=== PATIENT | female | born 1960 | race Caucasian/White ===

== ENCOUNTER → 2016-10-01 | Outpatient (CLI) | payer OTHER ==
--- NOTE | 2016-10-01 11:22 | US ---
EXAMINATION TYPE: US venous doppler duplex LE LT DATE OF EXAM: 10/01/2016 11:07 AM COMPARISON: NONE CLINICAL HISTORY: lateral left leg pain, no h/o dvt. SIDE PERFORMED: Left VESSELS IMAGED: External Iliac Vein (EIV) Common Femoral Vein Deep Femoral Vein Greater Saphenous Vein * Femoral Vein Popliteal Vein Small Saphenous Vein * Proximal Calf Veins (* superficial vessels) IMPRESSION: Left Leg: Appears negative for DVT
== END | disposition home or self-care (01) ==
LOC: RADUSWWP 10:48
PROVIDERS: ATTEND Family Medicine
DX: M79.652 Pain in left thigh (principal)

== ENCOUNTER 2016-10-22 09:58 | Observation (INO) | payer OTHER ==
[2016-10-22] MEDS ORDERED: NITROGLYCERIN OINT 1 INCH/GM PACKET TOPICAL STA (10:36)
[2016-10-22] MEDS ORDERED: ASPIRIN 81 MG CHEW PO STA (10:36)
--- NOTE | 2016-10-22 10:42 | ED ---
General Adult HPI - General Chief complaint: Chest Pain Stated complaint: CHEST PAIN Time Seen by Provider: 10/22/16 10:10 Source: patient, RN notes reviewed Mode of arrival: wheelchair Limitations: no limitations - History of Present Illness Initial comments: This is a 56-year-old female with past medical history significant for thyroid cancer as well as MRI. Patient states she's never had a stent placed as her vessels were 2 small. Patient states she started having symptoms a couple days ago with some discomfort under her right armpit but got really significant this morning she broke out into a sweat and the pain radiated up her neck down her right arm. Patient states this is very similar to the heart attack that she had before. Patient states that movement seems to make his pain worse as does deep breathing or coughing. Patient states that is not similar to the pain she had before but the sweating and the pain down the arm are both familiar to her from the [place] she had in the past. Patient denies any recent fever chills or cough. Patient denies headache patient denies numbness weakness. Patient denies any lightheadedness dizziness or near syncopal episode. Patient states she went to the clinic prior to coming to the emergency department data an EKG didn't see any significant findings however because of her diaphoresis shortness of breath and the similar symptoms between his episode her previous heart attack they wanted to come the emergency department. Again the patient states the one thing that is not similar is the fact that the pain seems to worsen with deep breathing and coughing worse before it did not. - Related Data Home Medications Medication Instructions Recorded Confirmed Omeprazole [PriLOSEC] 20 mg PO DAILY 03/19/15 10/22/16 Atorvastatin [Lipitor] 40 mg PO HS 12/05/15 10/22/16 Ergocalciferol [Vitamin D2 50,000 unit PO WE 04/03/16 10/22/16 (DRISDOL)] Liothyronine Sodium [Cytomel] 25 mcg PO DAILY 04/03/16 10/22/16 Levothyroxine Sodium [Synthroid] 100 mcg PO DAILY 05/18/16 10/22/16 Previous Rx's Medication Instructions Recorded Aspirin EC [Ecotrin Low Dose] 81 mg PO DAILY #30 tablet.dr 03/15/14 Metoprolol Succinate (ER) [Toprol 12.5 mg PO BID #60 tab.er.24h 03/15/14 XL] Nitroglycerin Sl Tabs [Nitrostat] 0.4 mg SUBLINGUAL Q5M PRN #25 tab 03/15/14 Allergies Allergy/AdvReac Type Severity Reaction Status Date / Time bee pollen Allergy Anaphylaxis Verified 10/22/16 10:07 levofloxacin [From Levaquin] Allergy Anaphylaxis Verified 10/22/16 10:33 Penicillins Allergy Anaphylaxis Verified 10/22/16 10:33 venom-honey bee Allergy Anaphylaxis Verified 10/22/16 10:33 adhesive tape AdvReac Rash/Hives Verified 10/22/16 10:33 Review of Systems ROS Statement: Those systems with pertinent positive or pertinent negative responses have been documented in the HPI. ROS Other: All systems not noted in ROS Statement are negative. Past Medical History Past Medical History: Coronary Artery Disease (CAD), Cancer, GERD/Reflux, Myocardial Infarction ([place]), Thyroid Disorder Additional Past Medical History / Comment(s): HX THYROID CA, HX OF DIVERTICULITIS, numbness, pain hands, worse on right, DDD, cervical stenosis & myelopathy Last Myocardial Infarction Date:: 03/09/14 History of Any Multi-Drug Resistant Organisms: None Reported Past Surgical History: Breast Surgery, Heart Catheterization, Hysterectomy, Tubal Ligation Additional Past Surgical History / Comment(s): breast biopsy, heart cath-UNABLE TO PUT IN STENT, RT THYROIDECTOMY AND LEFT MASS REMOVED FROM NECK AT [facility], , MULT THYROID BX'S. completion of thyroidectomy, COLONOSCOPY, CERVICAL DISCECTOMY/FUSION C4-5,C5-6,C6-7 Past Anesthesia/Blood Transfusion Reactions: No Reported Reaction Additional Past Anesthesia/Blood Transfusion Reaction / Comment(s): STATES B/P WAS LOW POST OP RT THYROIDECTOMY-mostly related to narcotic pain meds. CLAUSTERPHOBIA Past Psychological History: Anxiety, Depression Additional Psychological History / Comment(s): pt states has anxiety no meds. PT DENIES ANY DEPRESSION AT TIME OF THIS ADMIT, NO THOUGHTS OF HARMING SELF, NO HOPELESSNESS Smoking Status: Former smoker Past Alcohol Use History: Occasional Additional Past Alcohol Use History / Comment(s): STARTED SMOKING AT AGE 18 STOPPED FEBRUARY 2016 Past Drug Use History: None Reported - Past Family History Father Family Medical History: Osteoarthritis (OA) Mother Family Medical History: Rheumatoid Arthritis (RA) Additional Family Medical History / Comment(s): hypothyroidism. bladder issues. heart palpatations General Exam - General Exam Comments Initial Comments: GENERAL: Patient is well-developed and well-nourished. Patient is nontoxic and well- hydrated and is in mild distress. ENT: Neck is soft and supple. No significant lymphadenopathy is noted. Oropharynx is clear. Moist mucous membranes. Neck has full range of motion without eliciting any pain. EYES: The sclera were anicteric and conjunctiva were pink and moist. Extraocular movements were intact and pupils were equal round and reactive to light. Eyelids were unremarkable. PULMONARY: Unlabored respirations. Good breath sounds bilaterally. No audible rales rhonchi or wheezing was noted. CARDIOVASCULAR: There is a regular rate and rhythm without any murmurs gallops or rubs. ABDOMEN: Soft and nontender with normal bowel sounds. No palpable organomegaly was noted. There is no palpable pulsatile mass. SKIN: Skin is clear with no lesions or rashes and otherwise unremarkable. NEUROLOGIC: Patient is alert and oriented x3. Cranial nerves II through XII are grossly intact. Motor and sensory are also intact. Normal speech, volume and content. Symmetrical smile. MUSCULOSKELETAL: Normal extremities with adequate strength and full range of motion. No lower extremity swelling or edema. No calf tenderness. LYMPHATICS: No significant lymphadenopathy is noted PSYCHIATRIC: Normal psychiatric evaluation. Limitations: no limitations Course Vital Signs 10/22/16 10/22/16 10/22/16 10:04 10:37 11:47 Temperature 98.0 F Pulse Rate 60 63 59 L Respiratory 20 18 17 Rate Blood Pressure 135/67 134/70 112/61 O2 Sat by Pulse 99 96 95 Oximetry Medical Decision Making - Medical Decision Making EKG shows sinus bradycardia 59 bpm IA interval is 162 QRS is 80 QT interval 374 QTC is 370. Patient's EKG shows no ST segment elevation or depression or T wave abnormalities are noted. Patient's chest x-ray showed no acute abnormality. I went back to reexamine the patient she still is having episodes of pain that radiated up into the back of her shoulder blade on the right. Patient also got tingling down the fingers on the right arm as well. I looked at the patient's previous admission when she had her heart attack her initial enzymes were not very elevated but shortly thereafter they were extremely high because of this and her clinical picture I felt her to be unstable angina pectoris started on heparin I called Dr. Contreras admitted the patient and wrote admitting orders and consult cardiology continued to help her nitroglycerin and aspirin on the floor. - Lab Data Result diagrams: 10/22/16 10:45 10/22/16 10:45 Lab Results 10/22/16 10/22/16 10/22/16 Range/Units 10:45 10:45 10:45 WBC 6.2 (3.8-10.6) k/uL RBC 4.96 (3.80-5.40) m/uL Hgb 14.3 (11.4-16.0) gm/dL Hct 43.3 (34.0-46.0) % MCV 87.2 (80.0-100.0) fL MCH 28.8 (25.0-35.0) pg MCHC 33.0 (31.0-37.0) g/dL RDW 12.7 (11.5-15.5) % Plt Count 232 (150-450) k/uL Neutrophils % 65 % Lymphocytes % 24 % Monocytes % 5 % Eosinophils % 4 % Basophils % 1 % Neutrophils # 4.0 (1.3-7.7) k/uL Lymphocytes # 1.5 (1.0-4.8) k/uL Monocytes # 0.3 (0-1.0) k/uL Eosinophils # 0.3 (0-0.7) k/uL Basophils # 0.0 (0-0.2) k/uL PT (9.0-12.0) sec INR (<1.1) APTT (22.0-30.0) sec D-Dimer (<0.60) mg/L FEU Sodium 143 (137-145) mmol/L Potassium 4.9 (3.5-5.1) mmol/L Chloride 105 (98-107) mmol/L Carbon Dioxide 28 (22-30) mmol/L Anion Gap 10 mmol/L BUN 15 (7-17) mg/dL Creatinine 0.78 (0.52-1.04) mg/dL Est GFR (MDRD) Af Amer >60 (>60 ml/min/1.73 sqM) Est GFR (MDRD) Non-Af >60 (>60 ml/min/1.73 sqM) Glucose 93 (74-99) mg/dL Calcium 9.5 (8.4-10.2) mg/dL Magnesium 1.9 (1.6-2.3) mg/dL Total Bilirubin 0.9 (0.2-1.3) mg/dL AST 22 (14-36) U/L ALT 48 (9-52) U/L Alkaline Phosphatase 112 (38-126) U/L Total Creatine Kinase 48 (30-135) U/L CK-MB (CK-2) 1.0 (0.0-2.4) ng/mL CK-MB (CK-2) Rel Index 2.1 Troponin I <0.012 (0.000-0.034) ng/mL NT-Pro-B Natriuret Pep pg/mL Total Protein 7.0 (6.3-8.2) g/dL Albumin 4.1 (3.5-5.0) g/dL 10/22/16 10/22/16 Range/Units 10:45 10:45 WBC (3.8-10.6) k/uL RBC (3.80-5.40) m/uL Hgb (11.4-16.0) gm/dL Hct (34.0-46.0) % MCV (80.0-100.0) fL MCH (25.0-35.0) pg MCHC (31.0-37.0) g/dL RDW (11.5-15.5) % Plt Count (150-450) k/uL Neutrophils % % Lymphocytes % % Monocytes % % Eosinophils % % Basophils % % Neutrophils # (1.3-7.7) k/uL Lymphocytes # (1.0-4.8) k/uL Monocytes # (0-1.0) k/uL Eosinophils # (0-0.7) k/uL Basophils # (0-0.2) k/uL PT 10.4 (9.0-12.0) sec INR 1.0 (<1.1) APTT 21.1 L (22.0-30.0) sec D-Dimer 0.40 (<0.60) mg/L FEU Sodium (137-145) mmol/L Potassium (3.5-5.1) mmol/L Chloride (98-107) mmol/L Carbon Dioxide (22-30) mmol/L Anion Gap mmol/L BUN (7-17) mg/dL Creatinine (0.52-1.04) mg/dL Est GFR (MDRD) Af Amer (>60 ml/min/1.73 sqM) Est GFR (MDRD) Non-Af (>60 ml/min/1.73 sqM) Glucose (74-99) mg/dL Calcium (8.4-10.2) mg/dL Magnesium (1.6-2.3) mg/dL Total Bilirubin (0.2-1.3) mg/dL AST (14-36) U/L ALT (9-52) U/L Alkaline Phosphatase (38-126) U/L Total Creatine Kinase (30-135) U/L CK-MB (CK-2) (0.0-2.4) ng/mL CK-MB (CK-2) Rel Index Troponin I (0.000-0.034) ng/mL NT-Pro-B Natriuret Pep 95 pg/mL Total Protein (6.3-8.2) g/dL Albumin (3.5-5.0) g/dL Critical Care Time Critical Care Time: Yes Total Critical Care Time: 35 Disposition Clinical Impression: Unstable angina pectoris Disposition: ADMITTED IP TO THIS [facility] Time of Disposition: 12:29
[2016-10-22 10:56] LABS: Basophils % (A) 1 %; CHCM 33.4; Eosinophils # (A) 0.3 k/uL (0-0.7); Eosinophils % (A) 4 %; HCT 43.3 % (34.0-46.0); HDW 2.41; HGB 14.3 gm/dL (11.4-16.0); Luc # (Auto) 0.06; Luc % (Auto) 1; Lymphocytes # (A) 1.5 k/uL (1.0-4.8); Lymphocytes % (A) 24 %; MCH 28.8 pg (25.0-35.0); MCV 87.2 fL (80.0-100.0); Mean Platelet Volume 7.3; Monocytes # (A) 0.3 k/uL (0-1.0); Monocytes % (A) 5 %; Neutrophils % (A) 65 %; RBC 4.96 m/uL (3.80-5.40); RDW 12.7 % (11.5-15.5); WBC 6.2 k/uL (3.8-10.6); WBC (Perox) 6.19
[2016-10-22 11:11] LABS: ALT 48 U/L (9-52); AST 22 U/L (14-36); Alkaline Phosphatase 112 U/L (38-126); Anion Gap 10 mmol/L; Blood Urea Nitrogen 15 mg/dL (7-17); Calcium 9.5 mg/dL (8.4-10.2); Carbon Dioxide 28 mmol/L (22-30); Chloride 105 mmol/L (98-107); Glucose 93 mg/dL (74-99); Magnesium 1.9 mg/dL (1.6-2.3); Non-African American GFR(MDRD) >60 (>60 ml/min/1.73 sqM); Potassium 4.9 mmol/L (3.5-5.1); Sodium 143 mmol/L (137-145); Total Bilirubin 0.9 mg/dL (0.2-1.3)
[2016-10-22 11:16] LABS: Prothrombin Time 10.4 sec (9.0-12.0)
[2016-10-22 11:20] LABS: Partial Thromboplastin Time 21.1 sec (22.0-30.0)
--- NOTE | 2016-10-22 11:25 | XR ---
EXAMINATION TYPE: XR chest 2V DATE OF EXAM: 10/22/2016 11:17 AM HISTORY: Shortness of breath. COMPARISON: 05/13/16 TECHNIQUE: two view of the chest is submitted. FINDINGS: Demonstrated are scattered senescent parenchymal change. There is no evidence for focal infiltrate. The heart is stable. Hilar and mediastinal structures are within normal limits. Degenerative changes are seen of the dorsal spine. IMPRESSION: 1. Chronic changes without evidence for acute pulmonary disease.
[2016-10-22 11:26] LABS: Creatine Kinase 48 U/L (30-135)
[2016-10-22 11:38] LABS: Troponin I <0.012 ng/mL (0.000-0.034)
[2016-10-22] MEDS ORDERED: HEPARIN SODIUM,PORCINE 5,000 UNIT/ML 1 ML VIAL IV ONE (12:27)
[2016-10-22] MEDS ORDERED: ACETAMINOPHEN TAB 500 MG TAB PO STA (12:27)
[2016-10-22] MEDS ORDERED: NITROGLYCERIN SL TABS 0.4 MG TAB SUBLINGUAL PRN (12:29)
[2016-10-22] MEDS ORDERED: HEPARIN SODIUM,PORCINE/D5W PMX 25,000 UNIT in DEXTROSE/WATER 1 500ML.BAG IV SCH (12:30)
[2016-10-22 17:47] LABS: Creatine Kinase 53 U/L (30-135)
[2016-10-22 18:01] LABS: Troponin I <0.012 ng/mL (0.000-0.034)
[2016-10-22] MEDS ORDERED: ACETAMINOPHEN TAB 325 MG TAB PO PRN (18:14)
[2016-10-22] MEDS: NITROGLYCERIN OINT 1 INCH/GM PACKET TOPICAL SCH ×2 (18:26→21:03)
[2016-10-22] MEDS ORDERED: ATORVASTATIN 40 MG TAB PO SCH (21:00)
[2016-10-22] MEDS: METOPROLOL SUCCINATE (ER) 25 MG TAB.ER.24H PO SCH (21:02)
[2016-10-22] MEDS ORDERED: NAPROXEN 250 MG TAB PO PRN (21:42)
[2016-10-22] MEDS ORDERED: HYDROcodone/APAP 5-325MG 1 EACH TAB PO STA (21:45)
[2016-10-22 22:50] LABS: Creatine Kinase 38 U/L (30-135)
[2016-10-22 23:02] LABS: Creatine Kinase MB 0.8 ng/mL (0.0-2.4); Troponin I <0.012 ng/mL (0.000-0.034)
[2016-10-23 00:42] LABS: Cholesterol 142 mg/dL (<200); HDL Cholesterol 58 mg/dL (40-60); Triglycerides 75 mg/dL (<150)
[2016-10-23] MEDS ORDERED: HYDROcodone/APAP 5-325MG 1 EACH TAB PO STA (03:47)
[2016-10-23] MEDS ORDERED: LEVOTHYROXINE 100 MCG TAB PO SCH (06:30)
[2016-10-23] MEDS ORDERED: PANTOPRAZOLE 40 MG TABLET PO SCH (07:30)
--- NOTE | 2016-10-23 08:05 | HP ---
DATE OF ADMISSION: 10/22/2016 PRESENTING COMPLAINT: Chest pain. HISTORY OF PRESENTING COMPLAINT: This is a pleasant 56-year-old patient of Dr. Perez whose chronic stable medical conditions include hyperlipidemia, GERD, patient had surgery for thyroid cancer, history of diverticulitis. 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 Patient also got known coronary artery disease. She states the vessels are too small to be stented. The patient now presents with very sharp pain around the right armpit, goes up to her shoulder. It is much better with lying still and much worse with taking a deep breath and really catches in the chest wall. There is no left-sided precordial pain. There is no shortness of breath. No dizziness. Every time she moves around, it is much worse because of which questioned for possible coronary artery disease. She was admitted. REVIEW OF SYSTEMS: CONSTITUTIONAL: None. HEENT: None. RESPIRATORY: As above. CARDIOVASCULAR: No precordial pain. GASTROINTESTINAL: Heartburn. GENITOURINARY: None. MUSCULOSKELETAL: As above. DERMATOLOGICAL: None. HEMATOLOGIC: None. LYMPHATIC: None. PSYCHIATRY: None. NEUROLOGICAL: None. PAST HISTORY: Coronary artery disease with very small vessels, GERD, thyroid cancer with surgery, diverticulitis, cervical neuropathy with numbness and pain in the hand, cervical stenosis and myelopathy, hyperlipidemia, GERD. PAST SURGICAL HISTORY: Cardiac catheterization, hysterectomy, tubal ligation, right breast biopsy benign, cardiac cath unable to put stent because the vessels are small, thyroidectomy due to cancer, left mass removed from neck benign, cervical discectomy fusion from C4 to C7. SOCIAL HISTORY: Lives with her fiance. Smokes for about 40 years; stopped in 2013. Alcohol minimal. FAMILY HISTORY: Rheumatoid arthritis, hypothyroid. HOME MEDICATIONS: 1. Prilosec 20 mg a day. 2. Nitrostat 0.4 sublingual q.5 p.r.n. 3. Toprol XL 12.5 p.o. b.i.d. 4. Cytomel 25 mcg p.o. daily. 5. Synthroid 100 mcg p.o. daily. 6. Vitamin D2, 50,000 units p.o. on Wednesday. 7. Lipitor 40 mg q.h.s. 8. Aspirin 81 mg p.o. daily. Allergies to LEVAQUIN, PENICILLIN and ADHESIVE TAPE. On examination, temperature 98, pulse 60, respirations 20, blood pressure 135/67, pulse ox 99% on room air. GENERAL APPEARANCE: Well built, BMI 36, lying in bed. She winces in pain when she moves. EYES: Pupils equal. Conjunctivae normal. HEENT: External appearance of nose and ears normal. Oral cavity normal. NECK: JVD not raised. Mass not palpable. RESPIRATORY: Effort normal. LUNGS: Fair air entry. CARDIOVASCULAR: First and second sounds normal. No edema. ABDOMEN: Soft, nontender. Liver and spleen not palpable. LYMPHATIC: No lymph nodes palpable of neck or axillae. PSYCHIATRY: Alert and oriented x3. Mood and affect normal. NEUROLOGICAL: Pupils equal. Cranial nerves grossly intact. Power and sensation grossly intact. MUSCULOSKELETAL: Patient has got tenderness in the middle axillary line at the level of the nipple and patient does wince and ( ) in pain when I press there in the costochondral area. INVESTIGATIONS: White count 6.2, hemoglobin 14.3. Potassium 4.9. Troponin x2 negative. ProBNP 95. D-dimer 0.40. EKG normal sinus rhythm. ASSESSMENT: 1. Acute severe costochondritis in the probably fifth to seventh intercostal space in the mid axillary line highly reproducible with a pleuritic component every time she takes a deep breath mainly because her ribs move get expanded during the process. 2. Hypothyroidism, chronic. 3. Gastroesophageal reflux disease. 4. Coronary artery disease, history of. 5. 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 6. Obesity, body mass index 36.0. PLAN: This current presentation is definitely not cardiac and costochondritis. Patient will be put on the Aleve, heating pad. Home medications will be resumed. I do not see any need for any further cardiac workup. The patient was reassured. She should followup with her family doctor . I told her to apply local heat or ice whatever suits her better.
[2016-10-23 08:16] VITALS: BP 112/70; PULSE 57; RESP 18; TEMP 97.9
[2016-10-23] MEDS ORDERED: NAPROXEN 250 MG TAB PO SCH (09:00)
[2016-10-23] MEDS ORDERED: ASPIRIN 81 MG CHEW PO SCH (09:00)
[2016-10-23] MEDS ORDERED: ASPIRIN 325 MG TAB PO SCH (09:00)
[2016-10-23] MEDS ORDERED: LIOTHYRONINE SODIUM 5 MCG TAB PO SCH ×2 (09:00)
[2016-10-23] MEDS ORDERED: ENOXAPARIN 40 MG/0.4 ML SYRINGE SQ SCH (09:00)
[2016-10-23] MEDS: METOPROLOL SUCCINATE (ER) 25 MG TAB.ER.24H PO SCH (09:07)
--- NOTE | 2016-10-24 17:00 | DS ---
DATE OF ADMISSION: 10/22/2016 DATE OF DISCHARGE: 10/23/2016 FINAL DIAGNOSES: 1. Acute severe right costochondritis in the fifth to seventh intercostal space in the mid axillary line. 2. Hypothyroidism, chronic. 3. Gastroesophageal reflux disease. 4. Coronary artery disease, history of. 5. 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 6. Obesity, body mass index 36.0. HOSPITAL COURSE: This patient presented with severe pain in the right chest wall, present at the ( ) level of the mid axillary line, localized and it was severe, rather reproducible. Patient was given NSAIDs with some relief. It is not felt to be cardiac. EKG was unremarkable. Troponins were negative. Care was discussed with the patient in detail. On examination, ( ). DISCHARGE MEDICATIONS: 1. Aspirin 81 mg a day. 2. Toprol XL 12.5 p.o. b.i.d. 3. Nitrostat 0.4 sublingual q.5 p.r.n. 4. Prilosec 20 mg daily. 5. Lipitor 40 mg q.h.s. 6. Vitamin D2, 50,000 units p.o. Wednesday. 7. Cytomel 25 mcg p.o. daily. 8. Synthroid 100 mcg p.o. daily. 9. Naproxen 250 mg p.o. b.i.d., 14 tablets. Local heat with K-pad to be used. Follow up with Dr. Perez in one week.
[2016-10-28] MEDS ORDERED: ERGOCALCIFEROL 50,000 UNIT CAP PO SCH (09:00)
== END 2016-10-23 14:00 | disposition home or self-care (01) ==
LOC: EC 09:58 → 3OBS 12:29
PROVIDERS: ADMIT Hospitalist; ATTEND Hospitalist
DX: M94.0 Chondrocostal junction syndrome [Tietze] (principal); E03.9 Hypothyroidism, unspecified; K21.9 Gastro-esophageal reflux disease without esophagitis; I25.10 Atherosclerotic heart disease of native coronary artery without angina pectoris; M50.00 Cervical disc disorder with myelopathy, unspecified cervical region; M48.02 Spinal stenosis, cervical region; E66.9 Obesity, unspecified; Z68.36 Body mass index [BMI] 36.0-36.9, adult; I25.2 Old myocardial infarction; K57.92 Diverticulitis of intestine, part unspecified, without perforation or abscess without bleeding; F41.9 Anxiety disorder, unspecified; E78.5 Hyperlipidemia, unspecified; Z85.850 Personal history of malignant neoplasm of thyroid; Z87.891 Personal history of nicotine dependence; Z79.899 Other long term (current) drug therapy; Z79.82 Long term (current) use of aspirin; Z88.1 Allergy status to other antibiotic agents; Z88.0 Allergy status to penicillin
CPT/HCPCS: 36415; 93005; 85379; 83880; 80061; 80053; 82550; 82553; 83735; 84484; 85025; 85610; 85730; 71020; 99291; 96365; 96376; G0378 ×2; J1644 ×2; J1650; 96366; 96372

== ENCOUNTER → 2017-12-11 | Outpatient (CLI) | payer MEDICARE, OTHER ==
--- NOTE | 2017-12-11 09:40 | MR ---
EXAMINATION TYPE: MR brain wo/w con DATE OF EXAM: 12/11/2017 9:27 AM COMPARISON: NONE HISTORY: Change in vision TECHNIQUE: Multiplanar, multiecho imaging of the brain was obtained with and without intravenous adm inistration of 10 mL intravenous Gadavist. FINDINGS: Midline structures are unremarkable. There is a normal craniocervical junction. There is restricted diffusion in both cerebellar hemispheres. There is corresponding increased signal on the T2 data set as well as the FLAIR dataset. There is no mass effect, midline shift or intracran ial blood. There are normal vascular flow voids. The orbits appear normal. There is no evidence of a CP angle mass lesion. Following intravenous administration of gadolinium, there is patchy abnormal enhancement in the right cerebellar hemisphere and to a lesser extent the left cerebellar hemisphere. The fourth ventricle is not effaced. IMPRESSION: RESTRICTED DIFFUSION IN BOTH CEREBELLAR HEMISPHERES WITH PATCHY, ABNORMAL ENHANCEMENT BILATERALLY, RI GHT GREATER THAN LEFT. THIS WOULD BE AN UNUSUAL PATTERN FOR ISCHEMIA. METABOLIC CAUSES WOULD NEED TO BE CONSIDERED.
== END | disposition home or self-care (01) ==
LOC: RADMRIMAIN 08:38
PROVIDERS: ATTEND Psychiatry & Neurology Neurology
DX: R90.89 Other abnormal findings on diagnostic imaging of central nervous system (principal); Z88.0 Allergy status to penicillin; Z88.1 Allergy status to other antibiotic agents; Z88.8 Allergy status to other drugs, medicaments and biological substances
CPT/HCPCS: 70553; A9581

== ENCOUNTER → 2018-01-24 | Outpatient (CLI) | payer MEDICARE, OTHER ==
--- NOTE | 2018-01-24 14:13 | MM ---
Reason for exam: screening (asymptomatic). Last mammogram was performed 3 years and 6 months ago. History: Patient history of other cancer. Excisional biopsy. Physical Findings: A clinical breast exam by your physician is recommended on an annual basis and results should be correlated with mammographic findings. MG 3D Screening Mammo W/Cad Bilateral CC and MLO view(s) were taken. Prior study comparison: July 30, 2014, mammogram. June 05, 2014, mammogram. There are scattered fibroglandular densities. Finding: There are typically benign round calcifications in the left breast. Previous mammotome biopsy in the right breast. There is no discrete abnormality. ASSESSMENT: Benign, BI-RAD 2 RECOMMENDATION: Routine screening mammogram of both breasts in 1 year.
== END | disposition home or self-care (01) ==
LOC: RADMAMWWP 08:18
PROVIDERS: ATTEND Family Medicine
DX: Z12.31 Encounter for screening mammogram for malignant neoplasm of breast (principal)
CPT/HCPCS: 77063; 77067

== ENCOUNTER 2018-02-15 12:05 | Day surgery (SDC) | payer MEDICARE, OTHER ==
[2018-02-14 09:36] VITALS: BMI 35.9
[~2018-02-15 12:05] MED LIST: LACTATED RINGERS 1,000 ML IV SCH
[2018-02-15 12:30] VITALS: RESP 16; TEMP 97.1
[2018-02-15] MEDS ORDERED: LIDOCAINE 1% INJ 10MG/ML (20 ML MDV) ONE (13:13)
[2018-02-15] MEDS ORDERED: PROPOFOL 10 MG/ML 20 ML VIAL IV ONE (13:13)
--- NOTE | 2018-02-15 13:38 | P.PCN ---
Date of Procedure: 02/15/18 Procedure(s) Performed: Procedure: Esophagogastroduodenoscopy and biopsy. Preoperative diagnosis: Chronic reflux and upper abdominal symptoms. Postoperative diagnosis: 1. Sliding hiatal hernia with no obvious esophagitis or complicated reflux disease. 2. Mild gastritis and duodenitis. 3. Multiple biopsies obtained from the duodenum, antrum and esophagus. Preparation and sedation: Was provided by anesthesia. Brief clinical history: The patient is a 57-year-old female who is scheduled for this evaluation for the above reasons. He purposes to assess for esophagitis or complicated reflux disease or other pathology. Procedure: With the patient on her left lateral decubitus position and after informed consent and adequate sedation, I passed the Olympus-GIF 160 video upper endoscope through the cricopharyngeus down the esophagus. The esophagus did not show any obvious erosions or ulcers, there were no strictures or Stock 's esophagus. GE junction was around 39 cm from the incisors and there was a sliding hiatal hernia then the endoscope was passed to the rest of the stomach which was insufflated with air and inspected in detail including the retroflex view in the cardia. Finally, the endoscope was passed through the pylorus into the duodenum. Both the stomach and duodenum showed mild mottling and erythema consistent with mild gastritis and duodenitis but there were no ulcers or gastric outlet obstruction or bleeding. I obtained multiple biopsies from the duodenum in addition to biopsies from the antrum and esophagus then the endoscope was withdrawn.. The patient tolerated the procedure well. Plan: The patient was reassured. Will await biopsy results and I will review her ultrasound reports and make further plans based on her course and those results. I will keep you updated on her progress.
[2018-02-15 14:17] VITALS: BP 125/76; PULSE 68
== END 2018-02-15 14:45 | disposition home or self-care (01) ==
LOC: ORWHC2ENDO 12:05
DX: K29.50 Unspecified chronic gastritis without bleeding (principal); B96.81 Helicobacter pylori [H. pylori] as the cause of diseases classified elsewhere; Z91.030 Bee allergy status; K21.9 Gastro-esophageal reflux disease without esophagitis; I25.10 Atherosclerotic heart disease of native coronary artery without angina pectoris; I10 Essential (primary) hypertension; M19.90 Unspecified osteoarthritis, unspecified site; Z85.850 Personal history of malignant neoplasm of thyroid; I25.2 Old myocardial infarction; Z87.891 Personal history of nicotine dependence; Z79.82 Long term (current) use of aspirin; Z79.890 Hormone replacement therapy; Z79.899 Other long term (current) drug therapy; Z88.0 Allergy status to penicillin; Z88.1 Allergy status to other antibiotic agents; K29.80 Duodenitis without bleeding
CPT/HCPCS: 88305; 88342; 43239; J2001; J2704

== ENCOUNTER 2018-05-02 12:49 | Observation (INO) | payer MEDICARE, OTHER ==
[2018-05-02 14:52] LABS: ALT 32 U/L (9-52); AST 24 U/L (14-36); Albumin 3.9 g/dL (3.5-5.0); Alkaline Phosphatase 76 U/L (38-126); Anion Gap 9 mmol/L; Blood Urea Nitrogen 15 mg/dL (7-17); Calcium 9.2 mg/dL (8.4-10.2); Carbon Dioxide 24 mmol/L (22-30); Chloride 108 mmol/L (98-107); Glucose 107 mg/dL (74-99); Potassium 4.2 mmol/L (3.5-5.1); Sodium 141 mmol/L (137-145); Total Bilirubin 0.4 mg/dL (0.2-1.3); Total Protein 6.4 g/dL (6.3-8.2)
[2018-05-02 15:01] LABS: Creatine Kinase 60 U/L (30-135)
[2018-05-02 15:02] LABS: INR 1.1 (<1.2); Prothrombin Time 10.4 sec (9.0-12.0)
[2018-05-02] MEDS ORDERED: MORPHINE SULFATE 4 MG/ML SYRINGE IVP STA (15:03)
[2018-05-02] MEDS ORDERED: ASPIRIN 325 MG TAB PO STA (15:03)
[2018-05-02 15:09] LABS: Partial Thromboplastin Time 22.2 sec (22.0-30.0)
[2018-05-02 15:12] LABS: Creatine Kinase MB 0.7 ng/mL (0.0-2.4); Troponin I <0.012 ng/mL (0.000-0.034)
[2018-05-02 15:22] LABS: Basophils # (A) 0.1 k/uL (0-0.2); Basophils % (A) 1 %; Eosinophils # (A) 0.2 k/uL (0-0.7); Eosinophils % (A) 4 %; HCT 42.4 % (34.0-46.0); HGB 13.9 gm/dL (11.4-16.0); Lymphocytes # (A) 1.4 k/uL (1.0-4.8); Lymphocytes % (A) 29 %; MCH 28.4 pg (25.0-35.0); MCHC 32.8 g/dL (31.0-37.0); MCV 86.5 fL (80.0-100.0); Mean Platelet Volume 6.9; Monocytes # (A) 0.2 k/uL (0-1.0); Monocytes % (A) 5 %; Neutrophils # (A) 2.8 k/uL (1.3-7.7); Neutrophils % (A) 58 %; Platelet Count 268 k/uL (150-450); RDW 12.6 % (11.5-15.5); WBC 4.7 k/uL (3.8-10.6)
--- NOTE | 2018-05-02 15:44 | XR ---
EXAMINATION TYPE: XR chest 2V DATE OF EXAM: 05/02/2018 COMPARISON: 10/22/2016 HISTORY: 58-year-old female with shortness of breath and pain TECHNIQUE: AP and lateral views FINDINGS: ACDF hardware. Heart upper limits of normal in size. Aorta and pulmonary vasculature within normal li mits. Hazy lower lung densities related to overlying soft tissue. No consolidation or pleural effusio n. IMPRESSION: Heart upper limits of normal in size. No acute cardiopulmonary process.
--- NOTE | 2018-05-02 16:05 | ED ---
General Adult HPI - General Chief complaint: Chest Pain Stated complaint: SOB/heart concerns Time Seen by Provider: 05/02/18 14:57 Source: patient, RN notes reviewed, old records reviewed Mode of arrival: wheelchair Limitations: no limitations - History of Present Illness Initial comments: 58 yo presenting for evaluation of chest pain. Patient has had chest pain throughout the day today, approximately 16 hours prior to arrival. She does have history of COPD and previous [place]. She states her symptoms are very similar to previous heart attack. She describes central chest pain which is dull in nature as well as right shoulder and scapular pain. She had several episodes of nausea and vomiting. She also reports some dyspnea. No cough, no fever. No abdominal pain. She has been intermittent - Related Data Home Medications Medication Instructions Recorded Confirmed Omeprazole [PriLOSEC] 20 mg PO DAILY 03/19/15 05/02/18 Ergocalciferol [Vitamin D2 50,000 unit PO SUWE 04/03/16 05/02/18 (DRISDOL)] Liothyronine Sodium [Cytomel] 25 mcg PO DAILY 04/03/16 05/02/18 Levothyroxine Sodium [Synthroid] 88 mcg PO DAILY 05/18/16 05/02/18 Cyclobenzaprine [Flexeril] 5 mg PO DAILY PRN 02/14/18 05/02/18 Acetaminophen Tab [Tylenol Tab] 650 mg PO ONCE PRN 05/02/18 05/02/18 Pregabalin [Lyrica] 50 mg PO BID 05/02/18 05/02/18 Previous Rx's Medication Instructions Recorded Aspirin EC [Ecotrin Low Dose] 81 mg PO DAILY #30 tablet.dr 03/15/14 Metoprolol Succinate (ER) [Toprol 12.5 mg PO BID #60 tab.er.24h 03/15/14 XL] Nitroglycerin Sl Tabs [Nitrostat] 0.4 mg SUBLINGUAL Q5M PRN #25 tab 03/15/14 Allergies Allergy/AdvReac Type Severity Reaction Status Date / Time adhesive tape Allergy Unknown Verified 05/02/18 15:17 levofloxacin [From Levaquin] Allergy BRAIN STEM Verified 05/02/18 15:17 SEIZURE Penicillins Allergy Anaphylaxis Verified 05/02/18 15:17 Quinolones Allergy Unknown Verified 05/02/18 15:17 venom-honey bee Allergy Anaphylaxis Verified 05/02/18 15:17 Review of Systems ROS Statement: Those systems with pertinent positive or pertinent negative responses have been documented in the HPI. ROS Other: All systems not noted in ROS Statement are negative. Past Medical History Past Medical History: Coronary Artery Disease (CAD), Cancer, GERD/Reflux, Hypertension, Myocardial Infarction ([place]), Osteoarthritis (OA), Thyroid Disorder Additional Past Medical History / Comment(s): Recent respiratory infection with ABX, HX THYROID CA with surgery, DIVERTICULITIS, cervical neuropathy-numbness, pain hands, DDD, cervical stenosis & myelopathy Last Myocardial Infarction Date:: 03/09/14 History of Any Multi-Drug Resistant Organisms: None Reported Past Surgical History: Breast Surgery, Heart Catheterization, Hysterectomy, Tubal Ligation Additional Past Surgical History / Comment(s): R breast biopsy-benign, heart cath-UNABLE TO PUT IN STENT, RT THYROIDECTOMY d/t cancer AND LEFT MASS REMOVED FROM NECK , MULT THYROID BX'S. completion of thyroidectomy, COLONOSCOPY, CERVICAL DISCECTOMY/FUSION C4-5,C5-6,C6-7, CARPAL TUNNEL LEFT WRIST Past Anesthesia/Blood Transfusion Reactions: Previous Problems w/ Anesthesia Additional Past Anesthesia/Blood Transfusion Reaction / Comment(s): STATES B/P WAS LOW POST OP RT THYROIDECTOMY-mostly related to narcotic pain meds. HISTORY OF CLAUSTERPHOBIA Past Psychological History: Anxiety, Depression Smoking Status: Former smoker Past Alcohol Use History: Occasional Past Drug Use History: None Reported - Past Family History Father Family Medical History: Osteoarthritis (OA) Mother Family Medical History: AFIB, Deep Vein Thrombosis (DVT) Additional Family Medical History / Comment(s): hypothyroidism. bladder issues. heart palpatations General Exam Limitations: no limitations General appearance: alert, in no apparent distress Head exam: Present: atraumatic, normocephalic Eye exam: Present: normal appearance, PERRL, EOMI ENT exam: Present: normal exam, normal oropharynx Neck exam: Present: normal inspection. Absent: tenderness, meningismus Respiratory exam: Present: normal lung sounds bilaterally. Absent: respiratory distress, wheezes Cardiovascular Exam: Present: regular rate, normal rhythm GI/Abdominal exam: Present: soft. Absent: distended, tenderness Extremities exam: Present: normal inspection, normal capillary refill. Absent: pedal edema Neurological exam: Present: alert, oriented X3 Psychiatric exam: Present: normal affect, normal mood Skin exam: Present: warm, dry, intact. Absent: cyanosis, diaphoretic Course Vital Signs 05/02/18 05/02/18 14:02 15:39 Temperature 97.4 F L Pulse Rate 65 64 Respiratory 20 16 Rate Blood Pressure 126/75 140/80 O2 Sat by Pulse 98 99 Oximetry EKG Findings - EKG Comments: EKG Findings:: EKG: Normal sinus rhythm, rate of 61, W[place] interval 148, QRS duration 84, QTC 376, no ST segment elevation, there is T-wave inversion in lead 3. Medical Decision Making - Medical Decision Making 58 yo female presenting with chest pain and right scapular pain. EKG negative for ST segment elevation, there is some nonspecific changes including T-wave inversion in lead 3. Symptoms have been present for several hours prior to arrival. Chest x-ray shows cardiomegaly, no acute process. CBC and CMP are within normal limits, initial troponin is negative. Patient is given aspirin and morphine in the emergency department, pain improves. There is some concern for gallbladder pathology in this patient, ultrasound will be obtained, this is pending. Patient will be placed in observation for serial cardiac enzymes and cardiology consultation. - Lab Data Result diagrams: 05/02/18 13:36 05/02/18 13:36 Lab Results 05/02/18 05/02/18 05/02/18 Range/Units 13:36 13:36 13:36 WBC 4.7 (3.8-10.6) k/uL RBC 4.90 (3.80-5.40) m/uL Hgb 13.9 (11.4-16.0) gm/dL Hct 42.4 (34.0-46.0) % MCV 86.5 (80.0-100.0) fL MCH 28.4 (25.0-35.0) pg MCHC 32.8 (31.0-37.0) g/dL RDW 12.6 (11.5-15.5) % Plt Count 268 (150-450) k/uL Neutrophils % 58 % Lymphocytes % 29 % Monocytes % 5 % Eosinophils % 4 % Basophils % 1 % Neutrophils # 2.8 (1.3-7.7) k/uL Lymphocytes # 1.4 (1.0-4.8) k/uL Monocytes # 0.2 (0-1.0) k/uL Eosinophils # 0.2 (0-0.7) k/uL Basophils # 0.1 (0-0.2) k/uL PT (9.0-12.0) sec INR (<1.2) APTT (22.0-30.0) sec Sodium 141 (137-145) mmol/L Potassium 4.2 (3.5-5.1) mmol/L Chloride 108 H (98-107) mmol/L Carbon Dioxide 24 (22-30) mmol/L Anion Gap 9 mmol/L BUN 15 (7-17) mg/dL Creatinine 0.60 (0.52-1.04) mg/dL Est GFR (CKD-EPI)AfAm >90 (>60 ml/min/1.73 sqM) Est GFR (CKD-EPI)NonAf >90 (>60 ml/min/1.73 sqM) Glucose 107 H (74-99) mg/dL Calcium 9.2 (8.4-10.2) mg/dL Total Bilirubin 0.4 (0.2-1.3) mg/dL AST 24 (14-36) U/L ALT 32 (9-52) U/L Alkaline Phosphatase 76 (38-126) U/L Total Creatine Kinase 60 (30-135) U/L CK-MB (CK-2) 0.7 (0.0-2.4) ng/mL CK-MB (CK-2) Rel Index 1.2 Troponin I <0.012 (0.000-0.034) ng/mL Total Protein 6.4 (6.3-8.2) g/dL Albumin 3.9 (3.5-5.0) g/dL 05/02/18 Range/Units 13:36 WBC (3.8-10.6) k/uL RBC (3.80-5.40) m/uL Hgb (11.4-16.0) gm/dL Hct (34.0-46.0) % MCV (80.0-100.0) fL MCH (25.0-35.0) pg MCHC (31.0-37.0) g/dL RDW (11.5-15.5) % Plt Count (150-450) k/uL Neutrophils % % Lymphocytes % % Monocytes % % Eosinophils % % Basophils % % Neutrophils # (1.3-7.7) k/uL Lymphocytes # (1.0-4.8) k/uL Monocytes # (0-1.0) k/uL Eosinophils # (0-0.7) k/uL Basophils # (0-0.2) k/uL PT 10.4 (9.0-12.0) sec INR 1.1 (<1.2) APTT 22.2 (22.0-30.0) sec Sodium (137-145) mmol/L Potassium (3.5-5.1) mmol/L Chloride (98-107) mmol/L Carbon Dioxide (22-30) mmol/L Anion Gap mmol/L BUN (7-17) mg/dL Creatinine (0.52-1.04) mg/dL Est GFR (CKD-EPI)AfAm (>60 ml/min/1.73 sqM) Est GFR (CKD-EPI)NonAf (>60 ml/min/1.73 sqM) Glucose (74-99) mg/dL Calcium (8.4-10.2) mg/dL Total Bilirubin (0.2-1.3) mg/dL AST (14-36) U/L ALT (9-52) U/L Alkaline Phosphatase (38-126) U/L Total Creatine Kinase (30-135) U/L CK-MB (CK-2) (0.0-2.4) ng/mL CK-MB (CK-2) Rel Index Troponin I (0.000-0.034) ng/mL Total Protein (6.3-8.2) g/dL Albumin (3.5-5.0) g/dL Disposition Clinical Impression: Chest pain Disposition: ADMITTED IP TO THIS [facility] Condition: Stable Is patient prescribed a controlled substance at d/c from ED?: No Referrals: Konrad Perez MD [Primary Care Provider] - 1-2 days Decision to Admit Reason: Admit from EC Decision Date: 05/02/18 Decision Time: 16:05
[2018-05-02] MEDS ORDERED: NALOXONE 0.4 MG/ML 1 ML VIAL IV PRN (16:06)
[2018-05-02] MEDS ORDERED: MORPHINE SULFATE 4 MG/ML SYRINGE IV PRN (16:06)
[2018-05-02] MEDS ORDERED: ONDANSETRON 4 MG/2 ML VIAL IVP PRN (16:06)
--- NOTE | 2018-05-02 16:56 | US ---
EXAMINATION TYPE: US gallbladder DATE OF EXAM: 05/02/2018 COMPARISON: CT abdomen pelvis 07/09/2016, ultrasound 12/19/2015 CLINICAL HISTORY: Pain. shoulder pain and SOB, h/o MT EXAM MEASUREMENTS: Liver Length: 15.9 cm Gallbladder Wall: 0.2 cm CBD: 0.5 cm Right Kidney: 9.6 x 4.6 x 4.4 cm overlying bowel gas and body habitus limits exam Pancreas: limited views wnl Liver: difficult to penetrate Gallbladder: wnl Evidence for sonographic Zapata's sign: no CBD: wnl Right Kidney: wnl There is no ascites. IMPRESSION: Exam is somewhat limited. Correlate for possible hepatic steatosis.
[2018-05-02 18:40] LABS: Creatine Kinase 55 U/L (30-135)
[2018-05-02 18:45] LABS: Creatine Kinase MB 0.7 ng/mL (0.0-2.4); Troponin I <0.012 ng/mL (0.000-0.034)
[2018-05-02 20:51] VITALS: BMI 35.9
[2018-05-02] MEDS ORDERED: NITROGLYCERIN SL TABS 0.4 MG TAB SUBLINGUAL PRN (21:48)
[2018-05-02] MEDS ORDERED: CYCLOBENZAPRINE 5 MG TAB PO PRN (21:48)
[2018-05-02] MEDS: METOPROLOL SUCCINATE (ER) 25 MG TAB.ER.24H PO SCH (22:32)
[2018-05-02] MEDS: PREGABALIN 50 MG CAP PO SCH (22:34)
--- NOTE | 2018-05-02 23:38 | HP ---
HISTORY AND PHYSICAL DATE OF ADMISSION: 05/02/2018 DATE OF SERVICE: 05/02/2018 PRESENTING COMPLAINT: Chest pressure. HISTORY OF PRESENTING COMPLAINT: This is a 58-year-old patient of Dr. Perez. Chronic stable medical conditions include GERD, hypertension, osteoarthritis, hypothyroid, cervical neuropathy with numbness in the hands. Patient presented with earlier episode of chest pressure after taking a shower which was rather sharp. Then the patient started having pain in the shoulder blades that remained on and off for most of the day. There was nausea, perspiration, and patient decided to come in, as it felt like a previous heart attack. Admitted for unstable angina. REVIEW OF SYSTEMS: CONSTITUTIONAL: None. HEENT: None. RESPIRATORY: None. CARDIOVASCULAR: As above. GASTROINTESTINAL: Heartburn. GENITOURINARY: None. MUSCULOSKELETAL: Aches and pains in different joints. DERMATOLOGICAL: None. HEMATOLOGICAL: None. LYMPHATICS: None. PSYCHIATRY: Anxiety, depression, controlled. NEUROLOGICAL: None. PAST MEDICAL HISTORY: 1. Coronary artery disease. 2. GERD. 3. Hypertension. 4. Osteoarthritis. 5. Hypothyroid. 6. Thyroid cancer with surgery. 7. Diverticulitis. 8. Cervical neuropathy, numbness and pain in the hands. 9. Cervical stenosis and myelopathy. PAST SURGICAL HISTORY: 1. Breast surgery. 2. Cardiac catheterization. 3. Hysterectomy. 4. Tubal ligation. 5. Right breast biopsy. 6. Cardiac catheterization; unable to get a stent. 7. Right thyroidectomy due to cancer. 8. Left mass removed from the neck. 9. Multiple thyroid biopsies. 10.Discectomy, fusion, C4 to C7. 11.Left carpal tunnel. PSYCH HISTORY: Anxiety, depression; not any more. SOCIAL HISTORY: Lives with her fiance. Patient smoked close to 36 years off and on. No alcohol. FAMILY HISTORY: Hypothyroid, bladder issues, DVT. HOME MEDICATIONS: 1. Lyrica 50 mg b.i.d. 2. Omeprazole 20 mg a day. 3. Nitrostat 0.4 sublingually q.5 p.r.n. 4. Toprol XL 12.5 p.o. b.i.d. 5. Cytomel 25 mcg p.o. daily. 6. Synthroid 88 mcg p.o. daily. 7. Vitamin D2 50,000 units on Sundays and Wednesdays. 8. Flexeril 5 mg p.o. daily p.r.n. 9. Aspirin 81 mg p.o. daily. 10.Tylenol 600 mg q.6 p.r.n. ALLERGIES: 1. ADHESIVE. 2. LEVAQUIN. 3. PENICILLIN. 4. QUINOLONE. PHYSICAL EXAMINATION: Temperature 97.6, pulse 64, respiration 18, blood pressure 143/87, pulse ox 99% on 2 L. GENERAL APPEARANCE: Well built; BMI 36. Lying in bed, awake. EYES: Pupils equal. Conjunctivae normal. HEENT: External appearance of nose and ears normal. Oral cavity normal. NECK: JVD not raised. Mass not palpable. RESPIRATORY: Effort normal. LUNGS: Fair air entry. CARDIOVASCULAR: First and second sounds normal. No edema. ABDOMEN: Soft, non-tender. Liver and spleen not palpable. LYMPHATIC: No lymph node palpable in neck or axillae. PSYCHIATRY: Alert and oriented x3. Mood and affect normal. NEUROLOGICAL: Pupils equal.. Cranial nerves grossly intact. Power and sensation grossly intact. INVESTIGATIONS: Labs and radiology were reviewed and interpreted in the context of clinical assessment and plan. White count 4.7, hemoglobin 13.9, potassium 4.2. BUN and creatinine are normal. Troponin x2 negative. EKG tracing interpreted by sd shows normal sinus rhythm. Chest x-ray film interpreted by sd shows slight cardiomegaly, prominent pulmonary artery. No infiltrates. ASSESSMENT: 1. Unstable angina in a patient with known coronary artery disease. Initial troponin is negative. EKG is unremarkable. 2. Obesity; body mass index 36. 3. Coronary artery disease. 4. Gastroesophageal reflux disease. 5. Essential hypertension. 6. Primary osteoarthritis. 7. Hypothyroidism. 8. Cervical neuropathy. PLAN: Home medications are resumed. Cardiac enzymes were ordered in sequence. Cardiology was consulted. Patient is already on aspirin and beta anne. Care was discussed with the patient. Questions were answered. MMODL / IJN: [id number] /
[2018-05-03 00:12] VITALS: RESP 16
[2018-05-03 01:45] LABS: Creatine Kinase 44 U/L (30-135)
[2018-05-03 01:58] LABS: Creatine Kinase MB 0.6 ng/mL (0.0-2.4); Troponin I <0.012 ng/mL (0.000-0.034)
[2018-05-03] MEDS: LEVOTHYROXINE 88 MCG TAB PO SCH ×2 (06:41→11:11)
[2018-05-03] MEDS ORDERED: PANTOPRAZOLE 40 MG TABLET PO SCH (07:30)
[2018-05-03] MEDS ORDERED: ACETAMINOPHEN TAB 325 MG TAB PO PRN (07:35)
[2018-05-03 07:50] VITALS: PULSE 66
[2018-05-03] MEDS ORDERED: LIOTHYRONINE SODIUM 5 MCG TAB PO SCH (09:00)
[2018-05-03] MEDS ORDERED: ASPIRIN 81 MG PO SCH (09:00)
[2018-05-03] MEDS ORDERED: ISOSORBIDE MONONITRATE ER 30 MG TAB.ER.24H PO SCH (09:15)
--- NOTE | 2018-05-03 09:54 | P.CRDCN ---
History of Present Illness History of present illness: Mrs. Cummings is a pleasant 58-year-old female past medical history significant for coronary artery disease, hypertension, gastroesophageal reflux disease, dyslipidemia and fibromyalgia. She follows with Dr. Hdez in the office. Most recent catheterization performed 2013 revealed a small sub-totally occluded diagonal branch, diffuse disease of the circumflex and filling of the distal RCA from the circumflex coronary system yet the exact occlusion of the RCA could not be seen. At that time she was recommended maximum medical therapy and not considered a candidate for intervention. Most recently she had a Lexiscan stress test in the office August 2017 which was negative for reversible cardiac ischemia. We have been asked to see her in consultation for symptoms of chest discomfort. She states yesterday after getting out of the shower she felt a sharp pain in the right upper shoulder that radiated around to the anterior right shoulder and settled in the mid-sternal region. The pain in the chest was a heavy pressure sensation that was very brief. She was short of breath, dizzy and nauseated. The symptoms went away on their own but would come back intermittently through the day. Ultimately since coming to the hospital the symptoms have subsided. She continues to complain of a dull ache in the right upper back/scapular region like she was kicked. EKG reveals sinus mechanism with no acute ST or T wave abnormalities noted. Chest x-ray is negative for an acute cardiopulmonary process. Ultrasound of the gallbladder reveals evidence of hepatic steatosis with no acute cholecystitis. Laboratory data reviewed, cardiac enzymes negative 3. Current cardiac medications include aspirin 81 mg daily and Toprol 12.5 mg twice a day. She also takes Lyrica, Prilosec, Cytomel, Synthroid and Flexeril. She has been intolerant to Lipitor and Pravachol. Most recent echocardiogram November 2015 reveals preserved left ventricular systolic function with ejection fraction 55%. No evidence of valvular heart disease or pulmonary hypertension. Review of Systems At the time of my exam: CONSTITUTIONAL: Denies fever. Denies chills. EYES: Denies blurred vision. Denies vision changes. Denies eye pain. EARS, NOSE, MOUTH & THROAT: Denies headache. Denies sore throat. Denies ear pain. CARDIOVASCULAR: Denies chest pain. Denies shortness of breath. Denies orthopnea. Denies PND. Denies palpitations. RESPIRATORY: Denies cough. GASTROINTESTINAL: Denies abdominal pain. Denies diarrhea. Denies constipation. Denies nausea. Denies vomiting. MUSCULOSKELETAL: Complains of right scapular achiness. INTEGUMENTARY: Denies pruitis. Denies rash. NEUROLOGIC: Denies numbness. Denies tingling. Denies weakness. PSYCHIATRIC: Denies anxiety. Denies depression. ENDOCRINE: Denies fatigue. Denies weight change. Denies polydipsia. Denies polyurina. GENITOURINARY: Denies burning, hematuria or urgency with micturation. HEMATOLOGIC: Denies history of anemia. Denies bleeding. Past Medical History Past Medical History: Coronary Artery Disease (CAD), Cancer, GERD/Reflux, Hypertension, Myocardial Infarction ([place]), Osteoarthritis ([place]), Thyroid Disorder Additional Past Medical History / Comment(s): Recent respiratory infection with ABX, HX THYROID CA with surgery, DIVERTICULITIS, cervical neuropathy-numbness, pain hands, DDD, cervical stenosis & myelopathy, abnormal MRI, fibro Last Myocardial Infarction Date:: 03/09/14 History of Any Multi-Drug Resistant Organisms: None Reported Past Surgical History: Breast Surgery, Heart Catheterization, Hysterectomy, Tubal Ligation Additional Past Surgical History / Comment(s): R breast biopsy-benign, heart cath-UNABLE TO PUT IN STENT, RT THYROIDECTOMY d/t cancer AND LEFT MASS REMOVED FROM NECK , MULT THYROID BX'S. completion of thyroidectomy, COLONOSCOPY, CERVICAL DISCECTOMY/FUSION C4-5,C5-6,C6-7, CARPAL TUNNEL LEFT WRIST Past Anesthesia/Blood Transfusion Reactions: Previous Problems w/ Anesthesia Additional Past Anesthesia/Blood Transfusion Reaction / Comment(s): STATES B/P WAS LOW POST OP RT THYROIDECTOMY-mostly related to narcotic pain meds. HISTORY OF CLAUSTERPHOBIA Past Psychological History: Anxiety, Depression Additional Psychological History / Comment(s): pt states has anxiety no meds. PT DENIES ANY DEPRESSION AT TIME OF THIS ADMIT, NO THOUGHTS OF HARMING SELF, NO HOPELESSNESS. Pt lives with [facility] She is independent. Smoking Status: Former smoker Past Alcohol Use History: Occasional Additional Past Alcohol Use History / Comment(s): STARTED SMOKING AT AGE 18 STOPPED FEBRUARY 2014 N ( SMOKED ON AND OFF) SMOKED 1PPD AT THE TIME SHE QUIT 2013 Past Drug Use History: None Reported - Past Family History Father Family Medical History: Osteoarthritis (OA) Mother Family Medical History: AFIB, Deep Vein Thrombosis (DVT) Additional Family Medical History / Comment(s): hypothyroidism. bladder issues. heart palpatations Medications and Allergies Home Medications Medication Instructions Recorded Confirmed Type Aspirin EC [Ecotrin Low Dose] 81 mg PO DAILY #30 tablet. 03/15/14 05/02/18 Rx Metoprolol Succinate (ER) [Toprol 12.5 mg PO BID #60 tab.er.24h 03/15/14 Rx XL] Nitroglycerin Sl Tabs [Nitrostat] 0.4 mg SUBLINGUAL Q5M PRN #25 tab 03/15/1403/14 Rx Omeprazole [PriLOSEC] 20 mg PO DAILY 03/19/15 05/02/18 History Ergocalciferol [Vitamin D2 50,000 unit PO SUWE 04/03/16 05/02/18 History (JACOBO)] Liothyronine Sodium [Cytomel] 25 mcg PO DAILY 04/03/16 05/02/18 History Levothyroxine Sodium [Synthroid] 88 mcg PO DAILY 05/18/16 05/02/18 History Cyclobenzaprine [Flexeril] 5 mg PO DAILY PRN 02/14/18 05/02/18 History Acetaminophen Tab [Tylenol Tab] 650 mg PO ONCE PRN 05/02/18 05/02/18 History Pregabalin [Lyrica] 50 mg PO BID 05/02/18 05/02/18 History Allergies Allergy/AdvReac Type Severity Reaction Status Date / Time adhesive tape Allergy Unknown Verified 05/02/18 15:17 levofloxacin [From Levaquin] Allergy BRAIN STEM Verified 05/02/18 15:17 SEIZURE Penicillins Allergy Anaphylaxis Verified 05/02/18 15:17 Quinolones Allergy Unknown Verified 05/02/18 15:17 venom-honey bee Allergy Anaphylaxis Verified 05/02/18 15:17 Physical Exam Vitals: Vital Signs Temp Pulse Pulse Resp BP BP Pulse Ox 05/03/18 04:00 98.5 F 63 16 119/71 95 05/03/18 03:25 16 05/03/18 00:00 98.4 F 68 16 115/68 97 05/02/18 20:10 97.6 F 64 18 143/87 99 05/02/18 20:00 18 05/02/18 19:07 74 17 153/79 98 05/02/18 18:20 66 16 131/74 99 05/02/18 16:58 62 16 153/95 98 05/02/18 15:39 64 16 140/80 99 05/02/18 14:02 97.4 F L 65 20 126/75 98 Intake and Output 05/02/18 05/03/18 05/03/18 22:59 06:59 14:59 Other: Voiding Method Toilet Toilet # Voids 1 2 Weight 98 kg Blood pressure 123/85 heart rate 66 afebrile maintaining oxygen saturation on room air GENERAL: This is a 58-year-old female in no apparent distress at the time of my examination. HEENT: Head is atraumatic, normocephalic. Pupils are equal, round. Sclerae anicteric. Conjunctivae are clear. Mucous membranes of the mouth are moist. Neck is supple. There is no jugular venous distention. No carotid bruit is heard. LUNGS: Clear to auscultation no wheezes, rales or rhonchi. No chest wall tenderness is noted on palpation or with deep breathing. HEART: Regular rate and rhythm without murmurs, rubs or gallops. S1 and S2 heard. ABDOMEN: Soft, nontender. Bowel sounds are heard. No organomegaly noted. EXTREMITIES: No evidence of peripheral edema and no calf tenderness noted. VASCULAR: Radial and dorsalis pedis pulses palpated, no evidence of clubbing. NEUROLOGIC: Patient is awake, alert and oriented x3. Results 05/02/18 13:36 05/02/18 13:36 Cardiac Enzymes 05/02/18 05/02/18 05/02/18 Range/Units 13:36 13:36 18:01 AST 24 (14-36) U/L CK-MB (CK-2) 0.7 0.7 (0.0-2.4) ng/mL Troponin I <0.012 <0.012 (0.000-0.034) ng/mL 05/03/18 Range/Units 01:13 AST (14-36) U/L CK-MB (CK-2) 0.6 (0.0-2.4) ng/mL Troponin I <0.012 (0.000-0.034) ng/mL Coagulation 05/02/18 Range/Units 13:36 PT 10.4 (9.0-12.0) sec APTT 22.2 (22.0-30.0) sec CBC 05/02/18 Range/Units 13:36 WBC 4.7 (3.8-10.6) k/uL RBC 4.90 (3.80-5.40) m/uL Hgb 13.9 (11.4-16.0) gm/dL Hct 42.4 (34.0-46.0) % Plt Count 268 (150-450) k/uL Comprehensive Metabolic Panel 05/02/18 Range/Units 13:36 Sodium 141 (137-145) mmol/L Potassium 4.2 (3.5-5.1) mmol/L Chloride 108 H (98-107) mmol/L Carbon Dioxide 24 (22-30) mmol/L BUN 15 (7-17) mg/dL Creatinine 0.60 (0.52-1.04) mg/dL Glucose 107 H (74-99) mg/dL Calcium 9.2 (8.4-10.2) mg/dL AST 24 (14-36) U/L ALT 32 (9-52) U/L Alkaline Phosphatase 76 (38-126) U/L Total Protein 6.4 (6.3-8.2) g/dL Albumin 3.9 (3.5-5.0) g/dL Current Medications Generic Name Dose Route Start Last Admin Trade Name Freq PRN Reason Stop Dose Admin Acetaminophen 650 mg 05/03/18 07:35 Tylenol Tab PO Q6HR PRN Fever and/ or Pain Aspirin 81 mg 05/03/18 09:00 Aspirin PO DAILY [facility] Cyclobenzaprine HCl 5 mg 05/02/18 21:48 Flexeril PO DAILY PRN MUSCLE SPASM Levothyroxine Sodium 88 mcg 05/03/18 06:30 05/03/18 06:41 Synthroid PO Not Given DAILY@0630 [facility] Liothyronine Sodium 25 mcg 05/03/18 09:00 Cytomel PO DAILY [facility] Metoprolol Succinate 12.5 mg 05/02/18 22:00 05/02/18 22:32 Toprol Xl PO 12.5 mg BID JR Administration Morphine Sulfate 4 mg 05/02/18 16:06 Morphine Sulfate (Inj) IV Q4HR PRN Severe Pain Naloxone HCl 0.2 mg 08/06/18 16:06 Narcan IV Q2M PRN Opioid Reversal Nitroglycerin 0.4 mg 05/02/18 21:48 Nitrostat SUBLINGUAL Q5M PRN Chest Pain Ondansetron HCl 4 mg 05/02/18 16:06 Zofran IVP Q8HR PRN Nausea And Vomiting Pantoprazole Sodium 40 mg 05/03/18 07:30 Protonix PO AC-BRKFST JR Pregabalin 50 mg 05/02/18 22:00 05/02/18 22:34 Lyrica PO Not Given BID JR Intake and Output 05/02/18 05/03/18 05/03/18 22:59 06:59 14:59 Other: Voiding Method Toilet Toilet # Voids 1 2 Weight 98 kg 05/02/18 13:36 05/02/18 13:36 Assessment and Plan Assessment: ASSESSMENT Chest pain, atypical. Symptoms more suggestive of gas pain or GI related. Although history of diffuse coronary artery disease. Dyslipidemia History of coronary artery disease, maximum medical therapy recommended 2013. Fibromyalgia Gastroesophageal reflux disease PLAN Obtain 2D echocardiogram and doppler study to assess cardiac structure and function. Add on long acting nitrate, imdur 30 mg daily. Continue aspirin and toprol as previously ordered. Increase activity and ambulation in the halls. Continue to assess for any further symptoms. Thank you kindly for this consultation. Nurse Practitioner note has been reviewed, I agree with a documented findings and plan of care. Patient was seen and examined.
[2018-05-03] MEDS: METOPROLOL SUCCINATE (ER) 25 MG TAB.ER.24H PO SCH (09:58)
[2018-05-03] MEDS: PREGABALIN 50 MG CAP PO SCH (09:59)
[2018-05-03] MEDS ORDERED: NAPROXEN 250 MG TAB PO STA (11:38)
[2018-05-03 12:30] VITALS: BP 125/81; TEMP 98.6
--- NOTE | 2018-05-03 13:05 | ECHOF ---
Referral Reason:cp, sob MEASUREMENTS -------- HEIGHT: 165.1 cm WEIGHT: 98.0 kg BP: 123/85 RVIDd: 2.9 cm (< 3.3) IVSd: 1.1 cm (0.6 - 1.1) LVIDd: 4.6 cm (3.9 - 5.3) LVPWd: 1.1 cm (0.6 - 1.1) IVSs: 1.5 cm LVIDs: 3.2 cm LVPWs: 1.5 cm LA Diam: 3.2 cm (2.7 - 3.8) LAESV Index (A-L): 19.26 ml/m Ao Diam: 3.1 cm (2.0 - 3.7) AV Cusp: 2.2 cm (1.5 - 2.6) MV EXCURSION: 13.059 mm (> 18.000) MV EF SLOPE: 78 mm/s (70 - 150) EPSS: 0.5 cm MV E Sulaiman: 0.97 m/s MV DecT: 226 ms MV A Sulaiman: 0.68 m/s MV E/A Ratio: 1.42 FINDINGS -------- Sinus rhythm. This was a technically good study. The left ventricular size is normal. There is borderline concentric left ventricular hypertrophy. Overall left ventricular systolic function is normal with, an EF between 60 - 65 %. The right ventricle is normal in size. Normal LA size by volume 22+/-6 ml/m2. The right atrium is normal in size. The aortic valve is trileaflet and appears structurally normal. There is trace mitral regurgitation. The tricuspid valve appears structurally normal. There is no pulmonic regurgitation present. The aortic root size is normal. Normal inferior vena cava with normal inspiratory collapse consistent with estimated right atrial pre ssure of 5 mmHg. There is no pericardial effusion. CONCLUSIONS -------- 1. Sinus rhythm. 2. This was a technically good study. 3. The left ventricular size is normal. 4. There is borderline concentric left ventricular hypertrophy. 5. Overall left ventricular systolic function is normal with, an EF between 60 - 65 %. 6. The right ventricle is normal in size. 7. Normal LA size by volume 22+/-6 ml/m2. 8. The right atrium is normal in size. 9. The aortic valve is trileaflet and appears structurally normal. 10. There is trace mitral regurgitation. 11. The tricuspid valve appears structurally normal. 12. There is no pulmonic regurgitation present. 13. The aortic root size is normal. 14. Normal inferior vena cava with normal inspiratory collapse consistent with estimated right atrial pressure of 5 mmHg. 15. There is no pericardial effusion. [employer]CTOR EXECUTIVE: Piper Antoine RDCS
--- NOTE | 2018-05-05 07:20 | DS ---
DISCHARGE SUMMARY DATE OF ADMISSION: 05/02/18 DATE OF DISCHARGE: 05/03/18 FINAL DIAGNOSES: 1. Anterior chest wall pain, possible angina. 2. Coronary artery disease. 3. Obesity; BMI 36. 4. Gastroesophageal reflux disease. 5. Essential hypertension. 6. Primary osteoarthritis. 7. Hypothyroidism. 8. Cervical neuropathy. HOSPITAL COURSE: This patient presented with chest pain with some atypical features. Seen by Cardiology who did 2D echocardiogram. Imdur was added. The patient was symptom free at the time of discharge. PHYSICAL EXAMINATION: Temperature 98.6, pulse 66, respirations 16, blood pressure 125/81, pulse ox 95% on room air. DISCHARGE MEDICATIONS: 1. Aspirin 81 mg a day. 2. Toprol-XL 12.5 p.o. b.i.d. 3. Nitrostat 0.4 sublingual q.5 p.r.n. 4. Prilosec 20 mg a day. 5. Vitamin D2 79782 units on Wednesday and Wednesday. 6. Cytomel 25 mcg a day. 7. Synthroid 88 mcg a day. 8. Flexeril 5 mg p.o. daily p.r.n. 9. Tylenol 650 mg p.o. daily once. 10.Lyrica 50 mg p.o. b.i.d. 11.Imdur, new medication, 30 mg p.o. daily. Follow with Cardiology in 1 week, follow with Dr. Perez in 3 days. MMJEANETHL / BEKAN: [id number] /
== END 2018-05-03 19:10 | disposition home or self-care (01) ==
LOC: EC 12:49 → 3OBS 16:06
PROVIDERS: ADMIT Hospitalist; ATTEND Hospitalist
DX: R07.89 Other chest pain (principal); I25.110 Atherosclerotic heart disease of native coronary artery with unstable angina pectoris; J44.9 Chronic obstructive pulmonary disease, unspecified; K21.9 Gastro-esophageal reflux disease without esophagitis; I11.9 Hypertensive heart disease without heart failure; M19.91 Primary osteoarthritis, unspecified site; G62.9 Polyneuropathy, unspecified; M25.511 Pain in right shoulder; Z68.36 Body mass index [BMI] 36.0-36.9, adult; E66.9 Obesity, unspecified; M79.7 Fibromyalgia; E89.0 Postprocedural hypothyroidism; E78.5 Hyperlipidemia, unspecified; K57.90 Diverticulosis of intestine, part unspecified, without perforation or abscess without bleeding; M48.02 Spinal stenosis, cervical region; R20.0 Anesthesia of skin; G95.9 Disease of spinal cord, unspecified; F41.9 Anxiety disorder, unspecified; F32.9 Major depressive disorder, single episode, unspecified; I25.2 Old myocardial infarction; Z85.850 Personal history of malignant neoplasm of thyroid; Z90.710 Acquired absence of both cervix and uterus; Z98.1 Arthrodesis status; Z87.891 Personal history of nicotine dependence; Z79.82 Long term (current) use of aspirin; Z79.890 Hormone replacement therapy; Z79.899 Other long term (current) drug therapy; Z88.1 Allergy status to other antibiotic agents; Z91.030 Bee allergy status; Z88.0 Allergy status to penicillin; Z91.048 Other nonmedicinal substance allergy status; Z82.49 Family history of ischemic heart disease and other diseases of the circulatory system; Z83.2 Family history of diseases of the blood and blood-forming organs and certain disorders involving the immune mechanism; Z83.49 Family history of other endocrine, nutritional and metabolic diseases; Z82.61 Family history of arthritis
CPT/HCPCS: 99285 ×2; 96374 ×2; 36415; 93005; 93306; 80053; 82550 ×2; 82553 ×2; 84484 ×2; 85025; 85610; 85730; 71046; 76705; G0378 ×2; J2270

== ENCOUNTER → 2018-10-04 | Outpatient (CLI) | payer MEDICARE, OTHER ==
--- NOTE | 2018-10-04 15:41 | US ---
EXAMINATION TYPE: US venous doppler duplex LE RT DATE OF EXAM: 10/04/2018 3:05 PM COMPARISON: None CLINICAL HISTORY: 58-year-old female M79.604 PAIN IN RT LEG. Pain in right thigh. No swelling. No r edness. No hx of blood clots. No blood thinners. SIDE PERFORMED: Right TECHNIQUE: The lower extremity deep venous system is examined utilizing real time linear array sonog nahomy with graded compression, doppler sonography and color-flow sonography. FINDINGS: VESSELS IMAGED: External Iliac Vein (EIV) Common Femoral Vein Deep Femoral Vein Greater Saphenous Vein * Femoral Vein Popliteal Vein Small Saphenous Vein * Proximal Calf Veins (* superficial vessels) Right Leg: Negative for DVT IMPRESSION: No evidence for DVT within the right lower extremity imaged from the groin to the upper calf.
== END | disposition home or self-care (01) ==
LOC: RADUSWWP 14:42
PROVIDERS: ATTEND Family Medicine
DX: M79.604 Pain in right leg (principal)

== ENCOUNTER → 2018-10-04 | Outpatient (CLI) | payer MEDICARE, OTHER ==
[2018-10-04 11:40] LABS: Blood Urea Nitrogen 19 mg/dL (7-17)
--- NOTE | 2018-10-04 16:08 | CT ---
EXAMINATION TYPE: CT angio head DATE OF EXAM: 10/04/2018 12:24 PM COMPARISON: 12/11/2017 MRI HISTORY: Headaches and blurry vision x [address] DLP: 2270 mGycm Automated exposure control for dose reduction was used. TECHNIQUE: Performed without and with IV Contrast, patient injected with 100 mL of Isovue 370. Three-D reconstructed images performed on a separate computer by the technologist are presented.. FINDINGS: [place]: Internal carotid arteries bifurcate A1 and M1 segments. The A1 segments appear slig htly diminutive. The anterior communicating artery is patent. Middle cerebral artery branches appear unremarkable. Posterior communicating arteries are not identified. Vertebral basilar system appears n ormal. Posterior cerebral vessels are normal. Posterior inferior cerebellar artery origins appear wit hin normal limits. CT brain: No suspicious enhancement is evident. Vague hypodensity is present within the cerebellum wh ich may correspond to the abnormalities identified on MRI. No mass effect is evident. No acute infarc ts are evident. IMPRESSION: 1. NORMAL [place]. 2. MILD WHITE MATTER CHANGES MAY BE PRESENT IN THE CEREBELLUM CORRESPONDING TO THE MRI.
== END ==
LOC: RADCTMAIN 11:02
PROVIDERS: ATTEND Psychiatry & Neurology Neurology
DX: R90.89 Other abnormal findings on diagnostic imaging of central nervous system (principal)
CPT/HCPCS: 82565; 84520; 70496; 36415; Q9967

== ENCOUNTER 2019-01-18 18:44 | Inpatient (IN) | payer MEDICARE, OTHER ==
[2019-01-18] MEDS ORDERED: KETOROLAC 30 MG/ML 1 ML VIAL IVP STA (19:51)
[2019-01-18 20:34] LABS: Basophils # (A) 0.1 k/uL (0-0.2); Basophils % (A) 1 %; Eosinophils # (A) 0.2 k/uL (0-0.7); Eosinophils % (A) 3 %; HCT 43.2 % (34.0-46.0); HGB 14.3 gm/dL (11.4-16.0); Lymphocytes # (A) 1.4 k/uL (1.0-4.8); Lymphocytes % (A) 17 %; MCH 29.1 pg (25.0-35.0); MCHC 33.1 g/dL (31.0-37.0); MCV 87.8 fL (80.0-100.0); Monocytes # (A) 0.4 k/uL (0-1.0); Monocytes % (A) 5 %; Neutrophils # (A) 6.1 k/uL (1.3-7.7); Neutrophils % (A) 73 %; Platelet Count 237 k/uL (150-450); RBC 4.92 m/uL (3.80-5.40); WBC 8.4 k/uL (3.8-10.6)
--- NOTE | 2019-01-18 20:34 | ED ---
Chest Pain HPI - General Chief Complaint: Chest Pain Stated Complaint: Chest pain Time Seen by Provider: 01/18/19 19:36 Source: patient, RN notes reviewed Mode of arrival: ambulatory Limitations: no limitations - History of Present Illness Initial Comments: This is a 58-year-old female with a prior history of [place] in the past who presents with complaints of right-sided chest pain going to her right shoulder over last week. She states is an nagging achy-type pain which is intermittent she also states she had some white colored stool this morning she's had some palpitations she's been anxious she denies any current fevers chills or sweats but she states she did have some fever and sweats earlier today. He also states she's been having a metallic taste in her mouth but she does have a history of reflux. She denies any cough or phlegm production she denies any other complaints or modifying factors at this time. MD Complaint: chest pain - Related Data Home Medications Medication Instructions Recorded Confirmed Omeprazole [PriLOSEC] 20 mg PO DAILY 03/19/15 01/18/19 Ergocalciferol [Vitamin D2 50,000 unit PO SUWE 04/03/16 01/18/19 (DRISDLEIF)] Liothyronine Sodium [Cytomel] 25 mcg PO DAILY 04/03/16 01/18/19 Levothyroxine Sodium [Synthroid] 88 mcg PO DAILY 05/18/16 01/18/19 Cyclobenzaprine [Flexeril] 5 mg PO DAILY PRN 02/14/18 01/18/19 Ibuprofen [Motrin Ib] 400 mg PO Q8H 01/18/19 01/18/19 Previous Rx's Medication Instructions Recorded Aspirin EC [Ecotrin Low Dose] 81 mg PO DAILY #30 tablet. 03/15/14 Metoprolol Succinate (ER) [Toprol 12.5 mg PO BID #60 tab.er.24h 03/15/14 XL] Nitroglycerin Sl Tabs [Nitrostat] 0.4 mg SUBLINGUAL Q5M PRN #25 tab 03/15/14 Allergies Allergy/AdvReac Type Severity Reaction Status Date / Time adhesive tape Allergy Unknown Verified 01/18/19 19:01 levofloxacin [From Levaquin] Allergy BRAIN STEM Verified 01/18/19 19:01 SEIZURE Penicillins Allergy Anaphylaxis Verified 01/18/19 19:01 Quinolones Allergy Unknown Verified 01/18/19 19:01 venom-honey bee Allergy Anaphylaxis Verified 01/18/19 19:01 Review of Systems ROS Statement: Those systems with pertinent positive or pertinent negative responses have been documented in the HPI. ROS Other: All systems not noted in ROS Statement are negative. EKG Findings - EKG Results: EKG: interpreted by ERMD, WNL, sinus rhythm, normal axis, normal QRS, normal ST/T, no acute changes (Normal sinus rhythm a 68. Interval 144 QRS duration 82 QT since QTC 360/32 st-t wave changes.) Past Medical History Past Medical History: Coronary Artery Disease (CAD), Cancer, GERD/Reflux, Hypertension, Myocardial Infarction ([place]), Osteoarthritis (OA), Thyroid Disorder Additional Past Medical History / Comment(s): Recent respiratory infection with ABX, HX THYROID CA with surgery, DIVERTICULITIS, cervical neuropathy-numbness, pain hands, DDD, cervical stenosis & myelopathy, abnormal MRI, fibro Last Myocardial Infarction Date:: 03/09/14 History of Any Multi-Drug Resistant Organisms: None Reported Past Surgical History: Breast Surgery, Heart Catheterization, Hysterectomy, Tubal Ligation Additional Past Surgical History / Comment(s): R breast biopsy-benign, heart cath-UNABLE TO PUT IN STENT, RT THYROIDECTOMY d/t cancer AND LEFT MASS REMOVED FROM NECK , MULT THYROID BX'S. completion of thyroidectomy, COLONOSCOPY, CERVICAL DISCECTOMY/FUSION C4-5,C5-6,C6-7, CARPAL TUNNEL LEFT WRIST Past Anesthesia/Blood Transfusion Reactions: Previous Problems w/ Anesthesia Additional Past Anesthesia/Blood Transfusion Reaction / Comment(s): STATES B/P WAS LOW POST OP RT THYROIDECTOMY-mostly related to narcotic pain meds. HISTORY OF CLAUSTERPHOBIA Past Psychological History: Anxiety, Depression Smoking Status: Former smoker Past Alcohol Use History: Occasional Past Drug Use History: None Reported - Past Family History Father Family Medical History: Osteoarthritis (OA) Mother Family Medical History: AFIB, Deep Vein Thrombosis (DVT) Additional Family Medical History / Comment(s): hypothyroidism. bladder issues. heart palpatations General Exam - General Exam Comments Initial Comments: This is a well-developed well-nourished awake alert oriented 3 female Limitations: no limitations General appearance: alert, anxious Head exam: Present: atraumatic, normocephalic, normal inspection Eye exam: Present: normal appearance, PERRL, EOMI. Absent: scleral icterus, conjunctival injection, periorbital swelling ENT exam: Present: normal exam, mucous membranes moist Neck exam: Present: normal inspection, full ROM, other (No stridor JVD or bruits). Absent: tenderness, meningismus, lymphadenopathy Respiratory exam: Present: normal lung sounds bilaterally, chest wall tenderness (Some tenderness palpation of the anterior chest wall and the posterior chest wall though it is unclear whether this reproduces the patient's pain.). Absent: respiratory distress, wheezes, rales, rhonchi, stridor Cardiovascular Exam: Present: regular rate, normal rhythm, normal heart sounds. Absent: systolic murmur, diastolic murmur, rubs, gallop, clicks GI/Abdominal exam: Present: soft, tenderness (Mild epigastric right upper quadrant tenderness palpation with no guarding rebound masses or bruits), normal bowel sounds. Absent: distended, guarding, rebound, rigid Rectal exam: Present: deferred Extremities exam: Present: normal inspection, full ROM, normal capillary refill. Absent: tenderness, pedal edema, joint swelling, calf tenderness Back exam: Present: normal inspection Neurological exam: Present: alert, oriented X3, CN II-XII intact Psychiatric exam: Present: normal affect, normal mood Skin exam: Present: warm, dry, intact, normal color. Absent: rash Course Vital Signs 01/18/19 18:57 Temperature 98.1 F Pulse Rate 75 Respiratory 20 Rate Blood Pressure 155/80 O2 Sat by Pulse 95 Oximetry - Reevaluation(s) Reevaluation #1: 01/18/19 20:59 Patient is feeling some relief after IV Toradol. Chest Pain MDM - MDM Imaging was reviewed no acute findings. Due to the patient's symptoms she will be admitted for a evaluation for chest pain as well as a evaluation for possible gallbladder issues. The case is discussed with Dr. Contreras Disposition Clinical Impression: Atypical chest pain Disposition: ADMITTED IP TO THIS [facility] Condition: Stable Referrals: Konrad Perez MD [Primary Care Provider] - 1-2 days
--- NOTE | 2019-01-18 20:40 | XR ---
EXAMINATION TYPE: XR chest 2V DATE OF EXAM: 01/18/2019 COMPARISON: 05/02/2018 HISTORY: Chest pain TECHNIQUE: Frontal and lateral views of the chest are obtained. FINDINGS: Heart and mediastinum are normal. Lungs are clear. Diaphragm is normal. Bony thorax is int act. IMPRESSION: Normal chest. No change.
[2019-01-18 20:50] LABS: ALT 26 U/L (9-52); AST 23 U/L (14-36); Albumin 4.5 g/dL (3.5-5.0); Alkaline Phosphatase 95 U/L (38-126); Amylase 54 U/L (30-110); Anion Gap 9 mmol/L; Blood Urea Nitrogen 17 mg/dL (7-17); Calcium 9.5 mg/dL (8.4-10.2); Carbon Dioxide 26 mmol/L (22-30); Chloride 105 mmol/L (98-107); Creatine Kinase 73 U/L (30-135); Glucose 84 mg/dL (74-99); Lipase 131 U/L (23-300); Magnesium 1.8 mg/dL (1.6-2.3); Potassium 4.4 mmol/L (3.5-5.1); Sodium 140 mmol/L (137-145); Total Bilirubin 0.5 mg/dL (0.2-1.3); Total Protein 7.2 g/dL (6.3-8.2)
[2019-01-18 20:56] LABS: D-Dimer 0.57 mg/L FEU (<0.60); INR 0.9 (<1.2); Prothrombin Time 9.9 sec (9.0-12.0)
[2019-01-18] MEDS ORDERED: HEPARIN SOD,PORK IN 0.45% NACL 25,000 UNIT in 0.45% NACL 1 250ML.BAG IV SCH (21:00)
[2019-01-18] MEDS ORDERED: HEPARIN SODIUM,PORCINE 5,000 UNIT/ML 1 ML VIAL IV ONE (21:00)
[2019-01-18] MEDS ORDERED: NITROGLYCERIN SL TABS 0.4 MG TAB SUBLINGUAL PRN (21:00)
[2019-01-18 21:06] LABS: Partial Thromboplastin Time 18.8 sec (22.0-30.0)
[2019-01-18] MEDS: SODIUM CHLORIDE 0.9% 1,000 ML IV SCH (22:39)
--- NOTE | 2019-01-18 23:07 | US ---
EXAM: US Abdomen Limited, Right Upper Quadrant CLINICAL HISTORY: Pain TECHNIQUE: Real-time ultrasound of the right upper quadrant with image documentation. COMPARISON: No relevant prior studies available. FINDINGS: Liver: Liver measures up to 16.6 cm. Slight increased attenuation of the liver. No intrahepatic bile duct dilation. Gallbladder: No stones, sludge, wall thickening or pericholecystic fluid. Negative sonographic Zapata's sign. Common bile duct: Common bile duct is within normal limits measuring 4 mm. No stones. No dilation. Pancreas: Pancreas is obscured by bowel gas. Right kidney: Right kidney measures up to 9.1 cm. No stones. No hydronephrosis. IMPRESSION: Slight increased attenuation liver which may represent minimal hepatic steatosis.
[2019-01-19] MEDS: NITROGLYCERIN OINT 1 INCH/GM PACKET TOPICAL SCH ×3 (00:29→15:02)
[2019-01-19 02:42] LABS: Cholesterol 177 mg/dL (<200); HDL Cholesterol 49 mg/dL (40-60); LDL Cholesterol,Calculated 119 mg/dL (0-99); Triglycerides 47 mg/dL (<150)
[2019-01-19] MEDS ORDERED: CYCLOBENZAPRINE 5 MG TAB PO PRN (09:52)
[2019-01-19] MEDS ORDERED: NITROGLYCERIN SL TABS 0.4 MG TAB SUBLINGUAL PRN (09:52)
[2019-01-19] MEDS: KETOROLAC 30 MG/ML 1 ML VIAL IVP PRN ×3 (10:20→21:55)
--- NOTE | 2019-01-19 11:43 | P.CONS ---
History of Present Illness - Reason for Consult Consult date: 01/19/19 Abdominal pain Requesting physician: Abel Contreras - Chief Complaint Abdominal pain - History of Present Illness 58-year-old female PMH [place] GERD admitted with right-sided chest pain right upper quadrant abdominal pain radiating to shoulder as well as around her upper back s kenny with palpitations with a reported home fever of 101. Afebrile since admission. Consult requested for abdominal pain. Ultrasound abdomen CBD within normal limits. No stones. No dilation. Possible hepatic steatosis. White count 8.4. Hemoglobin 14.3. Platelet 237. INR 0.9. LFTs amylase lipase within normal limits. Troponin 3 less than 0.012. IV heparin started. 1 bowel movement yesterday that appeared to be contract admin in color denies hematemesis hematochezia or melena. Took one dose of Motrin yesterday did not improve symptoms however she received Toradol this morning which helped her symptoms significantly. No history of this type of pain. No recent travels changes in medications. No changes in diet. EGD January 2018 for evaluation of GERD abdominal pain small sliding hiatal hernia no peptic ulcer disease. Colonoscopy March 2016 diverticulosis no polyps strictures or colorectal neoplasia. Home medications include but not limited to Prilosec daily and baby aspirin. Review of Systems Constitutional: Denies fever, chills, sweats, weight gain, or loss. HEENT: Negative for migraines, blurred vision or loss, earaches, drainage, tinnitus, oral mucosal lesions, dysphagia, or odynophagia. CARDIAC: Negative for chest pain, arrhythmias, or palpitation. RESPIRATORY: Negative for shortness of breath, hemoptysis, cough, or sputum production. GI: See HPI for pertinent findings. : Negative for hematuria, urgency, frequency, polyuria, or dysuria. GYNc: Negative vaginal discharge. MUSCULOSKELETAL: Negative for muscle aches, swelling, arthritis, and arthralgias. NEUROLOGIC: Negative for stroke or TIA. ENDOCRINE: Negative for thyroid problems. SKIN: Negative for rash or itching. PSYCHIATRIC: Negative history for depression and anxiety Past Medical History Past Medical History: Coronary Artery Disease (CAD), Cancer, GERD/Reflux, Hypertension, Myocardial Infarction ([place]), Osteoarthritis (OA), Thyroid Disorder Additional Past Medical History / Comment(s): Recent respiratory infection with ABX, HX THYROID CA with surgery, DIVERTICULITIS, cervical neuropathy-numbness, pain hands, DDD, cervical stenosis & myelopathy, abnormal MRI, fibro Last Myocardial Infarction Date:: 03/09/14 History of Any Multi-Drug Resistant Organisms: None Reported Past Surgical History: Breast Surgery, Heart Catheterization, Hysterectomy, Tubal Ligation Additional Past Surgical History / Comment(s): R breast biopsy-benign, heart cath-UNABLE TO PUT IN STENT, RT THYROIDECTOMY d/t cancer AND LEFT MASS REMOVED FROM NECK , MULT THYROID BX'S. completion of thyroidectomy, COLONOSCOPY, CERVICAL DISCECTOMY/FUSION C4-5,C5-6,C6-7, CARPAL TUNNEL LEFT WRIST Past Anesthesia/Blood Transfusion Reactions: Previous Problems w/ Anesthesia Additional Past Anesthesia/Blood Transfusion Reaction / Comm: STATES B/P WAS LOW POST OP RT THYROIDECTOMY-mostly related to narcotic pain meds. HISTORY OF CLAUSTERPHOBIA Past Psychological History: Anxiety, Depression Additional Psychological History / Comment(s): pt states has anxiety no meds. PT DENIES ANY DEPRESSION AT TIME OF THIS ADMIT, NO THOUGHTS OF HARMING SELF, NO HOPELESSNESS. Pt lives with yvan. She is independent. Smoking Status: Former smoker Past Alcohol Use History: Occasional Additional Past Alcohol Use History / Comment(s): STARTED SMOKING AT AGE 18 STOPPED FEBRUARY 2014 N ( SMOKED ON AND OFF) SMOKED 1PPD AT THE TIME SHE QUIT 2013 Past Drug Use History: None Reported - Past Family History Father Family Medical History: Osteoarthritis (OA) Mother Family Medical History: AFIB, Deep Vein Thrombosis (DVT) Additional Family Medical History / Comment(s): hypothyroidism. bladder issues. heart palpatations Medications and Allergies Home Medications Medication Instructions Recorded Confirmed Type Aspirin EC [Ecotrin Low Dose] 81 mg PO DAILY #30 tablet.dr 03/15/14 01/18/19 Rx Metoprolol Succinate (ER) [Toprol 12.5 mg PO BID #60 tab.er.24h 03/15/14 01/18/19 Rx XL] Nitroglycerin Sl Tabs [Nitrostat] 0.4 mg SUBLINGUAL Q5M PRN #25 tab 03/15/14 01/18/19 Rx Omeprazole [PriLOSEC] 20 mg PO DAILY 03/19/15 01/18/19 History Ergocalciferol [Vitamin D2 50,000 unit PO SUWE 04/03/16 01/18/19 History (DRISDOL)] Liothyronine Sodium [Cytomel] 25 mcg PO DAILY 04/03/16 01/18/19 History Levothyroxine Sodium [Synthroid] 88 mcg PO DAILY 05/18/16 01/18/19 History Cyclobenzaprine [Flexeril] 5 mg PO DAILY PRN 02/14/18 01/18/19 History Ibuprofen [Motrin Ib] 400 mg PO Q8H 01/18/19 01/18/19 History Allergies Allergy/AdvReac Type Severity Reaction Status Date / Time adhesive tape Allergy Unknown Verified 01/18/19 19:01 levofloxacin [From Levaquin] Allergy BRAIN STEM Verified 01/18/19 19:01 SEIZURE Penicillins Allergy Anaphylaxis Verified 01/18/19 19:01 Quinolones Allergy Unknown Verified 01/18/19 19:01 venom-honey bee Allergy Anaphylaxis Verified 01/18/19 19:01 Physical Exam Vitals: Vital Signs Temp Pulse Pulse Resp BP BP Pulse Ox 01/19/19 07:30 98.4 F 73 18 126/82 95 01/19/19 04:06 97.6 F 78 18 142/82 95 01/19/19 03:39 71 17 01/19/19 00:00 98 F 67 17 123/79 97 01/18/19 23:15 97.9 F 71 20 123/79 99 01/18/19 22:02 17 01/18/19 22:00 88 20 122/72 96 01/18/19 21:00 75 20 133/77 96 01/18/19 20:00 80 20 140/74 99 01/18/19 18:57 98.1 F 75 20 155/80 95 Intake and Output 01/18/19 01/19/19 01/19/19 22:59 06:59 14:59 Other: Voiding Method Toilet Toilet # Voids 1 1 Weight 97.522 kg General appearance: The patient is alert, oriented, in no acute distress. HET: Head is normocephalic and atraumatic. Pupils are equal and reactive. Oropharynx is clear without lesions. Neck: Supple without lymphadenopathy. Trachea midline. Heart: S1 S2. Regular rate and rhythm. Lungs: No crackles or wheezes are heard. Abdomen: Soft, mild tenderness to the right upper quadrant, nondistended with bowel sounds. No peritoneal signs. No palpable organomegaly or masses. Extremities: Normal skin color and turgor. No cyanosis, rash, ulceration, clubbing, or edema. Radial and pedal pulses are 2/4 bilaterally. Neurological: No focal deficits. Strength and sensation are grossly intact. Results CBC & Chem 7: 01/18/19 20:01 01/18/19 20:01 Labs: Abnormal Lab Results - Last 24 Hours (Table) 01/18/19 01/19/19 01/19/19 Range/Units 20:01 02:10 03:39 APTT 18.8 L 66.7 H (22.0-30.0) sec LDL Cholesterol, Calc 119 H (0-99) mg/dL US - abdomen: report reviewed (Dr. Palacios) Assessment and Plan (1) Abdominal pain Narrative/Plan: 58 show female with a history of [place] presents with acute right-sided chest right upper quadrant abdominal pain radiating to the shoulder wrapping around to the right upper backside with normal LFTs. Ultrasound right upper quadrant reported no evidence of biliary tree dilation or gallstones possible hepatic steatosis. Current Visit: No Status: Acute Code(s): R10.9 - UNSPECIFIED ABDOMINAL PAIN SNOMED Code(s): 02093732 (2) Chest pain Current Visit: No Status: Acute Code(s): R07.9 - CHEST PAIN, UNSPECIFIED SNOMED Code(s): 55823832 (3) GERD (gastroesophageal reflux disease) Current Visit: Yes Status: Acute Code(s): K21.9 - GASTRO-ESOPHAGEAL REFLUX DISEASE WITHOUT ESOPHAGITIS SNOMED Code(s): 004062700 Plan: 1. Nothing by mouth except medications until medicine can evaluate patient. If there is suspicion for gallbladder pathology recommend consult to general surgery/ HIDA scan evaluation. 2. Inpatient endoscopic exam not planned at this time contingent on clinical course presently patient is receiving IV heparin. Thank you for this kind referral and the opportunity to participate in the care of your patient. This consultation was discussed with Dr. Palacios. The impression and plan of care have been directed as dictated.
[2019-01-19] MEDS ORDERED: KETOROLAC 30 MG/ML 1 ML VIAL IVP SCH (12:00)
[2019-01-19] MEDS: METOPROLOL SUCCINATE (ER) 25 MG TAB.ER.24H PO SCH ×2 (15:00→23:57)
[2019-01-19] MEDS: LIOTHYRONINE SODIUM 5 MCG TAB PO SCH (15:01)
[2019-01-19] MEDS: IBUPROFEN 200 MG TAB PO SCH ×2 (15:03→16:30)
[2019-01-19] MEDS: LEVOTHYROXINE 88 MCG TAB PO SCH (15:07)
[2019-01-19] MEDS: ASPIRIN 325 MG TAB PO SCH (15:07)
[2019-01-19] MEDS: PANTOPRAZOLE 40 MG TABLET PO SCH (15:07)
[2019-01-19] MEDS ORDERED: RX INFO: IV CONTRAST WAS GIVEN 1 EACH MISC MISCELLANE PRN (20:05)
[2019-01-19] MEDS ORDERED: IOPAMIDOL-300 CONTRAST 30 ML VIAL (ORAL USE) PO PRN (20:05)
[2019-01-19] MEDS: SODIUM CHLORIDE 0.9% 1,000 ML IV SCH (21:31)
--- NOTE | 2019-01-19 22:40 | HP ---
HISTORY AND PHYSICAL DATE OF ADMISSION: January 18, 2019 DATE OF SERVICE: January 19, 2019 PRESENTING COMPLAINT: Chest pain. Abdominal pain. HISTORY OF PRESENTING COMPLAINT: This is a 58-year-old patient whose chronic stable medical conditions include coronary artery disease, GERD, hypertension, primary osteoarthritis, hypothyroid, cervical neuropathy. The patient does follow up with Dr. Perez. The patient presents for 1 week of the tenderness, started behind the right breast has been present on and off for a week and became more constant the last 2 days. The patient may have had a low-grade fever she thinks and possible chills. No cough. No sputum. Also, she noticed the last 2 days lower abdominal pain and for she describes white stool x1. Otherwise, she has been having normal regular stool. These are symptoms she presents with. The patient had lower abdominal tenderness, rather superficial even touching the skin. REVIEW OF SYSTEMS: CONSTITUTIONAL: None. HEENT: None. RESPIRATORY none. CARDIOVASCULAR: No precordial pain. GASTROINTESTINAL: As above. GENITOURINARY: None. MUSCULOSKELETAL: Arthritic pain in joints. DERMATOLOGICAL, HEMATOLOGIC, LYMPHATICS: none. PSYCHIATRY none. NEUROLOGICAL: None. PAST HISTORY: Of coronary artery disease, GERD, hypertension, osteoarthritis, thyroid cancer with surgery, diverticulitis, cervical neuropathy, cervical stenosis, myelopathy. PAST SURGICAL HISTORY: Breast surgery, cardiac catheterization, right breast biopsy, benign; heart catheterization, reported unable to put in stent, right thyroidectomy due to cancer, left mass removed from the neck, multiple thyroid biopsies, completion of thyroidectomy, colonoscopy, cervical diskectomy, fusion, C4-3, C7, carpal tunnel left wrist. PSYCH HISTORY: History of anxiety and depression. SOCIAL HISTORY: The patient lives with her fiance. The patient started smoking at the age of 18, stopped in February of 2014. Smoked a pack at that time, that is about 35 years. Alcohol occasionally. FAMILY HISTORY: DVT, hypothyroid, bladder issues. A. fib. HOME MEDICATIONS: 1. Omeprazole 20 mg a day. 2. Nitrostat 0.4 sublingual q.5 p.r.n. 3. Toprol-XL 12.5 p.o. b.i.d. 4. Cytomel 25 mcg p.o. daily. 5. Synthroid 18 mcg a day. 6. Motrin 400 mg q.8. 7. Vitamin D2 28745 units Wednesday, and Wednesday. 8. Flexeril 5 mg p.o. daily p.r.n. 9. Aspirin 81 mg p.o. daily. ALLERGY: TO ADHESIVE, LEVAQUIN, PENICILLIN, QUINOLONE, VENOM, BEE. PHYSICAL EXAMINATION: VITAL SIGNS: Vital signs on presentation: Temperature 98, pulse 70, respiratory 18, blood pressure 123/79, pulse ox 97% on room air. GENERAL APPEARANCE: Well built, BMI 35.8. Sitting up not in distress. EYES: Pupils are equal. Conjunctivae normal. HEENT: External appearance of nose and ears normal. Oral cavity normal. NECK: JVD not raised. Mass not palpable. RESPIRATORY: Effort normal. LUNGS: Fair air entry. CARDIOVASCULAR: First and second sounds normal. No edema. ABDOMEN: Lower abdominal tenderness even distended to superficially touching the abdomen. Liver and spleen not palpable. LYMPHATICS: No lymph nodes palpable in the neck and axilla. PSYCHIATRY: Alert and oriented times three. Mood and affect normal. Neurological: Pupils equal, cranial nerves grossly intact. Power and sensation grossly intact. MUSCULOSKELETAL: Tenderness over the right chest wall. INVESTIGATIONS: White count 8.4, hemoglobin 14.3, potassium 4.4, BUN and creatinine is normal. Troponin times three is negative. LDL is 119. EKG tracing personally reviewed by me shows normal sinus rhythm. Ultrasound of the gallbladder, questionable hepatic steatosis. Gallbladder otherwise normal. Chest x-ray film personally reviewed by me shows no obvious infiltrates in the lung. ASSESSMENT: 1. Right-sided chest wall pain has been coming on and off for about a week now, more constant. There is tenderness on the rib wall as well could be musculoskeletal. There is no fever, no cough, no respiratory symptoms and no white count. 2. Lower abdominal pain again with no fever, no white count. Rather tender even to superficial touch. Wondering if this could list of severe paresthesia. Otherwise abdominal exam is rather benign appearing. 3. Obesity; BMI 35.4. 4. Coronary artery disease. 5. Gastroesophageal reflux disease. 6. Essential hypertension. 7. Primary osteoarthritis. 8. Hypothyroid. 9. Cervical neuropathy. PLAN: GI was consulted. We will also get a surgical opinion. We will get a CT scan of the chest, abdomen and pelvis with contrast. In the meantime, home medications are resumed. The patient was seen by the Gastroenterology team and will follow with them too. Care was discussed with the patient and her significant other. NATHANIEL / DARREL: [id number] /
--- NOTE | 2019-01-19 23:02 | CT ---
EXAM: CT Chest With Intravenous Contrast CLINICAL HISTORY: ITS.REASON CT Reason: lower abdominal pain TECHNIQUE: Axial computed tomography images of the chest with intravenous contrast. This CT exam was performed using one or more of the following dose reduction techniques: automated exposure control, adjustment of the mA and/or kV according to patient size, and/or use of iterative reconstruction technique. COMPARISON: No relevant prior studies available. FINDINGS: Lungs: Unremarkable. No mass. No consolidation. Pleural space: Unremarkable. No pneumothorax. No significant effusion. Heart: Unremarkable. No cardiomegaly. No significant pericardial effusion. Bones/joints: No acute fracture. No dislocation. Soft tissues: Unremarkable. Vasculature: Unremarkable. No thoracic aortic aneurysm. Lymph nodes: Unremarkable. No enlarged lymph nodes. IMPRESSION: Normal chest CT. EXAM: CT Abdomen and Pelvis With Intravenous Contrast CLINICAL HISTORY: ITS.REASON CT Reason: lower abdominal pain TECHNIQUE: Axial computed tomography images of the abdomen and pelvis with intravenous contrast. This CT exam was performed using one or more of the following dose reduction techniques: automated exposure control, adjustment of the mA and/or kV according to patient size, and/or use of iterative reconstruction technique. COMPARISON: No relevant prior studies available. FINDINGS: Lung bases: Unremarkable. No mass. No consolidation. ABDOMEN: Liver: Unremarkable. No mass. Gallbladder and bile ducts: No abnormal ductal dilation or stones. Pancreas: Unremarkable. No mass. No ductal dilation. Spleen: Unremarkable. No splenomegaly. Adrenals: Unremarkable. No mass. Kidneys and ureters: Unremarkable. No solid mass. No hydronephrosis. Stomach and bowel: Acute sigmoid diverticulitis. Sclerosing mesenteritis PELVIS: Appendix: No findings to suggest acute appendicitis. Bladder: Unremarkable. No mass. Reproductive: Unremarkable as visualized. ABDOMEN and PELVIS: Intraperitoneal space: Unremarkable. No free air. No significant fluid collection. Bones/joints: No acute fracture. No dislocation. Soft tissues: Unremarkable. Vasculature: No abdominal aortic aneurysm. Lymph nodes: Unremarkable. No enlarged lymph nodes. IMPRESSION: Acute sigmoid diverticulitis.
[2019-01-20] MEDS: IBUPROFEN 200 MG TAB PO SCH ×3 (03:16→17:55)
[2019-01-20] MEDS: KETOROLAC 30 MG/ML 1 ML VIAL IVP PRN ×3 (05:01→20:37)
[2019-01-20] MEDS: LEVOTHYROXINE 88 MCG TAB PO SCH (06:16)
--- NOTE | 2019-01-20 09:22 | P.PN ---
Progress Note - Text Progress Note Date: 01/20/19 Patient off floor for HIDA scan
--- NOTE | 2019-01-20 10:54 | NM ---
EXAMINATION TYPE: NM hepatobiliary w CCK DATE OF EXAM: 01/20/2019 COMPARISON: CT 01/19/2019, ultrasound gallbladder 01/18/2019 HISTORY: Right upper quadrant pain TECHNIQUE: After the intravenous administration of 4.5 mCi Tc 99m Mebrofenin hepatobiliary scintigrap hy is performed. Immediate images post injection. FINDINGS: There is satisfactory initial accumulation of tracer by the liver. The gallbladder is visualized wit hin 10 minutes. The small bowel activity is noted on delayed images. At one hour CCK was administere d, patient was injected with 1.95 mcg of Kinevac, and gallbladder ejection fraction is calculated at 94 %, above the normal range. Therefore there is no scintigraphic evidence of cystic or common bile duct obstruction to suggest acute cholecystitis or gallbladder dyskinesia. IMPRESSION: Findings could represent hyperdynamic gallbladder, there is no evident cholecystitis
--- NOTE | 2019-01-20 10:59 | P.GSCN ---
<Alem Dang - Last Filed: 01/20/19 11:01> History of Present Illness Consult date: 01/20/19 Reason for Consult: Abdominal pain Requesting physician: Abel Contreras History of present illness: CHIEF COMPLAINT: Abdominal pain HISTORY OF PRESENT ILLNESS: 58-year-old female who presented to the emergency room with a chief complaint of epigastric pain and right upper quadrant pain. General surgery was consulted for further evaluation. Patient reports she began having pain on Wednesday while she was sitting at home folding towels. She states the pain started in the epigastric region and radiated to her right upper quadrant, right shoulder, and back. She states the pain went away and then came back on Wednesday. She reports having a whitish colored bowel movement on Wednesday and came to the emergency room for further evaluation. She denies nausea or vomiting prior to hospitalization. She does report an episode of emesis yesterday secondary to drinking contrast for computed tomography scan. She reports a fever of 101.0 at home. She has been afebrile since admission to the hospital. Patient also reports having mild bilateral lower quadrant abdominal pain that she characterizes as "achy" with left side worse than right. Patient reports she has been receiving Toradol which has been helping her pain. She denies any strenuous activity or heavy lifting prior to hospitalization. Patient has history of EGD in January 2018 revealing small sliding hiatal hernia. Colonoscopy performed in March 2016 revealing diverticulosis. Patient does report her mother underwent cholecystectomy and states "She did not have any stones. Her gallbladder just wasn't working like it should". PAST MEDICAL HISTORY: See list. PAST SURGICAL HISTORY: See list. SOCIAL HISTORY: No illicit drug use. REVIEW OF SYSTEMS: CONSTITUTIONAL: Reports fever prior to hospitalization. HEENT: Denies blurred vision, vision changes, or eye pain. Denies hemoptysis CARDIOVASCULAR: Denies chest pain or pressure. RESPIRATORY: No shortness of breath. GASTROINTESTINAL: Refer to HPI for pertinent findings HEMATOLOGIC: Denies bleeding disorders. GENITOURINARY: Denies any blood in urine. SKIN: Denies pruitis. Denies rash. PHYSICAL EXAM: VITAL SIGNS: Reviewed. GENERAL: Well-developed in no acute distress. HEENT: No sclera icterus. Extraocular movements grossly intact. Moist buccal mucosa. Head is atraumatic, normocephalic. ABDOMEN: Soft. Nondistended. Tenderness upon palpation of right and left lower abdominal quadrants. Left worse than right. Positive bowel sounds. NEUROLOGIC: Alert and oriented. Cranial nerves II through XII grossly intact. LABORATORY DATA: WBC 8.6. Hemoglobin 14.3. Bilirubin 0.5. AST 23. ALT 26. Amylase 54. Lipase 131. IMAGIN. Abdominal ultrasound negative for stones. Negative for sludge. Negative for gallbladder wall thickening. 2. CT abdomen and pelvis: Acute sigmoid diverticulitis ASSESSMENT: 1. Epigastric pain, right upper quadrant pain with radiation to right shoulder and back, rule out gallbladder etiology 2. Bilateral lower quadrant abdominal pain, CT reveals acute sigmoid diverticulitis PLAN: 1. NPO until HIDA scan completed. Diet pending HIDA scan results 2. Case discussed with Dr. Dowling. Will place patient on Azactam 2gram q 8 hours per ID recommendations secondary to allergies. Will place consult for ID as well. Nurse practitioner note has been reviewed by physician. Signing provider agrees with the documented findings, assessment, and plan of care. Past Medical History Past Medical History: Coronary Artery Disease (CAD), Cancer, GERD/Reflux, Hypertension, Myocardial Infarction (AR), Osteoarthritis (OA), Thyroid Disorder Additional Past Medical History / Comment(s): Recent respiratory infection with ABX, HX THYROID CA with surgery, DIVERTICULITIS, cervical neuropathy-numbness, pain hands, DDD, cervical stenosis & myelopathy, abnormal MRI, fibro Last Myocardial Infarction Date:: 03/09/14 History of Any Multi-Drug Resistant Organisms: None Reported Past Surgical History: Breast Surgery, Heart Catheterization, Hysterectomy, Tubal Ligation Additional Past Surgical History / Comment(s): R breast biopsy-benign, heart cath-UNABLE TO PUT IN STENT, RT THYROIDECTOMY d/t cancer AND LEFT MASS REMOVED FROM NECK , MULT THYROID BX'S. completion of thyroidectomy, COLONOSCOPY, CERVICAL DISCECTOMY/FUSION C4-5,C5-6,C6-7, CARPAL TUNNEL LEFT WRIST Past Anesthesia/Blood Transfusion Reactions: Previous Problems w/ Anesthesia Additional Past Anesthesia/Blood Transfusion Reaction / Comm: STATES B/P WAS LOW POST OP RT THYROIDECTOMY-mostly related to narcotic pain meds. HISTORY OF CLAUSTERPHOBIA Past Psychological History: Anxiety, Depression Additional Psychological History / Comment(s): pt states has anxiety no meds. PT DENIES ANY DEPRESSION AT TIME OF THIS ADMIT, NO THOUGHTS OF HARMING SELF, NO HOPELESSNESS. Pt lives with yvan. She is independent. Smoking Status: Former smoker Past Alcohol Use History: Occasional Additional Past Alcohol Use History / Comment(s): STARTED SMOKING AT AGE 18 STOPPED FEBRUARY 2014 N ( SMOKED ON AND OFF) SMOKED 1PPD AT THE TIME SHE QUIT 2013 Past Drug Use History: None Reported - Past Family History Father Family Medical History: Osteoarthritis (OA) Mother Family Medical History: AFIB, Deep Vein Thrombosis (DVT) Additional Family Medical History / Comment(s): hypothyroidism. bladder issues. heart palpatations Medications and Allergies Home Medications Medication Instructions Recorded Confirmed Type Aspirin EC [Ecotrin Low Dose] 81 mg PO DAILY #30 tablet.dr 03/15/14 01/18/19 Rx Metoprolol Succinate (ER) [Toprol 12.5 mg PO BID #60 tab.er.24h 03/15/14 01/18/19 Rx XL] Nitroglycerin Sl Tabs [Nitrostat] 0.4 mg SUBLINGUAL Q5M PRN #25 tab 03/15/14 01/18/19 Rx Omeprazole [PriLOSEC] 20 mg PO DAILY 03/19/15 01/18/19 History Ergocalciferol [Vitamin D2 50,000 unit PO SUWE 04/03/16 01/18/19 History (JACOBO)] Liothyronine Sodium [Cytomel] 25 mcg PO DAILY 04/03/16 01/18/19 History Levothyroxine Sodium [Synthroid] 88 mcg PO DAILY 05/18/16 01/18/19 History Cyclobenzaprine [Flexeril] 5 mg PO DAILY PRN 02/14/18 01/18/19 History Ibuprofen [Motrin Ib] 400 mg PO Q8H 01/18/19 01/18/19 History Allergies Allergy/AdvReac Type Severity Reaction Status Date / Time adhesive tape Allergy Unknown Verified 01/18/19 19:01 levofloxacin [From Levaquin] Allergy BRAIN STEM Verified 01/18/19 19:01 SEIZURE Penicillins Allergy Anaphylaxis Verified 01/18/19 19:01 Quinolones Allergy Unknown Verified 01/18/19 19:01 venom-honey bee Allergy Anaphylaxis Verified 01/18/19 19:01 Surgical - Exam Vital Signs Temp Pulse Resp BP Pulse Ox 98.1 F 75 20 155/80 95 01/18/19 18:57 01/18/19 18:57 01/18/19 18:57 01/18/19 18:57 01/18/19 18:57 Results - Labs 01/18/19 20:01 01/18/19 20:01 Abnormal Lab Results - Last 24 Hours (Table) 01/19/19 Range/Units 14:15 APTT 46.6 H (22.0-30.0) sec <Ralph Marshall - Last Filed: 01/20/19 14:44> History of Present Illness History of present illness: As above. Patient was having pain in the right upper quadrant and right chest with radiation to the back. On examination however the patient has no tenderness in the right upper quadrant and is tender in the left lower quadrant. CAT scan was reviewed and definitely shows some inflammatory change at the level of the sigmoid colon consistent with diverticulitis. Gallbladder workup thus far fairly unimpressive. Will advance to full liquids. Continue antibiotics. Home when left lower quadrant tenderness improves. Surgical - Exam Vital Signs Temp Pulse Resp BP Pulse Ox 98.1 F 75 20 155/80 95 01/18/19 18:57 01/18/19 18:57 01/18/19 18:57 01/18/19 18:57 01/18/19 18:57 Results - Labs 01/20/19 11:12 01/18/19 20:01 Abnormal Lab Results - Last 24 Hours (Table) 01/19/19 Range/Units 14:15 APTT 46.6 H (22.0-30.0) sec
--- NOTE | 2019-01-20 11:25 | P.CRDCN ---
History of Present Illness History of present illness: This is a pleasant 58-year-old female past medical history significant for coronary artery disease, hypertension, hypothyroidism and former nicotine dependence. She follows in the office with Dr. Hdez. We've been asked to see her in consultation for symptoms of chest discomfort. She presented to the hospital with symptoms of right lower quadrant abdominal discomfort with r adiation to the right anterior chest wall and shoulder. She states she has been having episodes of mildly loose stools, she states the stool she had yesterday was white and she was running a fever at home of 101F. She has been receiving Toradol and this does relieve her pain by taking the edge off but she continues to have significant abdominal tenderness. She denies symptoms of precordial esther st discomfort, exertional chest discomfort or shortness of breath. In 2013 she underwent a cardiac catheterization revealing a very small first diagonal branch that was subtotally occluded. Due to the small nature of the artery medical therapy was recommended. She had no other evidence of obstructive coronary artery disease. She underwent a Lexiscan stress test in August 2017 that was negative for reversible cardiac ischemia. In November 2018 she had an echocardiogram in the office revealing preserved left ventricular systolic function with ejection fraction 60%. She is currently maintained on aspirin 81 mg daily and Toprol 12.5 mg twice a day. She is also being seen in consultation by GI services as well as surgical services. CT of the abdomen and pelvis obtained last evening reveals acute diverticulitis. EKG reveals sinus mechanism with no acute ST or T wave abnormalities noted. Chest x-ray is negative for an acute cardiopulmonary process. Laboratory data reviewed, WBC 8.4, hemoglobin 14.3, platelets 237, d-dimer 0.57, sodium 140, potassium 4.4, creatinine 0.7, magnesium 1.8, cardiac enzymes negative 3, LDL 119, HDL 49. At the time of my exam: CONSTITUTIONAL: Denies fever. Denies chills. EYES: Denies blurred vision. Denies vision changes. Denies eye pain. EARS, NOSE, MOUTH & THROAT: Denies headache. Denies sore throat. Denies ear pain. CARDIOVASCULAR: Denies chest pain. Denies shortness of breath. Denies orthopnea. Denies PND. Denies palpitations. RESPIRATORY: Denies cough. GASTROINTESTINAL: Complains of abdominal pain. Denies diarrhea. Denies constipation. Denies nausea. Denies vomiting. MUSCULOSKELETAL: Denies myalgias. INTEGUMENTARY: Denies pruitis. Denies rash. NEUROLOGIC: Denies numbness. Denies tingling. Denies weakness. PSYCHIATRIC: Denies anxiety. Denies depression. ENDOCRINE: Denies fatigue. Denies weight change. Denies polydipsia. Denies polyurina. GENITOURINARY: Denies burning, hematuria or urgency with micturation. HEMATOLOGIC: Denies history of anemia. Denies bleeding. Blood pressure 125/77 heart rate 74 afebrile maintaining oxygen saturation on room air GENERAL: This is a 58-year-old female in no apparent distress at the time of my examination. HEENT: Head is atraumatic, normocephalic. Pupils are equal, round. Sclerae ani cteric. Conjunctivae are clear. Mucous membranes of the mouth are moist. Neck is supple. There is no jugular venous distention. No carotid bruit is heard. LUNGS: Clear to auscultation no wheezes, rales or rhonchi. No chest wall tenderness is noted on palpation or with deep breathing. HEART: Regular rate and rhythm without murmurs, rubs or gallops. S1 and S2 heard. ABDOMEN: Soft, acutely tender right lower quadrant. Bowel sounds are heard. No organomegaly noted. EXTREMITIES: No evidence of peripheral edema and no calf tenderness noted. VASCULAR: Radial and dorsalis pedis pulses palpated, no evidence of clubbing. NEUROLOGIC: Patient is awake, alert and oriented x3. ASSESSMENT Acute diverticulitis Abdominal pain with radiation to the right anterior chest wall. An acute coronary event has been ruled out. Heparin infusion was discontinued yesterday verbally. History of coronary artery disease on maximum medical therapy Hypertension Dyslipidemia PLAN An acute coronary event has been ruled out. There is no chest pain suggestive of angina. Her symptoms are related to acute diverticulitis and possibly gallbladder disease. She is currently scheduled to undergo a HIDA scan. Initiate on atorvastatin 40 mg daily. No further cardiac work-up warranted. Follow up with Dr. Hdez upon discharge. Thank you kindly for this consultation. Nurse Practitioner note has been reviewed, I agree with a documented findings and plan of care. Patient was seen and examined. Past Medical History Past Medical History: Coronary Artery Disease (CAD), Cancer, GERD/Reflux, Hypertension, Myocardial Infarction ([place]), Osteoarthritis (OA), Thyroid Disorder Additional Past Medical History / Comment(s): Recent respiratory infection with ABX, HX THYROID CA with surgery, DIVERTICULITIS, cervical neuropathy-numbness, pain hands, DDD, cervical stenosis & myelopathy, abnormal MRI, fibro Last Myocardial Infarction Date:: 03/09/14 History of Any Multi-Drug Resistant Organisms: None Reported Past Surgical History: Breast Surgery, Heart Catheterization, Hysterectomy, Tubal Ligation Additional Past Surgical History / Comment(s): R breast biopsy-benign, heart cath-UNABLE TO PUT IN STENT, RT THYROIDECTOMY d/t cancer AND LEFT MASS REMOVED FROM NECK , MULT THYROID BX'S. completion of thyroidectomy, COLONOSCOPY, CERVICAL DISCECTOMY/FUSION C4-5,C5-6,C6-7, CARPAL TUNNEL LEFT WRIST Past Anesthesia/Blood Transfusion Reactions: Previous Problems w/ Anesthesia Additional Past Anesthesia/Blood Transfusion Reaction / Comment(s): STATES B/P WAS LOW POST OP RT THYROIDECTOMY-mostly related to narcotic pain meds. HISTORY OF CLAUSTERPHOBIA Past Psychological History: Anxiety, Depression Additional Psychological History / Comment(s): pt states has anxiety no meds. PT DENIES ANY DEPRESSION AT TIME OF THIS ADMIT, NO THOUGHTS OF HARMING SELF, NO HOPELESSNESS. Pt lives with yvan. She is independent. Smoking Status: Former smoker Past Alcohol Use History: Occasional Additional Past Alcohol Use History / Comment(s): STARTED SMOKING AT AGE 18 STOPPED FEBRUARY 2014 N ( SMOKED ON AND OFF) SMOKED 1PPD AT THE TIME SHE QUIT 2013 Past Drug Use History: None Reported - Past Family History Father Family Medical History: Osteoarthritis (OA) Mother Family Medical History: AFIB, Deep Vein Thrombosis (DVT) Additional Family Medical History / Comment(s): hypothyroidism. bladder issues. heart palpatations Medications and Allergies Home Medications Medication Instructions Recorded Confirmed Type Aspirin EC [Ecotrin Low Dose] 81 mg PO DAILY #30 tablet.dr 03/15/14 01/18/19 Rx Metoprolol Succinate (ER) [Toprol 12.5 mg PO BID #60 tab.er.24h 03/15/14 01/18/19 Rx XL] Nitroglycerin Sl Tabs [Nitrostat] 0.4 mg SUBLINGUAL Q5M PRN #25 tab 03/15/14 01/18/19 Rx Omeprazole [PriLOSEC] 20 mg PO DAILY 03/19/15 01/18/19 History Ergocalciferol [Vitamin D2 50,000 unit PO SUWE 04/03/16 01/18/19 History (DRISDOL)] Liothyronine Sodium [Cytomel] 25 mcg PO DAILY 04/03/16 01/18/19 History Levothyroxine Sodium [Synthroid] 88 mcg PO DAILY 05/18/16 01/18/19 History Cyclobenzaprine [Flexeril] 5 mg PO DAILY PRN 02/14/18 01/18/19 History Ibuprofen [Motrin Ib] 400 mg PO Q8H 01/18/19 01/18/19 History Allergies Allergy/AdvReac Type Severity Reaction Status Date / Time adhesive tape Allergy Unknown Verified 01/18/19 19:01 levofloxacin [From Levaquin] Allergy BRAIN STEM Verified 01/18/19 19:01 SEIZURE Penicillins Allergy Anaphylaxis Verified 01/18/19 19:01 Quinolones Allergy Unknown Verified 01/18/19 19:01 venom-honey bee Allergy Anaphylaxis Verified 01/18/19 19:01 Physical Exam Vitals: Vital Signs Temp Pulse Resp BP Pulse Ox 01/20/19 07:15 98.2 F 74 18 125/77 98 01/20/19 03:56 97.3 F L 62 18 105/54 94 L 01/20/19 03:54 16 01/20/19 00:00 16 01/19/19 23:57 98.4 F 74 16 136/74 96 01/19/19 20:00 18 01/19/19 19:44 97.8 F 72 18 138/79 93 L 01/19/19 16:00 98.1 F 75 18 122/79 94 L 01/19/19 11:59 98.3 F 70 18 120/79 95 Intake and Output 01/19/19 01/20/19 01/20/19 22:59 06:59 14:59 Intake Total 240 Balance 240 Intake: Oral 240 Other: Voiding Method Toilet Toilet # Voids 2 1 Results 01/18/19 20:01 01/18/19 20:01 Coagulation 01/19/19 Range/Units 14:15 APTT 46.6 H (22.0-30.0) sec Current Medications Generic Name Dose Route Start Last Admin Trade Name Freq PRN Reason Stop Dose Admin Aspirin 325 mg 01/19/19 09:00 01/19/19 15:07 Aspirin PO 325 mg DAILY JR Administration Cyclobenzaprine HCl 5 mg 01/19/19 09:52 Flexeril PO DAILY PRN MUSCLE SPASM Ergocalciferol 50,000 unit 01/22/19 09:00 Vitamin D2 PO SUWE [facility] Sodium Chloride 1,000 mls @ 20 mls/hr 01/18/19 21:00 01/19/19 21:31 Saline 0.9% IV 20 mls/hr .Q24H JR Administration Aztreonam 2 gm/ Sodium 100 mls @ 100 mls/hr 01/20/19 11:00 Chloride IVPB Q8HR [facility] Protocol Ibuprofen 400 mg 01/19/19 10:00 01/20/19 03:16 Advil PO Not Given Q8H [facility] Iopamidol 30 ml 01/19/19 20:05 01/19/19 21:14 Isovue-300 30 Ml (For Oral Use) PO 01/20/19 20:06 30 ml Q60M PRN Administration CT Scan Ketorolac Tromethamine 30 mg 01/19/19 10:17 01/20/19 05:01 Toradol IVP 01/23/19 10:02 30 mg Q6HR PRN Administration Pain Levothyroxine Sodium 88 mcg 01/19/19 10:00 01/20/19 06:16 Synthroid PO 88 mcg 0630 [facility] Administration Liothyronine Sodium 25 mcg 01/19/19 10:00 01/19/19 15:01 Cytomel PO 25 mcg DAILY [facility] Administration Metoprolol Succinate 12.5 mg 01/19/19 10:00 01/19/19 23:57 Toprol Xl PO 12.5 mg BID JR Administration Miscellaneous Information 1 each 01/19/19 20:05 Rx Info: Iv Contrast Was Given MISCELLANE 01/21/19 20:06 DAILY PRN Per Protocol Nitroglycerin 0.4 mg 01/18/19 21:00 Nitrostat SUBLINGUAL Q5M PRN Chest Pain Nitroglycerin 0.4 mg 01/19/19 09:52 Nitrostat SUBLINGUAL Q5M PRN Chest Pain Pantoprazole Sodium 40 mg 01/19/19 10:00 01/19/19 15:07 Protonix PO 40 mg DAILY JR Administration Intake and Output 04/01/20/19 01/20/19 22:59 06:59 14:59 Intake Total 240 Balance 240 Intake: Oral 240 Other: Voiding Method Toilet Toilet # Voids 2 1 01/18/19 20:01 01/18/19 20:01
[2019-01-20 11:31] LABS: Basophils % (A) 1 %; Eosinophils # (A) 0.2 k/uL (0-0.7); Eosinophils % (A) 5 %; HCT 41.4 % (34.0-46.0); HGB 13.8 gm/dL (11.4-16.0); Lymphocytes % (A) 20 %; MCH 28.9 pg (25.0-35.0); MCHC 33.2 g/dL (31.0-37.0); MCV 87.1 fL (80.0-100.0); Mean Platelet Volume 7.3; Monocytes # (A) 0.3 k/uL (0-1.0); Monocytes % (A) 6 %; Neutrophils # (A) 3.2 k/uL (1.3-7.7); Neutrophils % (A) 66 %; Platelet Count 242 k/uL (150-450); RBC 4.76 m/uL (3.80-5.40); RDW 13.3 % (11.5-15.5); WBC 4.8 k/uL (3.8-10.6)
[2019-01-20] MEDS ORDERED: AZTREONAM 2 GM in SODIUM CHLORIDE 0.9% 100 ML IVPB SCH (12:00)
[2019-01-20] MEDS: ASPIRIN 325 MG TAB PO SCH (12:26)
[2019-01-20] MEDS: LIOTHYRONINE SODIUM 5 MCG TAB PO SCH (12:27)
[2019-01-20] MEDS: METOPROLOL SUCCINATE (ER) 25 MG TAB.ER.24H PO SCH ×2 (12:27→20:24)
[2019-01-20] MEDS: PANTOPRAZOLE 40 MG TABLET PO SCH (12:27)
[2019-01-20] MEDS: ATORVASTATIN 40 MG TAB PO SCH (12:31)
--- NOTE | 2019-01-20 15:35 | PN ---
PROGRESS NOTE DATE OF SERVICE: 01/20/2019 PRESENTING COMPLAINT: Chest and abdominal pain. INTERVAL HISTORY: This patient presented with chest and abdominal pain. CT scan of the abdomen was showing acute sigmoid diverticulitis, for which patient is on IV antibiotic. The patient is on clear liquids. Still abdominal pain is present. No bowel movement. HIDA scan did show hyperactive gallbladder, clinical significance of which is unclear. Being followed by Surgery and GI. The patient does feel a little bit better. No fever. REVIEW OF SYSTEMS: Done for constitutional, cardiovascular, GI, pulmonary; relevant findings as above. CURRENT MEDICATIONS: Reviewed. They include IV aztreonam. PHYSICAL EXAMINATION: Temperature afebrile, pulse 58, respiration 18, blood pressure 119/78, pulse ox 96% on room air. LUNGS: Fair air entry. CARDIOVASCULAR: First and second sounds normal. No edema. ABDOMEN: Lower abdominal tenderness. No guarding or rigidity. Bowel sounds present. PSYCHIATRY: Alert and oriented x3. Mood and affect normal. INVESTIGATIONS: White count 4.8, hemoglobin 13.8. ASSESSMENT: 1. Acute sigmoid diverticulitis. 2. HIDA scan showing hyperkinetic gallbladder on HIDA scan; clinical significance unclear. 3. Obesity; body mass index 35.4. 4. Coronary artery disease. 5. Gastroesophageal reflux disease. 6. Essential hypertension. 7. Primary osteoarthritis. 8. Hypothyroid. 9. Cervical neuropathy. PLAN: Patient is on IV aztreonam. Follow further with GI and General Surgery. Patient is on a clear liquid diet. Care was discussed with the patient. MMODL / IJN: [id number] /
--- NOTE | 2019-01-20 17:05 | CONS ---
CONSULTATION DATE OF SERVICE: 01/20/2019 REASON FOR CONSULTATION: Acute complicated sigmoid diverticulitis with MULTIPLE ANTIBIOTIC ALLERGIES. HISTORY OF PRESENT ILLNESS: The patient is a 58-year-old female with a past medical history significant for recurrent diverticulitis. The patient presented to the ER at [facility] on 01/18/2019 with the chief complaints of right-sided chest pain and right shoulder pain. The patient's pain had been going on for a few days before she presented to hospital. Pain is described to be sharp, 6 to 7 out of 10, and no radiation. The patient denies any high-grade fever, rigors or chills. Patient on presentation to the ER was afebrile. White count is not significantly elevated at 8.4. The patient did have a gallbladder ultrasound completed which shows slightly increased attenuation of the liver which may represent minimal hepatic steatosis. The patient had a CT of the chest, abdomen and pelvis read as normal. Abdominal and pelvis CT raised the possibility of acute sigmoid diverticulitis. The patient did have a hepatobiliary scan which was shows hyperdynamic gallbladder but no evidence of cholecystitis. As the patient does have MULTIPLE ANTIBIOTIC ALLERGIES that include LEVAQUIN with a brainstem seizure and PENICILLIN with anaphylaxis, Infectious Disease was consulted for recommendations regarding antibiotic for her acute diverticulitis. The patient mentioned the allergy to penicillin to be anaphylaxis a long time ago. When asked specifically if she has taken Keflex or a related antibiotic, the patient said she was not sure about them. The patient is now complaining of some pain in the left lower abdominal area that is sharp, 6 to 7 out of 10, and no radiation. Some nausea but no vomiting. Denies having any diarrhea. REVIEW OF SYSTEMS: CONSTITUTIONAL: Positive for weakness but no fever. EYES: No complaint. ENT: No complaint. RESPIRATORY: No complaint. CARDIOVASCULAR: No complaint. GENITOURINARY: No complaint. GASTROINTESTINAL: As per HPI. MUSCULOSKELETAL: No complaint. INTEGUMENTARY: No complaint. PSYCHOLOGICAL: No complaint. ENDOCRINE: No complaint. NEUROLOGICAL: No complaint. PAST MEDICAL HISTORY: 1. Coronary artery disease. 2. Gastroesophageal reflux disease. 3. Hypertension. 4. PA. 5. Osteoarthritis. 6. Hypothyroidism. PAST SURGICAL HISTORY: 1. Right breast biopsy. 2. Heart catheterization. 3. Hysterectomy. 4. Tubal ligation. 5. Colonoscopy. 6. Cervical discectomy. SOCIAL HISTORY: Remote history of smoking. Occasionally drinks. No drug use. FAMILY HISTORY: Father with no major medical problems. Mother with history of atrial fibrillation, DVT and hypothyroidism. ALLERGIES: 1. PENICILLIN. 2. QUINOLONES. 3. LEVAQUIN. CURRENT MEDICATIONS: Include: 1. Aspirin. 2. Lipitor. 3. Azactam 2 grams q.8. 4. Flexeril. 5. Vitamin D2. 6. Advil. 7. Toradol. 8. Lactated Ringer's. 9. Synthroid. 10.Cytomel. 11.Toprol-XL. 12.Nitrostat. 13.Protonix. PHYSICAL EXAMINATION: Blood pressure is 134/86 with a pulse of 62, temperature 97.9. She is 95% on room air. General description is a middle-aged female lying in bed in no distress. No tachypnea or accessory muscle of respiration use. HEENT examination shows no pallor or scleral icterus. Oral mucosa membrane is dry. No pharyngeal erythema or thrush. NECK: Trachea is central. No thyromegaly. LUNGS: Unlabored breathing. Clear to auscultation anteriorly. No wheeze or crackle. HEART: S1, S2. Regular rate and rhythm. ABDOMEN: Soft. Very minimal tenderness in the left lower quadrant area. There is no guarding or rigidity. No organomegaly. EXTREMITIES: No edema feet. SKIN EXAMINATION: No rash or mass palpable. Neurologically the patient is awake, alert, oriented x3. Mood and affect normal. LABS: Hemoglobin 13.8, white count 4.8. BUN of 17, creatinine 0.70. Electrolytes have been normal. Liver enzymes are normal. Troponin has been negative. Lipase is 131, amylase 54. No culture has been done. Patient already received antibiotics. CT report as mentioned above. DIAGNOSTIC IMPRESSION AND PLAN: 1. Patient with history of recurrent diverticulitis in this patient now admitted to hospital with right-sided chest pain, for with workup is showing a hyperdynamic gallbladder and CT suggestive of acute sigmoid diverticulitis, uncomplicated, in this patient who does complain of left lower abdominal pain now and minimal tenderness on clinical examination. Will need to cover for the enteric gram- negative, both aerobes and anaerobes. 2. Patient with MULTIPLE ANTIBIOTIC ALLERGIES, including PENICILLIN and QUINOLONES. That will limit the number of antibiotics that could be safely used. PLAN: 1. Detailed discussion with the patient about antibiotic choices, including Rocephin 2 grams daily to cover for the gram-negative aerobes, which so far has been safe in my clinical experience in patients who have history of PENICILLIN ALLERGY. If the patient tolerates the Rocephin, she can be transitioned to oral Ceftin, which the patient agreed to. If not, the only option we have will be IV antibiotic therapy in the form of IV Azactam, which the patient has already tolerated without any problem at this point. 2. Will add Flagyl 500 IV q.8 to cover for the anaerobic gram-negative. 3. Depending upon the clinical response and response to the antibiotic, will determine her discharge antibiotic. Significant amount of time was spent with the patient to show the pros and cons of each option. GAROL / BEKAN: [id number] / BREANNA
[2019-01-20] MEDS: LACTATED RINGERS 1,000 ML IV SCH ×2 (17:32→23:32)
[2019-01-20] MEDS: metroNIDAZOLE-NS PMX 500 MG in SALINE 1 100ML.BAG IVPB SCH (17:32)
[2019-01-21] MEDS: AZTREONAM 2 GM in SODIUM CHLORIDE 0.9% 100 ML IVPB SCH ×3 (00:12→17:44)
[2019-01-21] MEDS: metroNIDAZOLE-NS PMX 500 MG in SALINE 1 100ML.BAG IVPB SCH ×3 (01:49→16:11)
[2019-01-21] MEDS: IBUPROFEN 200 MG TAB PO SCH ×3 (02:46→17:16)
[2019-01-21] MEDS: KETOROLAC 30 MG/ML 1 ML VIAL IVP PRN ×4 (04:25→22:18)
[2019-01-21] MEDS: LEVOTHYROXINE 88 MCG TAB PO SCH (05:42)
[2019-01-21 06:17] LABS: Basophils % (A) 1 %; Eosinophils # (A) 0.2 k/uL (0-0.7); Eosinophils % (A) 7 %; HCT 40.2 % (34.0-46.0); HGB 12.8 gm/dL (11.4-16.0); Lymphocytes % (A) 31 %; MCH 28.1 pg (25.0-35.0); MCHC 31.8 g/dL (31.0-37.0); MCV 88.3 fL (80.0-100.0); Mean Platelet Volume 7.2; Monocytes # (A) 0.2 k/uL (0-1.0); Monocytes % (A) 6 %; Neutrophils # (A) 1.6 k/uL (1.3-7.7); Neutrophils % (A) 52 %; Platelet Count 246 k/uL (150-450); RBC 4.55 m/uL (3.80-5.40); RDW 13.5 % (11.5-15.5); WBC 3.1 k/uL (3.8-10.6)
[2019-01-21 06:26] LABS: ALT 31 U/L (9-52); AST 17 U/L (14-36); Albumin 3.4 g/dL (3.5-5.0); Alkaline Phosphatase 83 U/L (38-126); Anion Gap 4 mmol/L; Blood Urea Nitrogen 10 mg/dL (7-17); Carbon Dioxide 30 mmol/L (22-30); Chloride 107 mmol/L (98-107); Glucose 98 mg/dL (74-99); Potassium 4.5 mmol/L (3.5-5.1); Sodium 141 mmol/L (137-145); Total Bilirubin 0.5 mg/dL (0.2-1.3); Total Protein 5.8 g/dL (6.3-8.2)
[2019-01-21] MEDS: ATORVASTATIN 40 MG TAB PO SCH ×2 (08:17→08:25)
[2019-01-21] MEDS: ASPIRIN 325 MG TAB PO SCH (08:17)
[2019-01-21] MEDS: METOPROLOL SUCCINATE (ER) 25 MG TAB.ER.24H PO SCH ×2 (08:17→20:38)
[2019-01-21] MEDS: LIOTHYRONINE SODIUM 5 MCG TAB PO SCH (08:17)
[2019-01-21] MEDS: LACTATED RINGERS 1,000 ML IV SCH ×2 (08:18→16:15)
[2019-01-21] MEDS: PANTOPRAZOLE 40 MG TABLET PO SCH (08:29)
--- NOTE | 2019-01-21 09:15 | P.PN ---
Subjective Progress Note Date: 01/21/19 Principal diagnosis: Abdominal pain Patient still having pain in the right chest region. Does admit to left lower quadrant discomfort as well however. No fevers. White blood cell count is normal. Infectious disease consultation appreciated. Objective - Vital Signs Vital signs: Vital Signs Temp 97.7 F 01/21/19 06:21 Pulse 59 L 01/21/19 06:21 Resp 16 01/21/19 06:21 BP 125/74 01/21/19 06:21 Pulse Ox 96 01/21/19 06:21 Intake & Output 01/20/19 01/21/19 01/21/19 18:59 06:59 18:59 Intake Total 500 540 Balance 500 540 Intake: Oral 500 540 Other: Voiding Method Toilet Toilet Toilet # Voids 2 1 - Exam Abdomen soft, nondistended, left lower quadrant tenderness noted - Labs CBC & Chem 7: 01/21/19 05:57 01/21/19 05:57 Labs: Abnormal Lab Results - Last 24 Hours (Table) 01/21/19 01/21/19 Range/Units 05:57 05:57 WBC 3.1 L (3.8-10.6) k/uL Total Protein 5.8 L (6.3-8.2) g/dL Albumin 3.4 L (3.5-5.0) g/dL Assessment and Plan (1) Abdominal pain Narrative/Plan: Continue IV antibiotics for sigmoid diverticulitis. Etiology of the patient's right upper quadrant and right-sided chest pain still remained unclear. One possibility could be a small hepatic abscess related to the underlying diverticulitis although not visualized on CAT scan. Will advance diet. Home w hen pain improved. Current Visit: No Status: Acute Code(s): R10.9 - UNSPECIFIED ABDOMINAL PAIN SNOMED Code(s): 16812913
[2019-01-21] MEDS ORDERED: DICYCLOMINE 20 MG TAB PO SCH (10:00)
[2019-01-21] MEDS ORDERED: DICYCLOMINE 20 MG TAB PO PRN (11:29)
--- NOTE | 2019-01-21 14:46 | PN ---
PROGRESS NOTE DATE OF SERVICE: 01/21/2019. REASON FOR FOLLOW UP: 1. Acute sigmoid diverticulitis. 2. Multiple ANTIBIOTIC ALLERGIES. INTERVAL HISTORY: The patient is currently afebrile. The patient did refuse her Rocephin yesterday. Subsequently the patient has been switched back to Azactam 2 g q.8 hours. The patient has been tolerating. Denies having any chest pain. Still having some right upper quadrant and left lower quadrant tenderness. No nausea, vomiting and no diarrhea. PHYSICAL EXAMINATION: Blood pressure is 125/74 with a pulse of 59. Temperature 97.7. She is 96% on room air. General description is a middle-aged female up in the room in no distress respiratory system: Unlabored breathing. Clear to auscultation anteriorly. Heart S1, S2. Regular rate and rhythm. Abdomen soft. No tenderness. LABS: No new labs. Hemoglobin is 12.8 with white count 3.1, BUN of 10, creatinine 0.69. No cultures. DIAGNOSTIC IMPRESSION AND PLAN: Patient with acute sigmoid diverticulitis with multiple antibiotic allergies. Patient is currently on Azactam and Flagyl seemed to be clinically responding that will be continued. Possible transition to Invanz I g daily on discharge that could be easily administered in outpatient setting through a midline to finish a course of therapy. Continue supportive care. MMODL / IJN: [id number] /
--- NOTE | 2019-01-21 17:21 | P.PN ---
Subjective Progress Note Date: 01/21/19 Principal diagnosis: Abdominal pain, diverticulitis Patient is seen lying in bed, so reporting abdominal pain. No nausea or vomiting. She is tolerating her diet. Objective - Vital Signs Vital signs: Vital Signs Temp 97.7 F 01/21/19 16:00 Pulse 68 01/21/19 16:00 Resp 16 01/21/19 16:00 BP 134/77 01/21/19 16:00 Pulse Ox 97 01/21/19 16:00 Intake & Output 01/20/19 01/21/19 01/21/19 18:59 06:59 18:59 Intake Total 500 540 Balance 500 540 Intake: Oral 500 540 Other: Voiding Method Toilet Toilet Toilet # Voids 2 1 - Exam On physical examination, patient appears comfortable in no apparent distress. HEAD: Normocephalic, atraumatic. EYES: No scleral icterus. No conjunctival injection. MOUTH: No lesions, tongue midline. NECK: Trachea midline, no gross abnormalities. ABDOMEN: Soft, obese, diffusely tender to palpation. Bowel sounds are positive. No organomegaly. No guarding or rigidity. EXTREMITIES: No pedal edema. SKIN: No rashes, no jaundice. NEUROLOGIC: Alert and oriented x3. No focal deficits. - Labs CBC & Chem 7: 01/21/19 05:57 01/21/19 05:57 Labs: Abnormal Lab Results - Last 24 Hours (Table) 01/21/19 01/21/19 Range/Units 05:57 05:57 WBC 3.1 L (3.8-10.6) k/uL Total Protein 5.8 L (6.3-8.2) g/dL Albumin 3.4 L (3.5-5.0) g/dL Assessment and Plan (1) Diverticulitis large intestine w/o perforation or abscess w/o bleeding Narrative/Plan: Patient who was found to have uncomplicated diverticulitis on imaging. The patient has had prior episodes of diverticulitis. Current Visit: Yes Status: Acute Code(s): K57.32 - DVTRCLI OF LG INT W/O PERFORATION OR ABSCESS W/O BLEEDING SNOMED Code(s): 3593406 (2) Abdominal pain Narrative/Plan: Patient with right-sided abdominal pain and no evidence of cholelithiasis or cholecystitis on ultrasound and HIDA imaging. Current Visit: No Status: Acute Code(s): R10.9 - UNSPECIFIED ABDOMINAL PAIN SNOMED Code(s): 13070495 Plan: Supportive care Okay for diet as tolerated Continue antibiotic therapy Appreciate recommendations from surgical service and infectious disease Trial of Bentyl therapy Thank you for allowing us to participate in the care of the patient
--- NOTE | 2019-01-21 20:07 | PN ---
PROGRESS NOTE DATE OF SERVICE: January 21 2019. PRESENTING COMPLAINT: Abdominal pain. INTERVAL HISTORY: Patient presented with abdominal pain, found to have acute sigmoid diverticulitis. Also hypokinetic gallbladder. Abdominal pain is somewhat better. Has had no bowel movement. Getting antibiotics. Overall feeling better. Sister is visiting. REVIEW OF SYSTEMS: Done for constitutional, cardiovascular, GI, pulmonary and relevant findings as above. CURRENT MEDICATIONS: Reviewed that include IV aztreonam and IV Flagyl. PHYSICAL EXAMINATION: VITAL SIGNS: Temperature 97.7, pulse 68, respirations 16, blood pressure 134/77, pulse ox 97% on room air. GENERAL APPEARANCE: Sitting up, awake. EYES: Pupils equal. Conjunctivae normal. NECK: JVD not raised. Mass not palpable. RESPIRATORY: Effort normal. Lungs fair entry. CARDIOVASCULAR: First and second sounds no edema. ABDOMEN: Decreased lower abdominal tenderness. No guarding or rigidity. Bowel sounds are present. PSYCHIATRY: Alert and oriented times three. Mood and affect normal. INVESTIGATIONS: White count 3.1, hemoglobin 12.8, potassium 4.5. ASSESSMENT: 1. Acute sigmoid diverticulitis with clinical response. 2. Hyperkinetic gallbladder on HIDA. No further intervention at the present time. 3. Obesity; BMI 35.4. 4. Coronary artery disease. 5. Gastroesophageal reflux disease. 6. Essential hypertension. 7. Primary osteoarthritis. 8. Hypothyroid. 9. Cervical neuropathy. PLAN: Continue with antibiotics. Diet to be advanced as tolerated. Told the patient to be out of bed and increase activity. MMODL / IJN: [id number] /
[2019-01-21] MEDS: DICYCLOMINE 10 MG CAP PO SCH ×2 (20:32→21:19)
[2019-01-22] MEDS: AZTREONAM 2 GM in SODIUM CHLORIDE 0.9% 100 ML IVPB SCH ×3 (00:18→16:46)
[2019-01-22] MEDS: LACTATED RINGERS 1,000 ML IV SCH ×4 (00:18→23:36)
[2019-01-22] MEDS: metroNIDAZOLE-NS PMX 500 MG in SALINE 1 100ML.BAG IVPB SCH ×4 (01:43→23:43)
[2019-01-22] MEDS: IBUPROFEN 200 MG TAB PO SCH ×3 (03:21→17:47)
[2019-01-22] MEDS: KETOROLAC 30 MG/ML 1 ML VIAL IVP PRN ×3 (06:28→21:20)
[2019-01-22] MEDS: LEVOTHYROXINE 88 MCG TAB PO SCH (06:28)
[2019-01-22] MEDS: ASPIRIN 325 MG TAB PO SCH (08:37)
[2019-01-22] MEDS: ATORVASTATIN 40 MG TAB PO SCH (08:37)
[2019-01-22] MEDS: LIOTHYRONINE SODIUM 5 MCG TAB PO SCH (08:37)
[2019-01-22] MEDS: DICYCLOMINE 10 MG CAP PO SCH ×4 (08:37→21:21)
[2019-01-22] MEDS: PANTOPRAZOLE 40 MG TABLET PO SCH (08:38)
[2019-01-22] MEDS: METOPROLOL SUCCINATE (ER) 25 MG TAB.ER.24H PO SCH ×2 (08:38→21:20)
[2019-01-22] MEDS ORDERED: ERGOCALCIFEROL 50,000 UNIT CAP PO SCH (09:00)
--- NOTE | 2019-01-22 10:47 | P.PN ---
Subjective Progress Note Date: 01/22/19 Principal diagnosis: Abdominal pain Patient says her left lower quadrant pain is increased slightly however her right upper quadrant pain has decreased. She remains afebrile. Plans apparently are underway for her to have a PICC line with home IV antibiotics Objective - Vital Signs Vital signs: Vital Signs Temp 97.4 F L 01/22/19 08:00 Pulse 63 01/22/19 08:00 Resp 18 01/22/19 08:00 BP 127/78 01/22/19 08:00 Pulse Ox 97 01/22/19 08:00 Intake & Output 01/21/19 01/22/19 01/22/19 18:59 06:59 18:59 Other: Voiding Method Toilet Toilet Toilet # Voids 1 - Exam Abdomen: Soft, nondistended, mild left lower quadrant tenderness - Labs CBC & Chem 7: 01/21/19 05:57 01/21/19 05:57 Assessment and Plan (1) Abdominal pain Narrative/Plan: Continue IV antibiotics. Possible discharge tomorrow after PICC line placement. Will follow. Current Visit: No Status: Acute Code(s): R10.9 - UNSPECIFIED ABDOMINAL PAIN SNOMED Code(s): 66693499
--- NOTE | 2019-01-22 22:19 | PN ---
PROGRESS NOTE DATE OF SERVICE: 01/22/2019. PRESENT COMPLAINT: Abdominal pain. INTERVAL HISTORY: The patient admitted with acute sigmoid diverticulitis and a hyperkinetic gallbladder. Abdominal pain is better. Has been up and about. Eating better. No fever. No chills. REVIEW OF SYSTEMS: Done for constitutional, cardiovascular, GI, pulmonary; relevant findings as above. CURRENT MEDICATIONS: Reviewed that include IV aztreonam and IV Flagyl. EXAMINATION: VITAL SIGNS: Afebrile. Pulse 72, respiration 16, blood pressure 116/65, pulse ox 97% on room air. GENERAL APPEARANCE: Sitting up awake. EYES: Pupils are equal. Conjunctivae normal. NECK: JVD not raised. Mass not palpable. RESPIRATORY: Effort normal. LUNGS are clear. CARDIOVASCULAR: First and second sounds normal. No edema. ABDOMEN: Some lower abdominal tenderness. No guarding or rigidity. Bowel sounds are present. PSYCHIATRY: Alert and oriented times three. Mood and affect normal. INVESTIGATIONS: No blood work from today. ASSESSMENT: 1. Acute sigmoid diverticulitis with clinical improvement continues. 2. no further intervention currently per surgery. 3. Obesity; BMI 35.4. 4. Coronary artery disease. 5. Gastroesophageal reflux disease. 6. Essential hypertension. 7. Primary osteoarthritis. 8. Hypothyroid. 9. Cervical spine neuropathy. PLAN: Care was discussed with the patient's sister. The patient is getting better. PICC line tomorrow. balcony worker arrange for discharge accordingly. Otherwise patient doing better. MMODL / IJN: [id number] /
--- NOTE | 2019-01-22 22:58 | PN ---
PROGRESS NOTE DATE OF SERVICE: 01/22/2019. REASON FOR FOLLOWUP: Acute sigmoid diverticulitis with multiple antibiotic allergies. INTERVAL HISTORY: The patient is currently afebrile. She is breathing comfortably. Still complaining of discomfort in the left lower abdominal area. Some nausea but no vomiting. Denies any chest pain, shortness of breath or cough. Has been tolerating her Azactam and Flagyl at this point. PHYSICAL EXAMINATION: Her blood pressure is 122/78 with a pulse of 80, temperature 97.9, he is 98% on room air. GENERAL DESCRIPTION: A middle aged female, lying in bed in no distress. RESPIRATORY SYSTEM: Unlabored breathing. Clear to auscultation anteriorly. HEART: S1, S2. Regular rate and rhythm. ABDOMEN: Soft, no tenderness. No guarding or rigidity. EXTREMITIES: No edema of the feet. LABS: No new labs have been obtained today. DIAGNOSTIC IMPRESSION AND PLAN: Patient with acute sigmoid diverticulitis with multiple antibiotic allergies. The patient is currently covered with Azactam and Flagyl. Waiting for a midline line placement tomorrow for outpatient IV antibiotic in the form of Azactam which can be switched to twice a day along with oral Flagyl for about a week to finish a course of therapy. Questions and concerns were answered. MMODL / IJN: [id number] /
[2019-01-23] MEDS: AZTREONAM 2 GM in SODIUM CHLORIDE 0.9% 100 ML IVPB SCH ×2 (00:01→09:45)
[2019-01-23] MEDS: IBUPROFEN 200 MG TAB PO SCH ×2 (02:18→12:12)
[2019-01-23] MEDS: KETOROLAC 30 MG/ML 1 ML VIAL IVP PRN ×2 (02:31→09:50)
[2019-01-23] MEDS: LEVOTHYROXINE 88 MCG TAB PO SCH (06:33)
[2019-01-23] MEDS: ATORVASTATIN 40 MG TAB PO SCH (08:12)
[2019-01-23] MEDS: PANTOPRAZOLE 40 MG TABLET PO SCH (08:15)
[2019-01-23] MEDS: metroNIDAZOLE-NS PMX 500 MG in SALINE 1 100ML.BAG IVPB SCH (08:15)
[2019-01-23] MEDS: DICYCLOMINE 10 MG CAP PO SCH (08:15)
[2019-01-23] MEDS: LIOTHYRONINE SODIUM 5 MCG TAB PO SCH (08:16)
[2019-01-23] MEDS: METOPROLOL SUCCINATE (ER) 25 MG TAB.ER.24H PO SCH (08:16)
[2019-01-23] MEDS: ASPIRIN 325 MG TAB PO SCH (08:16)
[2019-01-23 08:23] VITALS: BP 144/96; PULSE 66; RESP 18; TEMP 97.4
--- NOTE | 2019-01-23 10:13 | P.PN ---
<Alem Dang - Last Filed: 01/23/19 10:09> Subjective Progress Note Date: 01/23/19 CHIEF COMPLAINT: Abdominal pain HISTORY OF PRESENT ILLNESS: Patient examined at the bedside. Patient continues to report left lower quadrant abdominal pain. Also reports right upper quadrant abdominal pain that radiates to her back. She reports the pain is controlled at this time. Reports passing flatus and having a small bowel movement this morning. Denies nausea or vomiting. Patient received PICC line this morning. PHYSICAL EXAM: VITAL SIGNS: Reviewed. GENERAL: Well-developed in no acute distress. HEENT: No sclera icterus. Extraocular movements grossly intact. Moist buccal mucosa. Head is atraumatic, normocephalic. ABDOMEN: Soft. Nondistended. Tenderness upon palpation of right and left lower abdominal quadrants. Left worse than right. Positive bowel sounds. NEUROLOGIC: Alert and oriented. Cranial nerves II through XII grossly intact. ASSESSMENT: 1. Abdominal pain, HIDA scan reveals EF 94% 2. Bilateral lower quadrant abdominal pain, CT reveals acute sigmoid diverticulitis PLAN: 1. Continue current diet 2. Antibiotics per ID 3. Discharge per medicine 4. Patient may follow up in 1 week post discharge Nurse practitioner note has been reviewed by physician. Signing provider agrees with the documented findings, assessment, and plan of care. Objective - Vital Signs Vital signs: Vital Signs Temp 97.4 F L 01/23/19 07:25 Pulse 66 01/23/19 07:25 Resp 18 01/23/19 07:25 BP 144/96 01/23/19 07:25 Pulse Ox 97 01/23/19 07:25 Intake & Output 01/22/19 01/23/19 01/23/19 18:59 06:59 18:59 Intake Total 240 Balance 240 Intake: Oral 240 Other: Voiding Method Toilet Toilet # Voids 1 - Labs CBC & Chem 7: 01/21/19 05:57 01/21/19 05:57 Assessment and Plan (1) Diverticulitis large intestine w/o perforation or abscess w/o bleeding Status: Acute Code(s): K57.32 - DVTRCLI OF LG INT W/O PERFORATION OR ABSCESS W/O BLEEDING SNOMED Code(s): 5418766 (2) Abdominal pain Status: Acute Code(s): R10.9 - UNSPECIFIED ABDOMINAL PAIN SNOMED Code(s): 96629567 <Keyona Brantley N - Last Filed: 02/22/19 09:08> Subjective PHYSICAL EXAM: VITALS: Reviewed CONSTITUTIONAL: Well developed and in no acute distress. EYES: Conjuctivae without sclera icterus. Pupils are equally round and reactive to light. Extraocular movements grossly intact. HEAD, EARS, NOSE, THROAT: Moist buccal mucosa. Head is atraumatic, normocephalic. Hears conversational speech. No nasal drainage. NECK: Supple. No JV distention. No thyroidomegaly. RESPIRATORY: Non-labored respirations and equal bilateral excursions. No gross wheezes. CARDIOVASCULAR: Regular rate and rhythm. Extremities without moderate edema. Palpable 2+ radial pulses. ABDOMEN: No hepatomegaly. No peritonitis. LYMPH: No neck lymphadenopathy. No axillary lymphadenopathy. MUSCULOSKELETAL: Range of motion bilateral upper extremities within normal limits. Nail and fingers with good capillary refill. SKIN: Warm and well perfused with good skin turgor. NEUROLOGIC: Cranial nerves I through XII grossly intact. Sensation upper and extremities intact. No focal or lateralizing signs. PSYCH: Appropriate affect. Alert and oriented to person, place and time. Displays appropriate insight. CLINCAL LABS: Reviewed ASSESSMENT: 1. Diverticulitis PLAN: 1. No surgical intervention. 2. Follow-up as outpatient Objective - Vital Signs Vital signs: Vital Signs Temp 97.4 F L 01/23/19 07:25 Pulse 66 01/23/19 07:25 Resp 18 01/23/19 07:25 BP 144/96 01/23/19 07:25 Pulse Ox 97 01/23/19 07:25 - Labs CBC & Chem 7: 01/21/19 05:57 01/21/19 05:57
[2019-01-23] MEDS ORDERED: ERTAPENEM 1 GM in SODIUM CHLORIDE 0.9% 50 ML IVPB STA (11:34)
--- NOTE | 2019-01-23 15:47 | PN ---
PROGRESS NOTE DATE OF SERVICE: 01/23/2019. REASON FOR FOLLOWUP: Acute sigmoid diverticulitis. INTERVAL HISTORY: The patient is currently afebrile. Patient has been breathing comfortably. Denies any chest pain or any cough. Abdominal pain has improved. No nausea, vomiting. No diarrhea. PHYSICAL EXAMINATION: Blood pressure is 144/96, pulse of 66, temperature 97.4, she is 97% on room air. General description is a middle aged female, lying in bed in no distress. Respiratory system: Unlabored breathing. Clear to auscultation anteriorly. Heart S1, S2. Regular rate and rhythm. Abdomen soft, no tenderness. LABS: No new labs have been obtained today. DIAGNOSTIC IMPRESSION AND PLAN: Patient with acute sigmoid diverticulitis. Patient did have multiple antibiotic allergies with no coverage for IV antibiotic at home as antibiotic was switched over to Invanz 1 g daily. The patient has tolerated without any problem. She will continue with Invanz for another week in the outpatient setting and close outpatient followup. MMODL / IJN: [id number] /
--- NOTE | 2019-01-23 21:29 | DS ---
DISCHARGE SUMMARY DATE OF ADMISSION: January 20, 2019. DATE OF DISCHARGE: January 23, 2019. FINAL DIAGNOSES: 1. Acute sigmoid diverticulitis, hyperkinetic gallbladder. 2. Obesity; BMI 35.4. 3. Coronary artery disease. 4. Gastroesophageal reflux disease. 5. Essential hypertension. 6. Primary osteoarthritis. 7. Hypothyroid. 8. Cervical spine neuropathy. CONSULTATION: Dr. Dowling from Infectious Disease; Dr. Marshall from General surgery, Dr. Palacios from GI. HOSPITAL COURSE: This patient presented with abdominal pain studies included gallbladder ultrasound, HIDA scan that showed a hyperkinetic gallbladder. CT scan of the abdomen that showed sigmoid diverticulitis. The patient is given antibiotics to which she finally did respond. Pain was much better, tolerating a diet. Did have a bowel movement before discharge. Antibiotics were coordinated by Dr. Dowling. The patient did get a PICC line placed. PHYSICAL EXAMINATION: Temperature 97.4, pulse 60, respiratory rate 18, blood pressure 144/96, pulse ox 97% on room air. ABDOMEN: Soft. Decreased tenderness. No guarding or rigidity. INVESTIGATIONS: White count 3.1, hemoglobin 12.8, potassium 4.5. DISCHARGE MEDICATIONS: 1. Aspirin 81 mg a day. 2. Toprol-XL 12.5 mg p.o. b.i.d. 3. Nitrostat 0.4 sublingual q.5 p.r.n. 4. Prilosec 20 mg p.o. daily. 5. Crestor 79938 units on Wednesday and Wednesday. 6. Cytomel 25 mcg p.o. daily. 7. Synthroid 88 mcg p.o. daily. 8. Flexeril 5 mg p.o. daily p.r.n. 9. Ibuprofen 400 mg q.8 p.r.n. 10.Lipitor 40 mg p.o. daily. 11.Bentyl 10 mg q.6h p.r.n. 12.Invanz 1 g daily for one week. FOLLOWUP: Follow up with Dr. Marshall in 1 week. Follow up with Dr. Perez in [address] Anaya Hdez in 2 weeks. Diet: Soft bland. Care was discussed in detail with the patient. Discussion and discharge planning more than [address] Perez. MMODL / IJN: [id number] /
== END 2019-01-23 13:55 | disposition home or self-care (01) | DRG 392 ==
LOC: EC 18:44 → 1SOBS 21:04 → OBSVTOIN 01-20 15:58
PROVIDERS: ADMIT Hospitalist; ATTEND Hospitalist
PROC: 05HF33Z Insertion of Infusion Device into Left Cephalic Vein, Percutaneous Approach (ICD-10-PCS; principal; 2019-01-23 07:30)
DX: K57.32 Diverticulitis of large intestine without perforation or abscess without bleeding (principal); G54.2 Cervical root disorders, not elsewhere classified; M48.02 Spinal stenosis, cervical region; I25.10 Atherosclerotic heart disease of native coronary artery without angina pectoris; K82.8 Other specified diseases of gallbladder; K44.9 Diaphragmatic hernia without obstruction or gangrene; K21.9 Gastro-esophageal reflux disease without esophagitis; E78.5 Hyperlipidemia, unspecified; I10 Essential (primary) hypertension; E89.0 Postprocedural hypothyroidism; M19.91 Primary osteoarthritis, unspecified site; I25.2 Old myocardial infarction; E66.9 Obesity, unspecified; Z68.35 Body mass index [BMI] 35.0-35.9, adult; Z79.82 Long term (current) use of aspirin; Z79.890 Hormone replacement therapy; Z79.899 Other long term (current) drug therapy; Z87.891 Personal history of nicotine dependence; Z85.850 Personal history of malignant neoplasm of thyroid; Z90.710 Acquired absence of both cervix and uterus; Z98.1 Arthrodesis status; Z98.890 Other specified postprocedural states; Z86.59 Personal history of other mental and behavioral disorders; Z98.51 Tubal ligation status; Z88.1 Allergy status to other antibiotic agents; Z91.030 Bee allergy status; Z88.0 Allergy status to penicillin; Z88.8 Allergy status to other drugs, medicaments and biological substances; Z91.048 Other nonmedicinal substance allergy status; Z82.61 Family history of arthritis; Z82.49 Family history of ischemic heart disease and other diseases of the circulatory system; Z83.79 Family history of other diseases of the digestive system
CPT/HCPCS: 36410; 36415; 71046; 71260; 74177; 76705; 76937; 78227; 80053; 80061; 82150; 82550; 83690; 83735; 84484; 85025; 85379; 85610; 85730; 93005; 96365; 96375; 96376; 99285

== ENCOUNTER → 2019-03-16 | Outpatient (CLI) | payer MEDICARE ==
--- NOTE | 2019-03-16 13:16 | MR ---
EXAMINATION TYPE: MR knee RT wo con DATE OF EXAM: 03/16/2019 COMPARISON: Radiograph 03/07/2019 HISTORY: 59-year-old female with right knee pain x 1 yr, no trauma TECHNIQUE: Multiplanar, multisequence imaging of the right knee is performed without IV contrast. FINDINGS: ACL, PCL, MCL, and LCL complex are intact. There is a complex tear involving the posterior horn extending to the junction with the body of the m edial meniscus. Mild irregular cartilage loss. Small focal area of cartilage separation from the unde rlying subchondral bone along the mid weightbearing aspect measuring 5 x 4 mm, coronal image 15 and s agittal image 10. Oblique tear extends throughout the anterior horn into the body of the lateral meniscus. There is mar ginal spurring. Moderate focal cartilage loss along the mid weightbearing tibial articular surface. Severe irregular cartilage loss along the lateral patellar and trochlear facets with slight lateral p atellar translation, marginal spurring, and reactive underlying marrow signal changes. The superior aspect of the medial trochlear facet is somewhat small. TT-TG distance is 1.6 cm. Extensor mechanism is intact. Moderate joint effusion and a moderate-sized Dang's cyst measuring 6.7 x 2.3 cm. There is additional multilocular extension medially along the posterior aspect of the medial femoral condyle measuring 1 .7 cm. Additional 1.3 cm ganglion cyst at the origin of the medial head gastrocnemius. A a couple anterior loose bodies measuring up to 5 mm. Normal popliteal artery anatomy. Generalized muscular atrophy. No suspicious bone marrow replacement. IMPRESSION: 1. Moderate to severe patellofemoral compartmental osteoarthrosis, with severe irregular cartilage lo ss along the lateral patellar and trochlear facets. Slight lateral patellar translation. 2. Complex tear posterior horn extending to the junction with the body of the medial meniscus. Mild d egenerative change of the medial compartment. There is a small 5 x 4 mm area of focal cartilage blist ering along the mid weightbearing aspect of the femoral condyle. 3. Oblique tear involving the anterior horn extending to the body of the lateral meniscus. Focal mode rate thickness cartilage loss along the mid weightbearing tibial articular surface of the lateral com partment. 4. Moderate joint effusion and moderate-sized Dang's cyst. Adjacent 1.7 cm ganglion cyst along the p osteromedial aspect of the medial femoral condyle.
== END | disposition home or self-care (01) ==
LOC: RADMRIMAIN 10:53
PROVIDERS: ATTEND Orthopaedic Surgery
DX: S83.231A Complex tear of medial meniscus, current injury, right knee, initial encounter (principal); S83.281A Other tear of lateral meniscus, current injury, right knee, initial encounter; M17.11 Unilateral primary osteoarthritis, right knee; M71.21 Synovial cyst of popliteal space [Baker], right knee; M67.461 Ganglion, right knee

== ENCOUNTER → 2019-04-14 | Outpatient (CLI) | payer MEDICARE ==
[2019-04-14 17:24] LABS: Basophils # (A) 0.1 k/uL (0-0.2); Basophils % (A) 1 %; Eosinophils # (A) 0.2 k/uL (0-0.7); Eosinophils % (A) 4 %; HCT 40.8 % (34.0-46.0); HGB 13.2 gm/dL (11.4-16.0); Lymphocytes # (A) 1.4 k/uL (1.0-4.8); Lymphocytes % (A) 24 %; MCH 28.1 pg (25.0-35.0); MCHC 32.4 g/dL (31.0-37.0); MCV 86.7 fL (80.0-100.0); Mean Platelet Volume 6.8; Monocytes # (A) 0.3 k/uL (0-1.0); Monocytes % (A) 5 %; Neutrophils # (A) 3.7 k/uL (1.3-7.7); Neutrophils % (A) 65 %; Platelet Count 246 k/uL (150-450); RBC 4.71 m/uL (3.80-5.40); RDW 13.5 % (11.5-15.5); WBC 5.7 k/uL (3.8-10.6)
[2019-04-14 17:32] LABS: Potassium 3.9 mmol/L (3.5-5.1)
== END | disposition home or self-care (01) ==
LOC: LABPAT 16:21
PROVIDERS: ATTEND Orthopaedic Surgery
DX: Z01.812 Encounter for preprocedural laboratory examination (principal); M23.91 Unspecified internal derangement of right knee
CPT/HCPCS: 80051; 85025

== ENCOUNTER 2019-04-26 08:11 | Day surgery (SDC) | payer MEDICARE ==
[2019-04-21 14:52] VITALS: BMI 35.7
--- NOTE | 2019-04-25 14:24 | HP ---
HISTORY AND PHYSICAL DATE OF SURGERY: 04/26/2019 Sofia Cummings is a 59-year-old patient seen with progressive right knee pain. We discussed options for treatment, she elected to proceed with right knee arthroscopy. Consent regarding procedure obtained. PAST MEDICAL HISTORY: Hypertension, hypothyroidism. PAST SURGICAL HISTORY: Noncontributory. DAILY MEDICATIONS: 1. Aspirin. 2. Metoprolol. 3. Synthroid. ALLERGIES: PENICILLIN, LEVAQUIN. SOCIAL HISTORY: She denies current tobacco use. PHYSICAL EVALUATION OF THE RIGHT KNEE: Range of motion is 0 to 115 degrees. Mild moderate effusion. Tenderness along the medial and lateral joint lines. Positive medial Greta's. Positive lateral Greta's. Ligaments stable. Hip rotation without pain. Distal neurovascular exam intact. RIGHT KNEE RADIOGRAPHS: Reveal moderate osteoarthritic change. MRI right knee revealed medial and lateral meniscal tears. IMPRESSION: 1. Internal derangement, right knee with medial and lateral meniscal tears. 2. Hypertension. 3. Hypothyroidism. PLAN: Right knee arthroscopy with partial meniscectomy and debridement. MMODL / IJN: [id number] /
[~2019-04-26 08:11] MED LIST changes: +CLINDAMYCIN 900 MG in DEXTROSE 5% IN WATER 50 ML IVPB ONE; +DEXAMETHASONE SOD PHOSPHATE 10 MG/ML 1 ML VIAL IV ONE; +HYDROmorphone 0.5 MG/0.5 ML SYRINGE IVP PRN; +KETOROLAC 30 MG/ML 1 ML VIAL IVP SCH; +LIDOCAINE 1% 20 ML VIAL (10MG/ML) FOR IV START INTRADERMA PRN; +ONDANSETRON 4 MG/2 ML VIAL IVP ONE; +ONDANSETRON 4 MG/2 ML VIAL IVP PRN
[2019-04-26] MEDS ORDERED: fentaNYL (PF) 50 MCG/ML 2 ML AMP IV ONE (09:48)
[2019-04-26] MEDS ORDERED: BUPIVACAINE (PF) 0.25% 30 ML VIAL SQ ONE ×2 (09:52)
[2019-04-26] MEDS ORDERED: LIDOCAINE 1% INJ 10MG/ML (20 ML MDV) ONE (09:59)
[2019-04-26] MEDS ORDERED: KETOROLAC 30 MG/ML 1 ML VIAL ONE (09:59)
[2019-04-26] MEDS ORDERED: SUCCINYLCHOLINE CHLORIDE 100 MG/5 ML SYR IV ONE (09:59)
[2019-04-26] MEDS ORDERED: PROPOFOL 10 MG/ML 20 ML VIAL IV ONE (09:59)
[2019-04-26] MEDS ORDERED: MIDAZOLAM 2 MG/2 ML VIAL ONE (09:59)
[2019-04-26] MEDS ORDERED: fentaNYL (PF) 50 MCG/ML 2 ML AMP ONE (09:59)
[2019-04-26] MEDS ORDERED: HYDROmorphone (PF) 1 MG/ML ONE (09:59)
--- NOTE | 2019-04-26 11:02 | P.OP ---
Date of Procedure: 04/26/19 Preoperative Diagnosis: Internal derangement right knee Postoperative Diagnosis: 1. Tear lateral meniscus right knee 2. Grade 3/4 chondromalacia medial femoral condyle right knee 3. Grade 3 chondromalacia right knee 4. Reactive synovitis medial, lateral and suprapatellar compartments right knee Procedure(s) Performed: 1. Arthroscopic partial lateral meniscectomy right knee 2. Arthroscopic chondroplasty medial femoral condyle right knee 3. Arthroscopic microfracture medial femoral condyle right 4. Arthroscopic chondroplasty patella right knee 5. Arthroscopic partial synovectomy medial, lateral and suprapatellar compartments right knee Anesthesia: GAETANO, local Surgeon: Gustavo Yang Estimated Blood Loss (ml): 7 Pathology: none sent Condition: stable Disposition: PACU Indications for Procedure: 59-year-old patient seen with progressive right knee pain. After having treatment options discussed, she elected to proceed with arthroscopy. Operative Findings: see description of procedure Description of Procedure: Patient was taken to the operative suite. Patient underwent a general anesthetic by the department of anesthesia. Patient was given preoperative antibiotics. The right lower extremity was placed in a well-padded arthroscopic leg anderson. The right leg was prepped and draped in the normal sterile orthopedic fashion. A lateral parapatellar and suprapatellar incision was made. Trochars were inserted. Arthroscopy was initiated. Suprapatellar pouch revealed diffuse thick reactive synovitis. The patellofemoral joint appeared to articulate congruently. There was grade 3 chondromalacia of the patella with some osteochondral tears present. The scope was guided into the medial gutter. No loose bodies or plica were identified. The scope was then guided into the medial compartment. A medial parapatellar incision was made. Trocar inserted followed by probe. The medial meniscus was probed and found to be stable. There is some mild superficial fraying. There was grade 3/4 chondromalacia of the medial femoral condyle with a fairly large osteochondral flap tear. There was thick reactive synovitis anteriorly. I performed a chondroplasty of the medial femoral condyle gained down to stable osteochondral tissue. I performed a partial synovectomy decompressing that reactive synovitis anteriorly. There was one area of exposed bone on the weightbearing surface medial femoral condyle. I performed a microfracture to that area penetrating the bone looked some bleeding at the microfracture site. The residual osteochondral surface was stable. I did use multiple motorize shaver and debrided out that superficial fraying. Scope and probe were then guided into the intercondylar notch. Cruciates were identified, probed and found to be stable. The scope and probe were then guided into lateral compartment.. There was a radial tear involving the posterior horn lateral meniscus. There were grade 1 chondromalacia changes lateral compartment. There was reactive synovitis anteriorly. I performed a partial lateral meniscectomy getting down to stable tissue. I performed a partial synovectomy decompressing reactive synovitis. The residual meniscus was probed and found to be stable. There was good decompression of the synovitis. The scope was in guided back into the suprapatellar compartment. I motorize shaver into the super patellar compartment. I debrided some piecemeal fragments of meniscus I encountered. I performed a chondroplasty of the patella gained down to stable osteochondral tissue. I performed a partial synovectomy decompressing reactive synovitis. The shaver was removed. I took one more look around the entire knee, no residual debris. Instruments were now removed from the joint. The joint was infiltrated with .25% Marcaine. Nylon suture was utilized to repair the portal sites. Sterile dressings were applied. The patient was placed into a JACK hose. No tourniquet was utilized. The patient was awakened, transferred to a bed and taken to recovery stable satisfactory condition.
[2019-04-26 11:05] VITALS: TEMP 96.9
[2019-04-26 11:27] VITALS: RESP 16
[2019-04-26 11:55] VITALS: BP 117/67; PULSE 64
== END 2019-04-26 12:49 | disposition home or self-care (01) ==
LOC: OR 08:11
PROVIDERS: ATTEND Orthopaedic Surgery
DX: S83.281A Other tear of lateral meniscus, current injury, right knee, initial encounter (principal); X58.XXXA Exposure to other specified factors, initial encounter; M94.261 Chondromalacia, right knee; M22.41 Chondromalacia patellae, right knee; M65.88 Other synovitis and tenosynovitis, other site; I25.10 Atherosclerotic heart disease of native coronary artery without angina pectoris; I10 Essential (primary) hypertension; I25.2 Old myocardial infarction; K21.9 Gastro-esophageal reflux disease without esophagitis; E89.0 Postprocedural hypothyroidism; K57.90 Diverticulosis of intestine, part unspecified, without perforation or abscess without bleeding; Z98.1 Arthrodesis status; Z85.850 Personal history of malignant neoplasm of thyroid; Z90.710 Acquired absence of both cervix and uterus; Z87.891 Personal history of nicotine dependence; Z79.82 Long term (current) use of aspirin; Z79.890 Hormone replacement therapy; Z79.899 Other long term (current) drug therapy; Z88.0 Allergy status to penicillin; Z88.8 Allergy status to other drugs, medicaments and biological substances; Z91.09 Other allergy status, other than to drugs and biological substances
CPT/HCPCS: 29881; 29879; J2250; J1100; J2405; J2001; J3010; J1885; J1170; J0330; J2704

== ENCOUNTER → 2020-03-06 | Outpatient (CLI) | payer MEDICARE, OTHER ==
--- NOTE | 2020-03-06 16:54 | CT ---
EXAMINATION TYPE: CT chest wo/w con DATE OF EXAM: 03/06/2020 COMPARISON: 01/19/2019 HISTORY: Pulmonary nodule CT DLP: 889.80 mGycm, Automated exposure control for dose reduction was used. CONTRAST: Performed injected with 100 ml mL of Isovue 300. TECHNIQUE: Axial images were obtained at 5 mm thick sections. Reconstructed images are reviewed on [employer] computer in the coronal plane. FINDINGS: Portion of the thyroid visualized is normal. No suspicious lung nodules or focal infiltrates are present. No enlarged mediastinal or hilar adenopathy is evident. The ascending aorta diameter at the level o f the main pulmonary artery is 2.7 cm. The main pulmonary artery diameter at the bifurcation is 2.[address] sections are obtained through the upper abdomen. Abdomen is essentially unremarkable. IMPRESSIONS: 1. No acute pulmonary process.
== END | disposition home or self-care (01) ==
LOC: RADCTMAIN 12:36
PROVIDERS: ATTEND Family Medicine
DX: R91.1 Solitary pulmonary nodule (principal)
CPT/HCPCS: 71270; Q9967

== ENCOUNTER → 2020-03-20 | Outpatient (CLI) | payer MEDICARE, OTHER ==
--- NOTE | 2020-03-20 22:39 | MR ---
EXAMINATION TYPE: MR knee RT wo con DATE OF EXAM: 03/20/2020 COMPARISON: Prior MRI March 16, 2019. Outside right knee x-ray March 01, 2020. HISTORY: Right knee pain per order. Pain with swelling and locking for 2 years with history of laparo scopic surgery per patient. TECHNIQUE: Multiplanar, multisequence images of the knee is performed without IV contrast. FINDINGS: MEDIAL MENISCUS: Persistent increased signal consistent with complex tear posterior horn extending to the junction with the body of the medial meniscus. No significant progression from prior MRI. Anteri or horn is intact. LATERAL MENISCUS: Persistent complex full-thickness tear anterior horn of lateral meniscus with abnor mal signal sagittal image 24 reference. CRUCIATE LIGAMENTS: The anterior and posterior cruciate ligaments are intact and unremarkable. COLLATERAL LIGAMENTS: The medial collateral ligament and lateral collateral ligament complex are inta ct and unremarkable. EXTENSOR MECHANISM: Visualized quadriceps and patellar tendons are intact. EFFUSION: Moderate size suprapatellar joint effusion increased in size from prior. POPLITEAL CYST: Stable moderate-sized popliteal/solomon cyst at 6.5 cm long axis sagittal image 14 with some thin septa. TRICOMPARTMENT SPACES: Fairly severe patellofemoral compartment narrowing with moderate spurring rede monstrated. Mild to moderate narrowing and spurring medial and lateral tibiofemoral compartments rede monstrated. Worsening lateral translation of patella is noted. CARTILAGE: Significant chondromalacia patella with full-thickness cartilaginous loss along the inferi or aspect of the posterior patellar pole. Additional areas of cartilaginous loss greater medial tibio femoral compartment are redemonstrated. BONE MARROW SIGNAL: Focus of heterogeneous diminished T1 and increased T2 signal posterior patellar p ole inferiorly shows more prominence or progression from prior MRI consistent with worsening degenera tive change. OTHER: No additional significant abnormality is appreciated. IMPRESSION: 1. Severe patellofemoral compartment degenerative change with progression from prior MRI as detailed above. Increasing lateral translation of the patella noted. 2. Stable full-thickness tear posterior horn of medial meniscus extending towards the body. 3. Stable full-thickness tear anterior horn of lateral meniscus. 4. Stable moderate sized popliteal cyst. 5. Moderate-sized suprapatellar joint effusion increased in size from prior.
== END | disposition home or self-care (01) ==
LOC: RADMRIMAIN 17:57
PROVIDERS: ATTEND Orthopaedic Surgery
DX: M25.541 Pain in joints of right hand (principal); M17.11 Unilateral primary osteoarthritis, right knee; S83.241A Other tear of medial meniscus, current injury, right knee, initial encounter; M71.21 Synovial cyst of popliteal space [Baker], right knee

== ENCOUNTER → 2020-04-10 | Outpatient (CLI) | payer MEDICARE, OTHER ==
[2020-04-10 14:51] LABS: Basophils # (A) 0.1 k/uL (0-0.2); Basophils % (A) 1 %; Eosinophils # (A) 0.2 k/uL (0-0.7); Eosinophils % (A) 3 %; HCT 43.4 % (34.0-46.0); HGB 13.8 gm/dL (11.4-16.0); Lymphocytes # (A) 1.4 k/uL (1.0-4.8); Lymphocytes % (A) 20 %; MCH 28.4 pg (25.0-35.0); MCHC 31.8 g/dL (31.0-37.0); MCV 89.2 fL (80.0-100.0); Mean Platelet Volume 7.2; Monocytes # (A) 0.3 k/uL (0-1.0); Monocytes % (A) 4 %; Neutrophils # (A) 5.2 k/uL (1.3-7.7); Neutrophils % (A) 72 %; Platelet Count 255 k/uL (150-450); RBC 4.86 m/uL (3.80-5.40); WBC 7.2 k/uL (3.8-10.6)
[2020-04-10 15:00] LABS: Potassium 4.4 mmol/L (3.5-5.1)
== END | disposition home or self-care (01) ==
LOC: LABPAT 14:07
PROVIDERS: ATTEND Orthopaedic Surgery
DX: Z01.818 Encounter for other preprocedural examination (principal); M23.91 Unspecified internal derangement of right knee
CPT/HCPCS: 36415; 80051; 85025; 93005

== ENCOUNTER 2020-04-18 09:55 | Day surgery (SDC) | payer MEDICARE, OTHER ==
[2020-04-16 15:45] VITALS: BMI 36.1
--- NOTE | 2020-04-17 16:59 | HP ---
HISTORY AND PHYSICAL DATE OF SURGERY: 04/18/2020 Sofia Cummings, a 60-year-old patient seen with progressive right knee pain. We discussed options, she elected to proceed with right knee arthroscopy. Consent regarding the procedure was obtained. PAST MEDICAL HISTORY: Hypertension, hypothyroidism. PAST SURGICAL HISTORY: Knee arthroscopy, thyroidectomy. DAILY MEDICATIONS: Aspirin, metoprolol, Synthroid. ALLERGIES: PENICILLIN, LEVAQUIN. SOCIAL HISTORY: She denies current tobacco use. PHYSICAL EVALUATION OF THE RIGHT KNEE: Range of motion is -7 in 90. Moderate effusion. Tenderness along the medial and lateral joint lines. Positive medial Greta's. Positive lateral Greta's. Ligaments stable. Crepitus medial patellofemoral joints. Hip rotation without pain. Distal neurovascular exam intact. RADIOGRAPHS OF THE RIGHT KNEE: Revealed moderate osteoarthritic changes. Right knee MRI revealed medial and lateral meniscal tears, joint effusion and osteoarthritis. IMPRESSION: 1. Internal derangement, right knee with medial and lateral meniscal tears. 2. Right knee osteoarthritis. 3. Hypertension. 4. Hypothyroidism. PLAN: Right knee arthroscopy with partial meniscectomy, partial synovectomy and debridement.. MMODL / IJN: [id number] /
[~2020-04-18 09:55] MED LIST changes: -CLINDAMYCIN 900 MG in DEXTROSE 5% IN WATER 50 ML IVPB ONE; -DEXAMETHASONE SOD PHOSPHATE 10 MG/ML 1 ML VIAL IV ONE; -HYDROmorphone 0.5 MG/0.5 ML SYRINGE IVP PRN; -KETOROLAC 30 MG/ML 1 ML VIAL IVP SCH; -LIDOCAINE 1% 20 ML VIAL (10MG/ML) FOR IV START INTRADERMA PRN; -ONDANSETRON 4 MG/2 ML VIAL IVP PRN; +Pre Op ABX Message 1 EACH MISC MISCELLANE ONE; +fentaNYL (PF) 50 MCG/ML 2 ML AMP IV PRN
[2020-04-18] MEDS ORDERED: ONDANSETRON 4 MG/2 ML VIAL ONE (10:00)
[2020-04-18] MEDS ORDERED: MIDAZOLAM 2 MG/2 ML VIAL IV ONE (10:41)
[2020-04-18] MEDS ORDERED: DEXAMETHASONE SOD PHOSPHATE 10 MG/ML 1 ML VIAL IV ONE (10:41)
[2020-04-18] MEDS ORDERED: LIDOCAINE 1% INJ 10MG/ML (20 ML MDV) ONE (11:01)
[2020-04-18] MEDS ORDERED: PROPOFOL 10 MG/ML 20 ML VIAL IV ONE (11:01)
[2020-04-18] MEDS ORDERED: diphenhydrAMINE 50 MG/ML 1 ML VIAL ONE (11:01)
[2020-04-18] MEDS ORDERED: MIDAZOLAM 2 MG/2 ML VIAL ONE (11:01)
[2020-04-18] MEDS ORDERED: fentaNYL (PF) 50 MCG/ML 2 ML AMP ONE (11:01)
[2020-04-18] MEDS ORDERED: SUCCINYLCHOLINE CHLORIDE 100 MG/5 ML SYR IV ONE (11:01)
[2020-04-18] MEDS ORDERED: BUPIVACAIN-EPI 0.25%-1:200,000 30 ML VIAL SQ ONE (11:06)
[2020-04-18] MEDS ORDERED: ceFAZolin 1,000 MG VIAL IVPB ONE (11:22)
--- NOTE | 2020-04-18 12:04 | P.OP ---
Date of Procedure: 04/18/20 Preoperative Diagnosis: Internal derangement right knee Postoperative Diagnosis: 1. Tear medial meniscus right knee 2. Grade 3 chondromalacia medial femoral condyle right knee 3. Reactive synovitis medial, lateral and suprapatellar compartments right knee Procedure(s) Performed: 1. Arthroscopic partial medial meniscectomy right knee 2. Arthroscopic chondroplasty medial femoral condyle right knee 3. Arthroscopic partial synovectomy medial, lateral and suprapatellar compartments right knee Anesthesia: EDYA, local Surgeon: Gustavo Yang Estimated Blood Loss (ml): 7 Pathology: none sent Condition: stable Disposition: PACU Indications for Procedure: 60-year-old patient seen with progressive right knee pain. After treatment options were discussed, she elected to proceed with arthroscopy. Operative Findings: See description of procedure Description of Procedure: Patient was taken to the operative suite. Patient underwent a general anesthetic by the department of anesthesia. Patient was given preoperative antibiotics(2g Kefzol). The right lower extremity was placed in a well-padded arthroscopic leg anderson. The right leg was prepped and draped in the normal sterile orthopedic fashion. A lateral parapatellar and suprapatellar incision was made. Trochars were inserted. Arthroscopy was initiated. Suprapatellar pouch revealed diffuse thick reactive synovitis. The patellofemoral joint appeared articulate congruently. There was grade 2/3 chondral malacia the patella with no significant osteochondral tears present. The scope was guided into the medial gutter. No loose bodies or plica were identified. The scope was then guided into the medial compartment. A medial parapatellar incision was made. Trocar inserted followed by probe. There was a radial tear involving the posterior horn of the medial meniscus. There was thick reactive synovitis anteriorly. There were grade 3 chondromalacia changes the medial femoral condyle with some osteochondral flap tears present. I performed a partial medial meniscectomy getting down to stable meniscal tissue. I performed a chondroplasty of the medial femoral condyle getting down to stable osteochondral tissue. I performed a partial synovectomy decompressing the reactive synovitis. The residual meniscus was probed and found to be stable. There was good decompression of the synovitis. The residual osteochondral surface appeared stable. Scope and probe were then guided into the intercondylar notch. Cruciates were identified, probed and found to be stable. The scope and probe were then guided into lateral compartment. Lateral compartment revealed some thick reactive synovitis anteriorly. There were grade 1 chondral moist changes of the lateral compartment. The lateral meniscus probed and found be intact and stable. I performed a partial synovectomy decompressing the thick reactive synovitis. There was good decompression of synovitis. The scope was in guided back into the suprapatellar compartment. I introduced a motorized shaver into the suprapatellar compartment. I debrided some piecemeal fragments of meniscus I encountered. I performed a partial synovectomy. The shaver was removed. I took one more look on the entire knee, no residual debris. Instruments were now removed from the joint. The joint was infiltrated with .25% Marcaine. I approximated the portal sites with nylon suture. Sterile dressings were applied. The patient was placed into a JACK hose. No tourniquet was utilized. The patient was awakened, transferred to a bed and taken to recovery stable satisfactory condition.
[2020-04-18 12:06] VITALS: TEMP 96.8
[2020-04-18 12:18] VITALS: RESP 16
[2020-04-18] MEDS ORDERED: KETOROLAC 30 MG/ML 1 ML VIAL IVP ONE (12:19)
[2020-04-18] MEDS ORDERED: HYDROmorphone 0.5 MG/0.5 ML SYRINGE IVP ONE (12:24)
[2020-04-18 13:17] VITALS: BP 140/83; PULSE 70
== END 2020-04-18 14:17 | disposition home or self-care (01) ==
LOC: OR 09:55
PROVIDERS: ATTEND Orthopaedic Surgery
DX: S83.241A Other tear of medial meniscus, current injury, right knee, initial encounter (principal); X58.XXXA Exposure to other specified factors, initial encounter; M94.261 Chondromalacia, right knee; M65.861 Other synovitis and tenosynovitis, right lower leg; M17.11 Unilateral primary osteoarthritis, right knee; I10 Essential (primary) hypertension; Z98.890 Other specified postprocedural states; E89.0 Postprocedural hypothyroidism; J44.9 Chronic obstructive pulmonary disease, unspecified; I25.10 Atherosclerotic heart disease of native coronary artery without angina pectoris; Z87.891 Personal history of nicotine dependence; K21.9 Gastro-esophageal reflux disease without esophagitis; Z79.82 Long term (current) use of aspirin; Z79.890 Hormone replacement therapy; Z79.899 Other long term (current) drug therapy; Z88.1 Allergy status to other antibiotic agents; Z88.0 Allergy status to penicillin; Z90.710 Acquired absence of both cervix and uterus; Z98.1 Arthrodesis status; Z91.09 Other allergy status, other than to drugs and biological substances
CPT/HCPCS: 29881; 29876; J2250; J1200; J1100; J2405; J0690; J2001; J3010; J1885; J0330; J2704; J1170

== ENCOUNTER 2020-04-19 14:16 | Emergency (ER) | payer MEDICARE, OTHER ==
--- NOTE | 2020-04-19 15:23 | ED ---
General Adult HPI - General Chief complaint: Shortness of Breath Stated complaint: Pulmonary embolism-CT scan Time Seen by Provider: 04/19/20 15:06 Source: patient, RN notes reviewed, old records reviewed Mode of arrival: wheelchair Limitations: no limitations - History of Present Illness Initial comments: 60-year-old female presents for evaluation of bilateral lower chest pain which is been present since yesterday. Patient had a scope of her right knee with orthopedics. She developed chest pain with deep inspiration and with associated mild nonproductive cough. No significant dyspnea. She was told to follow-up with her primary care physician, her her primary care physician wasn't available, she went to urgent care and was sent to the emergency department for evaluation of pulmonary embolism. Her pain is worse with inspiration and worse with mild cough. She does have history of COPD, CAD. She has resumed her aspirin today. No fever. No pain or vomiting. She does have pain in her right knee after this arthroscopic procedure. No significant swelling in the legs. - Related Data Home Medications Medication Instructions Recorded Confirmed Omeprazole [PriLOSEC] 20 mg PO DAILY 03/19/15 04/18/20 Ergocalciferol [Vitamin D2 50,000 unit PO SUWE 04/03/16 04/18/20 (ISDLEIF)] Liothyronine Sodium [Cytomel] 10 - 15 mcg PO DAILY 04/03/16 04/18/20 Levothyroxine Sodium [Synthroid] 112 mcg PO DAILY 05/18/16 04/18/20 Cyclobenzaprine [Flexeril] 5 mg PO DAILY PRN 02/14/18 04/18/20 Acetaminophen [Tylenol Extra 1,000 mg PO Q4H PRN 04/21/19 04/18/20 Strength] Naproxen Sodium [Aleve] 220 mg PO BID PRN 04/16/20 04/16/20 Previous Rx's Medication Instructions Recorded Aspirin EC [Ecotrin Low Dose] 81 mg PO DAILY #30 tablet. 03/15/14 Metoprolol Succinate (ER) [Toprol 12.5 mg PO BID #60 tab.er.24h 03/15/14 XL] Nitroglycerin Sl Tabs [Nitrostat] 0.4 mg SUBLINGUAL Q5M PRN #25 tab 03/15/14 Hydrocodone/Acetaminophen [[place] 1 each PO Q6HR PRN #15 tab 07/23/20 5-325] Allergies Allergy/AdvReac Type Severity Reaction Status Date / Time adhesive tape Allergy Unknown Verified 04/19/20 14:47 levofloxacin [From Levaquin] Allergy BRAIN STEM Verified 04/19/20 14:47 SEIZURE Penicillins Allergy Anaphylaxis Verified 04/19/20 14:47 Quinolones Allergy Unknown Verified 04/19/20 14:47 venom-honey bee Allergy Anaphylaxis Verified 04/19/20 14:47 Review of Systems ROS Statement: Those systems with pertinent positive or pertinent negative responses have been documented in the HPI. ROS Other: All systems not noted in ROS Statement are negative. Past Medical History Past Medical History: Coronary Artery Disease (CAD), Cancer, COPD, Fibromyalgia, GERD/Reflux, Hypertension, Myocardial Infarction ([place]), Osteoarthritis (OA), Thyroid Disorder Additional Past Medical History / Comment(s): HX THYROID CA with surgery, DIVERTICULITIS, cervical neuropathy-numbness, pain hands, DDD, cervical stenosis & myelopathy, abnormal MRI, mild COPD, intermittent dizziness Last Myocardial Infarction Date:: 03/09/14 History of Any Multi-Drug Resistant Organisms: None Reported Past Surgical History: Breast Surgery, Heart Catheterization, Hysterectomy, Tubal Ligation Additional Past Surgical History / Comment(s): R breast biopsy-benign, heart cath-UNABLE TO PUT IN STENT, RT THYROIDECTOMY d/t cancer AND LEFT MASS REMOVED FROM NECK , MULT THYROID BX'S. completion of thyroidectomy, COLONOSCOPY, CERVICAL DISCECTOMY/FUSION C4-5,C5-6,C6-7, CARPAL TUNNEL LEFT WRIST, arthroscopy knee right Past Anesthesia/Blood Transfusion Reactions: Previous Problems w/ Anesthesia Additional Past Anesthesia/Blood Transfusion Reaction / Comment(s): STATES B/P WAS LOW POST OP RT THYROIDECTOMY-mostly related to narcotic pain meds. HISTORY OF CLAUSTROPHOBIA Past Psychological History: Anxiety, Depression Smoking Status: Former smoker Past Alcohol Use History: None Reported Past Drug Use History: None Reported - Past Family History Father Family Medical History: Osteoarthritis (OA) Mother Family Medical History: AFIB Additional Family Medical History / Comment(s): Hypothyroidism. Bladder issues. Heart palpatations. General Exam Limitations: no limitations General appearance: alert, in no apparent distress Head exam: Present: atraumatic, normocephalic Eye exam: Present: normal appearance, PERRL ENT exam: Present: normal exam Neck exam: Present: normal inspection. Absent: tenderness, meningismus Respiratory exam: Present: normal lung sounds bilaterally. Absent: respiratory distress, wheezes Cardiovascular Exam: Present: regular rate, normal rhythm GI/Abdominal exam: Present: soft. Absent: distended, tenderness, guarding Extremities exam: Present: other (Incisions in the anterior right knee, clean dry and intact, no surrounding cellulitis, no significant swelling, possible small joint effusion.). Absent: pedal edema Neurological exam: Present: alert, oriented X3, CN II-XII intact. Absent: motor sensory deficit Psychiatric exam: Present: normal affect, normal mood Skin exam: Present: warm, dry, intact. Absent: cyanosis, diaphoretic Course Vital Signs 04/19/20 14:43 Temperature 98.1 F Pulse Rate 57 L Respiratory 20 Rate Blood Pressure 147/97 O2 Sat by Pulse 98 Oximetry EKG Findings - EKG Comments: EKG Findings:: EKG: Sinus bradycardia, rate 57, MS interval 160, QRS duration 84, QTC 379, no ST segment elevation. Medical Decision Making - Medical Decision Making 60-year-old female with pleuritic chest pain after the procedure, rule out pulmonary embolism. Patient's vital signs are stable, normal oxygenation, normal heart rate, EKG is sinus rhythm with no ST segment elevation. She has normal CBC, normal CMP, negative troponin. She does receive CT angiography in the emergency department to rule out pulmonary this is negative. Patient is reassured. She will follow-up with orthopedic surgeon regarding her knee postoperative care and follow-up with her primary care physician. She will return to emergency department with any worsening or changing symptoms. - Lab Data Result diagrams: 04/19/20 15:33 04/19/20 15:33 Lab Results 04/19/20 04/19/20 04/19/20 Range/Units 15:33 15:33 15:33 WBC 8.7 (3.8-10.6) k/uL RBC 4.66 (3.80-5.40) m/uL Hgb 13.4 (11.4-16.0) gm/dL Hct 41.7 (34.0-46.0) % MCV 89.5 (80.0-100.0) fL MCH 28.7 (25.0-35.0) pg MCHC 32.0 (31.0-37.0) g/dL RDW 13.2 (11.5-15.5) % Plt Count 259 (150-450) k/uL Neutrophils % 77 % Lymphocytes % 17 % Monocytes % 4 % Eosinophils % 1 % Basophils % 0 % Neutrophils # 6.7 (1.3-7.7) k/uL Lymphocytes # 1.5 (1.0-4.8) k/uL Monocytes # 0.3 (0-1.0) k/uL Eosinophils # 0.1 (0-0.7) k/uL Basophils # 0.0 (0-0.2) k/uL PT 10.1 (9.0-12.0) sec INR 1.0 (<1.2) APTT 21.1 L (22.0-30.0) sec Sodium 139 (137-145) mmol/L Potassium 3.9 (3.5-5.1) mmol/L Chloride 105 (98-107) mmol/L Carbon Dioxide 27 (22-30) mmol/L Anion Gap 7 mmol/L BUN 15 (7-17) mg/dL Creatinine 0.71 (0.52-1.04) mg/dL Est GFR (CKD-EPI)AfAm >90 (>60 ml/min/1.73 sqM) Est GFR (CKD-EPI)NonAf >90 (>60 ml/min/1.73 sqM) Glucose 114 H (74-99) mg/dL Calcium 9.0 (8.4-10.2) mg/dL Magnesium 2.1 (1.6-2.3) mg/dL Total Bilirubin 0.5 (0.2-1.3) mg/dL AST 24 (14-36) U/L ALT 17 (4-34) U/L Alkaline Phosphatase 80 (38-126) U/L Troponin I (0.000-0.034) ng/mL Total Protein 6.9 (6.3-8.2) g/dL Albumin 4.4 (3.5-5.0) g/dL 04/19/20 Range/Units 15:33 WBC (3.8-10.6) k/uL RBC (3.80-5.40) m/uL Hgb (11.4-16.0) gm/dL Hct (34.0-46.0) % MCV (80.0-100.0) fL MCH (25.0-35.0) pg MCHC (31.0-37.0) g/dL RDW (11.5-15.5) % Plt Count (150-450) k/uL Neutrophils % % Lymphocytes % % Monocytes % % Eosinophils % % Basophils % % Neutrophils # (1.3-7.7) k/uL Lymphocytes # (1.0-4.8) k/uL Monocytes # (0-1.0) k/uL Eosinophils # (0-0.7) k/uL Basophils # (0-0.2) k/uL PT (9.0-12.0) sec INR (<1.2) APTT (22.0-30.0) sec Sodium (137-145) mmol/L Potassium (3.5-5.1) mmol/L Chloride (98-107) mmol/L Carbon Dioxide (22-30) mmol/L Anion Gap mmol/L BUN (7-17) mg/dL Creatinine (0.52-1.04) mg/dL Est GFR (CKD-EPI)AfAm (>60 ml/min/1.73 sqM) Est GFR (CKD-EPI)NonAf (>60 ml/min/1.73 sqM) Glucose (74-99) mg/dL Calcium (8.4-10.2) mg/dL Magnesium (1.6-2.3) mg/dL Total Bilirubin (0.2-1.3) mg/dL AST (14-36) U/L ALT (4-34) U/L Alkaline Phosphatase (38-126) U/L Troponin I <0.012 (0.000-0.034) ng/mL Total Protein (6.3-8.2) g/dL Albumin (3.5-5.0) g/dL Disposition Clinical Impression: Chest pain Disposition: HOME SELF-CARE Condition: Good Instructions (If sedation given, give patient instructions): Chest Pain (ED) Is patient prescribed a controlled substance at d/c from ED?: No Referrals: Konrad Perez MD [Primary Care Provider] - 1-2 days Time of Disposition: 16:44
[2020-04-19 15:48] LABS: Basophils % (A) 0 %; Eosinophils # (A) 0.1 k/uL (0-0.7); Eosinophils % (A) 1 %; HCT 41.7 % (34.0-46.0); HGB 13.4 gm/dL (11.4-16.0); Lymphocytes # (A) 1.5 k/uL (1.0-4.8); Lymphocytes % (A) 17 %; MCH 28.7 pg (25.0-35.0); MCV 89.5 fL (80.0-100.0); Mean Platelet Volume 7.5; Monocytes # (A) 0.3 k/uL (0-1.0); Monocytes % (A) 4 %; Neutrophils # (A) 6.7 k/uL (1.3-7.7); Neutrophils % (A) 77 %; Platelet Count 259 k/uL (150-450); RBC 4.66 m/uL (3.80-5.40); RDW 13.2 % (11.5-15.5); WBC 8.7 k/uL (3.8-10.6)
[2020-04-19 16:01] LABS: ALT 17 U/L (4-34); AST 24 U/L (14-36); African American GFR (CKD) >90 (>60 ml/min/1.73 sqM); Albumin 4.4 g/dL (3.5-5.0); Alkaline Phosphatase 80 U/L (38-126); Anion Gap 7 mmol/L; Blood Urea Nitrogen 15 mg/dL (7-17); Carbon Dioxide 27 mmol/L (22-30); Chloride 105 mmol/L (98-107); Glucose 114 mg/dL (74-99); Magnesium 2.1 mg/dL (1.6-2.3); Non-African American GFR(CKD) >90 (>60 ml/min/1.73 sqM); Potassium 3.9 mmol/L (3.5-5.1); Sodium 139 mmol/L (137-145); Total Bilirubin 0.5 mg/dL (0.2-1.3); Total Protein 6.9 g/dL (6.3-8.2)
[2020-04-19 16:03] LABS: Prothrombin Time 10.1 sec (9.0-12.0)
[2020-04-19 16:09] LABS: Partial Thromboplastin Time 21.1 sec (22.0-30.0)
--- NOTE | 2020-04-19 16:31 | CT ---
EXAMINATION TYPE: CT angio chest DATE OF EXAM: 04/19/2020 4:16 PM COMPARISON: CT chest 03/06/2020 HISTORY: Knee surgery yesterday. Chest pain. CT DLP: 534.3 mGycm Automated exposure control for dose reduction was used. CONTRAST: CTA scan of the thorax is performed with IV Contrast, patient injected with 100 mL of Isovue 370, pul monary embolism protocol. MIP images generated on a separate workstation. FINDINGS: LUNGS: The lungs are grossly clear, there is no concerning parenchymal mass or nodule identified. T here is no pleural effusion or pneumothorax seen. The tracheobronchial tree is patent. MEDIASTINUM: There is satisfactory enhancement of the pulmonary artery and its branches, there is no CT evidence for pulmonary embolism. There is no evidence of thoracic aortic aneurysm or dissection. There are no greater than 1 cm hilar or mediastinal lymph nodes. Cardiac size normal. No pericardia l effusion is seen. OTHER: Normal adrenal glands. IMPRESSION: 1. NO EVIDENCE OF PULMONARY EMBOLUS. 2. NO EVIDENCE OF THORACIC AORTIC ANEURYSM OR DISSECTION. 3. NO ACUTE PULMONARY PROCESS.
[2020-04-19 16:48] VITALS: BP 140/75; PULSE 55; RESP 18; TEMP 97.3
== END 2020-04-19 16:56 | disposition home or self-care (01) ==
LOC: EC 14:16
DX: R07.1 Chest pain on breathing (principal); M25.561 Pain in right knee; R05 Cough; F32.9 Major depressive disorder, single episode, unspecified; F41.9 Anxiety disorder, unspecified; I25.10 Atherosclerotic heart disease of native coronary artery without angina pectoris; I25.2 Old myocardial infarction; K21.9 Gastro-esophageal reflux disease without esophagitis; M19.90 Unspecified osteoarthritis, unspecified site; M79.7 Fibromyalgia; Z79.899 Other long term (current) drug therapy; Z87.891 Personal history of nicotine dependence; Z91.048 Other nonmedicinal substance allergy status; Z88.1 Allergy status to other antibiotic agents; Z88.0 Allergy status to penicillin; Z91.030 Bee allergy status; Z88.8 Allergy status to other drugs, medicaments and biological substances; Z85.850 Personal history of malignant neoplasm of thyroid; Z95.5 Presence of coronary angioplasty implant and graft
CPT/HCPCS: 36415; 93005; 80053; 83735; 84484; 85025; 85610; 85730; 71275; 99285; Q9967

== ENCOUNTER 2020-07-08 10:09 | Emergency (ER) | payer MEDICARE, OTHER ==
[2020-07-08] MEDS ORDERED: MORPHINE SULFATE 4 MG/ML SYRINGE IV STA (10:24)
[2020-07-08] MEDS ORDERED: ONDANSETRON 4 MG/2 ML VIAL IVP STA (10:24)
[2020-07-08] MEDS ORDERED: SODIUM CHLORIDE 0.9% 500 ML 500 ML IV STA (10:24)
[2020-07-08] MEDS ORDERED: SODIUM CHLORIDE 0.9% 1,000 ML IV STA (10:24)
--- NOTE | 2020-07-08 10:29 | ED ---
Abdominal Pain HPI - General Chief Complaint: Abdominal Pain Stated Complaint: abd pain Time Seen by Provider: 07/08/20 10:17 Source: patient, RN notes reviewed Mode of arrival: ambulatory Limitations: no limitations - History of Present Illness Initial Comments: This is a 52-year-old female presents emergency Department chief the lower abdominal pain. Patient states he woke up around midnight. Patient states pain is not alleviated. She does have a history of diverticulitis. Patient states the pain waxes and wanes. Patient states when she has her severe pain she becomes very nauseated did have 2 episodes of vomiting and states that from the pain she feels like her heart races. She has no chest pain no current symptoms of palpitations or chest pain. Denies shortness of breath. Patient states that over symptoms or lower abdomen below her umbilicus. She has no dysuria she has chronic urinary frequency with no change in bowel habits including melena hematochezia no hematemesis coffee-ground emesis or mucousy stools. Patient denies any history of abdominal surgeries other than hysterectomy, this including appendectomy, cholecystectomy, - Related Data Home Medications Medication Instructions Recorded Confirmed Levothyroxine Sodium 125 mcg PO DAILY 04/19/20 07/08/20 Cyclobenzaprine [Flexeril] 5 mg PO TID PRN 07/08/20 07/08/20 Liothyronine Sodium [Cytomel] 10 mcg PO DAILY 07/08/20 07/08/20 Previous Rx's Medication Instructions Recorded Aspirin EC [Ecotrin Low Dose] 81 mg PO DAILY #30 tablet.dr 03/15/14 Metoprolol Succinate (ER) [Toprol 12.5 mg PO BID #60 tab.er.24h 03/15/14 XL] Nitroglycerin Sl Tabs [Nitrostat] 0.4 mg SUBLINGUAL Q5M PRN #25 tab 03/15/14 Ondansetron Odt [Zofran Odt] 4 mg PO Q8HR PRN #10 tab 07/08/20 Sulfamethox-Tmp 800-160Mg [Bactrim 1 each PO Q12HR #20 tab 07/08/20 Ds] metroNIDAZOLE [Flagyl] 500 mg PO TID #30 tab 07/08/20 Allergies Allergy/AdvReac Type Severity Reaction Status Date / Time adhesive tape Allergy Unknown Verified 07/08/20 11:05 levofloxacin [From Levaquin] Allergy BRAIN STEM Verified 07/08/20 11:05 SEIZURE Penicillins Allergy Anaphylaxis Verified 07/08/20 11:05 Quinolones Allergy Unknown Verified 07/08/20 11:05 venom-honey bee Allergy Anaphylaxis Verified 07/08/20 11:05 Review of Systems ROS Statement: Those systems with pertinent positive or pertinent negative responses have been documented in the HPI. ROS Other: All systems not noted in ROS Statement are negative. Past Medical History Past Medical History: Coronary Artery Disease (CAD), Cancer, COPD, Fibromyalgia, GERD/Reflux, Hypertension, Myocardial Infarction ([place]), Osteoarthritis (OA), Thyroid Disorder Additional Past Medical History / Comment(s): HX THYROID CA with surgery, DIVERTICULITIS, cervical neuropathy-numbness, pain hands, DDD, cervical stenosis & myelopathy, abnormal MRI, mild COPD, intermittent dizziness Last Myocardial Infarction Date:: 03/09/14 History of Any Multi-Drug Resistant Organisms: None Reported Past Surgical History: Breast Surgery, Heart Catheterization, Hysterectomy, Tubal Ligation Additional Past Surgical History / Comment(s): R breast biopsy-benign, heart cath-UNABLE TO PUT IN STENT, RT THYROIDECTOMY d/t cancer AND LEFT MASS REMOVED FROM NECK , MULT THYROID BX'S. completion of thyroidectomy, COLONOSCOPY, CERVICAL DISCECTOMY/FUSION C4-5,C5-6,C6-7, CARPAL TUNNEL LEFT WRIST, arthroscopy knee right Past Anesthesia/Blood Transfusion Reactions: Previous Problems w/ Anesthesia Additional Past Anesthesia/Blood Transfusion Reaction / Comment(s): STATES B/P WAS LOW POST OP RT THYROIDECTOMY-mostly related to narcotic pain meds. HISTORY OF CLAUSTROPHOBIA Past Psychological History: Anxiety, Depression Smoking Status: Former smoker Past Alcohol Use History: Occasional Past Drug Use History: None Reported - Past Family History Father Family Medical History: Osteoarthritis (OA) Mother Family Medical History: AFIB Additional Family Medical History / Comment(s): Hypothyroidism. Bladder issues. Heart palpatations. General Exam Limitations: no limitations General appearance: alert, in no apparent distress Head exam: Present: atraumatic, normocephalic, normal inspection Eye exam: Present: normal appearance, PERRL, EOMI. Absent: scleral icterus, conjunctival injection, periorbital swelling ENT exam: Present: normal exam, mucous membranes moist Neck exam: Present: normal inspection, full ROM. Absent: tenderness, meningismus, lymphadenopathy Respiratory exam: Present: normal lung sounds bilaterally. Absent: respiratory distress, wheezes, rales, rhonchi, stridor Cardiovascular Exam: Present: normal rhythm, tachycardia (Heart rate 101 on triage), normal heart sounds. Absent: systolic murmur, diastolic murmur, rubs, gallop, clicks GI/Abdominal exam: Present: soft, tenderness (Moderate lower abdominal tenderness and suprapubic tenderness), normal bowel sounds. Absent: distended, guarding, rebound, rigid Back exam: Absent: CVA tenderness (R), CVA tenderness (L) Neurological exam: Present: alert, oriented X3 Skin exam: Present: warm, dry, intact, normal color. Absent: rash Course Vital Signs 07/08/20 10:14 Temperature 98.7 F Pulse Rate 101 H Respiratory 18 Rate Blood Pressure 127/76 O2 Sat by Pulse 95 Oximetry Medical Decision Making - Medical Decision Making 60-year-old female presented for lower abdominal pain. Patient patient has evidence of diverticulitis on CT. Patient was offered admission but patient states that she will tolerate oral intake and will be discharged with close follow-up return parameters were discussed. - Lab Data Result diagrams: 07/08/20 10:32 07/08/20 10:32 Lab Results 07/08/20 07/08/20 07/08/20 Range/Units 10:32 10:32 10:32 WBC 9.1 (3.8-10.6) k/uL RBC 5.12 (3.80-5.40) m/uL Hgb 15.3 (11.4-16.0) gm/dL Hct 45.9 (34.0-46.0) % MCV 89.6 (80.0-100.0) fL MCH 29.8 (25.0-35.0) pg MCHC 33.3 (31.0-37.0) g/dL RDW 12.3 (11.5-15.5) % Plt Count 265 (150-450) k/uL Neutrophils % 78 % Lymphocytes % 13 % Monocytes % 4 % Eosinophils % 3 % Basophils % 1 % Neutrophils # 7.1 (1.3-7.7) k/uL Lymphocytes # 1.2 (1.0-4.8) k/uL Monocytes # 0.4 (0-1.0) k/uL Eosinophils # 0.2 (0-0.7) k/uL Basophils # 0.1 (0-0.2) k/uL Sodium 138 (137-145) mmol/L Potassium 4.3 (3.5-5.1) mmol/L Chloride 105 (98-107) mmol/L Carbon Dioxide 24 (22-30) mmol/L Anion Gap 9 mmol/L BUN 15 (7-17) mg/dL Creatinine 0.71 (0.52-1.04) mg/dL Est GFR (CKD-EPI)AfAm >90 (>60 ml/min/1.73 sqM) Est GFR (CKD-EPI)NonAf >90 (>60 ml/min/1.73 sqM) Glucose 132 H (74-99) mg/dL Plasma Lactic Acid Grupo (0.7-2.0) mmol/L Calcium 9.1 (8.4-10.2) mg/dL Total Bilirubin 0.8 (0.2-1.3) mg/dL AST 20 (14-36) U/L ALT 16 (4-34) U/L Alkaline Phosphatase 103 (38-126) U/L Total Protein 6.8 (6.3-8.2) g/dL Albumin 4.2 (3.5-5.0) g/dL Lipase 66 (23-300) U/L Urine Color Light Yellow Urine Appearance Clear (Clear) Urine pH 6.0 (5.0-8.0) Ur Specific [place] 1.003 (1.001-1.035) Urine Protein Negative (Negative) Urine Glucose (UA) Negative (Negative) Urine Ketones Negative (Negative) Urine Blood Trace H (Negative) Urine Nitrite Negative (Negative) Urine Bilirubin Negative (Negative) Urine Urobilinogen <2.0 (<2.0) mg/dL Ur Leukocyte Esterase Negative (Negative) Urine RBC <1 (0-5) /hpf Urine WBC <1 (0-5) /hpf Ur Squamous Epith Cells 1 (0-4) /hpf Urine Bacteria Rare H (None) /hpf 07/08/20 Range/Units 10:32 WBC (3.8-10.6) k/uL RBC (3.80-5.40) m/uL Hgb (11.4-16.0) gm/dL Hct (34.0-46.0) % MCV (80.0-100.0) fL MCH (25.0-35.0) pg MCHC (31.0-37.0) g/dL RDW (11.5-15.5) % Plt Count (150-450) k/uL Neutrophils % % Lymphocytes % % Monocytes % % Eosinophils % % Basophils % % Neutrophils # (1.3-7.7) k/uL Lymphocytes # (1.0-4.8) k/uL Monocytes # (0-1.0) k/uL Eosinophils # (0-0.7) k/uL Basophils # (0-0.2) k/uL Sodium (137-145) mmol/L Potassium (3.5-5.1) mmol/L Chloride (98-107) mmol/L Carbon Dioxide (22-30) mmol/L Anion Gap mmol/L BUN (7-17) mg/dL Creatinine (0.52-1.04) mg/dL Est GFR (CKD-EPI)AfAm (>60 ml/min/1.73 sqM) Est GFR (CKD-EPI)NonAf (>60 ml/min/1.73 sqM) Glucose (74-99) mg/dL Plasma Lactic Acid Grupo 1.4 (0.7-2.0) mmol/L Calcium (8.4-10.2) mg/dL Total Bilirubin (0.2-1.3) mg/dL AST (14-36) U/L ALT (4-34) U/L Alkaline Phosphatase (38-126) U/L Total Protein (6.3-8.2) g/dL Albumin (3.5-5.0) g/dL Lipase (23-300) U/L Urine Color Urine Appearance (Clear) Urine pH (5.0-8.0) Ur Specific [place] (1.001-1.035) Urine Protein (Negative) Urine Glucose (UA) (Negative) Urine Ketones (Negative) Urine Blood (Negative) Urine Nitrite (Negative) Urine Bilirubin (Negative) Urine Urobilinogen (<2.0) mg/dL Ur Leukocyte Esterase (Negative) Urine RBC (0-5) /hpf Urine WBC (0-5) /hpf Ur Squamous Epith Cells (0-4) /hpf Urine Bacteria (None) /hpf Disposition Clinical Impression: Diverticulitis Disposition: HOME SELF-CARE Condition: Stable Instructions (If sedation given, give patient instructions): Diverticulitis (ED), Diverticulitis Diet (ED) Additional Instructions: Please return to the Emergency Department if symptoms worsen or any other concerns. Prescriptions: Sulfamethox-Tmp 800-160Mg [Bactrim Ds] 1 each PO Q12HR #20 tab metroNIDAZOLE [Flagyl] 500 mg PO TID #30 tab Ondansetron Odt [Zofran Odt] 4 mg PO Q8HR PRN #10 tab PRN Reason: Nausea Is patient prescribed a controlled substance at d/c from ED?: No Referrals: Konrad Perez MD [Primary Care Provider] - 1-2 days Time of Disposition: 12:06
[2020-07-08 10:51] LABS: Appearance,Urine Clear (Clear); Bacteria,Urine Rare /hpf; Bilirubin,Urine Negative (Negative); Blood,Urine Trace (Negative); Color,Urine Light Yellow; Glucose,Urine (UA) Negative (Negative); Ketones,Urine Negative (Negative); Leukocyte Esterase,Urine Negative (Negative); Nitrite,Urine Negative (Negative); Protein,Urine Negative (Negative); RBC,Urine <1 /hpf (0-5); Specific Gravity,Urine 1.003 (1.001-1.035); Squamous Epithelial Cell,Urine 1 /hpf (0-4); Urobilinogen,Urine <2.0 mg/dL (<2.0); WBC,Urine <1 /hpf (0-5)
[2020-07-08 10:52] LABS: Basophils # (A) 0.1 k/uL (0-0.2); Basophils % (A) 1 %; Eosinophils # (A) 0.2 k/uL (0-0.7); Eosinophils % (A) 3 %; HCT 45.9 % (34.0-46.0); HGB 15.3 gm/dL (11.4-16.0); Lymphocytes # (A) 1.2 k/uL (1.0-4.8); Lymphocytes % (A) 13 %; MCH 29.8 pg (25.0-35.0); MCHC 33.3 g/dL (31.0-37.0); MCV 89.6 fL (80.0-100.0); Monocytes # (A) 0.4 k/uL (0-1.0); Monocytes % (A) 4 %; Neutrophils # (A) 7.1 k/uL (1.3-7.7); Neutrophils % (A) 78 %; Platelet Count 265 k/uL (150-450); RBC 5.12 m/uL (3.80-5.40); RDW 12.3 % (11.5-15.5); WBC 9.1 k/uL (3.8-10.6)
[2020-07-08 10:53] LABS: ALT 16 U/L (4-34); AST 20 U/L (14-36); African American GFR (CKD) >90 (>60 ml/min/1.73 sqM); Albumin 4.2 g/dL (3.5-5.0); Alkaline Phosphatase 103 U/L (38-126); Anion Gap 9 mmol/L; Blood Urea Nitrogen 15 mg/dL (7-17); Calcium 9.1 mg/dL (8.4-10.2); Carbon Dioxide 24 mmol/L (22-30); Chloride 105 mmol/L (98-107); Glucose 132 mg/dL (74-99); Non-African American GFR(CKD) >90 (>60 ml/min/1.73 sqM); Potassium 4.3 mmol/L (3.5-5.1); Sodium 138 mmol/L (137-145); Total Bilirubin 0.8 mg/dL (0.2-1.3); Total Protein 6.8 g/dL (6.3-8.2)
--- NOTE | 2020-07-08 11:37 | CT ---
EXAMINATION TYPE: CT abdomen pelvis w con DATE OF EXAM: 07/08/2020 COMPARISON: 01/19/2019 HISTORY: nausea, vomiting, midline pelvic pain CT DLP: 1771.3 mGycm Automated exposure control for dose reduction was used. CONTRAST: CT scan of the abdomen pelvis is performed with IV Contrast, patient injected with 100 mL of Isovue 3 00. FINDINGS- LUNG BASES- No significant abnormality is appreciated. LIVER/GB-tiny hypodensity in the left lobe of the liver is too small to characterize. No gallstones.. PANCREAS- No gross abnormality is seen. SPLEEN- No gross abnormality is seen. GRMIEIIP-eiq-6 mm left adrenal nodule too small to characterize but stable from prior exam. Most like ly in the basis of an incidental adenoma.. KIDNEYS/BLADDER- no hydronephrosis nephrolithiasis or renal mass. BOWEL-bowel gas pattern is nonspecific. There appears to be induration of the mesenteric fat centrall y with a small amount of free fluid. Mesenteric vasculature enhances normally. Few prominent small nika wel loops are seen in the region. There is changes of diverticulosis of the sigmoid colon with mild induration of the fat compatible wi th mild diverticulitis.. LYMPH NODES- No greater than 1cm abdominal or pelvic lymph nodes areappreciated. OSSEOUS STRUCTURES-degenerative change of the spine. OTHER- aorta of normal caliber. Choroid for previous hysterectomy. Atrophic ovaries are noted bilate rally 8 mm cyst in the right ovary incidentally noted and stable from prior exam. This could be corre lated with ultrasound as clinically warranted. IMPRESSION- 1. Mild acute sigmoid diverticulitis. 2. There is induration of the mesenteric fat and a small amount of fluid which can be seen with a mes enteritis or panniculitis. Adjacent small bowel loops are seen which are fluid-filled could represent an enteritis. Partial obstruction felt less likely. Correlate clinically.
[2020-07-08] MEDS ORDERED: ACET/COD 300 MG/30 MG STARTER PACK 6 TAB BTL PO STA (12:07)
[2020-07-08 12:21] VITALS: BP 136/76; PULSE 65; RESP 14; TEMP 97.7
== END 2020-07-08 12:41 | disposition home or self-care (01) ==
LOC: EC 10:09
DX: K57.32 Diverticulitis of large intestine without perforation or abscess without bleeding (principal); E07.9 Disorder of thyroid, unspecified; F41.9 Anxiety disorder, unspecified; Z79.890 Hormone replacement therapy; F32.9 Major depressive disorder, single episode, unspecified; Z79.899 Other long term (current) drug therapy; Z87.891 Personal history of nicotine dependence; Z88.1 Allergy status to other antibiotic agents; Z91.048 Other nonmedicinal substance allergy status; Z88.0 Allergy status to penicillin; Z88.8 Allergy status to other drugs, medicaments and biological substances; Z91.030 Bee allergy status; Z85.850 Personal history of malignant neoplasm of thyroid; Z90.49 Acquired absence of other specified parts of digestive tract; Z90.710 Acquired absence of both cervix and uterus
CPT/HCPCS: 36415; 80053; 83605; 83690; 85025; 81001; 74177; 99284; 96374; 96375; 96361; J2270; J2405; Q9967

== ENCOUNTER 2020-07-16 10:02 | Inpatient (IN) | payer MEDICARE, OTHER ==
[2020-07-16] MEDS ORDERED: ONDANSETRON 4 MG/2 ML VIAL IVP STA (10:33)
[2020-07-16] MEDS ORDERED: SODIUM CHLORIDE 0.9% 1,000 ML IV STA (10:33)
[2020-07-16] MEDS ORDERED: METOPROLOL TARTRATE 12.5 MG TAB PO STA (10:34)
--- NOTE | 2020-07-16 10:36 | ED ---
Abdominal Pain HPI - General Chief Complaint: Abdominal Pain Stated Complaint: diverticulitis Time Seen by Provider: 07/16/20 10:22 Source: patient Mode of arrival: ambulatory Limitations: no limitations - History of Present Illness Initial Comments: Patient is 60-year-old female with history of diverticulitis presenting to emergency Department with a chief complaint of diverticulitis. Patient reports she was diagnosed with diverticulitis one week ago and started on Bactrim. She reports severe ALLERGIES to any penicillin-based antibiotics or Flagyl. Patient reports Bactrim has previously worked for her, however usually she is admitted when she developed diverticulitis. Patient reports she has been following a proper currently are liquid diet since discharge but the symptoms continue to persist for the most part. She reports and cramping like sensation in the left lower quadrant. States it feels like "a bowling ball" that needs to pass. Patient states she has been constipated and has had one bowel movement in the last 8 days. She believes part of this is secondary to taking Tylenol 3 and not eating much food. She denies any night sweats fevers or chills. Denies any urinary or vaginal symptoms. Denies chest pain or shortness of breath. - Related Data Home Medications Medication Instructions Recorded Confirmed Levothyroxine Sodium 125 mcg PO DAILY 04/19/20 07/16/20 Cyclobenzaprine [Flexeril] 5 mg PO TID PRN 07/08/20 07/16/20 Liothyronine Sodium [Cytomel] 10 mcg PO DAILY 07/08/20 07/16/20 Sulfamethox-Tmp 800-160Mg [Bactrim 1 tab PO Q12HR 07/16/20 07/16/20 Ds] Previous Rx's Medication Instructions Recorded Aspirin EC [Ecotrin Low Dose] 81 mg PO DAILY #30 tablet. 03/15/14 Metoprolol Succinate (ER) [Toprol 12.5 mg PO BID #60 tab.er.24h 03/15/14 XL] Nitroglycerin Sl Tabs [Nitrostat] 0.4 mg SUBLINGUAL Q5M PRN #25 tab 03/15/14 Allergies Allergy/AdvReac Type Severity Reaction Status Date / Time adhesive tape Allergy Unknown Verified 07/16/20 10:59 levofloxacin [From Levaquin] Allergy BRAIN STEM Verified 07/16/20 10:59 SEIZURE Penicillins Allergy Anaphylaxis Verified 07/16/20 10:59 Quinolones Allergy Unknown Verified 07/16/20 10:59 venom-honey bee Allergy Anaphylaxis Verified 07/16/20 10:59 Review of Systems ROS Statement: Those systems with pertinent positive or pertinent negative responses have been documented in the HPI. ROS Other: All systems not noted in ROS Statement are negative. Past Medical History Past Medical History: Coronary Artery Disease (CAD), Cancer, COPD, Fibromyalgia, GERD/Reflux, Hypertension, Myocardial Infarction ([place]), Osteoarthritis (OA), Thyroid Disorder Additional Past Medical History / Comment(s): HX THYROID CA with surgery, DIVERTICULITIS, cervical neuropathy-numbness, pain hands, DDD, cervical stenosis & myelopathy, abnormal MRI, mild COPD, intermittent dizziness Last Myocardial Infarction Date:: 03/09/14 History of Any Multi-Drug Resistant Organisms: None Reported Past Surgical History: Breast Surgery, Heart Catheterization, Hysterectomy, Tubal Ligation Additional Past Surgical History / Comment(s): R breast biopsy-benign, heart cath-UNABLE TO PUT IN STENT, RT THYROIDECTOMY d/t cancer AND LEFT MASS REMOVED FROM NECK , MULT THYROID BX'S. completion of thyroidectomy, COLONOSCOPY, CERVICAL DISCECTOMY/FUSION C4-5,C5-6,C6-7, CARPAL TUNNEL LEFT WRIST, arthroscopy knee right Past Anesthesia/Blood Transfusion Reactions: Previous Problems w/ Anesthesia Additional Past Anesthesia/Blood Transfusion Reaction / Comment(s): STATES B/P WAS LOW POST OP RT THYROIDECTOMY-mostly related to narcotic pain meds. HISTORY OF CLAUSTROPHOBIA Past Psychological History: Anxiety, Depression Smoking Status: Former smoker Past Alcohol Use History: Occasional Past Drug Use History: None Reported - Past Family History Father Family Medical History: Osteoarthritis (OA) Mother Family Medical History: AFIB Additional Family Medical History / Comment(s): Hypothyroidism. Bladder issues. Heart palpatations. General Exam Limitations: no limitations General appearance: alert, in no apparent distress, obese Head exam: Present: atraumatic, normocephalic, normal inspection Eye exam: Present: normal appearance, PERRL, EOMI Pupils: Present: normal accommodation ENT exam: Present: normal exam, normal oropharynx, mucous membranes moist, TM's normal bilaterally, normal external ear exam Neck exam: Present: normal inspection, full ROM. Absent: tenderness Respiratory exam: Present: normal lung sounds bilaterally. Absent: respiratory distress, wheezes, rales Cardiovascular Exam: Present: regular rate, normal rhythm, normal heart sounds GI/Abdominal exam: Present: soft, tenderness (Left lower quadrant). Absent: distended, guarding, rebound, rigid Extremities exam: Present: normal inspection, full ROM, normal capillary refill. Absent: tenderness Back exam: Present: normal inspection, full ROM. Absent: tenderness, CVA tenderness (R), CVA tenderness (L) Neurological exam: Present: alert, oriented X3, normal gait Psychiatric exam: Present: normal affect, normal mood Skin exam: Present: warm, dry, intact, normal color Course Vital Signs 07/16/20 07/16/20 10:06 11:45 Temperature 97.4 F L Pulse Rate 72 67 Respiratory 16 12 Rate Blood Pressure 162/88 145/81 O2 Sat by Pulse 97 97 Oximetry Medical Decision Making - Medical Decision Making Patient is 52-year-old female with history of recurrent diverticular is presenting to emergency Department with a chief complaint of diverticulitis. Patient has been previously admitted for diverticulitis in 19 antibiotics because she cannot tolerate any penicillin derivatives or Flagyl. Patient currently Bactrim with no significant improvement in symptoms. One week ago she was diagnosed with diverticulitis and her laboratory work was very similar to today's which was rather unremarkable. Patient was given antibiotics and IV fluids. Patient will be admitted for further medical management. Case discussed with Dr. Healy. Medical physician is Infectious disease consulted - Lab Data Result diagrams: 07/16/20 10:45 07/16/20 10:45 Lab Results 07/16/20 07/16/20 07/16/20 Range/Units 10:45 10:45 10:45 WBC 5.0 (3.8-10.6) k/uL RBC 4.93 (3.80-5.40) m/uL Hgb 14.6 (11.4-16.0) gm/dL Hct 44.3 (34.0-46.0) % MCV 89.9 (80.0-100.0) fL MCH 29.6 (25.0-35.0) pg MCHC 33.0 (31.0-37.0) g/dL RDW 12.4 (11.5-15.5) % Plt Count 297 (150-450) k/uL Neutrophils % 58 % Lymphocytes % 30 % Monocytes % 6 % Eosinophils % 4 % Basophils % 1 % Neutrophils # 2.9 (1.3-7.7) k/uL Lymphocytes # 1.5 (1.0-4.8) k/uL Monocytes # 0.3 (0-1.0) k/uL Eosinophils # 0.2 (0-0.7) k/uL Basophils # 0.1 (0-0.2) k/uL Sodium 139 (137-145) mmol/L Potassium 4.5 (3.5-5.1) mmol/L Chloride 107 (98-107) mmol/L Carbon Dioxide 27 (22-30) mmol/L Anion Gap 5 mmol/L BUN 11 (7-17) mg/dL Creatinine 0.88 (0.52-1.04) mg/dL Est GFR (CKD-EPI)AfAm 84 (>60 ml/min/1.73 sqM) Est GFR (CKD-EPI)NonAf 73 (>60 ml/min/1.73 sqM) Glucose 103 H (74-99) mg/dL Calcium 9.4 (8.4-10.2) mg/dL Total Bilirubin 0.5 (0.2-1.3) mg/dL AST 28 (14-36) U/L ALT 27 (4-34) U/L Alkaline Phosphatase 89 (38-126) U/L Troponin I (0.000-0.034) ng/mL Total Protein 6.8 (6.3-8.2) g/dL Albumin 4.3 (3.5-5.0) g/dL Lipase 112 (23-300) U/L Urine Color Light Yellow Urine Appearance Clear (Clear) Urine pH 6.5 (5.0-8.0) Ur Specific [place] 1.006 (1.001-1.035) Urine Protein Negative (Negative) Urine Glucose (UA) Negative (Negative) Urine Ketones Negative (Negative) Urine Blood Negative (Negative) Urine Nitrite Negative (Negative) Urine Bilirubin Negative (Negative) Urine Urobilinogen <2.0 (<2.0) mg/dL Ur Leukocyte Esterase Negative (Negative) 20/20 Range/Units 10:45 WBC (3.8-10.6) k/uL RBC (3.80-5.40) m/uL Hgb (11.4-16.0) gm/dL Hct (34.0-46.0) % MCV (80.0-100.0) fL MCH (25.0-35.0) pg MCHC (31.0-37.0) g/dL RDW (11.5-15.5) % Plt Count (150-450) k/uL Neutrophils % % Lymphocytes % % Monocytes % % Eosinophils % % Basophils % % Neutrophils # (1.3-7.7) k/uL Lymphocytes # (1.0-4.8) k/uL Monocytes # (0-1.0) k/uL Eosinophils # (0-0.7) k/uL Basophils # (0-0.2) k/uL Sodium (137-145) mmol/L Potassium (3.5-5.1) mmol/L Chloride (98-107) mmol/L Carbon Dioxide (22-30) mmol/L Anion Gap mmol/L BUN (7-17) mg/dL Creatinine (0.52-1.04) mg/dL Est GFR (CKD-EPI)AfAm (>60 ml/min/1.73 sqM) Est GFR (CKD-EPI)NonAf (>60 ml/min/1.73 sqM) Glucose (74-99) mg/dL Calcium (8.4-10.2) mg/dL Total Bilirubin (0.2-1.3) mg/dL AST (14-36) U/L ALT (4-34) U/L Alkaline Phosphatase (38-126) U/L Troponin I <0.012 (0.000-0.034) ng/mL Total Protein (6.3-8.2) g/dL Albumin (3.5-5.0) g/dL Lipase (23-300) U/L Urine Color Urine Appearance (Clear) Urine pH (5.0-8.0) Ur Specific [place] (1.001-1.035) Urine Protein (Negative) Urine Glucose (UA) (Negative) Urine Ketones (Negative) Urine Blood (Negative) Urine Nitrite (Negative) Urine Bilirubin (Negative) Urine Urobilinogen (<2.0) mg/dL Ur Leukocyte Esterase (Negative) Disposition Clinical Impression: Abdominal pain Disposition: HOME SELF-CARE Condition: Stable Instructions (If sedation given, give patient instructions): Abdominal Pain (ED) Additional Instructions: Patient will be admitted Is patient prescribed a controlled substance at d/c from ED?: No Referrals: Konrad Perez MD [Primary Care Provider] - 1-2 days Time of Disposition: 11:54
[2020-07-16 11:01] LABS: Appearance,Urine Clear (Clear); Basophils # (A) 0.1 k/uL (0-0.2); Basophils % (A) 1 %; Bilirubin,Urine Negative (Negative); Blood,Urine Negative (Negative); Color,Urine Light Yellow; Eosinophils # (A) 0.2 k/uL (0-0.7); Eosinophils % (A) 4 %; Glucose,Urine (UA) Negative (Negative); HCT 44.3 % (34.0-46.0); HGB 14.6 gm/dL (11.4-16.0); Ketones,Urine Negative (Negative); Leukocyte Esterase,Urine Negative (Negative); Lymphocytes # (A) 1.5 k/uL (1.0-4.8); Lymphocytes % (A) 30 %; MCH 29.6 pg (25.0-35.0); MCV 89.9 fL (80.0-100.0); Mean Platelet Volume 7.3; Monocytes # (A) 0.3 k/uL (0-1.0); Monocytes % (A) 6 %; Neutrophils # (A) 2.9 k/uL (1.3-7.7); Neutrophils % (A) 58 %; Nitrite,Urine Negative (Negative); PH, Urine 6.5 (5.0-8.0); Platelet Count 297 k/uL (150-450); Protein,Urine Negative (Negative); RBC 4.93 m/uL (3.80-5.40); RDW 12.4 % (11.5-15.5); Specific Gravity,Urine 1.006 (1.001-1.035); Urobilinogen,Urine <2.0 mg/dL (<2.0)
[2020-07-16 11:09] LABS: Albumin 4.3 g/dL (3.5-5.0); Calcium 9.4 mg/dL (8.4-10.2); Potassium 4.5 mmol/L (3.5-5.1); Total Bilirubin 0.5 mg/dL (0.2-1.3); Total Protein 6.8 g/dL (6.3-8.2)
[2020-07-16] MEDS ORDERED: HYDROmorphone 0.5 MG/0.5 ML SYRINGE IVP PRN (11:54)
[2020-07-16] MEDS ORDERED: HYDROmorphone 1 MG/ML 1 ML SYRINGE IVP PRN (11:54)
[2020-07-16] MEDS ORDERED: LORazepam 2 MG/ML INJ IV PRN (11:54)
[2020-07-16] MEDS ORDERED: ACETAMINOPHEN TAB 325 MG TAB PO PRN (11:54)
[2020-07-16] MEDS ORDERED: NALOXONE 0.4 MG/ML 1 ML VIAL IV PRN (11:54)
[2020-07-16] MEDS ORDERED: ONDANSETRON 4 MG/2 ML VIAL IVP PRN (11:54)
[2020-07-16] MEDS ORDERED: MORPHINE SULFATE 4 MG/ML SYRINGE IV PRN (11:54)
[2020-07-16] MEDS ORDERED: SODIUM CHLORIDE 0.9% 1,000 ML IV SCH (12:00)
[2020-07-16] MEDS ORDERED: IOPAMIDOL CONTRAST (ORAL USE) VIAL PO PRN (15:44)
[2020-07-16] MEDS: ERTAPENEM 1 GM in SODIUM CHLORIDE 0.9% 50 ML IVPB SCH (16:29)
--- NOTE | 2020-07-16 19:48 | CT ---
EXAMINATION TYPE: CT abdomen pelvis w con DATE OF EXAM: 07/16/2020 COMPARISON: 07/08/2020. HISTORY: nausea, vomiting. hx of diverticulitis. CT DLP: 1508.5 mGycm Automated exposure control for dose reduction was used. TECHNIQUE: Helical acquisition of images was performed from the lung bases through the pelvis. CONTRAST: Performed with Oral Contrast and with IV Contrast, patient injected with 100 mL of Isovue 300. FINDINGS: LUNG BASES: No significant abnormality is appreciated. LIVER/GB: No significant abnormality is appreciated. Hepatic steatosis noted. PANCREAS: No significant abnormality is seen. SPLEEN: No significant abnormality is seen. ADRENALS: No significant abnormality is seen. KIDNEYS: No significant abnormality is seen. FREE AIR: No free air is visualized. RETROPERITONEAL ADENOPATHY: None visualized REPRODUCTIVE ORGANS: No significant abnormality is seen URINARY BLADDER: No significant abnormality is seen. PELVIC ADENOPATHY: None visualized. OSSEOUS STRUCTURES: No significant abnormality is seen. BOWEL: Interval improvement of mild inflammatory changes involving the sigmoid colonic diverticula w ithout significant residual. No bowel obstruction, free air or fluid. Normal appendix. OTHER: Redemonstrated mark appearance of the upper abdominal mesentery. IMPRESSION: Improvement of previous sigmoid colonic diverticulitis without significant residual. Redemonstrated mark appearance of the abdominal mesentery, which can be seen on a chronic basis vers us mesenteritis in the appropriate clinical setting. No new abnormality.
[2020-07-16] MEDS ORDERED: CYCLOBENZAPRINE 5 MG TAB PO PRN (21:30)
--- NOTE | 2020-07-16 21:58 | P.CONS ---
History of Present Illness - Reason for Consult Consult date: 07/16/20 Acute diverticulitis and multiple antibiotic ALLERGIES Requesting physician: Abel Contreras - Chief Complaint Abdominal pain x 1 week - History of Present Illness Patient is a 60-year-old female with a past medical history significant for recurrent diverticulitis in this patient who recently evaluated at this facility ER on 07/08/2020 for abdominal pain patient at that time did have a CT of abdominal pelvis with evidence of mild diverticulitis patient subsequent discharged home on Bactrim DS and Flagyl patient say with the Flagyl she did have a GI side effect unable to keep anything down so she stopped taking the Flagyl because was taking Bactrim DS patient was evaluated by her primary care physician today and the patient was complaining of more abdominal pain with concern for possible after delivery of the oral antibiotic the patient was sent to the [facility] ER for further evaluation on arrival to the ER the patient is afebrile she did have a normal white count patient is to complain of not feeling well and has been complaining of pain to the lower abdominal area on a treadmill aching to sharp 5-600 and had no radiation some nausea but no vomiting denies any diarrhea or constipation patient to have multiple antibiotic ALLERGIES no antibiotic as well as received in the ER no computed tomography scan was done and the patient has been admitted to hospital with a diagnosis of failed outpatient oral antibiotic therapy and diverticulitis Review of Systems Positive point has been mentioned in the HPI rest of the systems are negative Past Medical History Past Medical History: Coronary Artery Disease (CAD), Cancer, COPD, Fibromyalgia, GERD/Reflux, GI Bleed, Hypertension, Myocardial Infarction ([place]), Osteoarthritis ([place]), Thyroid Disorder Additional Past Medical History / Comment(s): Diverticulitis, upper and lower GI bleed, MRI showed small strokes or migraines per pt as well as spots-recommended to have spinal tap but pt declined, bronchitis, past cervical neuropathy/stenosis/myelopathy with numbness and pain in bilateral hands but had cervical surgery and not a problem anymore-does have some decreased ROM with neck and spasms of neck occasionally, occasional vertigo, thyroidectomy d/t cancer. Last Myocardial Infarction Date:: 03/09/14 History of Any Multi-Drug Resistant Organisms: None Reported Past Surgical History: Breast Surgery, Heart Catheterization, Hysterectomy, Orthopedic Surgery, Tubal Ligation Additional Past Surgical History / Comment(s): Multiple colonoscopies, egds, R partial thyroidectomy/multiple thyroid bxs then total thyroidectomy d/t cancer, L side neck mass removed, R breast benign bx, cardiac cath-unable to deploy a stent, cervical discectomy/fusions, L carpal tunnel releases, R knee arthroscopic surgeries. Past Anesthesia/Blood Transfusion Reactions: Previous Problems w/ Anesthesia Additional Past Anesthesia/Blood Transfusion Reaction / Comm: STATES B/P WAS LOW POST OP RT THYROIDECTOMY-mostly related to narcotic pain meds. HISTORY OF CLAUSTROPHOBIA Past Psychological History: Anxiety, Depression Additional Psychological History / Comment(s): Pt resides with her significant other and pt's parents. 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 Pt is independent. Smoking Status: Former smoker Past Alcohol Use History: Occasional Additional Past Alcohol Use History / Comment(s): STARTED SMOKING AT AGE 18 STOPPED FEBRUARY 2014 (SMOKED ON AND OFF) SMOKED 1PPD AT THE TIME SHE QUIT 2013 Past Drug Use History: None Reported - Past Family History Father Family Medical History: Osteoarthritis (OA) Additional Family Medical History / Comment(s): Father is living Mother Family Medical History: AFIB, Renal Disease, Thyroid Disorder Additional Family Medical History / Comment(s): Mother is living. Hypothyroidism. Bladder issues/kidney stones. Nerve damage in legs Medications and Allergies Home Medications Medication Instructions Recorded Confirmed Type Aspirin EC [Ecotrin Low Dose] 81 mg PO DAILY #30 tablet.dr 03/15/14 07/16/20 Rx Metoprolol Succinate (ER) [Toprol 12.5 mg PO BID #60 tab.er.24h 03/15/14 07/16/20 Rx XL] Nitroglycerin Sl Tabs [Nitrostat] 0.4 mg SUBLINGUAL Q5M PRN #25 tab 03/15/14 07/16/20 Rx Levothyroxine Sodium 125 mcg PO DAILY 04/19/20 07/16/20 History Cyclobenzaprine [Flexeril] 5 mg PO TID PRN 07/08/20 07/16/20 History Liothyronine Sodium [Cytomel] 10 mcg PO DAILY 07/08/20 07/16/20 History Sulfamethox-Tmp 800-160Mg [Bactrim 1 tab PO Q12HR 07/16/20 07/16/20 History Ds] Allergies Allergy/AdvReac Type Severity Reaction Status Date / Time levofloxacin [From Levaquin] Allergy Severe BRAIN STEM Verified 07/16/20 15:23 SEIZURE Penicillins Allergy Severe Anaphylaxis Verified 07/16/20 15:23 Quinolones Allergy Severe Unknown Verified 07/16/20 15:23 venom-honey bee Allergy Severe Anaphylaxis Verified 07/16/20 15:23 adhesive tape Allergy Unknown Verified 07/16/20 15:23 iopamidol [From Isovue-128] AdvReac Nausea & Verified 07/16/20 18:29 Vomiting Physical Exam Vitals: Vital Signs Temp Pulse Pulse Resp BP BP Pulse Ox 07/16/20 15:00 97.3 F L 64 16 137/81 97 07/16/20 13:00 60 12 145/81 98 07/16/20 11:45 67 12 145/81 97 07/16/20 10:06 97.4 F L 72 16 162/88 97 Intake and Output 07/16/20 07/16/20 07/16/20 06:59 14:59 22:59 Other: Voiding Method Toilet # Voids 1 Weight 98.43 kg GENERAL DESCRIPTION: Middle-aged female lying in bed, no distress. No tachypnea or accessory muscle of respiration use. HEENT: Shows Pallor , no scleral icterus. Oral mucous membrane is dry. No pharyngeal erythema or thrush NECK: Trachea central, no thyromegaly. LUNGS: Unlabored breathing. Clear to auscultation anteriorly. No wheeze or crackle. HEART: S1, S2, regular rate and rhythm. No loud murmur ABDOMEN: Soft, mild left lower quadrant tenderness , guarding or rigidity, no organomegaly EXTREMITIES: No edema of feet. SKIN: No rash, no masses palpable. NEUROLOGICAL: The patient is awake, alert, oriented x3, mood and affect normal. Results CBC & Chem 7: 07/16/20 10:45 07/16/20 10:45 Labs: Abnormal Lab Results - Last 24 Hours (Table) 07/16/20 Range/Units 10:45 Glucose 103 H (74-99) mg/dL Assessment and Plan Assessment: 1-patient with a history of recurrent diverticulitis in this patient recently diagnosed with mild diverticulitis on 07/08/2024 the patient was prescribed Bactrim DS and Flagyl patient stopped taking the Flagyl because of GI side effects and now presenting to the hospital with persistent pain however the patient did not have any fever or elevated white count Unfortunately no CT was done to see if the diverticulitis has resolved or not (1) Allergy to multiple antibiotics Current Visit: Yes Status: Acute Code(s): Z88.1 - ALLERGY STATUS TO OTHER ANTIBIOTIC AGENTS STATUS SNOMED Code(s): 636653602 (2) Diverticulitis Current Visit: No Status: Acute Code(s): K57.92 - DVTRCLI OF INTEST, PART UNSP, W/O PERF OR ABSCESS W/O BLEED SNOMED Code(s): 842499817 Plan: 1- we will obtain a CT of abdominal pelvis to see the status of her diverticulitis diagnosed 8 days ago if it has almost resolved may not consider need for IV antibiotic in outpatient setting however if the diverticulitis has not resolved and we do not have any oral option he would have to arrange for outpatient IV antibiotic therapy 2-we will add Invanz 1 g daily which the patient has tolerated in the past We will follow on clinical condition and cultures to further adjust medication if needed Thank you for this consultation will follow this patient with you Time with Patient: Greater than 30
[2020-07-16] MEDS: METOPROLOL SUCCINATE (ER) 25 MG TAB.ER.24H PO SCH (22:24)
--- NOTE | 2020-07-16 22:52 | P.HPIM ---
History of Present Illness H&P Date: 07/16/20 Chief Complaint: Abdominal pain History of presenting complaint: This is a pleasant 60-year-old patient was chronic stable medical conditions include coronary artery disease, COPD, fibromyalgia, GERD, hypertension, cervical neuropathy stenosis myelopathy with numbness and pain in both the hands followed by cervical surgery corrected, thyroidectomy due to cancer, anxiety de pression. Patient ordered week ago started having abdominal pain presented to the ER on July 08. Diagnosed with acute dermatitis. Discharged on Bactrim and Flagyl. Patient started to get more bloated. In the last 8 days had only one bowel movement that was dark black in color. Feeling much worse. Went to see her family doctor and he transferred down here. Started IV fluids and antibiotics. Review of systems: GEN.: Tired EYES: None HEENT: None NECK: None RESPIRATORY: None CARDIOVASCULAR: None GASTROINTESTINAL: As above GENITOURINARY: None MUSCULOSKELETAL: Joint pains] LYMPHATICS: None HEMATOLOGICAL: None PSYCHIATRY: None NEUROLOGICAL: None Past medical history to include: Coronary artery disease, COPD, fibromyalgia, GERD, GI bleed, hypertension, osteoarthritis, diverticulitis, past cervical neuropathy stenosis myelopathy corrected with cervical spine surgery thyroidectomy due to cancer, anxiety depression Social history: This is a significant other. Patient's parent's caregiver. Patient smoked a pack a day also 30 years stopped 14 years ago. Physical examination: VITAL SIGNS: 97.4, 72, 16, 145/81, 97% on room air GENERAL: BMI 36.1, laying in bed, bit tired EYES: Pupils equal. Conjunctiva normal. HEENT: External appearance of nose and ears normal, oral cavity grossly normal. NECK: JVD not raised; masses not palpable. HEART: First and second heart sounds are normal; no edema. LUNGS:[ Respiratory rate normal; decreased breath sounds. ABDOMEN: Soft, lower abdominal tenderness, no guarding rigidity, liver spleen not palpable, no masses palpable. PSYCH: Alert and oriented x3; mood and affect normal. NEUROLOGICAL: Cranial nerves grossly intact; no facial asymmetry, power and sensation grossly intact. LYMPHATICS: No lymph nodes palpable in the axilla and neck INVESTIGATIONS, reviewed in the clinical context: White count 5 hemoglobin 14.6 platelets 297 potassium 4.5 creatinine 0.88 UA negative Computed tomography scan of the abdomen pelvis-improvement of previous sigmoid colonic diverticulitis without significant residual. Assessment: -Acute sigmoid diverticulitis having failed outpatient treatment with Bactrim and Flagyl. -Coronary artery disease -COPD in an ex-smoker -GERD -Chronic fibromyalgia -Essential hypertension -Primary osteoarthritis -Hypothyroid -History of thyroidectomy for cancer -Anxiety depression otherwise specified Plan: ID was consulted. Home medications and resume. We'll keep the patient nothing by mouth. IV fluids. Pain medications. Lovenox for DVT prophylaxis. Care was discussed with the patient and questions answered. Past Medical History Past Medical History: Coronary Artery Disease (CAD), Cancer, COPD, Fibromyalgia, GERD/Reflux, GI Bleed, Hypertension, Myocardial Infarction ([place]), Osteoarthritis (OA), Thyroid Disorder Additional Past Medical History / Comment(s): Diverticulitis, upper and lower GI bleed, MRI showed small strokes or migraines per pt as well as spots- recommended to have spinal tap but pt declined, bronchitis, past cervical neuropathy/stenosis/myelopathy with numbness and pain in bilateral hands but had cervical surgery and not a problem anymore-does have some decreased ROM with neck and spasms of neck occasionally, occasional vertigo, thyroidectomy d/t cancer. Last Myocardial Infarction Date:: 03/09/14 History of Any Multi-Drug Resistant Organisms: None Reported Past Surgical History: Breast Surgery, Heart Catheterization, Hysterectomy, Orthopedic Surgery, Tubal Ligation Additional Past Surgical History / Comment(s): Multiple colonoscopies, egds, R partial thyroidectomy/multiple thyroid bxs then total thyroidectomy d/t cancer, L side neck mass removed, R breast benign bx, cardiac cath-unable to deploy a stent, cervical discectomy/fusions, L carpal tunnel releases, R knee arthroscopic surgeries. Past Anesthesia/Blood Transfusion Reactions: Previous Problems w/ Anesthesia Additional Past Anesthesia/Blood Transfusion Reaction / Comment(s): STATES B/P WAS LOW POST OP RT THYROIDECTOMY-mostly related to narcotic pain meds. HISTORY OF CLAUSTROPHOBIA Past Psychological History: Anxiety, Depression Additional Psychological History / Comment(s): Pt resides with her significant other and pt's parents. 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 Pt is independent. Smoking Status: Former smoker Past Alcohol Use History: Occasional Additional Past Alcohol Use History / Comment(s): STARTED SMOKING AT AGE 18 STOPPED FEBRUARY 2014 (SMOKED ON AND OFF) SMOKED 1PPD AT THE TIME SHE QUIT 2013 Past Drug Use History: None Reported - Past Family History Father Family Medical History: Osteoarthritis (OA) Additional Family Medical History / Comment(s): Father is living Mother Family Medical History: AFIB, Renal Disease, Thyroid Disorder Additional Family Medical History / Comment(s): Mother is living. Hypothyroidism. Bladder issues/kidney stones. Nerve damage in legs Medications and Allergies Home Medications Medication Instructions Recorded Confirmed Type Aspirin EC [Ecotrin Low Dose] 81 mg PO DAILY #30 tablet.dr 03/15/14 07/16/20 Rx Metoprolol Succinate (ER) [Toprol 12.5 mg PO BID #60 tab.er.24h 03/15/14 07/16/20 Rx XL] Nitroglycerin Sl Tabs [Nitrostat] 0.4 mg SUBLINGUAL Q5M PRN #25 tab 03/15/14 07/16/20 Rx Levothyroxine Sodium 125 mcg PO DAILY 04/19/20 07/16/20 History Cyclobenzaprine [Flexeril] 5 mg PO TID PRN 07/08/20 07/16/20 History Liothyronine Sodium [Cytomel] 10 mcg PO DAILY 07/08/20 07/16/20 History Sulfamethox-Tmp 800-160Mg [Bactrim 1 tab PO Q12HR 07/16/20 07/16/20 History Ds] Allergies Allergy/AdvReac Type Severity Reaction Status Date / Time levofloxacin [From Levaquin] Allergy Severe BRAIN STEM Verified 07/16/20 15:23 SEIZURE Penicillins Allergy Severe Anaphylaxis Verified 07/16/20 15:23 Quinolones Allergy Severe Unknown Verified 07/16/20 15:23 venom-honey bee Allergy Severe Anaphylaxis Verified 07/16/20 15:23 adhesive tape Allergy Unknown Verified 07/16/20 15:23 iopamidol [From Isovue-128] AdvReac Nausea & Verified 07/16/20 18:29 Vomiting Physical Exam Vitals: Vital Signs Temp Pulse Pulse Pulse Resp BP BP 07/16/20 19:56 98.9 F 60 16 133/81 07/16/20 15:00 97.3 F L 64 16 137/81 07/16/20 13:00 60 12 145/81 07/16/20 11:45 67 12 145/81 07/16/20 10:06 97.4 F L 72 16 162/88 Pulse Ox 07/16/20 19:56 97 07/16/20 15:00 97 07/16/20 13:00 98 07/16/20 11:45 97 07/16/20 10:06 97 Intake and Output 07/16/20 07/16/20 07/16/20 06:59 14:59 22:59 Intake Total 60 Output Total 245 Balance -185 Intake: Oral 60 Output: Urine 200 Emesis 45 Other: Voiding Method Toilet Toilet # Voids 1 Weight 98.43 kg Results CBC & Chem 7: 07/16/20 10:45 07/16/20 10:45 Labs: Abnormal Lab Results - Last 24 Hours (Table) 07/16/20 Range/Units 10:45 Glucose 103 H (74-99) mg/dL Thrombosis Risk Factor Assmnt - Choose All That Apply Any of the Below Risk Factors Present?: Yes Each Factor Represents 1 point: Abnormal pulmonary function (COPD), Age 41-60 years, Obesity (BMI >25) Other Risk Factors: No Other congenital or acquired thrombophilia - If yes, enter type in comment: No Thrombosis Risk Factor Assessment Total Risk Factor Score: 3 Thrombosis Risk Factor Assessment Level: Moderate Risk
[2020-07-16] MEDS: ENOXAPARIN 40 MG/0.4 ML SYRINGE SQ SCH (23:33)
[2020-07-16] MEDS: SODIUM CHLORIDE 0.9% 1,000 ML IV SCH (23:34)
[2020-07-16] MEDS: CALCIUM CARBONATE LIQUID 500 MG/5 ML CUP PO PRN (23:34)
[2020-07-17] MEDS: LEVOTHYROXINE 50 MCG TAB PO SCH (05:50)
[2020-07-17] MEDS: LIOTHYRONINE SODIUM 5 MCG TAB PO SCH (05:53)
[2020-07-17] MEDS: SODIUM CHLORIDE 0.9% 1,000 ML IV SCH ×3 (07:41→23:20)
[2020-07-17] MEDS: ENOXAPARIN 40 MG/0.4 ML SYRINGE SQ SCH (09:44)
[2020-07-17] MEDS: METOPROLOL SUCCINATE (ER) 25 MG TAB.ER.24H PO SCH ×2 (09:44→20:18)
[2020-07-17] MEDS: ASPIRIN 81 MG PO SCH (09:44)
[2020-07-17] MEDS: ERTAPENEM 1 GM in SODIUM CHLORIDE 0.9% 50 ML IVPB SCH (09:45)
[2020-07-17 11:22] VITALS: BMI 36.1
--- NOTE | 2020-07-17 19:40 | P.PN ---
Progress Note - Text Progress Note Date: 07/17/20 Chief Complaint: Abdominal pain History of presenting complaint: This is a pleasant 60-year-old patient was chronic stable medical conditions include coronary artery disease, COPD, fibromyalgia, GERD, hypertension, cervical neuropathy stenosis myelopathy with numbness and pain in both the hands followed by cervical surgery corrected, thyroidectomy due to cancer, anxiety depression. Patient ordered week ago started having abdominal pain presented to the ER on July 08. Diagnosed with acute dermatitis. Discharged on Bactrim and Flagyl. Patient started to get more bloated. In the last 8 days had only one bowel movement that was dark black in color. Feeling much worse. Went to see her family doctor and he transferred down here. Started IV fluids and IV ertapenem. Today-slight improvement of abdominal pain. 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 Started on clear liquids this morning. No nausea vomiting. Review of systems: Was done for constitutional, cardiovascular, GI, pulmonary. relevant finding as above Active Medications Acetaminophen (Acetaminophen Tab 325 Mg Tab) 650 mg PO Q6HR PRN PRN Reason: Mild Pain or Fever > 100.5 Aspirin (Aspirin 81 Mg) 81 mg PO DAILY [facility] Last Admin: 07/17/20 09:44 Dose: 81 mg Documented by: Calcium Carbonate/Glycine (Calcium Carbonate Liquid 500 Mg/5 Ml Cup) 500 mg PO Q6H PRN PRN Reason: Heartburn Last Admin: 07/16/20 23:34 Dose: 500 mg Documented by: Cyclobenzaprine HCl (Cyclobenzaprine 5 Mg Tab) 5 mg PO TID PRN PRN Reason: Muscle Spasm Enoxaparin Sodium (Enoxaparin 40 Mg/0.4 Ml Syringe) 40 mg SQ DAILY [facility] Last Admin: 07/17/20 09:44 Dose: 40 mg Documented by: Hydromorphone HCl (Hydromorphone 0.5 Mg/0.5 Ml Syringe) 0.5 mg IVP Q3HR PRN PRN Reason: Moderate Pain Last Admin: 07/16/20 12:02 Dose: 0.5 mg Documented by: Hydromorphone HCl (Hydromorphone 1 Mg/Ml 1 Ml Syringe) 1 mg IVP Q3HR PRN PRN Reason: Severe Pain Last Admin: 07/16/20 16:37 Dose: 1 mg Documented by: Ertapenem 1 gm/ Sodium (Chloride) 50 mls @ 100 mls/hr IVPB DAILY [facility]; Protocol Last Admin: 07/17/20 09:45 Dose: 100 mls/hr Documented by: Sodium Chloride (Saline 0.9%) 1,000 mls @ 130 mls/hr IV .Q7H42M [facility] Last Admin: 07/17/20 17:38 Dose: 130 mls/hr Documented by: Levothyroxine Sodium (Levothyroxine 50 Mcg Tab) 125 mcg PO DAILY@0630 [facility] Last Admin: 07/17/20 05:50 Dose: 125 mcg Documented by: Liothyronine Sodium (Liothyronine Sodium 5 Mcg Tab) 10 mcg PO DAILY [facility] Last Admin: 07/17/20 05:53 Dose: 10 mcg Documented by: Lorazepam (Lorazepam 2 Mg/Ml Inj) 0.5 mg IV Q6HR PRN PRN Reason: Anxiety Metoprolol Succinate (Metoprolol Succinate (Er) 25 Mg Tab.Er.24h) 12.5 mg PO BID [facility] Last Admin: 07/17/20 09:44 Dose: 12.5 mg Documented by: Morphine Sulfate (Morphine Sulfate 4 Mg/Ml Syringe) 4 mg IV Q4HR PRN PRN Reason: Severe Pain Naloxone HCl (Naloxone 0.4 Mg/Ml 1 Ml Vial) 0.2 mg IV Q2M PRN PRN Reason: Opioid Reversal Ondansetron HCl (Ondansetron 4 Mg/2 Ml Vial) 4 mg IVP Q8HR PRN PRN Reason: Nausea And Vomiting Physical examination: VITAL SIGNS: 97.9, 65, 18, 144/76, 95% room air GENERAL: BMI 36.1, laying in bed, not in distress EYES: Pupils equal. Conjunctiva normal. NECK: JVD not raised; masses not palpable. HEART: First and second heart sounds are normal; no edema. LUNGS:[ Respiratory rate normal; decreased breath sounds. ABDOMEN: Soft, lower abdominal tenderness, no guarding rigidity, liver spleen not palpable, no masses palpable. PSYCH: Alert and oriented x3; mood and affect normal. INVESTIGATIONS, reviewed in the clinical context: Pro-calcitonin 0.02 Admission testing White count 5 hemoglobin 14.6 platelets 297 potassium 4.5 creatinine 0.88 UA negative Computed tomography scan of the abdomen pelvis-improvement of previous sigmoid colonic diverticulitis without significant residual. Assessment: -Acute sigmoid diverticulitis having failed outpatient treatment with Bactrim and Flagyl.-Slow to respond -Coronary artery disease -COPD in an ex-smoker -GERD -Chronic fibromyalgia -Essential hypertension -Primary osteoarthritis -Hypothyroid -History of thyroidectomy for cancer -Anxiety depression otherwise specified Plan: Continue with IV ertapenem. Keep on clear liquids for now. Let's see how she does. Discussed with the patient. Encouraged to be out of bed.
[2020-07-17] MEDS: CALCIUM CARBONATE LIQUID 500 MG/5 ML CUP PO PRN (22:05)
[2020-07-18] MEDS: LEVOTHYROXINE 50 MCG TAB PO SCH (06:21)
[2020-07-18] MEDS: SODIUM CHLORIDE 0.9% 1,000 ML IV SCH ×3 (06:26→21:38)
[2020-07-18 07:05] LABS: HCT 42.1 % (34.0-46.0); HGB 13.5 gm/dL (11.4-16.0); MCH 29.2 pg (25.0-35.0); MCHC 32.1 g/dL (31.0-37.0); MCV 90.8 fL (80.0-100.0); Mean Platelet Volume 6.8; Platelet Count 258 k/uL (150-450); RBC 4.64 m/uL (3.80-5.40); RDW 12.7 % (11.5-15.5); WBC 4.2 k/uL (3.8-10.6)
[2020-07-18] MEDS: ENOXAPARIN 40 MG/0.4 ML SYRINGE SQ SCH (07:43)
[2020-07-18] MEDS: ASPIRIN 81 MG PO SCH (07:44)
[2020-07-18] MEDS: ERTAPENEM 1 GM in SODIUM CHLORIDE 0.9% 50 ML IVPB SCH (07:44)
[2020-07-18] MEDS: METOPROLOL SUCCINATE (ER) 25 MG TAB.ER.24H PO SCH ×2 (07:44→21:36)
[2020-07-18] MEDS: LIOTHYRONINE SODIUM 5 MCG TAB PO SCH (07:45)
[2020-07-18] MEDS: CALCIUM CARBONATE LIQUID 500 MG/5 ML CUP PO PRN ×2 (07:46→22:13)
[2020-07-18] MEDS ORDERED: KETOROLAC 15 MG/ML 1 ML VIAL IVP PRN (10:50)
--- NOTE | 2020-07-19 00:42 | P.PN ---
Progress Note - Text Progress Note Date: 07/18/20 Chief Complaint: Abdominal pain History of presenting complaint: This is a pleasant 60-year-old patient was chronic stable medical conditions include coronary artery disease, COPD, fibromyalgia, GERD, hypertension, cervical neuropathy stenosis myelopathy with numbness and pain in both the hands followed by cervical surgery corrected, thyroidectomy due to cancer, anxiety depression. Patient ordered week ago started having abdominal pain presented to the ER on July 08. Diagnosed with acute dermatitis. Discharged on Bactrim and Flagyl. Patient started to get more bloated. In the last 8 days had only one bowel movement that was dark black in color. Feeling much worse. Went to see her family doctor and he transferred down here. Started IV fluids and IV ertapenem. Today-patient advanced to full liquids. Abdominal pain is better but still present. Has a slight headache today. No nausea vomiting. Review of systems: Was done for constitutional, cardiovascular, GI, pulmonary. relevant finding as above Active Medications Acetaminophen (Acetaminophen Tab 325 Mg Tab) 650 mg PO Q6HR PRN PRN Reason: Mild Pain or Fever > 100.5 Last Admin: 07/18/20 06:22 Dose: 650 mg Documented by: Aspirin (Aspirin 81 Mg) 81 mg PO DAILY [facility] Last Admin: 07/18/20 07:44 Dose: 81 mg Documented by: Calcium Carbonate/Glycine (Calcium Carbonate Liquid 500 Mg/5 Ml Cup) 500 mg PO Q6H PRN PRN Reason: Heartburn Last Admin: 07/18/20 22:13 Dose: 500 mg Documented by: Cyclobenzaprine HCl (Cyclobenzaprine 5 Mg Tab) 5 mg PO TID PRN PRN Reason: Muscle Spasm Enoxaparin Sodium (Enoxaparin 40 Mg/0.4 Ml Syringe) 40 mg SQ DAILY [facility] Last Admin: 07/18/20 07:43 Dose: 40 mg Documented by: Ertapenem 1 gm/ Sodium (Chloride) 50 mls @ 100 mls/hr IVPB DAILY [facility]; Protocol Last Admin: 07/18/20 07:44 Dose: 100 mls/hr Documented by: Sodium Chloride (Saline 0.9%) 1,000 mls @ 130 mls/hr IV .Q7H42M [facility] Last Admin: 07/18/20 21:38 Dose: 130 mls/hr Documented by: Ketorolac Tromethamine (Ketorolac 15 Mg/Ml 1 Ml Vial) 15 mg IVP Q6HR PRN PRN Reason: Pain Control Stop: 07/21/20 10:50 Last Admin: 07/18/20 11:05 Dose: 15 mg Documented by: Levothyroxine Sodium (Levothyroxine 50 Mcg Tab) 125 mcg PO DAILY@0630 [facility] Last Admin: 07/18/20 06:21 Dose: 125 mcg Documented by: Liothyronine Sodium (Liothyronine Sodium 5 Mcg Tab) 10 mcg PO DAILY [facility] Last Admin: 07/18/20 07:45 Dose: 10 mcg Documented by: Lorazepam (Lorazepam 2 Mg/Ml Inj) 0.5 mg IV Q6HR PRN PRN Reason: Anxiety Metoprolol Succinate (Metoprolol Succinate (Er) 25 Mg Tab.Er.24h) 12.5 mg PO BID [facility] Last Admin: 07/18/20 21:36 Dose: 12.5 mg Documented by: Morphine Sulfate (Morphine Sulfate 4 Mg/Ml Syringe) 4 mg IV Q4HR PRN PRN Reason: Severe Pain Naloxone HCl (Naloxone 0.4 Mg/Ml 1 Ml Vial) 0.2 mg IV Q2M PRN PRN Reason: Opioid Reversal Ondansetron HCl (Ondansetron 4 Mg/2 Ml Vial) 4 mg IVP Q8HR PRN PRN Reason: Nausea And Vomiting Physical examination: VITAL SIGNS: 97.9, 76, 16, 125/81, 97% room air GENERAL: BMI 36.1, laying in bed, comfortable EYES: Pupils equal. Conjunctiva normal. NECK: JVD not raised; masses not palpable. HEART: First and second heart sounds are normal; no edema. LUNGS:[ Respiratory rate normal; decreased breath sounds. ABDOMEN: Soft, decreased lower abdominal tenderness, no guarding rigidity, liver spleen not palpable, no masses palpable. PSYCH: Alert and oriented x3; mood and affect normal. INVESTIGATIONS, reviewed in the clinical context: Pro-calcitonin 0.02 Admission testing White count 5 hemoglobin 14.6 platelets 297 potassium 4.5 creatinine 0.88 UA negative Computed tomography scan of the abdomen pelvis-improvement of previous sigmoid colonic diverticulitis without significant residual. Assessment: -Acute sigmoid diverticulitis having failed outpatient treatment with Bactrim and Flagyl.-Slowly improving -Coronary artery disease -COPD in an ex-smoker -GERD -Chronic fibromyalgia -Essential hypertension -Primary osteoarthritis -Hypothyroid -History of thyroidectomy for cancer -Anxiety depression otherwise specified Plan: Continue with IV ertapenem. We'll give the patient a full liquid diet. Discussed with the patient. And indeed for home antibiotics for next 14 days. Midline ordered.
[2020-07-19] MEDS: LEVOTHYROXINE 50 MCG TAB PO SCH (06:31)
[2020-07-19] MEDS: ASPIRIN 81 MG PO SCH (08:33)
[2020-07-19] MEDS: ENOXAPARIN 40 MG/0.4 ML SYRINGE SQ SCH (08:33)
[2020-07-19] MEDS: ERTAPENEM 1 GM in SODIUM CHLORIDE 0.9% 50 ML IVPB SCH (08:42)
[2020-07-19 08:52] VITALS: BP 125/84; PULSE 66; RESP 16; TEMP 97.7
[2020-07-19] MEDS: LIOTHYRONINE SODIUM 5 MCG TAB PO SCH (10:08)
[2020-07-19] MEDS: METOPROLOL SUCCINATE (ER) 25 MG TAB.ER.24H PO SCH (10:09)
--- NOTE | 2020-07-21 22:26 | P.DS ---
Providers Date of admission: 07/16/20 12:19 Expected date of discharge: 07/19/20 Attending physician: Abel Contreras Consults: 07/16/20 12:42 Consult Physician Stat Consulting Provider: Ilana Dowling Consult Reason/Comments: Diverticulitis Do you want consulting provider notified?: Yes Primary care physician: Fuller Hospital Course: Chief Complaint: Abdominal pain History of presenting complaint: This is a pleasant 60-year-old patient was chronic stable medical conditions include coronary artery disease, COPD, fibromyalgia, GERD, hypertension, cervical neuropathy stenosis myelopathy with numbness and pain in both the hands followed by cervical surgery corrected, thyroidectomy due to cancer, anxiety depression. Patient a week ago started having abdominal pain presented to the ER on July 08. Diagnosed with acute sigmoid diverticulitis. Discharged on Bactrim and Flagyl. Patient started to get more bloated. In the last 8 days munoz d only one bowel movement that was dark black in color. Feeling much worse. Went to see her family doctor and he transferred down here. Started IV fluids and IV ertapenem. Repeat computed tomography scan done here showed some improvement. Today-abdominal pain doing better. Patient tolerated a full liquid diet. No nausea vomiting. No fever no chills. Dr. Dowling the ID doctor had a car accide nt and was not further available. Midline was placed. Patient's home antibiotics will be given. She will follow-up with Dr. Do from general surgery. Communicated. Care was discussed. 14 days of IV Invanz. Patient to remain on a full liquid diet advance gradually as discussed. Discussion and discharge planning more than 35 minutes Physical examination: VITAL SIGNS: 97.7, 66, 16, 10/21/1983, 96% room air GENERAL: BMI 36.1, laying in bed, comfortable EYES: Pupils equal. Conjunctiva normal. NECK: JVD not raised; masses not palpable. HEART: First and second heart sounds are normal; no edema. LUNGS:[ Respiratory rate normal; decreased breath sounds. ABDOMEN: Soft, much improved lower abdominal tenderness, no guarding rigidity, liver spleen not palpable, no masses palpable. PSYCH: Alert and oriented x3; mood and affect normal. INVESTIGATIONS, reviewed in the clinical context: White count 4.2 Pro-calcitonin 0.02 Admission testing White count 5 hemoglobin 14.6 platelets 297 potassium 4.5 creatinine 0.88 UA negative Computed tomography scan of the abdomen pelvis-improvement of previous sigmoid colonic diverticulitis without significant residual. Assessment: -Acute sigmoid diverticulitis having failed outpatient treatment with Bactrim and Flagyl.- improving POA -Coronary artery disease -COPD in an ex-smoker -GERD -Chronic fibromyalgia -Essential hypertension -Primary osteoarthritis -Hypothyroid -History of thyroidectomy for cancer -Anxiety depression otherwise specified Disposition: Home Labs: CBC, CMP-weekly Patient Condition at Discharge: Stable Plan - Discharge Summary Discharge Rx Participant: No New Discharge Prescriptions: New Ertapenem [INVanz] 1 gm IVPB DAILY #14 vial Acetaminophen Tab [Tylenol] 650 mg PO Q6HR PRN tab PRN Reason: Mild Pain Or Fever > 100.5 Continue Aspirin EC [Ecotrin Low Dose] 81 mg PO DAILY #30 tablet. Metoprolol Succinate (ER) [Toprol XL] 12.5 mg PO BID #60 tab.er.24h Nitroglycerin Sl Tabs [Nitrostat] 0.4 mg SUBLINGUAL Q5M PRN #25 tab PRN Reason: Chest Pain Levothyroxine Sodium 125 mcg PO DAILY Liothyronine Sodium [Cytomel] 10 mcg PO DAILY Cyclobenzaprine [Flexeril] 5 mg PO TID PRN PRN Reason: Muscle Spasm Discontinued Sulfamethox-Tmp 800-160Mg [Bactrim Ds] 1 tab PO Q12HR Discharge Medication List Aspirin EC [Ecotrin Low Dose] 81 mg PO DAILY #30 tablet. 03/15/14 [Rx] Metoprolol Succinate (ER) [Toprol XL] 12.5 mg PO BID #60 tab.er.24h 03/15/14 [Rx] Nitroglycerin Sl Tabs [Nitrostat] 0.4 mg SUBLINGUAL Q5M PRN #25 tab 03/15/14 [Rx] Levothyroxine Sodium 125 mcg PO DAILY 04/19/20 [History] Cyclobenzaprine [Flexeril] 5 mg PO TID PRN 07/08/20 [History] Liothyronine Sodium [Cytomel] 10 mcg PO DAILY 07/08/20 [History] Ertapenem [INVanz] 1 gm IVPB DAILY #14 vial 07/18/20 [Rx] Acetaminophen Tab [Tylenol] 650 mg PO Q6HR PRN tab 07/19/20 [Rx] Follow up Appointment(s)/Referral(s): Ralph Marshall MD [Medical Doctor] - 10 Days (October 03 at 0900) Konrad Perez MD [Primary Care Provider] - 1-2 days [facility]fusion [NON-STAFF] - 07/20/20 10:00 am (Please come into office on 07/20 at 10:00AM for teach and train for home infusions. ) Ilana Dowling MD [STAFF PHYSICIAN] - 1 Week (07/30/2020 at 9am) Armin Palacios MD [STAFF PHYSICIAN] - 10 Days Patient Instructions/Handouts: Abdominal Pain (ED) Activity/Diet/Wound Care/Special Instructions: full liquid diet cbc/cmp -weekly results dr perez Call for any worsening problems or concerns. Discharge Disposition: HOME SELF-CARE
== END 2020-07-19 12:40 | disposition home or self-care (01) | DRG 392 ==
LOC: EC 10:02 → 6NMEDSUR 12:19 → 6PED 14:07
PROVIDERS: ADMIT Hospitalist; ATTEND Hospitalist
PROC: 05HF33Z Insertion of Infusion Device into Left Cephalic Vein, Percutaneous Approach (ICD-10-PCS; principal; 2020-07-16)
DX: K57.32 Diverticulitis of large intestine without perforation or abscess without bleeding (principal); J44.9 Chronic obstructive pulmonary disease, unspecified; I10 Essential (primary) hypertension; I25.10 Atherosclerotic heart disease of native coronary artery without angina pectoris; K21.9 Gastro-esophageal reflux disease without esophagitis; E89.0 Postprocedural hypothyroidism; F41.8 Other specified anxiety disorders; L30.9 Dermatitis, unspecified; G62.9 Polyneuropathy, unspecified; K59.00 Constipation, unspecified; M79.7 Fibromyalgia; I25.2 Old myocardial infarction; Z79.82 Long term (current) use of aspirin; Z79.890 Hormone replacement therapy; Z85.850 Personal history of malignant neoplasm of thyroid; Z87.891 Personal history of nicotine dependence; Z88.1 Allergy status to other antibiotic agents; Z90.710 Acquired absence of both cervix and uterus; Z91.030 Bee allergy status; Z88.0 Allergy status to penicillin; Z91.09 Other allergy status, other than to drugs and biological substances; Z98.51 Tubal ligation status; Z98.890 Other specified postprocedural states; Z98.1 Arthrodesis status; Z82.49 Family history of ischemic heart disease and other diseases of the circulatory system
CPT/HCPCS: 36410; 36415; 74177; 76937; 80053; 81003; 83690; 84145; 84484; 85025; 85027; 93005

== ENCOUNTER → 2020-07-31 | Outpatient (CLI) | payer MEDICARE, OTHER ==
--- NOTE | 2020-07-31 11:26 | CT ---
EXAMINATION TYPE: CT abdomen pelvis w con DATE OF EXAM: 07/31/2020 HISTORY: Diverticulitis without perforation or abscess, progress study CT DLP: 1485.1mGycm Automated Exposure Control for Dose Reduction was Utilized. CONTRAST: CT scan of the abdomen and pelvis is performed with oral water and with IV Contrast, patient injected with 100 mL of Isovue 300. COMPARISON: CT July 16, [address] 8 days earlier along with older studies. FINDINGS: LUNG BASES: No significant abnormality is appreciated. LIVER/GB: No significant abnormality is appreciated. PANCREAS: No significant abnormality is seen. SPLEEN: No significant abnormality is seen. ADRENALS: No significant abnormality is seen. KIDNEYS: Symmetric cortical medullary uptake and excretion without hydronephrosis seen bilaterally. BOWEL: Poor distention of the colon at level of the sigmoid colon. No suspicious small or large bowel dilatation. Normal appearing appendix and cecum in the right upper pelvis. Few scattered colonic div erticula. Most prominent diverticulosis involving the sigmoid colon. Minimal residual fat stranding a nd/or reticulation. No free air. No well-formed fluid collection UTERUS/ADNEXA: Uterus is surgically absent or markedly atrophic. Remnant normal size ovaries recommen ded 64 are redemonstrated. LYMPH NODES: No new greater than 1cm abdominal or pelvic lymph nodes are appreciated. Mild haziness t hrough the mid abdominal mesentery axial image 41 is redemonstrated. No significant change from prior studies. Finding has been present back to the 2014 study where was more prominent. OSSEOUS STRUCTURES: No significant abnormality is seen. OTHER: No significant additional abnormality is seen. IMPRESSION: Continued improvement, near complete resolution of uncomplicated acute sigmoid colonic di verticulitis. Persistent poor distention of colon makes evaluation at this level suboptimal. Correlat e clinically with colonoscopy if it has not been performed in last 3 years. No new inflammatory espinal e is evident.
== END | disposition home or self-care (01) ==
LOC: RADCTMAIN 09:28
PROVIDERS: ATTEND Internal Medicine Infectious Disease
DX: K57.93 Diverticulitis of intestine, part unspecified, without perforation or abscess with bleeding (principal)
CPT/HCPCS: 74177; Q9967

== ENCOUNTER 2021-02-27 12:33 | Observation (INO) | payer MEDICARE, OTHER ==
[2021-02-27] MEDS ORDERED: SODIUM CHLORIDE 0.9% 1,000 ML IV STA (12:36)
[2021-02-27] MEDS ORDERED: MORPHINE SULFATE 4 MG/ML SYRINGE IVP STA (12:37)
[2021-02-27] MEDS ORDERED: HEPARIN SODIUM 1,000 UN/ML (10ML VL) IV ONE (12:37)
[2021-02-27] MEDS ORDERED: HEPARIN SODIUM 1,000 UN/ML (10ML VL) IV PRN (12:37)
--- NOTE | 2021-02-27 12:41 | ED ---
Chest Pain HPI - General Stated Complaint: Chest pain Time Seen by Provider: 02/27/21 12:33 Source: patient, EMS, RN notes reviewed, old records reviewed Mode of arrival: EMS - History of Present Illness Initial Comments: This is a 60-year-old female with prior history of OR with stent 2013 who was getting a chemical stress test today which she started developing retrosternal chest pain with right shoulder pain. She was sent here from the manager money's office. She was given 324 mg of aspirin he had nausea she was given Zofran by EMS. She requested no nitroglycerin as she has bad reactions with it she states. She states that the current severity of the pain is 7/10 severity she states is not as severe as it was later prior OR. He does state that she had a circumflex lesion that was not big enough to do anything with in the past. No other current complaints or modifying factors she did recently have her metoprolol increased from 12.5 twice a day to 25 twice a day about one week ago. He did not take any medication today. MD Complaint: chest pain - Related Data Home Medications Medication Instructions Recorded Confirmed Levothyroxine Sodium 125 mcg PO DAILY 04/19/20 02/27/21 Liothyronine Sodium [Cytomel] 10 mcg PO DAILY 07/08/20 02/27/21 Ergocalciferol [Vitamin D2 (1250 1,250 mcg PO SUWE 02/27/21 02/27/21 Mcg = 71459 Iu)] Omeprazole Magnesium [PriLOSEC] 20 mg PO BID 02/27/21 02/27/21 Previous Rx's Medication Instructions Recorded Aspirin EC [Ecotrin Low Dose] 81 mg PO DAILY #30 tablet. 03/15/14 Metoprolol Succinate (ER) [Toprol 12.5 mg PO BID #60 tab.er.24h 03/15/14 XL] Nitroglycerin Sl Tabs [Nitrostat] 0.4 mg SUBLINGUAL Q5M PRN #25 tab 03/15/14 Allergies Allergy/AdvReac Type Severity Reaction Status Date / Time Penicillins Allergy Severe Anaphylaxis Verified 02/27/21 13:24 Quinolones Allergy Severe Unknown Verified 02/27/21 13:24 venom-honey bee Allergy Severe Anaphylaxis Verified 02/27/21 13:24 adhesive tape Allergy Unknown Verified 02/27/21 13:24 levofloxacin [From Levaquin] AdvReac Severe BRAIN STEM Verified 02/27/21 13:24 SEIZURE iopamidol [From [id number]] AdvReac Nausea & Verified 02/27/21 13:24 Vomiting pravastatin [From Pravachol] AdvReac LEG CRAMPS Verified 02/27/21 13:24 Review of Systems ROS Statement: Those systems with pertinent positive or pertinent negative responses have been documented in the HPI. ROS Other: All systems not noted in ROS Statement are negative. EKG Findings - EKG Results: EKG: interpreted by [facility], sinus rhythm (Sinus rhythm of 60. Interval 138 QRS duration 84 QT/QTC 396/[address]-T wave changes this does compare with EKG sent from the office) Past Medical History Past Medical History: Coronary Artery Disease (CAD), Cancer, COPD, Fibromyalgia, GERD/Reflux, GI Bleed, Hypertension, Myocardial Infarction ([place]), Osteoarthritis (OA), Thyroid Disorder Additional Past Medical History / Comment(s): Diverticulitis, upper and lower GI bleed, MRI showed small strokes or migraines per pt as well as spots-recommended to have spinal tap but pt declined, bronchitis, past cervical neuropathy/stenosis/myelopathy with numbness and pain in bilateral hands but had cervical surgery and not a problem anymore-does have some decreased ROM with neck and spasms of neck occasionally, occasional vertigo, thyroidectomy d/t cancer. Last Myocardial Infarction Date:: 03/09/14 History of Any Multi-Drug Resistant Organisms: None Reported Past Surgical History: Breast Surgery, Heart Catheterization, Hysterectomy, Orthopedic Surgery, Tubal Ligation Additional Past Surgical History / Comment(s): Multiple colonoscopies, egds, R partial thyroidectomy/multiple thyroid bxs then total thyroidectomy d/t cancer, L side neck mass removed, R breast benign bx, cardiac cath-unable to deploy a stent, cervical discectomy/fusions, L carpal tunnel releases, R knee arthroscopic surgeries. Past Anesthesia/Blood Transfusion Reactions: Previous Problems w/ Anesthesia Additional Past Anesthesia/Blood Transfusion Reaction / Comment(s): STATES B/P WAS LOW POST OP RT THYROIDECTOMY-mostly related to narcotic pain meds. HISTORY OF CLAUSTROPHOBIA Past Psychological History: Anxiety, Depression Additional Psychological History / Comment(s): Pt resides with her significant other and pt's parents. 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 Pt is independent. Smoking Status: Former smoker Past Alcohol Use History: Occasional Additional Past Alcohol Use History / Comment(s): STARTED SMOKING AT AGE 18 STOPPED FEBRUARY 2014 (SMOKED ON AND OFF) SMOKED 1PPD AT THE TIME SHE QUIT 2013 Past Drug Use History: None Reported - Past Family History Father Family Medical History: Osteoarthritis (OA) Additional Family Medical History / Comment(s): Father is living Mother Family Medical History: AFIB, Renal Disease, Thyroid Disorder Additional Family Medical History / Comment(s): Mother is living. Hypothyroidism. Bladder issues/kidney stones. Nerve damage in legs General Exam - General Exam Comments Initial Comments: This is a well-developed well-nourished awake alert oriented 3 female General appearance: alert, anxious Head exam: Present: atraumatic, normocephalic, normal inspection Eye exam: Present: normal appearance, PERRL, EOMI. Absent: scleral icterus, conjunctival injection, periorbital swelling ENT exam: Present: normal exam, mucous membranes moist Neck exam: Present: normal inspection, full ROM, other (No stridor JVD or bruits). Absent: tenderness, meningismus, lymphadenopathy Respiratory exam: Present: normal lung sounds bilaterally. Absent: respiratory distress, wheezes, rales, rhonchi, stridor Cardiovascular Exam: Present: regular rate, normal rhythm, normal heart sounds. Absent: systolic murmur, diastolic murmur, rubs, gallop, clicks GI/Abdominal exam: Present: soft, normal bowel sounds. Absent: distended, tenderness, guarding, rebound, rigid Extremities exam: Present: normal inspection, full ROM, normal capillary refill. Absent: tenderness, pedal edema, joint swelling, calf tenderness Back exam: Present: normal inspection Neurological exam: Present: alert, oriented X3, CN II-XII intact Psychiatric exam: Present: normal affect, normal mood Skin exam: Present: warm, dry, intact, normal color. Absent: rash Course Vital Signs 02/27/21 12:35 Temperature 98.7 F Pulse Rate 66 Respiratory 16 Rate Blood Pressure 142/89 O2 Sat by Pulse 97 Oximetry - Reevaluation(s) Reevaluation #1: 02/27/21 15:47 The patient did have recurrence of her chest pain did require Nitropaste. Chest Pain MDM - [facility] Imaging reviewed no acute findings at did discuss findings with the patient is also with Dr. mandujano was in the emergency department patient be admitted for inpatient evaluation treatment of chest pain. Critical Care Time Critical Care Time: Yes Total Critical Care Time: 31 Critical Care Time: Critical care time including initial presentation with history physical labs x- rays multiple reevaluation patient responsive therapy discussion with the patient discussed with the main physician admission orders and documentation of the above Disposition Clinical Impression: Unstable angina pectoris, Chest pain Disposition: ADMITTED IP TO THIS HOSP Condition: Fair Referrals: Konrad Perez MD [Primary Care Provider] - 1-2 days
[2021-02-27] MEDS ORDERED: HEPARIN SOD,PORK IN 0.45% NACL 25,000 UNIT in 0.45% NACL 1 250ML.BAG IV SCH (12:45)
--- NOTE | 2021-02-27 13:16 | XR ---
EXAMINATION TYPE: XR chest 2V DATE OF EXAM: 02/27/2021 COMPARISON: 01/18/2019 TECHNIQUE: PA and lateral views submitted. HISTORY: Chest pain FINDINGS: The lungs are clear and there is no pneumothorax, pleural effusion, or focal pneumonia. Postsurgica l change overlying the cervical spine. Heart size stable. No overt failure. Hypertrophic and degenera tive changes of the spine. IMPRESSION: 1. No acute process.
[2021-02-27 13:33] LABS: Basophils # (A) 0.1 k/uL (0-0.2); Basophils % (A) 1 %; Eosinophils # (A) 0.3 k/uL (0-0.7); Eosinophils % (A) 5 %; HCT 43.1 % (34.0-46.0); HGB 14.1 gm/dL (11.4-16.0); Lymphocytes # (A) 1.5 k/uL (1.0-4.8); Lymphocytes % (A) 26 %; MCH 29.1 pg (25.0-35.0); MCHC 32.8 g/dL (31.0-37.0); MCV 88.8 fL (80.0-100.0); Mean Platelet Volume 7.5; Monocytes # (A) 0.3 k/uL (0-1.0); Monocytes % (A) 5 %; Neutrophils # (A) 3.5 k/uL (1.3-7.7); Neutrophils % (A) 61 %; Platelet Count 278 k/uL (150-450); RBC 4.86 m/uL (3.80-5.40); RDW 13.1 % (11.5-15.5); WBC 5.7 k/uL (3.8-10.6)
[2021-02-27 13:54] LABS: Partial Thromboplastin Time 21.4 sec (22.0-30.0); Prothrombin Time 10.3 sec (9.0-12.0)
[2021-02-27 13:58] LABS: Potassium 4.2 mmol/L (3.5-5.1)
[2021-02-27 14:00] LABS: ALT 17 U/L (4-34); AST 23 U/L (14-36); African American GFR (CKD) >90 (>60 ml/min/1.73 sqM); Albumin 4.2 g/dL (3.5-5.0); Alkaline Phosphatase 67 U/L (38-126); Anion Gap 6 mmol/L; Blood Urea Nitrogen 17 mg/dL (7-17); Carbon Dioxide 27 mmol/L (22-30); Chloride 106 mmol/L (98-107); Creatine Kinase 61 U/L (30-135); Glucose 98 mg/dL (74-99); Magnesium 1.9 mg/dL (1.6-2.3); Non-African American GFR(CKD) >90 (>60 ml/min/1.73 sqM); Sodium 139 mmol/L (137-145); Total Bilirubin 0.5 mg/dL (0.2-1.3); Total Protein 6.5 g/dL (6.3-8.2)
[2021-02-27] MEDS ORDERED: ACETAMINOPHEN TAB 500 MG TAB PO STA (15:11)
[2021-02-27] MEDS ORDERED: NITROGLYCERIN OINT 1 INCH/GM PACKET TOPICAL STA (15:11)
[2021-02-27] MEDS ORDERED: NITROGLYCERIN SL TABS 0.4 MG TAB SUBLINGUAL PRN (15:49)
[2021-02-27] MEDS ORDERED: SODIUM CHLORIDE 0.9% 1,000 ML IV SCH (16:00)
[2021-02-27] MEDS: HYDROmorphone 1 MG/ML 1 ML SYRINGE IVP SCH ×3 (16:47→21:41)
[2021-02-27] MEDS ORDERED: HYDROcodone/APAP 5-325MG 1 EACH TAB PO PRN (18:01)
[2021-02-27] MEDS: METOPROLOL SUCCINATE (ER) 25 MG TAB.ER.24H PO SCH (20:15)
[2021-02-27] MEDS: PANTOPRAZOLE 40 MG TABLET PO SCH (20:16)
[2021-02-27] MEDS: NITROGLYCERIN OINT 1 INCH/GM PACKET TOPICAL SCH ×2 (20:16→21:41)
--- NOTE | 2021-02-27 21:52 | P.HPIM ---
History of Present Illness Patient follows up with Dr. Perez. Medical Laboratory Technologist is Dr. Harper. Patient today was undergoing chemical stress test with him when she felt some heaviness in her chest associated with nausea and sweating, associated also with right shoulder pain. Her chest pain and shoulder pain started simultaneously, She rates her pain about 4/10, she had some dyspnea at the time of stress test but she denies any dyspnea currently or usually. No coughing or phlegm. No abdominal pain or nausea vomiting. No diarrhea. No dysuria or change in frequency or urgency in her urine habits. No fever. However patient has some abdominal cramps around her umbilicus with some tenderness but mild. But as stated above no vomiting or diarrhea only nausea associated with her chest pain Currently she has some headache associated with nitro medicine She denies smoking, alcohol or illicit tracts. She follows up with Dr. Tapia for her headache and recently she had MRI with him. Hemodynamically stable. Labs are unremarkable including CBC, BMP, liver enzymes and troponin. Patient is started on heparin drip and aspirin 325 mg and emergency room and cartilage team consult Past Medical History Past Medical History: Coronary Artery Disease (CAD), Cancer, COPD, Fibromyalgia, GERD/Reflux, GI Bleed, Hypertension, Myocardial Infarction ([place]), Osteoarthritis (OA), Thyroid Disorder Additional Past Medical History / Comment(s): Diverticulitis, upper and lower GI bleed, MRI showed small strokes or migraines per pt as well as spots-recommended to have spinal tap but pt declined, bronchitis, past cervical neuropathy/stenosis/myelopathy with numbness and pain in bilateral hands but had cervical surgery and not a problem anymore-does have some decreased ROM with neck and spasms of neck occasionally, occasional vertigo, thyroidectomy d/t cancer. Last Myocardial Infarction Date:: 03/09/14 History of Any Multi-Drug Resistant Organisms: None Reported Past Surgical History: Breast Surgery, Heart Catheterization, Hysterectomy, Orthopedic Surgery, Tubal Ligation Additional Past Surgical History / Comment(s): Multiple colonoscopies, egds, R partial thyroidectomy/multiple thyroid bxs then total thyroidectomy d/t cancer, L side neck mass removed, R breast benign bx, cardiac cath-unable to deploy a stent, cervical discectomy/fusions, L carpal tunnel releases, R knee arthrosco pic surgeries. Past Anesthesia/Blood Transfusion Reactions: Previous Problems w/ Anesthesia Additional Past Anesthesia/Blood Transfusion Reaction / Comment(s): STATES B/P WAS LOW POST OP RT THYROIDECTOMY-mostly related to narcotic pain meds. HISTORY OF CLAUSTROPHOBIA Past Psychological History: Anxiety, Depression Additional Psychological History / Comment(s): Pt resides with her significant other and pt's parents. 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 Pt is independent. Smoking Status: Former smoker Past Alcohol Use History: Occasional Additional Past Alcohol Use History / Comment(s): STARTED SMOKING AT AGE 18 STOPPED FEBRUARY 2014 (SMOKED ON AND OFF) SMOKED 1PPD AT THE TIME SHE QUIT 2013 Past Drug Use History: None Reported - Past Family History Father Family Medical History: Osteoarthritis (OA) Additional Family Medical History / Comment(s): Father is living Mother Family Medical History: AFIB, Renal Disease, Thyroid Disorder Additional Family Medical History / Comment(s): Mother is living. Hypothyroidism. Bladder issues/kidney stones. Nerve damage in legs Medications and Allergies Home Medications Medication Instructions Recorded Confirmed Type Aspirin EC [Ecotrin Low Dose] 81 mg PO DAILY #30 tablet.dr 03/15/14 02/27/21 Rx Metoprolol Succinate (ER) [Toprol 12.5 mg PO BID #60 tab.er.24h 03/15/14 Rx XL] Nitroglycerin Sl Tabs [Nitrostat] 0.4 mg SUBLINGUAL Q5M PRN #25 tab 03/15/14 Rx Levothyroxine Sodium 125 mcg PO DAILY 04/19/20 02/27/21 History Liothyronine Sodium [Cytomel] 10 mcg PO DAILY 07/08/20 02/27/21 History Ergocalciferol [Vitamin D2 (1250 1,250 mcg PO SUWE 02/27/21 02/27/21 History Mcg = 75194 Iu)] Omeprazole Magnesium [PriLOSEC] 20 mg PO BID 02/27/21 02/27/21 History Allergies Allergy/AdvReac Type Severity Reaction Status Date / Time Penicillins Allergy Severe Anaphylaxis Verified 02/27/21 13:24 Quinolones Allergy Severe Unknown Verified 02/27/21 13:24 venom-honey bee Allergy Severe Anaphylaxis Verified 02/27/21 13:24 adhesive tape Allergy Unknown Verified 02/27/21 13:24 levofloxacin [From Levaquin] AdvReac Severe BRAIN STEM Verified 02/27/21 13:24 SEIZURE iopamidol [From Isovue-[id number]] AdvReac Nausea & Verified 02/27/21 13:24 Vomiting pravastatin [From Pravachol] AdvReac LEG CRAMPS Verified 02/27/21 13:24 Physical Exam Vitals: Vital Signs Temp Pulse Resp BP Pulse Ox 02/27/21 16:54 72 18 116/63 98 02/27/21 12:35 98.7 F 66 16 142/89 97 Intake and Output 02/27/21 02/27/21 02/27/21 06:59 14:59 22:59 Other: Weight 95.254 kg Results CBC & Chem 7: 02/27/21 13:16 02/27/21 13:16 Labs: Abnormal Lab Results - Last 24 Hours (Table) 02/27/21 Range/Units 13:16 APTT 21.4 L (22.0-30.0) sec Assessment and Plan Assessment: Chest pain and right shoulder pain, rule out cardiac causes. Possible unstable angina History of headache follow-up with her neurologist as an outpatient Plan: This is a pleasant 60 years old female who presents with chest pain. We'll do serial troponins, aspirin, heparin drip, cardiology consult. Labs and medication were reviewed.. Continue same treatment. Continue with symptomatic treatment. Resume home medication. Monitor lytes and vitals. DVT and GI prophylaxis. Further recommendationsas per clinical course of the patient DVT prophylaxis: heparin GI Prophylaxis: Pepcid Prognosis is guarded
[2021-02-28] MEDS ORDERED: CALCIUM CARBONATE 500 MG CHEWABLE PO PRN (01:24)
[2021-02-28] MEDS: HYDROmorphone 1 MG/ML 1 ML SYRINGE IVP SCH ×4 (03:13→16:30)
[2021-02-28] MEDS: NITROGLYCERIN OINT 1 INCH/GM PACKET TOPICAL SCH (03:13)
[2021-02-28] MEDS ORDERED: LEVOTHYROXINE 125 MCG TAB PO SCH (06:30)
[2021-02-28] MEDS: PANTOPRAZOLE 40 MG TABLET PO SCH (08:03)
[2021-02-28] MEDS: METOPROLOL SUCCINATE (ER) 25 MG TAB.ER.24H PO SCH (08:03)
[2021-02-28] MEDS ORDERED: LIOTHYRONINE SODIUM 5 MCG TAB PO SCH (09:00)
[2021-02-28] MEDS ORDERED: ASPIRIN 325 MG TAB PO SCH (09:00)
[2021-02-28] MEDS ORDERED: METOPROLOL SUCCINATE (ER) 25 MG TAB.ER.24H PO SCH (09:15)
--- NOTE | 2021-02-28 12:38 | P.CRDCN ---
History of Present Illness History of present illness: HISTORY OF PRESENTING ILLNESS This is a pleasant 60-year-old female past medical history significant for thyroid cancer status post partial thyroidectomy, fibromyalgia, dyslipidemia with statin intolerance, coronary artery disease with RCA occlusion in 2013 and circumflex lesion. She follows in the office with Dr. Harper. We have been asked to see in consultation for chest pain. She was in the office yesterday undergoing a Lexiscan stress test secondary to symptoms of chest discomfort she's been having over the previous one month. She states she developed a heavy sensation in her chest while working in her garden associated with shortness of breath. The time she walked in the hospital to take a nitroglycerin symptoms have subsided. Yesterday during her stress test she felt short of breath, lightheaded and heaviness in her chest. She was given Aminophyllin 2 without relief. Due to her ongoing symptoms she was sent to the emergency room. Her stress test was reviewed this morning by Dr. Harper evidence of a fixed defect with no significant reversibility that looked similar to previous Lexiscan she had had in the past. The patient was seen and examined sitting up in no acute distress. She states she has had multiple episodes of nausea vomiting through the night secondary to morphine and Dilaudid administration. She has had no symptoms of chest discomfort or shortness of breath. DIAGNOSTICS EKG reveals sinus mechanism heart rate of 60. Telemetry tracings indicate sinus mechanism. Chest xray negative for an acute cardiopulmonary process. Laboratory reviewed, CBC unremarkable, d-dimer 0.41, sodium 139, potassium 4.2, creatinine 0.6, magnesium 1.9 and troponins negative 3. Current cardiac medications include aspirin 81 mg daily and Toprol 25 mg twice a day. Most recent echocardiogram obtained in the office in 2019 revealed normal ejection fraction with no evidence of wall motion abnormalities. REVIEW OF SYSTEMS At the time of my exam: CONSTITUTIONAL: Denies fever or chills. CARDIOVASCULAR: Denies chest pain, shortness of breath, orthopnea, PND or palpitations. RESPIRATORY: Denies cough. GASTROINTESTINAL: Denies abdominal pain, diarrhea, constipation, nausea or vomiting. MUSCULOSKELETAL: Denies myalgias. NEUROLOGIC: Denies numbness, tingling, headacbe or weakness. ENDOCRINE: Denies fatigue, weight change, polydipsia or polyurina. GENITOURINARY: Denies burning, hematuria or urgency with micturation. HEMATOLOGIC: Denies history of anemia or bleeding. PHYSICAL EXAMINATION Blood pressure 120/75 heart rate 64 afebrile and maintaining oxygen saturation on room air. CONSTITUTIONAL: No apparent distress. HEENT: Head is normocephalic. Pupils are equal, round. Sclerae anicteric. Mucous membranes of the mouth are moist. No JVD. No carotid bruit. CHEST EXAMINATION: Lungs are clear to auscultation. No chest wall tenderness is noted on palpation or with deep breathing. HEART EXAMINATION: Regular rate and rhythm. S1, S2 heard. No murmurs, gallops or rub. ABDOMEN: Soft, nontender. Positive bowel sounds. EXTREMITIES: 2+ peripheral pulses, no lower extremity edema and no calf tenderness. NEUROLOGIC EXAMINATION: Patient is awake, alert and oriented x3. ASSESSMENT Chest pain Coronary artery disease Dyslipidemia, intolerant to statins Fibromyalgia PLAN Discussed stress test findings with the patient and Dr. Harper. There is no reversibility noted. Her toprol was increase just 2 days ago as well as praluent initiated. Obtain 2D echocardiogram and doppler study to assess cardiac structure and function. Discontinue IV heparin. Feed the patient. She can be discharged home to follow up with Dr. Harper in 2 weeks. If she has further symptoms or concerns they will consider coronary angiography. Thank you kindly for this consultation. Nurse Practitioner note has been reviewed, I agree with a documented findings and plan of care. Patient was seen and examined. Past Medical History Past Medical History: Coronary Artery Disease (CAD), Cancer, COPD, Fibromyalgia, GERD/Reflux, GI Bleed, Hypertension, Myocardial Infarction (AR), Osteoarthritis (OA), Thyroid Disorder Additional Past Medical History / Comment(s): Diverticulitis, upper and lower GI bleed, MRI showed small strokes or migraines per pt as well as spots-recommended to have spinal tap but pt declined, bronchitis, past cervical neuropathy/stenosis/myelopathy with numbness and pain in bilateral hands but had cervical surgery and not a problem anymore-does have some decreased ROM with neck and spasms of neck occasionally, occasional vertigo, thyroidectomy d/t cancer. Last Myocardial Infarction Date:: 03/09/14 History of Any Multi-Drug Resistant Organisms: None Reported Past Surgical History: Breast Surgery, Heart Catheterization, Hysterectomy, Orthopedic Surgery, Tubal Ligation Additional Past Surgical History / Comment(s): Multiple colonoscopies, egds, R partial thyroidectomy/multiple thyroid bxs then total thyroidectomy d/t cancer, L side neck mass removed, R breast benign bx, cardiac cath-unable to deploy a stent, cervical discectomy/fusions, L carpal tunnel releases, R knee arthroscopic surgeries. Past Anesthesia/Blood Transfusion Reactions: Previous Problems w/ Anesthesia Additional Past Anesthesia/Blood Transfusion Reaction / Comment(s): STATES B/P WAS LOW POST OP RT THYROIDECTOMY-mostly related to narcotic pain meds. HISTORY OF CLAUSTROPHOBIA Past Psychological History: Anxiety, Depression Additional Psychological History / Comment(s): Pt resides with her significant other and pt's parents. 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 Pt is independent. Smoking Status: Former smoker Past Alcohol Use History: Occasional Additional Past Alcohol Use History / Comment(s): STARTED SMOKING AT AGE 18 STOPPED FEBRUARY 2014 (SMOKED ON AND OFF) SMOKED 1PPD AT THE TIME SHE QUIT 2013 Past Drug Use History: None Reported - Past Family History Father Family Medical History: Osteoarthritis (OA) Additional Family Medical History / Comment(s): Father is living Mother Family Medical History: AFIB, Renal Disease, Thyroid Disorder Additional Family Medical History / Comment(s): Mother is living. Hypothyroidism. Bladder issues/kidney stones. Nerve damage in legs Medications and Allergies Home Medications Medication Instructions Recorded Confirmed Type Aspirin EC [Ecotrin Low Dose] 81 mg PO DAILY #30 tablet. 03/15/14 02/27/21 Rx Metoprolol Succinate (ER) [Toprol 12.5 mg PO BID #60 tab.er.24h 03/15/14 02/27/21 Rx XL] Nitroglycerin Sl Tabs [Nitrostat] 0.4 mg SUBLINGUAL Q5M PRN #25 tab 03/15/14 02/27/21 Rx Levothyroxine Sodium 125 mcg PO DAILY 04/19/20 02/27/21 History Liothyronine Sodium [Cytomel] 10 mcg PO DAILY 07/08/20 02/27/21 History Ergocalciferol [Vitamin D2 (1250 1,250 mcg PO SUWE 02/27/21 02/27/21 History Mcg = 10664 Iu)] Omeprazole Magnesium [PriLOSEC] 20 mg PO BID 02/27/21 02/27/21 History Allergies Allergy/AdvReac Type Severity Reaction Status Date / Time Penicillins Allergy Severe Anaphylaxis Verified 02/27/21 13:24 Quinolones Allergy Severe Unknown Verified 02/27/21 13:24 venom-honey bee Allergy Severe Anaphylaxis Verified 02/27/21 13:24 adhesive tape Allergy Unknown Verified 02/27/21 13:24 levofloxacin [From Levaquin] AdvReac Severe BRAIN STEM Verified 02/27/21 13:24 SEIZURE iopamidol [From [id number]] AdvReac Nausea & Verified 02/27/21 13:24 Vomiting pravastatin [From Pravachol] AdvReac LEG CRAMPS Verified 02/27/21 13:24 Physical Exam Vitals: Vital Signs Temp Pulse Pulse Resp BP BP Pulse Ox 02/28/21 07:00 97.9 F 64 17 120/75 95 02/28/21 02:00 18 02/28/21 01:42 97.7 F 59 L 18 115/74 95 02/27/21 20:00 18 02/27/21 19:33 97.3 F L 76 18 105/72 94 L 02/27/21 18:23 62 18 100/63 95 02/27/21 18:19 98.7 F 72 18 116/63 98 02/27/21 16:54 72 18 116/63 98 02/27/21 12:35 98.7 F 66 16 142/89 97 Intake and Output 02/27/21 02/28/21 02/28/21 22:59 06:59 14:59 Intake Total 180.369 Balance 180.369 Intake: Intake, IV Titration 180.369 Amount Heparin Sod,Pork in 0.45% 180.369 NaCl 25,000 unit In 0.45 % NaCl 1 250ml.bag @ 10.5 UNITS/KG/HR 10.002 mls/ hr IV .Q24H [facility] Rx#: [id number] Other: Voiding Method Toilet Toilet # Voids 2 2 Weight 95.254 kg Results 02/27/21 13:16 02/27/21 13:16 Cardiac Enzymes 02/27/21 02/27/21 02/27/21 Range/Units 13:16 13:16 16:56 AST 23 (14-36) U/L Troponin I <0.012 <0.012 (0.000-0.034) ng/mL 02/27/21 Range/Units 20:36 AST (14-36) U/L Troponin I <0.012 (0.000-0.034) ng/mL Coagulation 02/27/21 02/27/21 02/28/21 Range/Units 13:16 23:15 05:41 PT 10.3 (9.0-12.0) sec APTT 21.4 L 45.3 H 45.6 H (22.0-30.0) sec CBC 02/27/21 Range/Units 13:16 WBC 5.7 (3.8-10.6) k/uL RBC 4.86 (3.80-5.40) m/uL Hgb 14.1 (11.4-16.0) gm/dL Hct 43.1 (34.0-46.0) % Plt Count 278 (150-450) k/uL Comprehensive Metabolic Panel 02/27/21 Range/Units 13:16 Sodium 139 (137-145) mmol/L Potassium 4.2 (3.5-5.1) mmol/L Chloride 106 (98-107) mmol/L Carbon Dioxide 27 (22-30) mmol/L BUN 17 (7-17) mg/dL Creatinine 0.60 (0.52-1.04) mg/dL Glucose 98 (74-99) mg/dL Calcium 9.0 (8.4-10.2) mg/dL AST 23 (14-36) U/L ALT 17 (4-34) U/L Alkaline Phosphatase 67 (38-126) U/L Total Protein 6.5 (6.3-8.2) g/dL Albumin 4.2 (3.5-5.0) g/dL Current Medications Generic Name Dose Route Start Last Admin Trade Name Freq PRN Reason Stop Dose Admin Hydrocodone Bitart/Acetaminophen 1 each 02/27/21 18:01 Hydrocodone/Apap 5-325mg 1 Each Tab PO Q6HR PRN Pain Aspirin 325 mg 02/28/21 09:00 02/28/21 08:03 Aspirin 325 Mg Tab PO 325 mg DAILY JR Administration Calcium Carbonate/Glycine 1,000 mg 02/28/21 01:24 02/28/21 05:49 Calcium Carbonate 500 Mg Chewable PO 1,000 mg QID PRN Administration Heartburn Ergocalciferol 1,250 mcg 03/02/21 09:00 Ergocalciferol 1,250 Mcg (50,000 Iu) Capsule PO SUWE [facility] Heparin Sodium (Porcine) 0 unit 02/27/21 12:37 Heparin Sodium 1,000 Un/Ml (10ml Vl) IV PER PROTOCOL PRN Low PTT Protocol Hydromorphone HCl 1 mg 02/27/21 16:00 02/28/21 08:13 Hydromorphone 1 Mg/Ml 1 Ml Syringe IVP Not Given Q4HR JR Heparin Sodium/Sodium Chloride 250 mls @ 10.002 mls/hr 02/27/21 12:45 02/28/21 06:52 25,000 unit/ Sodium Chloride IV 10.5 units/kg/hr .Q24H JR 10.002 mls/hr Titration Protocol 10.5 UNITS/KG/HR Sodium Chloride 1,000 mls @ 20 mls/hr 02/27/21 16:00 02/27/21 20:17 Saline 0.9% IV Not Given .Q24H JR Levothyroxine Sodium 125 mcg 02/28/21 06:30 02/28/21 05:42 Levothyroxine 125 Mcg Tab PO 125 mcg 0630 JR Administration Liothyronine Sodium 10 mcg 02/28/21 09:00 02/28/21 08:03 Liothyronine Sodium 5 Mcg Tab PO 10 mcg DAILY JR Administration Metoprolol Succinate 12.5 mg 02/27/21 21:00 02/28/21 08:03 Metoprolol Succinate (Er) 25 Mg Tab.Er.24h PO 12.5 mg BID JR Administration Nitroglycerin 0.4 mg 02/27/21 15:49 Nitroglycerin Sl Tabs 0.4 Mg Tab SUBLINGUAL Q5M PRN Chest Pain Nitroglycerin 1 inch 02/27/21 18:00 02/28/21 03:13 Nitroglycerin Oint 1 Inch/Gm Packet TOPICAL Not Given Q6HR JR Pantoprazole Sodium 40 mg 02/27/21 21:00 02/28/21 08:03 Pantoprazole 40 Mg Tablet PO 40 mg BID JR Administration Intake and Output 02/27/21 02/28/21 02/28/21 22:59 06:59 14:59 Intake Total 180.369 Balance 180.369 Intake: Intake, IV Titration 180.369 Amount Heparin Sod,Pork in 0.45% 180.369 NaCl 25,000 unit In 0.45 % NaCl 1 250ml.bag @ 10.5 UNITS/KG/HR 10.002 mls/ hr IV .Q24H [facility] Rx#: [id number] Other: Voiding Method Toilet Toilet # Voids 2 2 Weight 95.254 kg 02/27/21 13:16 02/27/21 13:16
[2021-02-28 13:24] LABS: Chol/HDL Ratio 4.1; LDL Cholesterol,Calculated 111.4 mg/dL (0.0-131.0); VLDL Calculation 18.6 mg/dL (5.00-40.00)
--- NOTE | 2021-02-28 14:00 | ECHOF ---
Referral Reason:cp MEASUREMENTS -------- HEIGHT: 165.1 cm WEIGHT: 95.3 kg BP: IVSd: 1.2 cm (0.6 - 1.1) LVIDd: 4.1 cm (3.9 - 5.3) LVPWd: 1.1 cm (0.6 - 1.1) IVSs: 1.9 cm LVIDs: 2.1 cm LVPWs: 1.2 cm LAESV Index (A-L): 15.31 ml/m Ao Diam: 3.1 cm (2.0 - 3.7) AV Cusp: 1.9 cm (1.5 - 2.6) LA Diam: 3.4 cm (2.7 - 3.8) MV EXCURSION: 17.701 mm (> 18.000) MV EF SLOPE: 131 mm/s (70 - 150) EPSS: 1.5 cm MV E Sulaiman: 1.09 m/s MV DecT: 196 ms MV A Sulaiman: 0.70 m/s MV E/A Ratio: 1.55 RAP: 5.00 mmHg RVSP: 13.82 mmHg FINDINGS -------- This was a technically good study. The left ventricular size is normal. There is mild concentric left ventricular hypertrophy. Overa ll left ventricular systolic function is normal with, an EF between 55 - 60 %. The diastolic fillin g pattern is normal for the age of the patient 13.47. The right ventricle is normal in size. The left atrial size is normal. Normal LA size by volume 22+/-6 ml/m2. The right atrial size is normal. The aortic valve is trileaflet and appears structurally normal. The mitral valve is normal. The mitral valve leaflets are mildly thickened. There is trace mitral regurgitation. The tricuspid valve appears structurally normal. Trace tricuspid regurgitation present. Right uziel tricular systolic pressure is normal at < 35 mmHg. There is no pulmonic regurgitation present. The aortic root size is normal. Normal inferior vena cava with normal inspiratory collapse consistent with estimated right atrial pre ssure of 5 mmHg. Echo free space indicative of a pericardial fat pad. CONCLUSIONS -------- 1. The left ventricular size is normal. 2. There is mild concentric left ventricular hypertrophy. 3. Overall left ventricular systolic function is normal with, an EF between 55 - 60 %. 4. The diastolic filling pattern is normal for the age of the patient 13.47 5. The mitral valve leaflets are mildly thickened. 6. There is trace mitral regurgitation. 7. Trace tricuspid regurgitation present. 8. Echo free space indicative of a pericardial fat pad. BURNER TECHNICIAN: Nohemi Apodaca RDCS
[2021-02-28 15:26] VITALS: BP 140/76; PULSE 67; RESP 16; TEMP 98.4
--- NOTE | 2021-02-28 22:07 | P.DS ---
Providers Date of admission: 02/27/21 16:02 Attending physician: Hayder Prieto MD Consults: 02/27/21 15:49 Consult Physician Urgent Consulting Provider: Tylor Harper Consult Reason/Comments: Chest pain, unstable angina Do you want consulting provider notified?: Yes Primary care physician: Konrad Perez Hospital Course: Diagnoses: Chest pain and right shoulder pain, rule out cardiac causes. Possible unstable angina History of headache follow-up with her neurologist as an outpatient Hypertension Osteoarthritis Hospital course: This is a pleasant 60 years old female With past medical history of coronary artery disease, COPD, fibromyalgia, GERD, GI bleed, hypertension, osteoarthritis, hypothyroidism. Patient follows up with Dr. Perez. Cabin Agent is Dr. Harper. Patient yesterday was undergoing chemical stress test with Dr. Harper when she felt some heaviness in her chest associated with nausea and sweating, associated also with right shoulder pain. The patient was sent to emergency room. Patient has been evaluated by organ pipe finisher, today her chest pain and shoulder pain are significantly improved and patient is completely asymptomatic and back to her normal status Cabin Agent to her today and cleared her for discharge after doing echo, without the need to wait for the result of her E, and instead she will follow-up with Dr. Harper and appointment made for her on which patient agrees patient is cleared for discharge by organ pipe finisher Problems and management plan were discussed with the patient and he verbalized understanding and acceptance Patient was found stable and can be discharged home however he needs follow-up as an outpatient. Patient was instructed to follow up with PCP Dr. Perez within one week and patient agrees. Follow-up with the organ pipe finisher as above Physical exam Gen: patient is a AAOx3, no distress CVS: S1-S2, RRR, no murmur Lungs: B/L CTA, no wheezing Abdomen: soft, no distention, no tenderness, positive bowel sounds Extremity: no leg edema or induration Time spent more than 35 minutes Patient Condition at Discharge: Fair Plan - Discharge Summary Discharge Rx Participant: No New Discharge Prescriptions: New RX: Metoprolol Succinate (ER) [Toprol XL] 25 mg PO BID #60 tab.er.24h Continue RX: Aspirin EC [Ecotrin Low Dose] 81 mg PO DAILY #30 tablet.dr RX: Nitroglycerin Sl Tabs [Nitrostat] 0.4 mg SUBLINGUAL Q5M PRN #25 tab PRN Reason: Chest Pain RX: Levothyroxine Sodium 125 mcg PO DAILY RX: Liothyronine Sodium [Cytomel] 10 mcg PO DAILY RX: Ergocalciferol [Vitamin D2 (1250 Mcg = 39369 Iu)] 1,250 mcg PO SUWE RX: Omeprazole Magnesium [PriLOSEC] 20 mg PO BID Discontinued RX: Metoprolol Succinate (ER) [Toprol XL] 12.5 mg PO BID #60 tab.er.24h Discharge Medication List RX: Aspirin EC [Ecotrin Low Dose] 81 mg PO DAILY #30 tablet.dr 03/15/14 [Rx] RX: Nitroglycerin Sl Tabs [Nitrostat] 0.4 mg SUBLINGUAL Q5M PRN #25 tab 03/15/14 [Rx] RX: Levothyroxine Sodium 125 mcg PO DAILY 04/19/20 [History] RX: Liothyronine Sodium [Cytomel] 10 mcg PO DAILY 07/08/20 [History] RX: Ergocalciferol [Vitamin D2 (1250 Mcg = 92183 Iu)] 1,250 mcg PO SUWE 02/27/21 [History] RX: Omeprazole Magnesium [PriLOSEC] 20 mg PO BID 02/27/21 [History] RX: Metoprolol Succinate (ER) [Toprol XL] 25 mg PO BID #60 tab.er.24h 02/28/21 [Rx] Follow up Appointment(s)/Referral(s): Konrad Perez MD [Primary Care Provider] - 1 Week Tylor Harper DO [STAFF PHYSICIAN] - 03/06/21 2:15 pm Patient Instructions/Handouts: Chest Pain (DC) Activity/Diet/Wound Care/Special Instructions: Heart healthy diet Activity is restricted till you see your doctor Discharge Disposition: HOME SELF-CARE
[2021-03-01] MEDS ORDERED: ASPIRIN 81 MG PO SCH (09:00)
[2021-03-02] MEDS ORDERED: ERGOCALCIFEROL 1,250 MCG (50,000 IU) CAPSULE PO SCH (09:00)
== END 2021-02-28 16:46 | disposition home or self-care (01) ==
LOC: EC 12:33 → 6NMEDSUR 16:02
PROVIDERS: ADMIT Internal Medicine; ATTEND Internal Medicine
DX: R07.89 Other chest pain (principal); M25.511 Pain in right shoulder; R61 Generalized hyperhidrosis; I25.10 Atherosclerotic heart disease of native coronary artery without angina pectoris; I25.2 Old myocardial infarction; I10 Essential (primary) hypertension; J44.9 Chronic obstructive pulmonary disease, unspecified; G44.40 Drug-induced headache, not elsewhere classified, not intractable; T46.3X5A Adverse effect of coronary vasodilators, initial encounter; R11.2 Nausea with vomiting, unspecified; T40.2X5A Adverse effect of other opioids, initial encounter; M19.90 Unspecified osteoarthritis, unspecified site; E89.0 Postprocedural hypothyroidism; M79.7 Fibromyalgia; K21.9 Gastro-esophageal reflux disease without esophagitis; E78.5 Hyperlipidemia, unspecified; K57.90 Diverticulosis of intestine, part unspecified, without perforation or abscess without bleeding; R10.9 Unspecified abdominal pain; F32.9 Major depressive disorder, single episode, unspecified; F40.240 Claustrophobia; F41.9 Anxiety disorder, unspecified; Z79.890 Hormone replacement therapy; Z79.82 Long term (current) use of aspirin; Z88.0 Allergy status to penicillin; Z88.1 Allergy status to other antibiotic agents; Z88.8 Allergy status to other drugs, medicaments and biological substances; Z91.030 Bee allergy status; Z91.048 Other nonmedicinal substance allergy status; Z87.19 Personal history of other diseases of the digestive system; Z87.891 Personal history of nicotine dependence; Z98.1 Arthrodesis status; Z90.710 Acquired absence of both cervix and uterus; Z85.850 Personal history of malignant neoplasm of thyroid; Z98.890 Other specified postprocedural states; Z82.61 Family history of arthritis; Z84.1 Family history of disorders of kidney and ureter; Z83.49 Family history of other endocrine, nutritional and metabolic diseases; Z82.49 Family history of ischemic heart disease and other diseases of the circulatory system
CPT/HCPCS: 96366 ×3; 93005 ×2; 96376; 96365; 96375; 99291; 36415; 93306; 85379; 83880; 80061; 80053; 82550; 83735; 84484; 85025; 85610; 85730 ×2; 71046; G0378 ×2; J2270; J1644 ×2; J1170

== ENCOUNTER 2021-03-13 06:36 | Day surgery (SDC) | payer MEDICARE, OTHER ==
[2021-03-11 10:57] VITALS: BMI 34.9
[2021-03-13] MEDS ORDERED: ALPRAZolam 0.25 MG TAB ONE (07:01)
[2021-03-13] MEDS ORDERED: ASPIRIN 325 MG TAB PO STA (07:03)
[2021-03-13] MEDS ORDERED: ALPRAZolam 0.25 MG TAB PO PRN (07:03)
[2021-03-13] MEDS ORDERED: NITROGLYCERIN SL TABS 0.4 MG TAB SUBLINGUAL PRN (07:03)
[2021-03-13] MEDS ORDERED: HEPARIN SODIUM,PORCINE 2,500 UNIT in SODIUM CHLORIDE 0.9% 250 ML IRRIGATION PRN (07:03)
[2021-03-13] MEDS ORDERED: SODIUM CHLORIDE 0.9% 1,000 ML in EMPTY BAG 1 BAG IV ONE (07:03)
[2021-03-13] MEDS ORDERED: HEPARIN SODIUM,PORCINE 10,000 UNIT in SODIUM CHLORIDE 0.9% 1,000 ML IRRIGATION PRN (07:03)
[2021-03-13 07:16] VITALS: TEMP 98.3
[2021-03-13] MEDS ORDERED: LIDOCAINE 1% INJ 10MG/ML (20 ML MDV) SQ ONE (07:39)
[2021-03-13] MEDS ORDERED: MIDAZOLAM 2 MG/2 ML VIAL IV ONE (07:39)
[2021-03-13] MEDS: fentaNYL (PF) 50 MCG/ML 2 ML AMP IV ONE ×2 (07:39→07:44)
[2021-03-13] MEDS ORDERED: VERAPAMIL SYRINGE (5 MG/10 ML) INTRAARTER ONE (07:40)
[2021-03-13] MEDS ORDERED: HEPARIN SODIUM 1,000 UN/ML (10ML VL) IV ONE (07:44)
[2021-03-13] MEDS ORDERED: IOPAMIDOL-370 125ML BTL INJ ONE ×2 (07:49)
[2021-03-13] MEDS ORDERED: RX INFO: IV CONTRAST WAS GIVEN 1 EACH MISC MISCELLANE PRN (08:35)
--- NOTE | 2021-03-13 08:35 | P.CARDCATH ---
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 She has been having increased episodes of chest tightness and SOB which can occur with exertion and therefore Lexiscan test was performed. Unfortunately she had extreme reaction to the Lexiscan test with persistent chest pain however nuclear portion only showed a fixed inferolateral defect which was improved on stress images. Therefore LHC was recommended. CONSENT:I have discussed the risks, benefits and alternative therapies for the above-mentioned procedure and for both sedation/analgesia as well as necessary blood product administration, if indicated, as they pertain to this patient. The patient has indicated understanding and acceptance of the risks and procedures discussed. PROCEDURE: After the risks, benefits and alternatives of the above mentioned procedure explained in detail with the patient, informed consent was obtained. Patient was taken to the catheterization lab and prepped and draped in usual fa shion. 1% lidocaine was used to anesthetize the right radial artery. A 6- Argentine sheath was placed in the right radial artery using modified Seldinger technique. Left coronary angiography was performed with a 5-[place]gent[place] JL 3.5 catheter and right coronary angiography was performed with a 5-[place] JR5 catheter in various views. A 5-[place] pigtail catheter was inserted into the left ventricle and pressure measurements were obtained. A left ventriculogram was performed in the TRONCOSO projection with power injection. The right radial sheath was removed and a TR band was placed with hemostasis achieved. The patient tolerated the procedure well. Patient was transported back to the post catheterization holding area in stable condition. Conscious Sedation: Patient was monitored under the direct supervision of vision of myself for conscious sedation using Versed and fentanyl for a total duration of 18 minutes HEMODYNAMICS: Ao: 132/84 LV: 141/2, LVEDP 21 mmHg SELECTIVE CORONARY ARTERIOGRAPHY: LEFT MAIN: The left main is a large caliber vessel which bifurcates into the LAD and circumflex. There is no significant stenosis. LEFT ANTERIOR DESCENDING CORONARY ARTERY: LAD is a large caliber vessel which wraps around to the apex. There is no significant stenosis. LEFT CIRCUMFLEX CORONARY ARTERY: Left circumflex is a moderate caliber vessel which is dominant and gives off the PDA. There is no significant stenosis. RIGHT CORONARY ARTERY: The right coronary artery is a small caliber vessel which gives off an RV branch, is nondominant and has no significant stenosis. FINAL IMPRESSION: 1. Normal coronary arteries as described above. Healed SCAD of circumflex artery seen on films from 2013. 2. Elevated left sided filling pressures PLAN: 1. Aggressive risk factor modification per most recent ACC/AHA guidelines. 2. Follow-up in the office in 1-2 weeks. 3. Attempt diuresis and monitor response.
[2021-03-13 11:28] VITALS: RESP 18
[2021-03-13 11:59] VITALS: BP 114/68; PULSE 60
== END 2021-03-13 12:34 | disposition home or self-care (01) ==
LOC: CATHCVL 06:36
PROVIDERS: ATTEND Internal Medicine
DX: R94.39 Abnormal result of other cardiovascular function study (principal); I10 Essential (primary) hypertension; E78.5 Hyperlipidemia, unspecified; R00.2 Palpitations; M79.7 Fibromyalgia; F17.210 Nicotine dependence, cigarettes, uncomplicated; I25.2 Old myocardial infarction; R07.9 Chest pain, unspecified; Z79.899 Other long term (current) drug therapy
CPT/HCPCS: 93458; 87635; C1894; J2250; J2001; J3010; J1644; Q9967

== ENCOUNTER 2021-03-13 18:58 | Emergency (ER) | payer MEDICARE, OTHER ==
--- NOTE | 2021-03-13 20:33 | ED ---
Recheck HPI - General Chief Complaint: Recheck/Abnormal Lab/Rx Stated Complaint: Radial cath today swelling Time Seen by Provider: 03/13/21 20:03 Source: patient Mode of arrival: ambulatory Limitations: no limitations - History of Present Illness Initial Comments: Patient is a 60-year-old female presenting to the emergency department for a recheck of her cardiac catheterization site. Patient states early this morning and she had a right radial cardiac cath performed, she was discharged home. She states she went home and took a long nap, when she woke up she noticed swelling of her right hand. She states she did call Dr. Harper's office and they stated that since they're not able to see the hand in person they recommended coming in for an evaluation. She denies any chest pain or shortness of breath, no fevers or chills. She states she has been elevating the hand since she came into the ER and already looks better. She admits to a little bit of stiffness of the wrist but nothing more than before. She has no further complaints at this time. - Related Data Home Medications Medication Instructions Recorded Confirmed Levothyroxine Sodium 125 mcg PO DAILY 04/19/20 03/13/21 Liothyronine Sodium [Cytomel] 10 - 15 mcg PO DAILY 07/08/20 03/13/21 Ergocalciferol [Vitamin D2 (1250 1,250 mcg PO SUWE 02/27/21 03/13/21 Mcg = 94103 Iu)] Omeprazole Magnesium [PriLOSEC] 20 mg PO BID 02/27/21 03/13/21 Previous Rx's Medication Instructions Recorded Aspirin EC [Ecotrin Low Dose] 81 mg PO DAILY #30 tablet. 03/15/14 Nitroglycerin Sl Tabs [Nitrostat] 0.4 mg SUBLINGUAL Q5M PRN #25 tab 03/15/14 Metoprolol Succinate (ER) [Toprol 25 mg PO BID #60 tab.er.24h 02/28/21 XL] Furosemide [Lasix] 20 mg PO DAILY #90 tab 03/13/21 Allergies Allergy/AdvReac Type Severity Reaction Status Date / Time Penicillins Allergy Severe Anaphylaxis Verified 03/13/21 19:09 Quinolones Allergy Severe Unknown Verified 03/13/21 19:09 venom-honey bee Allergy Severe Anaphylaxis Verified 03/13/21 19:09 adhesive tape Allergy Unknown Verified 03/13/21 19:09 levofloxacin [From Levaquin] AdvReac Severe BRAIN STEM Verified 03/13/21 19:09 SEIZURE hydromorphone [From Dilaudid] AdvReac Nausea & Verified 03/13/21 19:09 Vomiting iopamidol [From Isovue-128] AdvReac Nausea & Verified 03/13/21 19:09 Vomiting pravastatin [From Pravachol] AdvReac LEG CRAMPS Verified 03/13/21 19:09 Review of Systems ROS Statement: Those systems with pertinent positive or pertinent negative responses have been documented in the HPI. ROS Other: All systems not noted in ROS Statement are negative. Past Medical History Past Medical History: Coronary Artery Disease (CAD), Cancer, Chest Pain / Angina, COPD, Fibromyalgia, GERD/Reflux, GI Bleed, Hypertension, Myocardial Infarction ([place]), Osteoarthritis (OA), Thyroid Disorder Additional Past Medical History / Comment(s): Diverticulitis, upper and lower GI bleed, MRI showed small strokes or migraines per pt as well as spots-recommended to have spinal tap but pt declined, bronchitis, past cervical neuropathy/stenosis/myelopathy with numbness and pain in bilateral hands but had cervical surgery and not a problem anymore-does have some decreased ROM with neck and spasms of neck occasionally, occasional vertigo, thyroidectomy d/t cancer, recent hospitalization for chest pain Last Myocardial Infarction Date:: 03/09/14 History of Any Multi-Drug Resistant Organisms: None Reported Past Surgical History: Breast Surgery, Heart Catheterization, Hysterectomy, Orthopedic Surgery, Tubal Ligation Additional Past Surgical History / Comment(s): Multiple colonoscopies, egds, R partial thyroidectomy/multiple thyroid bxs then total thyroidectomy d/t cancer, L side neck mass removed, R breast benign bx, cardiac cath-unable to deploy a stent, cervical discectomy/fusions, L carpal tunnel releases, R knee arthroscopic surgeries. Past Anesthesia/Blood Transfusion Reactions: Previous Problems w/ Anesthesia Additional Past Anesthesia/Blood Transfusion Reaction / Comment(s): STATES B/P WAS LOW POST OP RT THYROIDECTOMY-mostly related to narcotic pain meds. HISTORY OF CLAUSTROPHOBIA Past Psychological History: Anxiety, Depression Smoking Status: Former smoker Past Alcohol Use History: Occasional - Past Family History Father Family Medical History: Osteoarthritis (OA) Additional Family Medical History / Comment(s): Father is living Mother Family Medical History: AFIB, Renal Disease, Thyroid Disorder Additional Family Medical History / Comment(s): Mother is living. Hypothyroidism. Bladder issues/kidney stones. Nerve damage in legs General Exam - General Exam Comments Initial Comments: GENERAL: Patient is well-developed and well-nourished. Patient is nontoxic and in no acute distress. HEAD: Atraumatic, normocephalic. EYES: Pupils equal round and reactive to light, extraocular movements intact, sclera anicteric, conjunctiva are normal. Eyelids were unremarkable. ENT: Nares patent, oropharynx clear without exudates. Moist mucous membranes. NECK: Normal range of motion, supple without lymphadenopathy or JVD. LUNGS: Unlabored respirations. Breath sounds clear to auscultation bilaterally and equal. No wheezes rales or rhonchi. HEART: Regular rate and rhythm without murmurs, rubs or gallops. ABDOMEN: Soft, nontender, normoactive bowel sounds. No guarding, no rebound. No masses appreciated. : Deferred MUSCULOSKELETAL: Normal extremities with adequate strength and normal range of motion, no pitting or edema. No clubbing or cyanosis. NEUROLOGICAL: Patient is alert and oriented x 3. Motor and sensory are also intact. Cranial nerves II through XII grossly intact. Symmetrical smile. Normal speech, normal gait. PSYCH: Normal mood, normal affect. SKIN: Warm, Dry, normal turgor, no rashes. There is no active bleeding from patient's recent right radial catheter site. There is some very mild swelling noted to the dorsal aspect of the right wrist, no pitting edema, no swelling of the right hand. There is no discoloration, no redness. She is neurovascular intact. No pain in the upper right arm. Limitations: no limitations Course Vital Signs 03/13/21 03/13/21 19:07 20:48 Temperature 98.2 F 98.1 F Pulse Rate 65 60 Respiratory 18 15 Rate Blood Pressure 112/58 135/80 O2 Sat by Pulse 96 96 Oximetry Medical Decision Making - Medical Decision Making Patient is a 60-year-old female here for recheck of a right radial catheterization site. She had heart cath performed early this morning, discharged home without complications. She took a long nap and woke up with some mild swelling of her right hand got concerned and called cardiology office. They recommended following up in the ER secondary to the fact they cannot see the arm in person. Patient has some very mild swelling noted to the dorsal aspect of the right wrist area, no stiff get swelling of the right hand or right arm. Her vascular intact, no active bleeding, no redness. I discussed these findings with the patient. I believe her site is stable, no acute abnormalities. She can follow-up with her marine scientist. Return parameters were discussed with her and she verbalized understanding. Case discussed with Dr. Gross. Disposition Clinical Impression: Encounter for wound re-check Disposition: HOME SELF-CARE Condition: Stable Instructions (If sedation given, give patient instructions): Normal Exam (ED) Additional Instructions: Please return to the Emergency Department if symptoms worsen or any other concerns. Continue with elevation above the heart level. Limited use of right wrist until follow-up with marine scientist. Is patient prescribed a controlled substance at d/c from ED?: No Referrals: Konrad Perez MD [Primary Care Provider] - 1-2 days Tylor Harper DO [STAFF PHYSICIAN] - 1-2 days Time of Disposition: 20:33
[2021-03-13 20:50] VITALS: BP 135/80; PULSE 60; RESP 15; TEMP 98.1
== END 2021-03-13 20:50 | disposition home or self-care (01) ==
LOC: EC 18:58
DX: Z48.01 Encounter for change or removal of surgical wound dressing (principal); M79.89 Other specified soft tissue disorders; I10 Essential (primary) hypertension; I25.2 Old myocardial infarction; I25.10 Atherosclerotic heart disease of native coronary artery without angina pectoris; J44.9 Chronic obstructive pulmonary disease, unspecified; K21.9 Gastro-esophageal reflux disease without esophagitis; M79.7 Fibromyalgia; M19.90 Unspecified osteoarthritis, unspecified site; Z79.890 Hormone replacement therapy; Z79.82 Long term (current) use of aspirin; Z79.899 Other long term (current) drug therapy; Z88.0 Allergy status to penicillin; Z88.8 Allergy status to other drugs, medicaments and biological substances; Z85.850 Personal history of malignant neoplasm of thyroid; Z87.891 Personal history of nicotine dependence; Z88.1 Allergy status to other antibiotic agents; Z88.5 Allergy status to narcotic agent
CPT/HCPCS: 99282

== ENCOUNTER → 2021-07-04 | Outpatient (CLI) | payer MEDICARE, OTHER ==
[2021-07-04 14:27] LABS: Basophils # (A) 0.1 k/uL (0-0.2); Basophils % (A) 2 %; Eosinophils # (A) 0.3 k/uL (0-0.7); Eosinophils % (A) 6 %; HCT 43.8 % (34.0-46.0); HGB 14.1 gm/dL (11.4-16.0); Lymphocytes # (A) 1.4 k/uL (1.0-4.8); Lymphocytes % (A) 27 %; MCH 29.5 pg (25.0-35.0); MCHC 32.2 g/dL (31.0-37.0); MCV 91.8 fL (80.0-100.0); Mean Platelet Volume 7.3; Monocytes # (A) 0.2 k/uL (0-1.0); Monocytes % (A) 4 %; Neutrophils # (A) 3.2 k/uL (1.3-7.7); Neutrophils % (A) 60 %; Platelet Count 269 k/uL (150-450); RBC 4.78 m/uL (3.80-5.40); RDW 12.3 % (11.5-15.5); WBC 5.3 k/uL (3.8-10.6)
[2021-07-04 14:37] LABS: Potassium 4.6 mmol/L (3.5-5.1)
[2021-07-04 14:39] LABS: Prothrombin Time 10.4 sec (9.0-12.0)
== END | disposition home or self-care (01) ==
LOC: LABPAT 13:16
PROVIDERS: ATTEND Orthopaedic Surgery
DX: Z01.812 Encounter for preprocedural laboratory examination (principal); M17.11 Unilateral primary osteoarthritis, right knee
CPT/HCPCS: 80051; 85025; 85610; 87070

== ENCOUNTER 2021-07-14 11:21 | Observation (INO) | payer MEDICARE, OTHER ==
[2021-07-10 16:07] VITALS: BMI 35.7
--- NOTE | 2021-07-13 11:50 | HP ---
HISTORY AND PHYSICAL DATE OF SURGERY: 07/14/2021 Sofia Cummings is a 61-year-old patient seen with symptomatic right knee osteoarthritis. We discussed options for treatment. She elected to proceed with right total knee arthroplasty. Consent was obtained. Cardiac clearance by Dr. Harper, medical clearance by . PAST MEDICAL HISTORY: Hypertension, hypothyroidism. PAST SURGICAL HISTORY: Knee arthroscopy, thyroidectomy. DAILY MEDICATIONS: Aspirin, metoprolol, Synthroid, vitamins. ALLERGIES: PENICILLIN, LEVAQUIN. SOCIAL HISTORY: The patient denies tobacco use. PHYSICAL EVALUATION OF THE RIGHT KNEE: Range of motion is negative 4 to 100. Mild effusion. Tenderness, medial joint line. Crepitus, medial patellofemoral compartments with range of motion. Pain with patellofemoral compression. Ligaments stable. Hip rotation without pain. Distal neurovascular exam is intact. RADIOGRAPHS: Right hip radiographs revealed severe osteoarthritic changes. IMPRESSION: 1. Right knee osteoarthritis. 2. Hypertension. 3. Hypothyroidism. PLAN: Right total knee arthroplasty. MMODL / IJN: [id number] /
[~2021-07-14 11:21] MED LIST changes: +ACETAMINOPHEN TAB 500 MG TAB PO PRN; +CLINDAMYCIN 900 MG in DEXTROSE 5% IN WATER 50 ML IVPB PRN; +DEXAMETHASONE SOD PHOSPHATE 4 MG/ML 1 ML VIAL IV ONE; -LACTATED RINGERS 1,000 ML IV SCH; +LIDOCAINE 1% (10MG/ML) FOR IV START INTRADERMA PRN; +MELOXICAM 7.5 MG TAB PO PRN; +MIDAZOLAM 2 MG/2 ML VIAL IV PRN; -Pre Op ABX Message 1 EACH MISC MISCELLANE ONE; +TRANEXAMIC ACID 1,000 MG in SODIUM CHLORIDE 0.9% 100 ML IVPB PRN; -fentaNYL (PF) 50 MCG/ML 2 ML AMP IV PRN
[2021-07-14] MEDS: LACTATED RINGERS 1,000 ML IV SCH ×2 (11:43→17:43)
[2021-07-14] MEDS ORDERED: MIDAZOLAM 2 MG/2 ML VIAL IVP ONE (12:50)
[2021-07-14] MEDS ORDERED: PROPOFOL 10 MG/ML 20 ML VIAL IV ONE (13:10)
[2021-07-14] MEDS ORDERED: TRANEXAMIC ACID 1,000 MG/10 ML VIAL ONE (13:10)
[2021-07-14] MEDS ORDERED: ROPIVACAINE 5 MG/ML 30 ML VIAL ONE (13:10)
[2021-07-14] MEDS ORDERED: fentaNYL (PF) 50 MCG/ML 2 ML AMP ONE (13:10)
[2021-07-14] MEDS ORDERED: MIDAZOLAM 2 MG/2 ML VIAL ONE (13:10)
[2021-07-14] MEDS ORDERED: HYDROmorphone (PF) 1 MG/ML ONE (13:10)
[2021-07-14] MEDS ORDERED: ePHEDrine SULFATE/0.9% NACL/PF 50 MG/5 ML SYRINGE IV ONE (13:10)
[2021-07-14] MEDS ORDERED: DEXAMETHASONE SOD PHOSPHATE 4 MG/ML 1 ML VIAL ONE (13:10)
[2021-07-14] MEDS ORDERED: SODIUM CHLORIDE 0.9% 100 ML BAG ONE (13:10)
[2021-07-14] MEDS ORDERED: CLINDAMYCIN 600 MG in SODIUM CHLORIDE 0.9% 1,000 ML IRRIGATION ONE ×2 (13:33→13:57)
[2021-07-14] MEDS ORDERED: ceFAZolin 1,000 MG in SODIUM CHLORIDE 0.9% 1,000 ML IRRIGATION ONE (13:39)
--- NOTE | 2021-07-14 14:37 | P.ANPRN ---
Procedure Note - Anesthesia - Nerve Block Performed Right Adductor Canal Infusion Time Out Performed: Yes Date of Procedure: 07/14/21 Procedure Start Time: 12:50 Procedure Stop Time: 13:02 Location of Patient: PreOp Indication: Acute Post-Operative Pain, Requested by Surgeon Sedation Type: Sedate with meaningful contact maintained Preparation: Sterile Prep Position: Supine Catheter: Indwelling Needle Types: Pajunk Needle Gauge: 21 Ultrasound used to visualize needle placement: Yes Ultrasound used to observe medication spread: Yes Blood Aspirated: No Pain Paresthesia on Injection Noted: No Resistance on Injection: Normal Image Stored and Saved: Yes Events: Uneventful and Well Tolerated (ropi .5% 20cc)
[2021-07-14] MEDS ORDERED: LACTATED RINGERS 1,000 ML IV ONE (14:39)
--- NOTE | 2021-07-14 14:39 | P.ANPRN ---
Procedure Note - Anesthesia - Nerve Block Performed Right Willack Single Time Out Performed: Yes Date of Procedure: 07/14/21 Procedure Start Time: 13:03 Procedure Stop Time: 13:07 Location of Patient: PreOp Indication: Acute Post-Operative Pain, Requested by Surgeon Sedation Type: Sedate with meaningful contact maintained Preparation: Sterile Prep Position: Supine Needle Types: Pajunk Needle Gauge: 21 Ultrasound used to visualize needle placement: Yes Ultrasound used to observe medication spread: Yes Blood Aspirated: No Pain Paresthesia on Injection Noted: No Resistance on Injection: Normal Image Stored and Saved: Yes Events: Uneventful and Well Tolerated (ropi .5% 25cc plus dexamethasone 4 mg)
[2021-07-14] MEDS ORDERED: HYDROcodone/APAP 5-325MG 1 EACH TAB PO PRN (15:15)
[2021-07-14] MEDS ORDERED: NALOXONE 0.4 MG/ML 1 ML VIAL IV PRN (15:15)
[2021-07-14] MEDS ORDERED: ONDANSETRON 4 MG/2 ML VIAL IVP PRN (15:15)
[2021-07-14] MEDS ORDERED: HYDROmorphone 1 MG/ML 1 ML SYRINGE IVP PRN (15:15)
[2021-07-14] MEDS ORDERED: HYDROmorphone 0.5 MG/0.5 ML SYRINGE IVP PRN (15:15)
[2021-07-14] MEDS ORDERED: HYDROmorphone 0.2 MG/1 ML SYRINGE IVP PRN (15:15)
--- NOTE | 2021-07-14 15:15 | P.OP ---
Date of Procedure: 07/14/21 Preoperative Diagnosis: Right knee osteoarthritis Postoperative Diagnosis: Right knee osteoarthritis Procedure(s) Performed: Right total knee arthroplasty Implants: 1. Depuy attune size 4 narrow right cruciate retaining cemented femur 2. Depuy attune size 3 fixed bearing cemented tibial baseplate 3. Depuy attune size 4 fixed bearing cruciate retaining 8 mm polyethylene tibial insert 4. Depuy attune 35 mm all polyethylene cemented patella Anesthesia: regional (Adductor canal catheter, Ipack block), spinal Surgeon: Gustavo Yang [employer]: Jasper Serrano Estimated Blood Loss (ml): 55 Pathology: other (Bone) Condition: stable Disposition: PACU Indications for Procedure: 61-year-old patient seen with symptomatic right knee osteoarthritis. After treatment options were discussed, she elected to proceed with total knee arthroplasty. Operative Findings: See description of procedure Description of Procedure: Patient was taken to the operative suite after having an adductor canal catheter placed by the department of anesthesia as well as and Ipack block for postoperative pain management. Patient underwent a spinal anesthetic by the department of anesthesia. Patient was given preoperative IV intake antibiotics and TXA. A well-padded tourniquet was placed about the right lower extremity. The lower extremity was then prepped and draped in the normal sterile orthopedic fashion. The extremity was elevated, a tourniquet was insufflated to 300. A standard anterior incision was made sharply through skin. Dissection was taken down through the subcutaneous soft tissues down to the extensor mechanism. A medial arthrotomy was performed, patella was everted and knee was flexed. There was advanced osteoarthritis noted. I introduced my distal intramedullary femoral drill. I then introduced the distal femoral cutting jig. Feng MENDEZ secured the cutting jig with 2 pins. I held retractors in position while Feng MENDEZ performed the distal femoral resection through the guide area we now removed her distal femoral cutting guide. We now placed our 4-in-1 femoral cutting block and positioned and it was secured with 2 pins by Feng MENDEZ while I held the block in position. The distal femoral finishing was now completed. A proximal tibial cutting guide was positioned. I held the guide in the appropriate position with both hands well Feng MENDEZ inserted stabilizing pins into the guide. Proximal tibial cut was made. We now placed a trial femoral component into position, along with an appropriate size tibial tray and insert. We now took the knee through range of motion and had full extension good flexion and good overall soft tissue balance noted. The patella was everted and stabilized with 2 towel clips held by Feng MENDEZ while I performed a flush with patellar quad tendon utilizing a fresh sawblade. We templated the patella, appropriate drill holes were made. An appropriate trial patella was positioned, knee was taken through full range of motion with the patella tracking very nicely. The trial patella was removed. Drill holes were made through the femoral component. All trial components were removed after marking off the appropriate rotation of the tibia. Retractors were now positioned along the proximal tibia. An appropriate keel punch was made with the appropriate size tibial guide by myself on Feng MENDEZ assisted by holding retractors. At this point appropriate size implants were chosen and opened. The joint was irrigated copiously with pulse lavage mechanical irrigation. The posterior capsule was infiltrated with local analgesic. The wound was irrigated with pulse lavage mechanical irrigation. We mixed antibiotic methylmethacrylate. We placed the knee into flexion. We placed multiple retractors assisted by Feng MENDEZ to expose the proximal tibia. Once the methyl methacrylate was ready, the tibial component was cemented into place removing any excess methylmethacrylate form by both myself and Feng MENDEZ. The femoral component was cemented into place removing the removing any excess methylmethacrylate performed by both myself and Feng MENDEZ. We then inserted the appropriate size polyethylene tibial insert. We made sure that it was locked into position. We took the knee into full extension, and then back in a flexion making sure we had removed any excess methylmethacrylate. The patellar component was then cemented down and secured with clamp. Excess methylmethacrylate removed. We kept the knee in full extension, patellar clamp in position until methylmethacrylate had hardened. Once it had hardened the patellar clamp was removed. The knee was taken through full range of motion. The patella tracked nicely. There was good soft tissue balancing. The tourniquet was now released. Additional hemostasis was achieved via electrocautery. A second gram of TXA was given. The wound again was irrigated with pulse lavage mechanical irrigation. The superficial soft tissues were infiltrated local analgesic. The extensor mechanism was repaired with Ethibond. We checked the repair with range of motion and it was stable. The subcutaneous soft tissues were repaired with Vicryl in layers. The skin was approximated with pernio/Dermabond. Sterile dressings were applied followed by loose web roll and Bora bandage. The patient was transferred to a bed, and taken to recovery in stable and satisfactory condition. Feng MENDEZ assisted with this complex procedure.
[2021-07-14] MEDS ORDERED: ROPIVACAINE 0.2%-NS ON-Q PUMP 1,090 MG, EMPTY PAIN BALL 1 EACH MISCELLANE PRN (15:39)
--- NOTE | 2021-07-14 15:55 | XR ---
EXAMINATION TYPE: XR knee limited RT DATE OF EXAM: 07/14/2021 CLINICAL HISTORY: Postoperative evaluation Two views of the right knee are submitted. Identified are changes of total knee arthroplasty with femoral and tibial components appearing well seated. Postsurgical soft tissue changes are noted. Alignment is anatomic.
[2021-07-14] MEDS: CLINDAMYCIN 900 MG in DEXTROSE 5% IN WATER 50 ML IVPB SCH ×2 (18:06)
[2021-07-14] MEDS: HYDROcodone/APAP 7.5-325MG 1 EACH TAB PO PRN (19:30)
[2021-07-14] MEDS: ENOXAPARIN 30 MG/0.3 ML SYRINGE SQ SCH (21:10)
[2021-07-14] MEDS: SENNOSIDES-DOCUSATE SODIUM 1 EACH TAB PO SCH (21:10)
[2021-07-15] MEDS: CLINDAMYCIN 900 MG in DEXTROSE 5% IN WATER 50 ML IVPB SCH ×2 (01:12)
[2021-07-15] MEDS: HYDROcodone/APAP 7.5-325MG 1 EACH TAB PO PRN ×3 (01:12→21:31)
[2021-07-15] MEDS: LACTATED RINGERS 1,000 ML IV SCH ×3 (02:49→14:39)
[2021-07-15] MEDS: MORPHINE SULFATE 2 MG/ML SYRINGE IVP PRN ×4 (04:18→16:49)
[2021-07-15 05:05] LABS: Basophils % (A) 0 %; Eosinophils % (A) 0 %; HCT 38.2 % (34.0-46.0); HGB 12.7 gm/dL (11.4-16.0); Lymphocytes # (A) 0.4 k/uL (1.0-4.8); Lymphocytes % (A) 4 %; MCH 30.7 pg (25.0-35.0); MCHC 33.3 g/dL (31.0-37.0); MCV 92.1 fL (80.0-100.0); Mean Platelet Volume 7.8; Monocytes # (A) 0.3 k/uL (0-1.0); Monocytes % (A) 3 %; Neutrophils # (A) 9.2 k/uL (1.3-7.7); Neutrophils % (A) 92 %; Platelet Count 221 k/uL (150-450); RBC 4.14 m/uL (3.80-5.40); RDW 12.4 % (11.5-15.5)
--- NOTE | 2021-07-15 07:27 | P.PN ---
Progress Note - Text Progress Note Date: 07/15/21 Postoperative day # 1 status post total knee arthroplasty, and adductor canal catheter placed for postoperative analgesia, currently at ropivacaine 0.2% 8 mL per hour and continuous infusion, visual analogue scale is 4/10, patient using oral pain medication for breakthrough pain. Assessment and plan= Acute postoperative pain, adductor canal catheter for pain control, pain is well controlled we'll continue the same management.
[2021-07-15] MEDS: ENOXAPARIN 30 MG/0.3 ML SYRINGE SQ SCH ×2 (08:27→21:32)
[2021-07-15] MEDS ORDERED: PANTOPRAZOLE 40 MG TABLET PO PRN (08:57)
[2021-07-15] MEDS ORDERED: NITROGLYCERIN SL TABS 0.4 MG TAB SUBLINGUAL PRN (08:57)
[2021-07-15 09:36] LABS: African American GFR (CKD) >90 (>60 ml/min/1.73 sqM); Anion Gap 8 mmol/L; Blood Urea Nitrogen 14 mg/dL (7-17); Calcium 9.1 mg/dL (8.4-10.2); Carbon Dioxide 25 mmol/L (22-30); Chloride 105 mmol/L (98-107); Glucose 135 mg/dL (74-99); Non-African American GFR(CKD) >90 (>60 ml/min/1.73 sqM); Potassium 4.4 mmol/L (3.5-5.1); Sodium 138 mmol/L (137-145)
[2021-07-15] MEDS: METOPROLOL SUCCINATE (ER) 25 MG TAB.ER.24H PO SCH ×2 (10:19→21:32)
[2021-07-15] MEDS: LIOTHYRONINE SODIUM 5 MCG TAB PO SCH (10:19)
[2021-07-15] MEDS: LEVOTHYROXINE 125 MCG TAB PO SCH (10:19)
[2021-07-15] MEDS: FUROSEMIDE 20 MG TAB PO SCH (10:20)
--- NOTE | 2021-07-15 12:35 | P.PN ---
Subjective Progress Note Date: 07/15/21 Principal diagnosis: Right knee osteoarthritis Patient was seen at bedside this morning resting comfortably lying semirecumbent bed. Patient said she got up with physical therapy this morning and walked around the room using a walker. Patient mentions she had a couple different episodes where she felt dizzy and almost lost her balance. Patient says she did not fall. Patient says this has happened after previous surgeries. Patient says medicine has not seen her yet this morning. Patient says she has not had bowel movement yet, however, patient has been passing gas. Patient says she has been using incentive spirometer. Patient supposed the pain she is feeling that the front of the knee. Patient says she has not felt comfortable going home today. Patient denies chest pain, fever, shortness of breath, nausea, vomiting, change in vision, loss of bowel/bladder control. Objective - Vital Signs Vital signs: Vital Signs Temp 97.9 F 07/15/21 08:00 Pulse 79 07/15/21 08:28 Resp 17 07/15/21 08:28 BP 123/71 07/15/21 08:00 Pulse Ox 97 07/15/21 08:00 Intake & Output 07/14/21 07/15/21 07/15/21 18:59 06:59 18:59 Intake Total 1557 Output Total 55 Balance 1502 Weight 98.4 kg Intake: IV 1557 Output: Estimated Blood Loss 55 Other: Voiding Method Bedside Commode # Voids 2 - Exam Right knee: Incision is clean, dry, and intact. The zach are in good condition. There is minimal soft tissue swelling and ecchymosis surrounding the medial and lateral aspects of the incision. Calf is soft, no tenderness with palpation. Plantar flexion, dorsiflexion, EHL, FHL are intact. Sensory exam to light touch throughout the extremity is intact, dorsal pedis pulses 2+. - Labs CBC & Chem 7: 07/15/21 04:41 07/15/21 04:41 Labs: Abnormal Lab Results - Last 24 Hours (Table) 07/15/21 07/15/21 Range/Units 04:41 04:41 Neutrophils # 9.2 H (1.3-7.7) k/uL Lymphocytes # 0.4 L (1.0-4.8) k/uL Glucose 135 H (74-99) mg/dL Assessment and Plan Assessment: Right knee osteoarthritis Postoperative day #1 status post right total knee arthroplasty Plan: 1. Right knee osteoarthritistotal knee arthroplasty was performed yesterday, 07/14/2021. Patient stable at bedside this morning. Plan discharge home tomorrow 2. Appreciate medical management 3. Pain management - stable at this time. Continue K[place] 4. DVT prophylaxis - Lovenox in hospital. plan to go home with aspirin 81 mg twice a day 30 days 5. GI prophylaxis - protonix 6. Encourage incentive spirometer use 7. PT/OT - weightbearing as tolerated with walker for assistance 8. Discharge planning - plan for discharge home tomorrow with health services Time with Patient: Less than 30
--- NOTE | 2021-07-15 16:06 | P.CONS ---
History of Present Illness - Reason for Consult Consult date: 07/15/21 - Chief Complaint Medical management - History of Present Illness 61-year-old female patient with symptomatic right knee osteoarthritis, hypertension, hypothyroidism, admitted to the hospital for total right knee arthroplasty; patient is status post arthroplasty and is POD #1 Patient denies any complaint of chest pain, shortness of breath or nausea/vomiting; does give history of some dizziness with ambulation Review of Systems REVIEW OF SYSTEMS: CONSTITUTIONAL: No fever, no malaise, no fatigue. HEENT: No recent visual problems or hearing problems. Denied any sore throat. CARDIOVASCULAR: No chest pain, orthopnea, PND, no palpitations, no syncope. PULMONARY: No shortness of breath, no cough, no hemoptysis. GASTROINTESTINAL: No diarrhea, no nausea, no vomiting, no abdominal pain. NEUROLOGICAL: No headaches, no weakness, no numbness. HEMATOLOGICAL: Denies any bleeding or petechiae. GENITOURINARY: Denies any burning micturition, frequency, or urgency. MUSCULOSKELETAL/RHEUMATOLOGICAL: Denies any joint pain, swelling, or any muscle pain. ENDOCRINE: Denies any polyuria or polydipsia. The rest of the 14-point review of systems is negative. Past Medical History Past Medical History: Coronary Artery Disease (CAD), Cancer, Chest Pain / Angina, COPD, Fibromyalgia, GERD/Reflux, GI Bleed, Hypertension, Myocardial Infarction (MA), Osteoarthritis (OA), Thyroid Disorder Additional Past Medical History / Comment(s): hx. Diverticulitis, upper & lower GI bleed, MRI showed small strokes or migraines per pt as well as spots- recommended to have spinal tap but pt declined, bronchitis, does have some decreased ROM with neck and spasms of neck occasionally, occasional vertigo, thyroidectomy d/t cancer-no other tx. Last Myocardial Infarction Date:: 03/09/14 History of Any Multi-Drug Resistant Organisms: None Reported Past Surgical History: Breast Surgery, Heart Catheterization, Hysterectomy, Orthopedic Surgery, Tubal Ligation Additional Past Surgical History / Comment(s): Multiple colonoscopies, egds, R partial thyroidectomy/multiple thyroid bxs then total thyroidectomy, L side neck mass removed, R breast benign bx, cardiac cath-unable to deploy a stent, L carpal tunnel releases, R knee arthroscopic surgeries, multi. level cervical fusion Past Anesthesia/Blood Transfusion Reactions: Previous Problems w/ Anesthesia Additional Past Anesthesia/Blood Transfusion Reaction / Comm: STATES B/P WAS LOW POST OP RT THYROIDECTOMY-mostly related to narcotic pain meds. HISTORY OF CLAUSTROPHOBIA Past Psychological History: Anxiety, Depression Additional Psychological History / Comment(s): Pt resides with her significant other. 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 Pt is independent. Smoking Status: Former smoker Past Alcohol Use History: Occasional Additional Past Alcohol Use History / Comment(s): STARTED SMOKING AT AGE 18 STOPPED FEBRUARY 2014 (SMOKED ON AND OFF) SMOKED 1PPD AT THE TIME SHE QUIT 2013 Past Drug Use History: None Reported - Past Family History Father Family Medical History: Osteoarthritis (OA) Additional Family Medical History / Comment(s): Father is living Mother Family Medical History: AFIB, Renal Disease, Thyroid Disorder Additional Family Medical History / Comment(s): Mother is living. Hypothyroid ism. Bladder issues/kidney stones. Nerve damage in legs Medications and Allergies Home Medications Medication Instructions Recorded Confirmed Type Aspirin EC [Ecotrin Low Dose] 81 mg PO DAILY #30 tablet.dr 03/15/14 07/14/21 Rx Nitroglycerin Sl Tabs [Nitrostat] 0.4 mg SUBLINGUAL Q5M PRN #25 tab 03/15/14 07/14/21 Rx Levothyroxine Sodium 125 mcg PO DAILY 04/19/20 07/14/21 History Liothyronine Sodium [Cytomel] 10 - 15 mcg PO DAILY 07/08/20 07/14/21 History Ergocalciferol [Vitamin D2 (1250 1,250 mcg PO SUWE 02/27/21 07/14/21 History Mcg = 27447 Iu)] Omeprazole Magnesium [PriLOSEC] 20 mg PO BID PRN 02/27/21 07/14/21 History Metoprolol Succinate (ER) [Toprol 25 mg PO BID #60 tab.er.24h 02/28/21 07/14/21 Rx XL] Furosemide [Lasix] 20 mg PO DAILY #90 tab 03/13/21 07/14/21 Rx Allergies Allergy/AdvReac Type Severity Reaction Status Date / Time Penicillins Allergy Severe Anaphylaxis Verified 07/14/21 11:55 Quinolones Allergy Severe Unknown Verified 07/14/21 11:55 venom-honey bee Allergy Severe Anaphylaxis Verified 07/14/21 11:55 adhesive tape Allergy Unknown Verified 07/14/21 11:55 levofloxacin [From Levaquin] AdvReac Severe BRAIN STEM Verified 07/14/21 11:55 SEIZURE hydromorphone [From Dilaudid] AdvReac Nausea & Verified 07/14/21 11:55 Vomiting iopamidol [From Isovue-128] AdvReac Nausea & Verified 07/14/21 11:55 Vomiting pravastatin [From Pravachol] AdvReac LEG CRAMPS Verified 07/14/21 11:55 Physical Exam Vitals: Vital Signs Temp Pulse Pulse Pulse Resp BP BP 07/15/21 08:28 79 17 07/15/21 08:00 97.9 F 18 123/71 07/15/21 03:11 97.8 F 67 17 129/74 07/14/21 19:30 97.6 F 78 18 115/76 07/14/21 19:27 18 07/14/21 17:25 97.8 F 73 18 120/73 07/14/21 16:30 67 16 116/58 07/14/21 16:15 64 16 108/60 07/14/21 16:02 67 16 131/62 07/14/21 15:45 62 16 103/79 07/14/21 15:33 82 16 119/52 07/14/21 15:24 97.0 F L 81 16 119/52 07/14/21 13:11 58 L 18 145/70 07/14/21 12:09 97.8 F 61 18 142/63 Pulse Ox 07/15/21 08:28 07/15/21 08:00 97 07/15/21 03:11 96 07/14/21 19:30 95 07/14/21 19:27 07/14/21 17:25 95 07/14/21 16:30 95 07/14/21 16:15 96 07/14/21 16:02 100 07/14/21 15:45 100 07/14/21 15:33 100 07/14/21 15:24 95 07/14/21 13:11 100 07/14/21 12:09 96 Intake and Output 07/14/21 07/15/21 07/15/21 22:59 06:59 14:59 Intake Total 300 Output Total 55 Balance 245 Intake: IV 300 Output: Estimated Blood Loss 55 Other: Voiding Method Bedside Commode # Voids 1 2 Weight 98.4 kg PHYSICAL EXAMINATION: GENERAL: The patient is alert and oriented x3, not in any acute distress. Well developed, well nourished. HEENT: Pupils are round and equally reacting to light. EOMI. No scleral icterus. No conjunctival pallor. Normocephalic, atraumatic. No pharyngeal erythema. No thyromegaly. CARDIOVASCULAR: S1 and S2 present. No murmurs, rubs, or gallops. PULMONARY: Chest is clear to auscultation, no wheezing or crackles. ABDOMEN: Soft, nontender, nondistended, normoactive bowel sounds. No palpable organomegaly. MUSCULOSKELETAL: No joint swelling or deformity. EXTREMITIES: Right knee dressing appears dry and intact. NEUROLOGICAL: Gross neurological examination did not reveal any focal deficits. SKIN: No rashes. Results CBC & Chem 7: 07/15/21 04:41 07/15/21 04:41 Labs: Abnormal Lab Results - Last 24 Hours (Table) 07/15/21 07/15/21 Range/Units 04:41 04:41 Neutrophils # 9.2 H (1.3-7.7) k/uL Lymphocytes # 0.4 L (1.0-4.8) k/uL Glucose 135 H (74-99) mg/dL Assessment and Plan Assessment: 1. Severe symptomatic osteoarthritis right knee - patient is status post right total knee arthroplasty, POD #1 - Patient is requiring IV morphine and Tarpley for pain management; patient is advised to take Tarpley on schedule possibly 3 times a day and her lie on IV morphine for breakthrough pain if needed - Advised incentive spirometry and ambulation 2. Hypothyroidism; levothyroxine 125 MCG daily along with Cytomel 15 MCG daily 3. Hypertension; metoprolol 25 mg by mouth daily 4. Vitamin D deficiency; continue with home dose of vitamin D3 5. Gastroesophageal reflux disease; Prilosec 20 mg twice a day DVT prophylaxis; per discretion of primary team CODE STATUS; full code
[2021-07-15] MEDS: SENNOSIDES-DOCUSATE SODIUM 1 EACH TAB PO SCH (21:31)
[2021-07-16] MEDS: MORPHINE SULFATE 2 MG/ML SYRINGE IVP PRN (03:08)
[2021-07-16] MEDS: HYDROcodone/APAP 7.5-325MG 1 EACH TAB PO PRN (05:42)
[2021-07-16] MEDS: LEVOTHYROXINE 125 MCG TAB PO SCH (05:43)
[2021-07-16] MEDS: LACTATED RINGERS 1,000 ML IV SCH ×3 (05:45→08:03)
[2021-07-16] MEDS: LIOTHYRONINE SODIUM 5 MCG TAB PO SCH (08:10)
[2021-07-16] MEDS: FUROSEMIDE 20 MG TAB PO SCH (08:10)
[2021-07-16] MEDS: METOPROLOL SUCCINATE (ER) 25 MG TAB.ER.24H PO SCH (08:10)
[2021-07-16] MEDS: ENOXAPARIN 30 MG/0.3 ML SYRINGE SQ SCH (08:10)
[2021-07-16] MEDS ORDERED: ERGOCALCIFEROL 1,250 MCG (50,000 IU) CAPSULE PO SCH (09:00)
[2021-07-16 09:03] LABS: Basophils % (A) 1 %; Eosinophils # (A) 0.1 k/uL (0-0.7); Eosinophils % (A) 1 %; HCT 37.2 % (34.0-46.0); HGB 11.9 gm/dL (11.4-16.0); Lymphocytes # (A) 1.1 k/uL (1.0-4.8); Lymphocytes % (A) 14 %; MCH 29.9 pg (25.0-35.0); MCV 93.3 fL (80.0-100.0); Mean Platelet Volume 7.5; Monocytes # (A) 0.4 k/uL (0-1.0); Monocytes % (A) 4 %; Neutrophils # (A) 6.4 k/uL (1.3-7.7); Neutrophils % (A) 80 %; Platelet Count 211 k/uL (150-450); RBC 3.99 m/uL (3.80-5.40); RDW 12.6 % (11.5-15.5)
--- NOTE | 2021-07-16 09:09 | P.PN ---
Subjective Progress Note Date: 07/16/21 Principal diagnosis: Status post right total knee arthroplasty Patient was evaluated today at bedside, she is resting comfortably. She's having slight increase in pain in the right knee but overall manageable with current medications. She states that the dizziness has improved. Currently denies any headaches, lightheadedness, chest pain, shortness of breath, nausea or vomiting. Objective - Vital Signs Vital signs: Vital Signs Temp 98.3 F 07/16/21 02:00 Pulse 70 07/16/21 02:00 Resp 16 07/16/21 02:00 BP 124/77 07/16/21 02:00 Pulse Ox 94 L 07/16/21 02:00 Intake & Output 07/15/21 07/16/21 07/16/21 18:59 06:59 18:59 Intake Total 700 Balance 700 Intake: Oral 700 Other: Voiding Method Bedside Commode # Voids 3 4 - Exam Right lower extremity: Incision is clean, dry, and intact. The zach is in good condition. There is minimal soft tissue swelling and ecchymosis surrounding the medial and lateral aspects of the incision. Calf is soft, no tenderness with palpation. Plantar flexion, dorsiflexion, EHL, FHL are intact. Sensory exam to light touch throughout the extremity is intact, dorsal pedis pulses 2+. - Labs CBC & Chem 7: 07/16/21 08:30 07/15/21 04:41 Labs: Abnormal Lab Results - Last 24 Hours (Table) 07/15/21 Range/Units 04:41 Glucose 135 H (74-99) mg/dL Assessment and Plan Assessment: Postoperative day #2 status post right total knee arthroplasty Plan: Pain control, plan for discharge, Lawley 7.5 mg/325 mg and a tapering dose of Lyrica 75 mg DVT prophylaxis, aspirin 81 mg twice a day for 30 days Wound care instructions were discussed, this to include icing and elevating along with showering instructions Home physical therapy and nursing after discharge, this including use of CPM machine Medical recommendations Discharge planning: Patient will be discharged home today Time with Patient: Less than 30
--- NOTE | 2021-07-16 09:14 | P.DS ---
Providers Date of admission: 07/15/21 14:38 Expected date of discharge: 07/16/21 Attending physician: Gustavo Yang Consults: 07/14/21 15:15 Consult Physician Routine Consulting Provider: Lakesha García Consult Reason/Comments: Medical management Do you want consulting provider notified?: Yes Primary care physician: Konrad Perez Hospital Course: Date of admission: 07/15/2021 Date of discharge: 07/16/2021 Admission diagnosis: Status post right total knee arthroplasty Discharge diagnosis: Same Attending physician: Dr. Yang Surgical procedures: Right total knee arthroplasty Brief history: Patient is a 61-year-old female with a history of progressive primary right knee osteoarthritis. At this point patient has failed conservative treatment measures and has opted to proceed with a elective right total knee arthroplasty. Hospital course: Details of patient's surgery can be found in operative report. Patient tolerated the procedure well and was subsequently transported to orthopedic floor. Patient's orthopeidc and medical care was provided daily. Patient had daily laboratory tests performed for evaluation of overall blood counts. Patient had daily physical therapy to include strengthening range of motion as well as education with walker ambulation. Patient was treated with Lovenox for their postoperative DVT prophylaxis during their inpatient stay. Patient was noted to have a relatively uneventful postoperative course. Patient reported satisfactory pain control with oral pain medications by postoperative day 0. Patient showed satisfactory progress with physical therapy. Patient moved steadily through the program and had no difficulty meeting the goals by postoperative day 2. Given patient's otherwise satisfactory course and having met physical therapy goals, plan is to discharge patient [home] on postoperative day 2. Discharge condition/disposition: Patient will be discharged [home] in stable condition. Discharge medications: Instructions are given on resumption of patient's normal daily medications per primary care recommendation, in addition patient will be prescribed [place]hoe 7.5 mg/325 mg, Lyrica 75 mg, Colace 100 mg, aspirin 81 mg Discharge instructions: 1. Wound care and infection precautions, [keep incision dry and covered while showering], no lotions, creams, moisturizers. No soaking, tubs, pools, hottubs. Do not scrub over the incision. 2. Weight-bear as tolerated with walker / cane until follow-up. 3. Ice and elevate when necessary. Do not exceed 20 minutes per hour with ice pack. 4. Utilize compression sleeve until seen at first follow up appointment. 5. Visiting nursing care. 6. Home physical therapy 7. Pain meds and anticoagulants per prescription. 8. Pain medication has potential to cause constipation. Increase oral fluid and fiber intake. Contact primary care provider if you have not had a bowel movement within 48 hours after discharge 9. No anti-inflammatory medication until discussed at first post operative visit, this including Motrin, Aleve, Mobic, Diclofenac. 10. Follow up in office at 2 weeks postop with Feng Serrano PA-C/Carl Doyle 11. Follow up with your primary care doctor 7-10 days after discharge. 12. Contact [facility] with any questions, . Procedures: Right total knee arthroplasty Patient Condition at Discharge: Good Plan - Discharge Summary Discharge Rx Participant: Yes New Discharge Prescriptions: New Docusate [Colace] 100 mg PO DAILY #30 cap Aspirin [Adult Low Dose Aspirin EC] 81 mg PO BID #60 tab Pregabalin [Lyrica] 75 mg PO BID 14 Days #21 cap HYDROcodone/APAP 7.5-325MG [Ivanhoe 7.5] 1 - 2 each PO Q6HR PRN #42 tab PRN Reason: Pain Discontinued Aspirin EC [Ecotrin Low Dose] 81 mg PO DAILY #30 tablet.dr Mooney Action Nitroglycerin Sl Tabs [Nitrostat] 0.4 mg SUBLINGUAL Q5M PRN #25 tab PRN Reason: Chest Pain Levothyroxine Sodium 125 mcg PO DAILY Liothyronine Sodium [Cytomel] 10 - 15 mcg PO DAILY Ergocalciferol [Vitamin D2 (1250 Mcg = 67529 Iu)] 1,250 mcg PO SUWE Omeprazole Magnesium [PriLOSEC] 20 mg PO BID PRN PRN Reason: Heartburn Metoprolol Succinate (ER) [Toprol XL] 25 mg PO BID #60 tab.er.24h Furosemide [Lasix] 20 mg PO DAILY #90 tab Discharge Medication List Nitroglycerin Sl Tabs [Nitrostat] 0.4 mg SUBLINGUAL Q5M PRN #25 tab 03/15/14 [Rx] Levothyroxine Sodium 125 mcg PO DAILY 04/19/20 [History] Liothyronine Sodium [Cytomel] 10 - 15 mcg PO DAILY 07/08/20 [History] Ergocalciferol [Vitamin D2 (1250 Mcg = 20343 Iu)] 1,250 mcg PO SUWE 02/27/21 [History] Omeprazole Magnesium [PriLOSEC] 20 mg PO BID PRN 02/27/21 [History] Metoprolol Succinate (ER) [Toprol XL] 25 mg PO BID #60 tab.er.24h 02/28/21 [Rx] Furosemide [Lasix] 20 mg PO DAILY #90 tab 03/13/21 [Rx] Aspirin [Adult Low Dose Aspirin EC] 81 mg PO BID #60 tab 07/16/21 [Rx] Docusate [Colace] 100 mg PO DAILY #30 cap 07/16/21 [Rx] HYDROcodone/APAP 7.5-325MG [Ivanhoe 7.5] 1 - 2 each PO Q6HR PRN #42 tab 07/16/21 [Rx] Pregabalin [Lyrica] 75 mg PO BID 14 Days #21 cap 07/16/21 [Rx] Follow up Appointment(s)/Referral(s): Konrad Perez MD [Primary Care Provider] - 07/23/21 11:00 am [facility],Equipment [NON-STAFF] - (*Please call [facility] once home to arrange delivery of the Continuous Passive Motion (CPM) machine. ) Gustavo Yang DO [Doctor of Osteopathic Medicine] - 08/01/21 8:40 am [facility], [NON-STAFF] - ([facility] will call you to schedule your visits. ) Activity/Diet/Wound Care/Special Instructions: Orthopedic Discharge Instructions: 1. Wound care and infection precautions, keep incision dry and covered while showering, no lotions, creams, moisturizers. No soaking, pools, hot tubs. Do not scrub over incision. 2. Weight-bear as tolerated with walker / cane until follow-up. 3. Ice and elevate when necessary. Do not exceed 20 minutes per hour with ice pack. 4. Utilize compression sleeve until seen at first follow up appointment. 5. Pain meds and anticoagulants per prescription. 6. Pain medication has potential to cause constipation. Increase oral fluid and fiber intake. Contact primary care provider if you have not had a bowel movement within 48 hours after discharge. 7. No anti-inflammatory medication until discussed at first post operative visit, this including Motrin, Aleve, Mobic, Diclofenac. 8. Follow up in office at 2 weeks postop with Feng Serrano PA-C/Carl Iniguez PA-C 9. Follow up with your primary care doctor 7-10 days after discharge. 10. Contact [facility] with any questions, . Discharge Disposition: HOME WITH HOME HEALTH SERVICES
[2021-07-16 09:22] VITALS: BP 113/80; PULSE 85; RESP 18; TEMP 98.7
[2021-07-16 09:25] LABS: African American GFR (CKD) >90 (>60 ml/min/1.73 sqM); Anion Gap 5 mmol/L; Blood Urea Nitrogen 15 mg/dL (7-17); Calcium 8.3 mg/dL (8.4-10.2); Carbon Dioxide 29 mmol/L (22-30); Chloride 102 mmol/L (98-107); Glucose 159 mg/dL (74-99); Non-African American GFR(CKD) 88 (>60 ml/min/1.73 sqM); Potassium 3.7 mmol/L (3.5-5.1); Sodium 136 mmol/L (137-145)
== END 2021-07-16 12:58 | disposition home health service (06) ==
LOC: OR 11:21 → 1SOBS 15:07 → OR 07-15 14:38 → 1SOBS 07-15 14:38
PROVIDERS: ADMIT Orthopaedic Surgery; ATTEND Orthopaedic Surgery
DX: M17.11 Unilateral primary osteoarthritis, right knee (principal); I10 Essential (primary) hypertension; E89.0 Postprocedural hypothyroidism; G89.18 Other acute postprocedural pain; R42 Dizziness and giddiness; I25.10 Atherosclerotic heart disease of native coronary artery without angina pectoris; J44.9 Chronic obstructive pulmonary disease, unspecified; M79.7 Fibromyalgia; K21.9 Gastro-esophageal reflux disease without esophagitis; E55.9 Vitamin D deficiency, unspecified; I25.2 Old myocardial infarction; F41.9 Anxiety disorder, unspecified; F32.9 Major depressive disorder, single episode, unspecified; Z20.822 Contact with and (suspected) exposure to COVID-19; Z79.82 Long term (current) use of aspirin; Z79.890 Hormone replacement therapy; Z79.899 Other long term (current) drug therapy; Z85.850 Personal history of malignant neoplasm of thyroid; Z87.891 Personal history of nicotine dependence; Z87.19 Personal history of other diseases of the digestive system; Z87.09 Personal history of other diseases of the respiratory system; Z90.710 Acquired absence of both cervix and uterus; Z98.1 Arthrodesis status; Z88.0 Allergy status to penicillin; Z88.1 Allergy status to other antibiotic agents; Z91.030 Bee allergy status; Z88.5 Allergy status to narcotic agent; Z88.8 Allergy status to other drugs, medicaments and biological substances; Z91.048 Other nonmedicinal substance allergy status; Z82.61 Family history of arthritis; Z82.49 Family history of ischemic heart disease and other diseases of the circulatory system; Z83.49 Family history of other endocrine, nutritional and metabolic diseases; Z84.1 Family history of disorders of kidney and ureter
CPT/HCPCS: 27447; 97116; 97161; 64999; 64448; 76942; 88305; 80048 ×2; 85025 ×2; 88311; 87635; 73560; G0378 ×2; C1776; C1713 ×2; J2250; J1100; J2405 ×2; J3010; J1650 ×3; J2270 ×2; J1170; J2795 ×2; J2704

== ENCOUNTER 2021-09-01 11:35 | Day surgery (SDC) | payer MEDICARE, OTHER ==
[2021-08-28 11:13] VITALS: BMI 35.7
--- NOTE | 2021-08-31 12:06 | HP ---
HISTORY AND PHYSICAL REASON FOR ADMISSION: Surgery scheduled 09/01/2021 HISTORY OF PRESENT ILLNESS: Sofia Cummings is a 61-year-old patient who had previously undergone right total knee arthroplasty on 07/14/2021. She is known to have some persistence of irritation to the incision with probable sterile suture abscess. We discussed revision of the incision with debridement. She was agreeable. Consent was obtained. PAST MEDICAL HISTORY: Hypertension, hypothyroidism. PAST SURGICAL HISTORY: Right total knee arthroplasty. DAILY MEDICATIONS: Aspirin, metoprolol, Synthroid. ALLERGIES: PENICILLIN, LEVAQUIN. SOCIAL HISTORY: She denies tobacco use. PHYSICAL EVALUATION OF THE RIGHT KNEE: She has a well-healed incision with some irritation noted along the proximal area, which is somewhat raised and swollen. There is some irritation distally at the incision area with fullness in the examination. Her range of motion 0-95 with no pain. There is no effusion present. There is no evidence for any ongoing deep infected process. RADIOGRAPHS: Radiographs of the right knee revealed a stable appearing total knee arthroplasty. IMPRESSION: 1. Right knee sterile suture abscess. 2. History of right total knee arthroplasty. 3. Hypertension. 4. Hypothyroidism. PLAN: Irrigation and debridement with secondary wound closure, right knee. Surgery is scheduled 09/01/2021. MMODL / IJN: [id number] /
[~2021-09-01 11:35] MED LIST changes: +.fentaNYL (PF) 50 MCG/ML 2 ML AMP IV PRN; -ACETAMINOPHEN TAB 500 MG TAB PO PRN; -CLINDAMYCIN 900 MG in DEXTROSE 5% IN WATER 50 ML IVPB PRN; +LACTATED RINGERS 1,000 ML IV SCH; -LIDOCAINE 1% (10MG/ML) FOR IV START INTRADERMA PRN; -MELOXICAM 7.5 MG TAB PO PRN; -MIDAZOLAM 2 MG/2 ML VIAL IV PRN; -TRANEXAMIC ACID 1,000 MG in SODIUM CHLORIDE 0.9% 100 ML IVPB PRN; +VANCOMYCIN 1,500 MG in SODIUM CHLORIDE 0.9% 250 ML IVPB PRN
[2021-09-01 12:01] VITALS: TEMP 97.1
[2021-09-01] MEDS ORDERED: LACTATED RINGERS 1,000 ML IV ONE (12:01)
[2021-09-01] MEDS ORDERED: PROPOFOL 10 MG/ML 20 ML VIAL IV ONE (12:17)
[2021-09-01] MEDS ORDERED: MIDAZOLAM 2 MG/2 ML VIAL ONE (12:17)
[2021-09-01] MEDS ORDERED: .fentaNYL (PF) 50 MCG/ML 2 ML AMP ONE (12:17)
[2021-09-01] MEDS ORDERED: SUCCINYLCHOLINE CHLORIDE 100 MG/5 ML SYR IV ONE (12:17)
[2021-09-01] MEDS ORDERED: LIDOCAINE 1% INJ 10MG/ML (20 ML MDV) ONE (12:17)
[2021-09-01] MEDS ORDERED: SCOPOLAMINE 1.5MG/72HR PATCH TRANSDERM ONE (12:17)
[2021-09-01] MEDS ORDERED: BUPIVACAINE (PF) 0.25% 30 ML VIAL SQ ONE (12:20)
[2021-09-01] MEDS ORDERED: CLINDAMYCIN 600 MG in SODIUM CHLORIDE 0.9% 1,000 ML IRRIGATION ONE (12:42)
--- NOTE | 2021-09-01 13:09 | P.OP ---
Date of Procedure: 09/01/21 Preoperative Diagnosis: Right knee sterile suture abscess Postoperative Diagnosis: Same Procedure(s) Performed: Incisional debridement with revision right knee incision Anesthesia: GAETANO, local Surgeon: Gustavo Yang Estimated Blood Loss (ml): 7 Pathology: none sent Condition: stable Disposition: PACU Indications for Procedure: 61-year-old patient seen with probable right knee sterile suture abscess with history of previous total knee arthroplasty. We discussed incision with irrigation debridement and revision of the incision, she was agreeable. Consent was obtained. Operative Findings: See description of procedure Description of Procedure: The patient was taken to the operative suite after having been given preoperative IV antibiotics. She underwent a general anesthetic by the department of anesthesia. Well-padded tourniquet placed proximal right lower extremity. The right lower extremity was prepped and draped in the normal sterile orthopedic fashion. I elevated the extremity and split the tourniquet t o 300. I now made an incision utilizing a 15 blade along the medial aspect the proximal incision measuring approximately 5 cm. I noted abundant scar tissue to throughout the scar. Utilizing a 15 blade a now completely excise that scarred area of incision and probable sterile suture abscess in the subcutaneous soft tissues area. I performed a similar incisional debridement about 1 cm along the distal end of the incision is well involving the subcutaneous tissues. I now explore the subcu soft tissues appeared normal. There was evidence for any infective process. I irrigated both wounds out copiously with irrigant. I now repaired both the incisions with #3 nylon. I infiltrated the subcu soft tissues with quarter percent plain Marcaine totaling 20 mL. I applied sterile dressings. Tourniquet released with immediate capillary refill the extremity noted. Sterile dressings and Bora bandage were applied. The patient was awakened and transferred to a bed and recovery stable condition.
[2021-09-01] MEDS ORDERED: HYDROcodone/APAP 7.5-325MG 1 EACH TAB ONE (15:03)
[2021-09-01] MEDS ORDERED: HYDROcodone/APAP 7.5-325MG 1 EACH TAB PO ONE (15:07)
[2021-09-01 16:09] VITALS: BP 126/87; PULSE 64; RESP 16
== END 2021-09-01 16:44 | disposition home or self-care (01) ==
LOC: OR 11:35
PROVIDERS: ATTEND Orthopaedic Surgery
DX: T81.41XA Infection following a procedure, superficial incisional surgical site, initial encounter (principal); L02.415 Cutaneous abscess of right lower limb; I10 Essential (primary) hypertension; E03.9 Hypothyroidism, unspecified; I25.10 Atherosclerotic heart disease of native coronary artery without angina pectoris; J44.9 Chronic obstructive pulmonary disease, unspecified; M19.90 Unspecified osteoarthritis, unspecified site; M79.7 Fibromyalgia; K21.9 Gastro-esophageal reflux disease without esophagitis; I25.2 Old myocardial infarction; Z79.891 Long term (current) use of opiate analgesic; Z98.890 Other specified postprocedural states; Z79.82 Long term (current) use of aspirin; Z79.890 Hormone replacement therapy; Z88.1 Allergy status to other antibiotic agents; Z88.0 Allergy status to penicillin; Z88.5 Allergy status to narcotic agent; Z88.8 Allergy status to other drugs, medicaments and biological substances; Z79.899 Other long term (current) drug therapy
CPT/HCPCS: 11042; J2250; J3370; J1100; J2405; J2001; J3010; J0330; J2704

== ENCOUNTER 2021-09-03 13:28 | Emergency (ER) | payer MEDICARE, OTHER ==
[2021-09-03 13:44] VITALS: TEMP 98.4
[2021-09-03] MEDS ORDERED: HYDROcodone/APAP 7.5-325MG 1 EACH TAB PO ONE (14:14)
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
[2021-09-03 14:38] LABS: Appearance,Urine Clear (Clear); Bilirubin,Urine Negative (Negative); Blood,Urine Negative (Negative); Color,Urine Light Yellow; Glucose,Urine (UA) Negative (Negative); Ketones,Urine Negative (Negative); Leukocyte Esterase,Urine Negative (Negative); Nitrite,Urine Negative (Negative); Protein,Urine Negative (Negative); Specific Gravity,Urine 1.005 (1.001-1.035); Urobilinogen,Urine <2.0 mg/dL (<2.0)
[2021-09-03 14:38] LABS: Basophils # (A) 0.1 k/uL (0-0.2); Basophils % (A) 1 %; Eosinophils # (A) 0.2 k/uL (0-0.7); Eosinophils % (A) 3 %; HCT 41.9 % (34.0-46.0); HGB 13.6 gm/dL (11.4-16.0); Lymphocytes # (A) 1.6 k/uL (1.0-4.8); Lymphocytes % (A) 23 %; MCH 30.2 pg (25.0-35.0); MCHC 32.4 g/dL (31.0-37.0); MCV 93.1 fL (80.0-100.0); Mean Platelet Volume 7.3; Monocytes # (A) 0.3 k/uL (0-1.0); Monocytes % (A) 5 %; Neutrophils # (A) 4.7 k/uL (1.3-7.7); Neutrophils % (A) 67 %; Platelet Count 263 k/uL (150-450); RDW 12.6 % (11.5-15.5)
[2021-09-03 14:47] LABS: ALT 17 U/L (4-34); AST 37 U/L (14-36); African American GFR (CKD) >90 (>60 ml/min/1.73 sqM); Albumin 4.3 g/dL (3.5-5.0); Alkaline Phosphatase 87 U/L (38-126); Anion Gap 9 mmol/L; Blood Urea Nitrogen 21 mg/dL (7-17); Calcium 9.3 mg/dL (8.4-10.2); Carbon Dioxide 26 mmol/L (22-30); Chloride 102 mmol/L (98-107); Glucose 90 mg/dL (74-99); Magnesium 1.8 mg/dL (1.6-2.3); Non-African American GFR(CKD) 87 (>60 ml/min/1.73 sqM); Sodium 137 mmol/L (137-145); Total Bilirubin 0.7 mg/dL (0.2-1.3); Total Protein 7.3 g/dL (6.3-8.2)
[2021-09-03 14:51] LABS: Potassium 5.1 mmol/L (3.5-5.1)
[2021-09-03 15:00] LABS: Partial Thromboplastin Time 22.1 sec (22.0-30.0); Prothrombin Time 10.6 sec (9.0-12.0)
--- NOTE | 2021-09-03 15:06 | XR ---
EXAMINATION TYPE: XR chest 2V DATE OF EXAM: 09/03/2021 COMPARISON: 02/27/2021 TECHNIQUE: PA and lateral views submitted. HISTORY: Chest pain FINDINGS: The lungs are clear and there is no pneumothorax, pleural effusion, or focal pneumonia. Hypertrophi c and degenerative change of the spine. Postsurgical change overlying the cervical spine. Arthropathy of the shoulders. No overt failure. There is a vague 8 mm nodule in the left upper lobe. IMPRESSION: 1. No acute process. Vague 8 mm nodule left upper lobe recommend CT scan of the chest.
--- NOTE | 2021-09-03 16:01 | CT ---
EXAMINATION TYPE: CT chest angio for PE DATE OF EXAM: 09/03/2021 COMPARISON: Chest x-ray 09/03/2021 HISTORY: Shortness of breath and chest pain post knee surgery CT DLP: 561.5 mGycm Automated exposure control for dose reduction was used. CONTRAST: CT Chest for pulmonary embolism performed with with IV Contrast, patient injected with 100 mL of Isov ue 370. FINDINGS: LUNGS: The lungs are grossly clear, there is no concerning parenchymal mass or nodule identified. T here is no pleural effusion or pneumothorax seen. The tracheobronchial tree is patent. MEDIASTINUM: There is satisfactory enhancement of the pulmonary artery and its branches, there is no CT evidence for pulmonary embolism. There are no greater than 1 cm hilar or mediastinal lymph nodes. No pericardial effusion is seen. AORTA: No additional significant abnormality is seen. OTHER: There is a small hiatal hernia present. Postop changes noted to the cervical spine. IMPRESSION: No evident pulmonary embolus.
[2021-09-03 16:29] VITALS: BP 122/70; PULSE 56; RESP 18
== END 2021-09-03 19:24 | disposition home or self-care (01) ==
LOC: EC 13:28
DX: R07.9 Chest pain, unspecified (principal); R10.9 Unspecified abdominal pain; Z20.822 Contact with and (suspected) exposure to COVID-19; I25.2 Old myocardial infarction; I10 Essential (primary) hypertension; K21.9 Gastro-esophageal reflux disease without esophagitis; Z79.899 Other long term (current) drug therapy; Z91.09 Other allergy status, other than to drugs and biological substances; Z88.0 Allergy status to penicillin; Z91.030 Bee allergy status; Z88.8 Allergy status to other drugs, medicaments and biological substances; Z79.890 Hormone replacement therapy; E07.9 Disorder of thyroid, unspecified; Z79.82 Long term (current) use of aspirin; M19.90 Unspecified osteoarthritis, unspecified site; J44.9 Chronic obstructive pulmonary disease, unspecified; Z95.5 Presence of coronary angioplasty implant and graft
CPT/HCPCS: 36415; 93005; 85379; 83880; 80053; 83735; 84484; 85025; 85610; 85730; 81003; 87635; 71046; 71275; 99285; Q9967

== ENCOUNTER 2021-09-29 13:00 | Emergency (ER) | payer MEDICARE, OTHER ==
[2021-09-29 14:05] VITALS: TEMP 97.4
[2021-09-29] MEDS ORDERED: SODIUM CHLORIDE 0.9% 500 ML 500 ML IV STA (15:00)
--- NOTE | 2021-09-29 15:10 | US ---
EXAMINATION TYPE: US venous doppler duplex LE RT DATE OF EXAM: 09/29/2021 2:56 PM COMPARISON: US 2019 CLINICAL HISTORY: Rule out DVT. Right leg pain, SOB SIDE PERFORMED: Right TECHNIQUE: The lower extremity deep venous system is examined utilizing real time linear array sonog nahomy with graded compression, doppler sonography and color-flow sonography. VESSELS IMAGED: Common Femoral Vein Deep Femoral Vein Greater Saphenous Vein * Femoral Vein Popliteal Vein Small Saphenous Vein * Proximal Calf Veins (* superficial vessels) Right Leg: Appears negative for DVT Grayscale, color doppler, spectral doppler imaging performed of the deep veins of the right lower ext remity. There is normal flow, compressibility, vascular waveforms. IMPRESSION: No ultrasound evidence for acute DVT in the right lower extremity. No significant change from prior study.
--- NOTE | 2021-09-29 15:34 | XR ---
EXAMINATION TYPE: XR chest 2V DATE OF EXAM: 09/29/2021 COMPARISON: Chest x-ray 09/03/2021 HISTORY: Shortness of breath, difficulty breathing TECHNIQUE: Frontal and lateral views of the chest are obtained. FINDINGS: There is no focal air space opacity, pleural effusion, or pneumothorax seen. The cardiac silhouette size is within normal limits. The osseous structures are intact, postop changes are note d to the cervical spine as on prior. There is eventration of right hemidiaphragm. Right hemidiaphragm is elevated. IMPRESSION: No acute cardiopulmonary process.
[2021-09-29 15:39] LABS: Basophils # (A) 0.1 k/uL (0-0.2); Basophils % (A) 1 %; Eosinophils # (A) 0.4 k/uL (0-0.7); Eosinophils % (A) 4 %; HCT 40.8 % (34.0-46.0); HGB 13.1 gm/dL (11.4-16.0); Lymphocytes # (A) 1.4 k/uL (1.0-4.8); Lymphocytes % (A) 17 %; MCH 28.9 pg (25.0-35.0); MCHC 32.2 g/dL (31.0-37.0); MCV 89.6 fL (80.0-100.0); Mean Platelet Volume 7.4; Monocytes # (A) 0.3 k/uL (0-1.0); Monocytes % (A) 4 %; Neutrophils # (A) 5.9 k/uL (1.3-7.7); Neutrophils % (A) 73 %; Platelet Count 300 k/uL (150-450); RBC 4.55 m/uL (3.80-5.40); RDW 12.1 % (11.5-15.5)
[2021-09-29 15:54] LABS: ALT 15 U/L (4-34); African American GFR (CKD) >90 (>60 ml/min/1.73 sqM); Anion Gap 10 mmol/L; Blood Urea Nitrogen 17 mg/dL (7-17); Calcium 9.3 mg/dL (8.4-10.2); Carbon Dioxide 24 mmol/L (22-30); Chloride 104 mmol/L (98-107); Glucose 99 mg/dL (74-99); Non-African American GFR(CKD) >90 (>60 ml/min/1.73 sqM); Sodium 138 mmol/L (137-145); Total Bilirubin 0.6 mg/dL (0.2-1.3)
[2021-09-29 15:56] LABS: AST 24 U/L (14-36); Magnesium 1.9 mg/dL (1.6-2.3); Partial Thromboplastin Time 22.5 sec (22.0-30.0); Potassium 4.5 mmol/L (3.5-5.1); Prothrombin Time 10.4 sec (9.0-12.0)
[2021-09-29 15:57] LABS: Alkaline Phosphatase 98 U/L (38-126)
--- NOTE | 2021-09-29 16:07 | ED ---
General Adult HPI - General Chief complaint: Shortness of Breath Stated complaint: possible blood clots, SOB Time Seen by Provider: 09/29/21 14:08 Source: patient Mode of arrival: ambulatory Limitations: no limitations - History of Present Illness Initial comments: This is a 61-year-old female with a past medical history of an PR who presents to the emergency department after going to her orthopedic doctor who was concerned for a DVT. Patient states she has surgery on her right knee on September 01. Patient states her right lower leg has been swollen for the last day. She states it was warm yesterday but denies any erythema. She states she has also had shortness of breath for the last day. She states over the last 24 hours she also has noticed colicky right lower back pain that intermittently radiates to her right side of her stomach. Patient denies nausea, vomiting, headache, change in vision dizziness, or chest pain. - Related Data Home Medications Medication Instructions Recorded Confirmed Levothyroxine Sodium 125 mcg PO DAILY 04/19/20 09/29/21 Liothyronine Sodium [Cytomel] 10 mcg PO DAILY 07/08/20 09/29/21 Ergocalciferol [Vitamin D2 (1250 1,250 mcg PO SUWE 02/27/21 09/29/21 Mcg = 30312 Iu)] Omeprazole Magnesium [PriLOSEC] 20 mg PO DAILY 02/27/21 09/29/21 Aspirin [Adult Low Dose Aspirin EC] 81 mg PO DAILY 09/03/21 09/29/21 Furosemide [Lasix] 20 mg PO DAILY 09/03/21 09/29/21 HYDROcodone/APAP 7.5-325MG [[place] 1 - 2 tab PO Q6HR PRN 09/03/21 09/29/21 7.5] Previous Rx's Medication Instructions Recorded Nitroglycerin Sl Tabs [Nitrostat] 0.4 mg SUBLINGUAL Q5M PRN #25 tab 03/15/14 Metoprolol Succinate (ER) [Toprol 25 mg PO BID #60 tab.er.24h 02/28/21 XL] Allergies Allergy/AdvReac Type Severity Reaction Status Date / Time Penicillins Allergy Severe Anaphylaxis Verified 09/29/21 16:14 Quinolones Allergy Severe Unknown Verified 09/29/21 16:14 venom-honey bee Allergy Severe Anaphylaxis Verified 09/29/21 16:14 adhesive tape Allergy Unknown Verified 09/29/21 16:14 levofloxacin [From Levaquin] AdvReac Severe BRAIN STEM Verified 09/29/21 16:14 SEIZURE hydromorphone [From Dilaudid] AdvReac Nausea & Verified 09/29/21 16:14 Vomiting iopamidol [From Isovue-128] AdvReac Nausea & Verified 09/29/21 16:14 Vomiting pravastatin [From Pravachol] AdvReac LEG CRAMPS Verified 09/29/21 16:14 Review of Systems ROS Statement: Those systems with pertinent positive or pertinent negative responses have been documented in the HPI. ROS Other: All systems not noted in ROS Statement are negative. Past Medical History Past Medical History: Coronary Artery Disease (CAD), Cancer, Chest Pain / Angina, COPD, Fibromyalgia, GERD/Reflux, GI Bleed, Hypertension, Myocardial Infarction (PR), Osteoarthritis (OA), Skin Disorder, Thyroid Disorder Additional Past Medical History / Comment(s): Diverticulitis, upper and lower GI bleed, MRI showed small strokes or migraines per pt as well as spots-recommended to have spinal tap but pt declined, bronchitis, past cervical neuropathy/stenosis/myelopathy with numbness and pain in bilateral hands but had cervical surgery and not a problem anymore-does have some decreased ROM with neck and spasms of neck occasionally, occasional vertigo, thyroidectomy d/t cancer, recent hospitalization for chest pain, rash R knee. Last Myocardial Infarction Date:: 03/09/14 History of Any Multi-Drug Resistant Organisms: None Reported Past Surgical History: Breast Surgery, Heart Catheterization, Hysterectomy, Orthopedic Surgery, Tubal Ligation Additional Past Surgical History / Comment(s): Multiple colonoscopies, egds, R partial thyroidectomy/multiple thyroid bxs then total thyroidectomy d/t cancer, L side neck mass removed, R breast benign bx, cardiac cath-unable to deploy a stent, cervical discectomy/fusions, L carpal tunnel releases, R knee arthroscopic surgeries, R knee replacement. Past Anesthesia/Blood Transfusion Reactions: Previous Problems w/ Anesthesia Additional Past Anesthesia/Blood Transfusion Reaction / Comment(s): STATES B/P WAS LOW POST OP RT THYROIDECTOMY-mostly related to narcotic pain meds. HISTORY OF CLAUSTROPHOBIA, states did fine with her anesthesia from her R knee replacement. Past Psychological History: Anxiety, Depression Smoking Status: Former smoker Past Alcohol Use History: None Reported Past Drug Use History: None Reported - Past Family History Father Family Medical History: Osteoarthritis (OA) Additional Family Medical History / Comment(s): Father is living Mother Family Medical History: AFIB, Renal Disease, Thyroid Disorder Additional Family Medical History / Comment(s): Mother is living. Hypothyroidism. Bladder issues/kidney stones. Nerve damage in legs General Exam Limitations: no limitations General appearance: alert, in no apparent distress Head exam: Present: atraumatic, normocephalic, normal inspection Eye exam: Present: normal appearance, EOMI ENT exam: Present: normal exam, mucous membranes moist Neck exam: Present: normal inspection Respiratory exam: Present: normal lung sounds bilaterally. Absent: respiratory distress, wheezes, rales, rhonchi, stridor, chest wall tenderness, accessory muscle use, decreased breath sounds Cardiovascular Exam: Present: regular rate, normal rhythm, normal heart sounds. Absent: systolic murmur, diastolic murmur, rubs, gallop, clicks GI/Abdominal exam: Present: soft, normal bowel sounds. Absent: distended, tenderness, guarding, rebound, rigid Extremities exam: Present: full ROM, normal capillary refill, other (Right calf swollen. No erythema or warmth). Absent: joint swelling Back exam: Present: normal inspection, full ROM. Absent: tenderness, CVA tenderness (R), CVA tenderness (L), vertebral tenderness Neurological exam: Present: alert, oriented X3, CN II-XII intact Psychiatric exam: Present: normal affect, normal mood Skin exam: Present: warm, dry, intact, normal color. Absent: rash Course Vital Signs 09/29/21 13:59 Temperature 97.4 F L Pulse Rate 65 Respiratory 20 Rate Blood Pressure 159/72 O2 Sat by Pulse 98 Oximetry EKG Findings - EKG Comments: EKG Findings:: EKG: Sinus bradycardia with occasional PVCs. Ventricular rate 56 bpm. IA interval 126ms. QRS duration 84ms. QT/QTc 400/386ms. No ST e levations or depressions noted. Medical Decision Making - Medical Decision Making This 61-year-old female presents to the emergency department who was sent here from her orthopedic outpatient doctor's appointment with right calf swelling and warmth, shortness of breath, right lower back pain radiating to right lower/upper quadrants of abdomen 24 hours. Patient states she had a right knee operation on September 01. Labs revealed d-dimer of 1.58. Urine showed moderate blood. Troponin was negative. Chest x-ray with no acute pulmonary proc ess. Venous Doppler of right leg showed no acute DVT of right lower extremity. No significant changes from prior study noted. CT abdomen and pelvis impression: There is moderate sigmoid diverticulosis without diverticulitis. No adverse change compared to old exam. Normal appendix. Normal renal excretion. CTA: Negative exam. No evidence of pulmonary embolism. Thoracic aorta intact. No adverse change compared to old exam. Return precautions given. Patient sent home in stable condition to follow up with primary care provider in next 1-2 days. - Lab Data Result diagrams: 09/29/21 15:34 09/29/21 15:34 Lab Results 09/29/21 09/29/21 09/29/21 Range/Units 15:02 15:34 15:34 WBC 8.0 (3.8-10.6) k/uL RBC 4.55 (3.80-5.40) m/uL Hgb 13.1 (11.4-16.0) gm/dL Hct 40.8 (34.0-46.0) % MCV 89.6 (80.0-100.0) fL MCH 28.9 (25.0-35.0) pg MCHC 32.2 (31.0-37.0) g/dL RDW 12.1 (11.5-15.5) % Plt Count 300 (150-450) k/uL MPV 7.4 Neutrophils % 73 % Lymphocytes % 17 % Monocytes % 4 % Eosinophils % 4 % Basophils % 1 % Neutrophils # 5.9 (1.3-7.7) k/uL Lymphocytes # 1.4 (1.0-4.8) k/uL Monocytes # 0.3 (0-1.0) k/uL Eosinophils # 0.4 (0-0.7) k/uL Basophils # 0.1 (0-0.2) k/uL PT 10.4 (9.0-12.0) sec INR 1.0 (<1.2) APTT 22.5 (22.0-30.0) sec D-Dimer 1.58 H (<0.60) mg/L FEU Sodium (137-145) mmol/L Potassium (3.5-5.1) mmol/L Chloride (98-107) mmol/L Carbon Dioxide (22-30) mmol/L Anion Gap mmol/L BUN (7-17) mg/dL Creatinine (0.52-1.04) mg/dL Est GFR (CKD-EPI)AfAm (>60 ml/min/1.73 sqM) Est GFR (CKD-EPI)NonAf (>60 ml/min/1.73 sqM) Glucose (74-99) mg/dL Plasma Lactic Acid Grupo (0.7-2.0) mmol/L Calcium (8.4-10.2) mg/dL Magnesium (1.6-2.3) mg/dL Total Bilirubin (0.2-1.3) mg/dL AST (14-36) U/L ALT (4-34) U/L Alkaline Phosphatase (38-126) U/L Troponin I (0.000-0.034) ng/mL Total Protein (6.3-8.2) g/dL Albumin (3.5-5.0) g/dL Urine Color Yellow Urine Appearance Cloudy H (Clear) Urine pH 5.0 (5.0-8.0) Ur Specific [place] 1.023 (1.001-1.035) Urine Protein Negative (Negative) Urine Glucose (UA) Negative (Negative) Urine Ketones Negative (Negative) Urine Blood Moderate H (Negative) Urine Nitrite Negative (Negative) Urine Bilirubin Negative (Negative) Urine Urobilinogen <2.0 (<2.0) mg/dL Ur Leukocyte Esterase Small H (Negative) Urine RBC 2 (0-5) /hpf Urine WBC 2 (0-5) /hpf Ur Squamous Epith Cells 15 H (0-4) /hpf Urine Bacteria Few H (None) /hpf Urine Mucus Few H (None) /hpf 09/29/21 09/29/21 09/29/21 Range/Units 15:34 15:34 15:34 WBC (3.8-10.6) k/uL RBC (3.80-5.40) m/uL Hgb (11.4-16.0) gm/dL Hct (34.0-46.0) % MCV (80.0-100.0) fL MCH (25.0-35.0) pg MCHC (31.0-37.0) g/dL RDW (11.5-15.5) % Plt Count (150-450) k/uL MPV Neutrophils % % Lymphocytes % % Monocytes % % Eosinophils % % Basophils % % Neutrophils # (1.3-7.7) k/uL Lymphocytes # (1.0-4.8) k/uL Monocytes # (0-1.0) k/uL Eosinophils # (0-0.7) k/uL Basophils # (0-0.2) k/uL PT (9.0-12.0) sec INR (<1.2) APTT (22.0-30.0) sec D-Dimer (<0.60) mg/L FEU Sodium 138 (137-145) mmol/L Potassium 4.5 (3.5-5.1) mmol/L Chloride 104 (98-107) mmol/L Carbon Dioxide 24 (22-30) mmol/L Anion Gap 10 mmol/L BUN 17 (7-17) mg/dL Creatinine 0.64 (0.52-1.04) mg/dL Est GFR (CKD-EPI)AfAm >90 (>60 ml/min/1.73 sqM) Est GFR (CKD-EPI)NonAf >90 (>60 ml/min/1.73 sqM) Glucose 99 (74-99) mg/dL Plasma Lactic Acid Grupo 0.6 L (0.7-2.0) mmol/L Calcium 9.3 (8.4-10.2) mg/dL Magnesium 1.9 (1.6-2.3) mg/dL Total Bilirubin 0.6 (0.2-1.3) mg/dL AST 24 (14-36) U/L ALT 15 (4-34) U/L Alkaline Phosphatase 98 (38-126) U/L Troponin I <0.012 (0.000-0.034) ng/mL Total Protein 7.0 (6.3-8.2) g/dL Albumin 4.0 (3.5-5.0) g/dL Urine Color Urine Appearance (Clear) Urine pH (5.0-8.0) Ur Specific [place] (1.001-1.035) Urine Protein (Negative) Urine Glucose (UA) (Negative) Urine Ketones (Negative) Urine Blood (Negative) Urine Nitrite (Negative) Urine Bilirubin (Negative) Urine Urobilinogen (<2.0) mg/dL Ur Leukocyte Esterase (Negative) Urine RBC (0-5) /hpf Urine WBC (0-5) /hpf Ur Squamous Epith Cells (0-4) /hpf Urine Bacteria (None) /hpf Urine Mucus (None) /hpf Disposition Clinical Impression: Shortness of breath Disposition: HOME SELF-CARE Condition: Stable Instructions (If sedation given, give patient instructions): Dyspnea (ED) Additional Instructions: Please return to the emergency department if any new or worsening symptoms occur. Follow-up with primary care provider in next 1-2 days. Can get pulse oximeter from [facility] and return to emergency department if oxygen is less than 90%. Is patient prescribed a controlled substance at d/c from ED?: No Referrals: Konrad Perez MD [Primary Care Provider] - 1-2 days Time of Disposition: 17:40
[2021-09-29 16:08] LABS: Appearance,Urine Cloudy (Clear); Bacteria,Urine Few /hpf; Bilirubin,Urine Negative (Negative); Blood,Urine Moderate (Negative); Color,Urine Yellow; Glucose,Urine (UA) Negative (Negative); Ketones,Urine Negative (Negative); Leukocyte Esterase,Urine Small (Negative); Mucus,Urine Few /hpf; Nitrite,Urine Negative (Negative); Protein,Urine Negative (Negative); RBC,Urine 2 /hpf (0-5); Specific Gravity,Urine 1.023 (1.001-1.035); Squamous Epithelial Cell,Urine 15 /hpf (0-4); Urobilinogen,Urine <2.0 mg/dL (<2.0); WBC,Urine 2 /hpf (0-5)
--- NOTE | 2021-09-29 17:13 | CT ---
EXAMINATION TYPE: CT abdomen pelvis w con DATE OF EXAM: 09/29/2021 COMPARISON: 07/31/2020 HISTORY: Back and abdominal pain. CT DLP: 1561.5 mGycm Automated exposure control for dose reduction was used. CONTRAST: Performed with IV Contrast, patient injected with mL of Isovue 370. Images obtained from the diaphragm to the floor of the pelvis with IV contrast. The lung bases are cl ear. There is no pleural effusion. Heart size is normal. There is no pericardial effusion. Liver and spleen are intact. Stomach is intact. There is no pancreatic mass. Gallbladder appears norm al. There is no adrenal mass. Kidneys show satisfactory contrast opacification. There is no hydroneph rosis. Ureters are not dilated. There is no retroperitoneal adenopathy. Appendix is posterior and samm ears normal. Bladder distends smoothly. There is no inguinal hernia. There is no free fluid in the pe lvis. There are numerous sigmoid diverticula with some hypertrophic changes. There are multiple diver ticula in the descending colon. There is no sign of diverticulitis. There is no mesenteric edema. The re is no ascites or free air. There is no bowel obstruction. Delayed images show normal renal excreti on. The lumbar vertebrae have normal alignment. There is narrowing at L4-5 disc space with spur formation . There is no compression fracture. Bony pelvis is intact. The hip joints appear intact. IMPRESSION: There is moderate sigmoid diverticulosis without diverticulitis. No adverse change compared to old ex am. Normal appendix.
--- NOTE | 2021-09-29 17:23 | CT ---
EXAMINATION TYPE: CT chest angio for PE DATE OF EXAM: 09/29/2021 COMPARISON: 09/03/2021 HISTORY: Elevated d-dimer, chest pain. CT DLP: 426.7 mGycm Automated exposure control for dose reduction was used. CONTRAST: Performed with IV Contrast, patient injected with 100 mL of Isovue 370. There are Three-D postprocessed images. The lungs are clear of consolidation. There is no pleural effusion. There is no evidence of a pulmona ry mass. There is no mediastinal adenopathy. There are no hilar masses. There is normal contrast opacification of the pulmonary arteries. There are no filling defects. Thoracic aorta is intact. There is no aneur ysm or dissection. There is some minor spurring in the thoracic spine. Sternum is intact. There is no evidence of a rib fracture. Shoulder joints are intact. Upper abdominal soft tissues appear intact. IMPRESSION: Negative exam. No evidence of pulmonary embolism. No adverse change compared to old exam.
[2021-09-29 18:00] VITALS: BP 148/85; PULSE 68; RESP 18
== END 2021-09-29 18:00 | disposition home or self-care (01) ==
LOC: EC 13:00
DX: R06.02 Shortness of breath (principal); K57.30 Diverticulosis of large intestine without perforation or abscess without bleeding; M79.89 Other specified soft tissue disorders; J44.9 Chronic obstructive pulmonary disease, unspecified; I10 Essential (primary) hypertension; E07.9 Disorder of thyroid, unspecified; I25.2 Old myocardial infarction; K21.9 Gastro-esophageal reflux disease without esophagitis; M79.7 Fibromyalgia; I25.10 Atherosclerotic heart disease of native coronary artery without angina pectoris; G43.909 Migraine, unspecified, not intractable, without status migrainosus; Z88.0 Allergy status to penicillin; Z88.8 Allergy status to other drugs, medicaments and biological substances; Z91.030 Bee allergy status; Z91.09 Other allergy status, other than to drugs and biological substances; Z87.891 Personal history of nicotine dependence; Z88.5 Allergy status to narcotic agent; Z91.041 Radiographic dye allergy status; Z79.890 Hormone replacement therapy; Z79.899 Other long term (current) drug therapy; Z79.82 Long term (current) use of aspirin
CPT/HCPCS: 36415; 93005; 85379; 80053; 83605; 83735; 84484; 85025; 85610; 85730; 81001; 71046; 93971; 71275; 74177; 99285; 96360; 96361; Q9967

== ENCOUNTER 2021-11-10 12:22 | Inpatient (IN) | payer MEDICARE, OTHER ==
[2021-11-10] MEDS ORDERED: VANCOMYCIN IV PER PHARMACY 1 EACH MISC MISCELLANE PRN (18:23)
[2021-11-10] MEDS ORDERED: SODIUM CHLORIDE 0.9% 1,000 ML IV STA (18:23)
[2021-11-10] MEDS ORDERED: KETOROLAC 15 MG/ML 1 ML VIAL IVP STA (18:23)
[2021-11-10] MEDS ORDERED: ACETAMINOPHEN TAB 500 MG TAB PO STA (18:24)
[2021-11-10] MEDS ORDERED: VANCOMYCIN 1,500 MG in SODIUM CHLORIDE 0.9% 250 ML IVPB STA (18:29)
--- NOTE | 2021-11-10 19:06 | ED ---
General Adult HPI - General Chief complaint: Extremity Injury, Lower Stated complaint: cellulitis Lt leg Time Seen by Provider: 11/10/21 18:08 Source: patient, RN notes reviewed, old records reviewed Mode of arrival: ambulatory - History of Present Illness Initial comments: Patient is a 61-year-old female with past medical history remarkable for CAD, COPD, fibromyalgia, rales following a right knee replacement who presents emergency department after being sent by PCP over concern for worsening cellulitis of the left lower extremity. Last week, patient began noticing about the size of a small coin area of redness over the anterior aguilar. She was placed on Bactrim. Since that time, the area of redness has expanded over her left aguilar and she is having surrounding pain and warmth. Endorses subjective fevers. Denies any nausea, vomiting, abdominal pain, chest pain, shortness breath. Does endorse occasional palpitations over the last week. Denies any dysuria or hematuria. His no concern for constipation, diarrhea. Presents over concern for left lower extremity infection. PCP is also worried for possible clot requesting of DVT scan. She does have multiple ALLERGIES to antibiotics, and is aware that she is likely being admitted for IV antibiotics. Denies any sensory deficits. Able to ambulate on her leg, however it is painful the site. Has no other acute complaints at this time.Patient was evaluated when she was placed in a room, which is multiple hours after arrival at the emergency department. - Related Data Home Medications Medication Instructions Recorded Confirmed Levothyroxine Sodium 125 mcg PO DAILY 04/19/20 11/10/21 Liothyronine Sodium [Cytomel] 10 mcg PO DAILY 07/08/20 11/10/21 Omeprazole Magnesium [PriLOSEC] 20 mg PO DAILY 02/27/21 11/10/21 Aspirin [Adult Low Dose Aspirin EC] 81 mg PO DAILY 09/03/21 11/10/21 HYDROcodone/APAP 5-325MG [[place] 1 tab PO Q6H PRN 11/10/21 11/10/21 5-325] Sulfamethox-Tmp 800-160Mg [Bactrim 1 tab PO BID 11/10/21 11/10/21 DS 800-160 mg] Previous Rx's Medication Instructions Recorded Nitroglycerin Sl Tabs [Nitrostat] 0.4 mg SUBLINGUAL Q5M PRN #25 tab 03/15/14 Metoprolol Succinate (ER) [Toprol 25 mg PO BID #60 tab.er.24h 02/28/21 XL] Allergies Allergy/AdvReac Type Severity Reaction Status Date / Time Penicillins Allergy Severe Anaphylaxis Verified 11/10/21 18:53 Quinolones Allergy Severe Unknown Verified 11/10/21 18:53 venom-honey bee Allergy Severe Anaphylaxis Verified 11/10/21 18:53 adhesive tape Allergy Unknown Verified 11/10/21 18:53 levofloxacin [From Levaquin] AdvReac Severe BRAIN STEM Verified 11/10/21 18:53 SEIZURE hydromorphone [From Dilaudid] AdvReac Nausea & Verified 11/10/21 18:53 Vomiting iopamidol [From Isovue-[id number]] AdvReac Nausea & Verified 11/10/21 18:53 Vomiting pravastatin [From Pravachol] AdvReac LEG CRAMPS Verified 11/10/21 18:53 Review of Systems ROS Statement: Those systems with pertinent positive or pertinent negative responses have been documented in the HPI. Review of Systems: CONST: Denies fever EYES: Denies blurry vision ENT: Denies nasal congestion C/V: Denies Chest pain RESP: Denies shortness of breath GI: Denies abdominal pain : Denies dysuria SKIN: Endorses possible cellulitis of her left anterior aguilar MSK: Endorse's left leg pain that source of cellulitis. NEURO: Denies headache ROS Other: All systems not noted in ROS Statement are negative. Past Medical History Past Medical History: Coronary Artery Disease (CAD), Cancer, Chest Pain / Angina, COPD, Fibromyalgia, GERD/Reflux, GI Bleed, Hypertension, Myocardial Infarction ([place]), Osteoarthritis (OA), Skin Disorder, Thyroid Disorder Additional Past Medical History / Comment(s): Diverticulitis, upper and lower GI bleed, MRI showed small strokes or migraines per pt as well as spots-recommended to have spinal tap but pt declined, bronchitis, past cervical neuropathy/stenosis/myelopathy with numbness and pain in bilateral hands but had cervical surgery and not a problem anymore-does have some decreased ROM with neck and spasms of neck occasionally, occasional vertigo, thyroidectomy d/t cancer, recent hospitalization for chest pain, rash R knee. Last Myocardial Infarction Date:: 03/09/14 History of Any Multi-Drug Resistant Organisms: None Reported Past Surgical History: Breast Surgery, Heart Catheterization, Hysterectomy, Orthopedic Surgery, Tubal Ligation Additional Past Surgical History / Comment(s): Multiple colonoscopies, egds, R partial thyroidectomy/multiple thyroid bxs then total thyroidectomy d/t cancer, L side neck mass removed, R breast benign bx, cardiac cath-unable to deploy a stent, cervical discectomy/fusions, L carpal tunnel releases, R knee arthros copic surgeries, R knee replacement. Past Anesthesia/Blood Transfusion Reactions: Previous Problems w/ Anesthesia Additional Past Anesthesia/Blood Transfusion Reaction / Comment(s): STATES B/P WAS LOW POST OP RT THYROIDECTOMY-mostly related to narcotic pain meds. HISTORY OF CLAUSTROPHOBIA, states did fine with her anesthesia from her R knee replace ment. Past Psychological History: Anxiety, Depression Smoking Status: Former smoker Past Alcohol Use History: None Reported Past Drug Use History: None Reported - Past Family History Father Family Medical History: Osteoarthritis (OA) Additional Family Medical History / Comment(s): Father is living Mother Family Medical History: AFIB, Renal Disease, Thyroid Disorder Additional Family Medical History / Comment(s): Mother is living. Hypothyroidism. Bladder issues/kidney stones. Nerve damage in legs General Exam - General Exam Comments Initial Comments: General: Appears in mild distress secondary to pain. HEAD: Normal with no signs of head trauma. EYES: PERRLA, EOMI, conjunctiva normal, no discharge. ENT: Hearing grossly intact, normal oropharynx. RESPIRATORY: Clear breath sounds bilaterally. No wheezes, rales, or rhonchi. C/V: Regular rate and rhythm. S1 and S2 auscultated, no edema, peripheral pulses 2+ and intact throughout ABD: Abd is soft, nontender, nondistended EXT: Normal range of motion, no obvious deformity. Cellulitis is tender over the left aguilar. SKIN: In has an approximate 8 cm in diameter area of erythema over the left anterior aguilar with no obvious exudate. It is warm to touch. There is a minimal amount of induration around the site. No obvious area of fluctuance. Tender along the anterior tibia. Distal cap refill is intact. Neurovascularly intact throughout the left leg. Compartment is soft. Area of erythema appears cellulitic in nature. NEURO: Alert and oriented 4. No focal sensory strength deficits. Course Vital Signs 11/10/21 13:02 Temperature 97.7 F Pulse Rate 67 Respiratory 18 Rate Blood Pressure 130/77 O2 Sat by Pulse 99 Oximetry Medical Decision Making - Medical Decision Making Based on the patient's presentation and physical exam, there is concern for acute cellulitis of the left lower extremity. They are also concerned for possible DVT and therefore we'll obtain a venous duplex in addition to infectious workup. X-ray of the left aguilar will also be obtained to rule out osteomyelitis to the tenderness along the tibia. There were in agreement this plan. Blood cultures will be obtained. She'll be empirically started on IV vancomycin. Screening EKG will also be obtained due to the palpitations. She currently is asymptomatic in terms palpitations. No other acute complaints at this time. She'll require admission to the hospital for failed outpatient treatment of suspected left anterior aguilar cellulitis.Vital signs are within normal limits and stable at this time. Patient's laboratory studies were remarkable for a normal lactic acid. She is no leukocytosis or Covid is negative. Duplex study showed no DVT. Tib-fib x- ray revealed no fracture, osteomyelitis. There is mild osteoarthritis in the medial joint space. On reevaluation, I did discuss the findings with the patient. I believe it is safe to be admitted at this time. She was in agreement this plan. I spoke with the admitting team, CJ Allen of the accept the patient. Patient was therefore admitted in stable condition to Dr. García. Consult was placed to Dr. Dowling, who has evaluated the patient previously for multiple antibiotic ALLERGIES. Blood cultures are pending at this time. - Lab Data Result diagrams: 11/10/21 19:06 11/10/21 19:06 Lab Results 11/10/21 11/10/21 11/10/21 Range/Units 19:06 19:06 19:47 WBC 8.3 (3.8-10.6) k/uL RBC 4.49 (3.80-5.40) m/uL Hgb 13.2 (11.4-16.0) gm/dL Hct 39.6 (34.0-46.0) % MCV 88.3 (80.0-100.0) fL MCH 29.5 (25.0-35.0) pg MCHC 33.4 (31.0-37.0) g/dL RDW 12.3 (11.5-15.5) % Plt Count 298 (150-450) k/uL MPV 6.9 Neutrophils % 72 % Lymphocytes % 18 % Monocytes % 5 % Eosinophils % 3 % Basophils % 1 % Neutrophils # 6.0 (1.3-7.7) k/uL Lymphocytes # 1.5 (1.0-4.8) k/uL Monocytes # 0.4 (0-1.0) k/uL Eosinophils # 0.3 (0-0.7) k/uL Basophils # 0.1 (0-0.2) k/uL Sodium 137 (137-145) mmol/L Potassium 4.0 (3.5-5.1) mmol/L Chloride 101 (98-107) mmol/L Carbon Dioxide 30 (22-30) mmol/L Anion Gap 6 mmol/L BUN 14 (7-17) mg/dL Creatinine 0.78 (0.52-1.04) mg/dL Est GFR (CKD-EPI)AfAm >90 (>60 ml/min/1.73 sqM) Est GFR (CKD-EPI)NonAf 84 (>60 ml/min/1.73 sqM) Glucose 106 H (74-99) mg/dL Plasma Lactic Acid Grupo 0.9 (0.7-2.0) mmol/L Calcium 9.8 (8.4-10.2) mg/dL Magnesium 1.9 (1.6-2.3) mg/dL Coronavirus (PCR) (Not Detectd) 11/10/21 Range/Units 19:47 WBC (3.8-10.6) k/uL RBC (3.80-5.40) m/uL Hgb (11.4-16.0) gm/dL Hct (34.0-46.0) % MCV (80.0-100.0) fL MCH (25.0-35.0) pg MCHC (31.0-37.0) g/dL RDW (11.5-15.5) % Plt Count (150-450) k/uL MPV Neutrophils % % Lymphocytes % % Monocytes % % Eosinophils % % Basophils % % Neutrophils # (1.3-7.7) k/uL Lymphocytes # (1.0-4.8) k/uL Monocytes # (0-1.0) k/uL Eosinophils # (0-0.7) k/uL Basophils # (0-0.2) k/uL Sodium (137-145) mmol/L Potassium (3.5-5.1) mmol/L Chloride (98-107) mmol/L Carbon Dioxide (22-30) mmol/L Anion Gap mmol/L BUN (7-17) mg/dL Creatinine (0.52-1.04) mg/dL Est GFR (CKD-EPI)AfAm (>60 ml/min/1.73 sqM) Est GFR (CKD-EPI)NonAf (>60 ml/min/1.73 sqM) Glucose (74-99) mg/dL Plasma Lactic Acid Grupo (0.7-2.0) mmol/L Calcium (8.4-10.2) mg/dL Magnesium (1.6-2.3) mg/dL Coronavirus (PCR) Not Detected (Not Detectd) - EKG Data -: EKG Interpreted by Me EKG Comments: 12-lead Electrocardiogram Interpretation Note EKG was reviewed and interpreted by myself. 12-lead ECG performed at 1933 is interpreted by me as revealing normal sinus rhythm at a rate of 61 beats per minute. [place] is normal. UT interval is 178 ms, QRS duration is 86 ms, QTc is 363 ms.. There were no ST or T wave abnormalities to suggest myocardial ischemia or injury. R wave progression across the precordium was satisfactory. By my interpretation this EKG is non-diagnostic for acute ischemia. Disposition Clinical Impression: Cellulitis Disposition: ADMITTED IP TO THIS HOSP Condition: Stable
[2021-11-10 19:25] LABS: Basophils # (A) 0.1 k/uL (0-0.2); Basophils % (A) 1 %; Eosinophils # (A) 0.3 k/uL (0-0.7); Eosinophils % (A) 3 %; HCT 39.6 % (34.0-46.0); HGB 13.2 gm/dL (11.4-16.0); Lymphocytes # (A) 1.5 k/uL (1.0-4.8); Lymphocytes % (A) 18 %; MCH 29.5 pg (25.0-35.0); MCHC 33.4 g/dL (31.0-37.0); MCV 88.3 fL (80.0-100.0); Mean Platelet Volume 6.9; Monocytes # (A) 0.4 k/uL (0-1.0); Monocytes % (A) 5 %; Neutrophils % (A) 72 %; Platelet Count 298 k/uL (150-450); RBC 4.49 m/uL (3.80-5.40); RDW 12.3 % (11.5-15.5); WBC 8.3 k/uL (3.8-10.6)
--- NOTE | 2021-11-10 19:32 | XR ---
EXAMINATION TYPE: XR tibia fibula LT DATE OF EXAM: 11/10/2021 COMPARISON: NONE HISTORY: Leg pain TECHNIQUE: 4 views FINDINGS: I see no fracture nor dislocation. There is plantar calcaneal spurring. Ankle mortise is in tact. There is minimal spurring of the medial femoral and tibial condyles. IMPRESSION: Mild osteoarthritis in the medial joint space. No fracture seen.
[2021-11-10 19:33] LABS: African American GFR (CKD) >90 (>60 ml/min/1.73 sqM); Anion Gap 6 mmol/L; Blood Urea Nitrogen 14 mg/dL (7-17); Calcium 9.8 mg/dL (8.4-10.2); Carbon Dioxide 30 mmol/L (22-30); Chloride 101 mmol/L (98-107); Glucose 106 mg/dL (74-99); Magnesium 1.9 mg/dL (1.6-2.3); Non-African American GFR(CKD) 84 (>60 ml/min/1.73 sqM); Sodium 137 mmol/L (137-145)
--- NOTE | 2021-11-10 20:16 | US ---
EXAMINATION TYPE: US venous doppler duplex LE LT DATE OF EXAM: 11/10/2021 8:01 PM COMPARISON: NONE CLINICAL HISTORY: evaluate for dvt. Pain in left lower extremity; possible cellulitis SIDE PERFORMED: Left TECHNIQUE: The lower extremity deep venous system is examined utilizing real time linear array sonog nahomy with graded compression, doppler sonography and color-flow sonography. VESSELS IMAGED: Common Femoral Vein Deep Femoral Vein Greater Saphenous Vein * Femoral Vein Popliteal Vein Small Saphenous Vein * Proximal Calf Veins (* superficial vessels) Left Leg: Negative for DVT; scanned at area of redness/pain located anterior left calf, no abnormali ties seen; all veins are compressible. IMPRESSION: No evidence of deep vein thrombosis in the left leg.
[2021-11-10] MEDS ORDERED: NALOXONE 0.4 MG/ML 1 ML VIAL IV PRN (20:19)
[2021-11-10] MEDS ORDERED: ONDANSETRON 4 MG/2 ML VIAL IVP PRN (20:19)
[2021-11-10] MEDS ORDERED: KETOROLAC 15 MG/ML 1 ML VIAL IVP PRN (20:19)
[2021-11-10] MEDS: METOPROLOL SUCCINATE (ER) 25 MG TAB.ER.24H PO SCH (22:00)
[2021-11-10] MEDS: SODIUM CHLORIDE 0.9% 1,000 ML IV SCH (22:01)
[2021-11-11] MEDS: HEPARIN SODIUM,PORCINE/PF 5,000 UNIT/0.5 ML SYRINGE SQ SCH ×4 (01:29→15:20)
[2021-11-11] MEDS: KETOROLAC 30 MG/ML 1 ML VIAL IVP PRN ×3 (06:48→19:48)
[2021-11-11] MEDS: LEVOTHYROXINE 125 MCG TAB PO SCH (06:48)
[2021-11-11 07:24] LABS: Basophils # (A) 0.1 k/uL (0-0.2); Basophils % (A) 1 %; Eosinophils # (A) 0.2 k/uL (0-0.7); Eosinophils % (A) 5 %; HCT 38.7 % (34.0-46.0); HGB 12.5 gm/dL (11.4-16.0); Lymphocytes # (A) 0.9 k/uL (1.0-4.8); Lymphocytes % (A) 21 %; MCH 29.4 pg (25.0-35.0); MCHC 32.2 g/dL (31.0-37.0); MCV 91.2 fL (80.0-100.0); Mean Platelet Volume 7.1; Monocytes # (A) 0.3 k/uL (0-1.0); Monocytes % (A) 6 %; Neutrophils % (A) 66 %; Platelet Count 256 k/uL (150-450); RBC 4.25 m/uL (3.80-5.40); RDW 12.4 % (11.5-15.5); WBC 4.5 k/uL (3.8-10.6)
[2021-11-11 07:30] LABS: African American GFR (CKD) >90 (>60 ml/min/1.73 sqM); Anion Gap 4 mmol/L; Blood Urea Nitrogen 18 mg/dL (7-17); Calcium 8.6 mg/dL (8.4-10.2); Carbon Dioxide 27 mmol/L (22-30); Chloride 108 mmol/L (98-107); Glucose 108 mg/dL (74-99); Non-African American GFR(CKD) 85 (>60 ml/min/1.73 sqM); Potassium 4.5 mmol/L (3.5-5.1); Sodium 139 mmol/L (137-145)
[2021-11-11] MEDS: PANTOPRAZOLE 40 MG TABLET PO SCH (08:46)
[2021-11-11] MEDS: LIOTHYRONINE SODIUM 5 MCG TAB PO SCH (08:46)
[2021-11-11] MEDS: ASPIRIN 81 MG PO SCH (08:46)
[2021-11-11] MEDS: METOPROLOL SUCCINATE (ER) 25 MG TAB.ER.24H PO SCH ×2 (08:46→20:27)
[2021-11-11] MEDS: VANCOMYCIN 1,500 MG in SODIUM CHLORIDE 0.9% 250 ML IVPB SCH ×2 (09:00→19:16)
[2021-11-11] MEDS: SODIUM CHLORIDE 0.9% 1,000 ML IV SCH ×2 (09:01→17:50)
[2021-11-11] MEDS ORDERED: ARTIFICIAL TEARS-HYPROMELLOSE DROPS 15 ML BTL BOTH EYES PRN (11:46)
--- NOTE | 2021-11-11 14:40 | HP ---
HISTORY AND PHYSICAL DATE OF SERVICE: 11/11/2021 CHIEF COMPLAINT: Pain and swelling of the left leg. HISTORY OF PRESENT ILLNESS: This 61-year-old woman with a past medical history of hypertension, history of DJD, coronary artery disease was noted to have significant pain and swelling of the left aguilar area. The patient has received outpatient Bactrim for the symptoms, but because of increasing pain and swelling and tenderness, patient came to [facility] and was admitted for further evaluation and treatment. The patient is extremely tender in the left aguilar area. There is no history of any fever, rigor or chills at this time. PAST MEDICAL HISTORY: History of CAD, chest pain, COPD, fibromyalgia, GERD. MEDICATIONS: Medications prior to admission are reviewed and include Bactrim DS, Prilosec . Doses and other medications are reviewed. ALLERGIES: Also reviewed, including PENICILLIN and QUINOLONES. FAMILY HISTORY: History of atrial fibrillation, hypothyroidism. SOCIAL HISTORY: Previous history of smoking. REVIEW OF SYSTEMS: Fourteen-point review of systems negative except as mentioned earlier. PHYSICAL EXAMINATION: Pulse 69, blood pressure 110/66, respiration 18. CARDIOVASCULAR: S1, S2 muffled. RESPIRATION: Breath sounds diminished at the bases. No rhonchi. No crackles. ABDOMEN: Soft, nontender. No mass palpable. HEENT: Conjunctivae normal. Oral mucosa moist. LEGS: Significant pain and swelling of the left leg present. Some erythema and tenderness also present in the mid aguilar area. NERVOUS SYSTEM: No focal deficit. SKIN: As mentioned earlier. JOINTS: No active deforming arthropathy. LABS: CBC within normal limits. Other labs are noted. ASSESSMENT: 1. Acute severe cellulitis with severe pain on the left aguilar area. Rule out necrotizing fasciitis with failure of outpatient treatment. 2. Coronary artery disease. 3. Chronic obstructive pulmonary disease. 4. Hypertension. RECOMMENDATIONS AND DISCUSSION: In this 61-year-old woman who presented with multiple complex medical issues, at this time we will monitor the patient closely, initiate broad-spectrum IV antibiotics. Recommend CT scan of the leg and also infectious disease evaluation. Cultures. Prognosis guarded. MMODL / IJN: [id number] / MTDD
--- NOTE | 2021-11-11 15:00 | CT ---
EXAMINATION TYPE: CT lower extremity LT wo con DATE OF EXAM: 11/11/2021 COMPARISON: X-ray dated 11/10/2021 HISTORY: pain, swelling, redness CT DLP: 363.3 mGycm Automated exposure control for dose reduction was used. TECHNIQUE: Multiplanar CT scan of the left leg from the distal aspect of the femur down to the foot w ithout IV contrast demonstration. FINDINGS: Moderate degenerative changes of the left knee joint with tiny osteophytosis and mild medial tibial s ubchondral sclerotic changes. Subchondral cyst formation is seen at the posterior aspect of the media l femoral condyle. No definite acute fracture line identified. No gross lytic or sclerotic bone lesion. Preserved ankle mortise with a smooth talar dome. Inferior calcaneal spur. Mild lateral patellar subluxation. Patella r subchondral cyst formation, likely degenerative. No sizable knee or ankle joint effusion. Lower leg subcutaneous fat stranding, skin thickening, edema and small amount of fluid, most evident at the level of the ankle. No definite soft tissue gas or we ll-defined collection with the limitation of this unenhanced CT scan. IMPRESSION: Skin thickening, subcutaneous fat stranding, edema and small amount of fluid are seen at the left low er leg mainly at the level of the ankle as described above. No soft tissue gas or well-defined fluid by this unenhanced CT scan. Underlying inflammatory/infectious process can't be excluded. No definite fracture line identified. No gross lytic or sclerotic bone lesion. Degenerative changes o f the left knee joint.
[2021-11-11] MEDS: diphenhydrAMINE 50 MG/ML 1 ML VIAL IVP PRN (17:38)
[2021-11-12] MEDS: SODIUM CHLORIDE 0.9% 1,000 ML IV SCH (01:51)
[2021-11-12] MEDS: HEPARIN SODIUM,PORCINE/PF 5,000 UNIT/0.5 ML SYRINGE SQ SCH ×3 (03:50→17:06)
[2021-11-12] MEDS: LEVOTHYROXINE 125 MCG TAB PO SCH (06:06)
[2021-11-12 07:22] LABS: ALT 10 U/L (4-34); AST 15 U/L (14-36); African American GFR (CKD) >90 (>60 ml/min/1.73 sqM); Albumin 3.1 g/dL (3.5-5.0); Albumin/Globulin Ratio 1.1; Alkaline Phosphatase 112 U/L (38-126); Anion Gap 5 mmol/L; Blood Urea Nitrogen 11 mg/dL (7-17); Calcium 8.6 mg/dL (8.4-10.2); Carbon Dioxide 28 mmol/L (22-30); Chloride 108 mmol/L (98-107); Globulin 2.7 g/dL; Glucose 100 mg/dL (74-99); Non-African American GFR(CKD) 90 (>60 ml/min/1.73 sqM); Potassium 4.4 mmol/L (3.5-5.1); Sodium 141 mmol/L (137-145); Total Bilirubin 0.4 mg/dL (0.2-1.3); Total Protein 5.8 g/dL (6.3-8.2)
[2021-11-12] MEDS: VANCOMYCIN 1,500 MG in SODIUM CHLORIDE 0.9% 250 ML IVPB SCH ×2 (07:28→20:57)
[2021-11-12] MEDS: PANTOPRAZOLE 40 MG TABLET PO SCH (09:04)
[2021-11-12] MEDS: METOPROLOL SUCCINATE (ER) 25 MG TAB.ER.24H PO SCH ×2 (09:04→20:58)
[2021-11-12] MEDS: LIOTHYRONINE SODIUM 5 MCG TAB PO SCH (09:04)
[2021-11-12] MEDS: ASPIRIN 81 MG PO SCH (09:04)
[2021-11-12] MEDS: diphenhydrAMINE 50 MG/ML 1 ML VIAL IVP PRN ×2 (09:04→20:58)
[2021-11-12] MEDS: KETOROLAC 30 MG/ML 1 ML VIAL IVP PRN ×2 (09:05→16:58)
[2021-11-12 09:34] LABS: Basophils # (A) 0.04 X 10*3/uL (0.00-0.10); Basophils % (A) 0.7 %; Eosinophils # (A) 0.28 X 10*3/uL (0.04-0.35); Eosinophils % (A) 5.1 %; HCT 37.7 % (37.2-46.3); HGB 11.7 g/dL (12.0-15.0); Immature Grans, Automated 0.4 %; Lymphocytes # (A) 0.97 X 10*3/uL (0.90-5.00); Lymphocytes % (A) 17.7 %; MCH 27.9 pg (27.0-32.0); Mean Platelet Volume 10.1 fL (9.5-12.2); Monocytes # (A) 0.37 X 10*3/uL (0.20-1.00); Monocytes % (A) 6.8 %; NRBC Per 100 WBC 0 /100 WBCS (0.0-0.0); Neutrophils # (A) 3.79 X 10*3/uL (1.80-7.70); Neutrophils % (A) 69.3 %; Platelet Count 280 X 10*3/uL (140-440); RBC 4.19 X 10*6/uL (4.10-5.20); RDW 12.3 % (11.5-14.5); WBC 5.47 X 10*3/uL (4.50-10.00)
[2021-11-12] MEDS: DOCUSATE 100 MG CAP PO SCH (11:34)
--- NOTE | 2021-11-12 11:48 | P.CONS ---
History of Present Illness - Reason for Consult Consult date: 11/11/21 Left leg cellulitis Requesting physician: [place] - Chief Complaint Left leg pain swelling and redness times few days - History of Present Illness Patient is a 61-year female with a past medical history significant for coronary artery disease COPD fibromyalgia presenting to the ER for evaluation of left lower extremity worsening cellulitis to left lower extremity, apparently the patient noticed to having a small area of the redness on the left anterior aguilar the patient was evaluated her primary care physician has been diagnosed with a cellulitis and was started on Bactrim since that time the area of the redness has expanded over to the left aguilar area patient also complaining of significant pain describing it to be sharp with intensity is almost 10 out of 10 with no radiation patient did not have any skin breakdown or any drainage patient was evaluated by ER physician on arrival to the ER the patient was afebrile patient did have normal white count with normal kidney function guzman PCR was negative patient did have a x-ray of the tibia and fibula mild osteoarthritis in the medial joint space no fracture is seen patient also have venous Doppler no evidence of DVT in the left leg patient was started on vancomycin has been admitted to the hospital infectious disease was consulted for further management of antibiotic therapy Review of Systems CONSTITUTIONAL: Positive for weakness. Denies high-grade Fever EYES: No complaint. ENT:No complaint. RESPIRATORY: No complaint. CARDIOVASCULAR: No complaint. GENITOURINARY: No complaint. GASTROINTESTINAL: No complaint. MUSCULOSKELETAL: As per history of present illness. INTEGUMENTARY: As per history of present illness PSYCHOLOGICAL: No complaint. ENDOCRINE: No complaint. NEUROLOGIC: No complaint. Past Medical History Past Medical History: Coronary Artery Disease (CAD), Cancer, Chest Pain / Angina, COPD, Fibromyalgia, GERD/Reflux, GI Bleed, Hypertension, Myocardial Infarction ([place]), Osteoarthritis (OA), Skin Disorder, Thyroid Disorder Additional Past Medical History / Comment(s): Diverticulitis, upper and lower GI bleed, MRI showed small strokes or migraines per pt as well as spots-recommended to have spinal tap but pt declined, bronchitis, past cervical neuropathy/stenosis/myelopathy with numbness and pain in bilateral hands but had cervical surgery and not a problem anymore-does have some decreased ROM with neck and spasms of neck occasionally, occasional vertigo, thyroidectomy d/t cancer, recent hospitalization for chest pain, rash R knee. Last Myocardial Infarction Date:: 03/09/14 History of Any Multi-Drug Resistant Organisms: None Reported Past Surgical History: Breast Surgery, Heart Catheterization, Hysterectomy, Orthopedic Surgery, Tubal Ligation Additional Past Surgical History / Comment(s): Multiple colonoscopies, egds, R partial thyroidectomy/multiple thyroid bxs then total thyroidectomy d/t cancer, L side neck mass removed, R breast benign bx, cardiac cath-unable to deploy a stent, cervical discectomy/fusions, L carpal tunnel releases, R knee arthr oscopic surgeries, R knee replacement. Past Anesthesia/Blood Transfusion Reactions: Previous Problems w/ Anesthesia Additional Past Anesthesia/Blood Transfusion Reaction / Comm: STATES B/P WAS LOW POST OP RT THYROIDECTOMY-mostly related to narcotic pain meds. HISTORY OF CLAUSTROPHOBIA, states did fine with her anesthesia from her R knee replacement. Past Psychological History: Anxiety, Depression Smoking Status: Former smoker Past Alcohol Use History: None Reported Past Drug Use History: None Reported - Past Family History Father Family Medical History: Osteoarthritis (OA) Additional Family Medical History / Comment(s): Father is living Mother Family Medical History: AFIB, Renal Disease, Thyroid Disorder Additional Family Medical History / Comment(s): Mother is living. Hypothyroidism. Bladder issues/kidney stones. Nerve damage in legs Medications and Allergies Home Medications Medication Instructions Recorded Confirmed Type Nitroglycerin Sl Tabs [Nitrostat] 0.4 mg SUBLINGUAL Q5M PRN #25 tab 03/15/14 11/10/21 Rx Levothyroxine Sodium 125 mcg PO DAILY 04/19/20 11/10/21 History Liothyronine Sodium [Cytomel] 10 mcg PO DAILY 07/08/20 11/10/21 History Omeprazole Magnesium [PriLOSEC] 20 mg PO DAILY 02/27/21 11/10/21 History Metoprolol Succinate (ER) [Toprol 25 mg PO BID #60 tab.er.24h 02/28/21 11/10/21 Rx XL] Aspirin [Adult Low Dose Aspirin EC] 81 mg PO DAILY 09/03/21 11/10/21 History HYDROcodone/APAP 5-325MG [[place] 1 tab PO Q6H PRN 11/10/21 11/10/21 History 5-325] Sulfamethox-Tmp 800-160Mg [Bactrim 1 tab PO BID 11/10/21 11/10/21 History DS 800-160 mg] Allergies Allergy/AdvReac Type Severity Reaction Status Date / Time Penicillins Allergy Severe Anaphylaxis Verified 11/10/21 18:53 Quinolones Allergy Severe Unknown Verified 11/10/21 18:53 venom-honey bee Allergy Severe Anaphylaxis Verified 11/10/21 18:53 adhesive tape Allergy Unknown Verified 11/10/21 18:53 levofloxacin [From Levaquin] AdvReac Severe BRAIN STEM Verified 11/10/21 18:53 SEIZURE hydromorphone [From Dilaudid] AdvReac Nausea & Verified 11/10/21 18:53 Vomiting iopamidol [From Isovue-128] AdvReac Nausea & Verified 11/10/21 18:53 Vomiting pravastatin [From Pravachol] AdvReac LEG CRAMPS Verified 11/10/21 18:53 Physical Exam Vitals: Vital Signs Temp Pulse Resp BP Pulse Ox 11/11/21 06:10 97.8 F 69 18 110/66 99 11/11/21 01:32 67 18 126/66 95 11/10/21 21:33 70 18 146/85 96 11/10/21 13:02 97.7 F 67 18 130/77 99 GENERAL DESCRIPTION: Middle-aged female lying in bed, no distress. No tachypnea or accessory muscle of respiration use. HEENT: Shows Pallor , no scleral icterus. Oral mucous membrane is dry. No pharyngeal erythema or thrush NECK: Trachea central, no thyromegaly. LUNGS: Unlabored breathing. Clear to auscultation anteriorly. No wheeze or crackle. HEART: S1, S2, regular rate and rhythm. No loud murmur ABDOMEN: Soft, no tenderness , guarding or rigidity, no organomegaly EXTREMITIES: Left anterior leg with minimal swelling some discoloration and tenderness to touch no fluctuation or drainage SKIN: No rash, no masses palpable. NEUROLOGICAL: The patient is awake, alert, oriented x3, mood and affect normal. Results CBC & Chem 7: 11/12/21 06:35 11/12/21 06:35 Labs: Abnormal Lab Results - Last 24 Hours (Table) 11/10/21 11/11/21 11/11/21 Range/Units 19:06 06:52 06:52 Lymphocytes # 0.9 L (1.0-4.8) k/uL Chloride 108 H (98-107) mmol/L BUN 18 H (7-17) mg/dL Glucose 106 H 108 H (74-99) mg/dL Assessment and Plan (1) Left leg cellulitis Current Visit: Yes Status: Acute Code(s): L03.116 - CELLULITIS OF LEFT LOWER LIMB SNOMED Code(s): 802483068 (2) Allergy to multiple antibiotics Current Visit: No Status: Acute Code(s): Z88.1 - ALLERGY STATUS TO OTHER ANTIBIOTIC AGENTS SNOMED Code(s): 830221827 Plan: 1patient presented to hospital with left lower extremity pain swelling and some redness in this patient has been diagnosed in the outpatient setting with cellulitis and has been treated with oral Bactrim DS without any improvement, patient did have an area of mild erythema and very tender to touch but no fluctuation or concern for underlying abscess 2-we will wait for the CT of the leg being ordered by the primary 3-vancomycin pharmacy to dose while watching kidney function closely 4-Marked area of the redness We will follow on clinical condition and cultures to further adjust medication if needed Thank you for this consultation will follow this patient along with you Time with Patient: Greater than 30
--- NOTE | 2021-11-12 13:27 | PN ---
PROGRESS NOTE DATE OF SERVICE: 11/12/2021 This 61-year-old woman who was admitted with pain and swelling of the left leg has significant cellulitis. CT scan of the leg showed a small amount of fluid in the left lower leg, not well defined. No chest pain. No palpitation. PHYSICAL EXAMINATION: Pulse 69, blood pressure 110/70, respiration 16. CARDIOVASCULAR: S1, S2 normal. RESPIRATION: A few scattered rhonchi and crackles. ABDOMEN: Soft, nontender. EXAMINATION OF THE LEFT LEG: Significant erythema, tenderness and swelling in the mid aguilar area. LABS: WBC 5.47, hemoglobin 11.7. Other labs reviewed. ASSESSMENT: 1. Acute severe cellulitis and severe pain of the left aguilar. 2. Coronary artery disease. 3. Chronic obstructive pulmonary disease. 4. Hypertension. RECOMMENDATIONS AND DISCUSSION: I recommend to continue current medications, continue with the monitoring, symptomatic treatment. Pain management. DVT prophylaxis. Closely follow with Infectious Disease. Further recommendations to follow. MMJEANETHL / BEKAN: [id number] /
[2021-11-12] MEDS ORDERED: VANCOMYCIN TROUGH DUE 1 EACH MISC MISCELLANE ONE (18:00)
--- NOTE | 2021-11-12 22:31 | P.PN ---
Subjective Progress Note Date: 11/12/21 Principal diagnosis: Left leg cellulitis Patient is a 61-year-old female admitted to the hospital with a painful left lower extremity and a question of cellulitis failing outpatient oral antibiotic therapy. On today's evaluation that is 11/12/2021, patient denies having any fever or any chills, patient is still complaining of significant pain to the left lower leg the area of irritation is about the same there is no skin breakdown or any drainage no vomiting no diarrhea Objective - Vital Signs Vital signs: Vital Signs Temp 98.0 F 11/12/21 11:25 Pulse 69 11/12/21 11:25 Resp 16 11/12/21 11:25 BP 126/76 11/12/21 11:25 Pulse Ox 97 11/12/21 11:25 Intake & Output 11/11/21 11/12/21 11/12/21 18:59 06:59 18:59 Intake Total 1420 590 Balance 1420 590 Weight 97.522 kg Intake: Intake, IV Titration 700 Amount Sodium Chloride 0.9% 1, 700 000 ml @ 100 mls/hr IV . Q10H [facility] Rx#:[id number] Oral 720 590 Other: Voiding Method Bedside Commode Toilet # Voids 4 12 - Exam GENERAL DESCRIPTION: Middle-aged female lying in bed in no distress RESPIRATORY SYSTEM: Unlabored breathing , decreased breath sounds at bases HEART: S1 S2 regular rate and rhythm , ABDOMEN: Soft , no tenderness EXTREMITIES: Left lower extremity/ aguilar with minimal area of discoloration and tenderness to touch - Labs CBC & Chem 7: 11/12/21 06:35 11/12/21 06:35 Labs: Abnormal Lab Results - Last 24 Hours (Table) 11/11/21 11/12/21 11/12/21 Range/Units 06:52 06:35 06:35 Hgb 11.7 L (12.0-15.0) g/dL MCHC 31.0 L (32.0-37.0) g/dL Chloride 108 H (98-107) mmol/L Glucose 100 H (74-99) mg/dL C-Reactive Protein 2.4 H (<1.0) mg/dL Total Protein 5.8 L (6.3-8.2) g/dL Albumin 3.1 L (3.5-5.0) g/dL Microbiology - Last 24 Hours (Table) 11/10/21 19:06 Blood Culture - Preliminary Blood No Growth after 24 hours 11/10/21 18:50 Blood Culture - Preliminary Blood No Growth after 24 hours Assessment and Plan (1) Left leg cellulitis Current Visit: Yes Status: Acute Code(s): L03.116 - CELLULITIS OF LEFT LOWER LIMB SNOMED Code(s): 880855292 (2) Allergy to multiple antibiotics Current Visit: No Status: Acute Code(s): Z88.1 - ALLERGY STATUS TO OTHER ANTIBIOTIC AGENTS SNOMED Code(s): 876257727 Plan: 1patient presented to hospital with left lower extremity pain swelling and some redness in this patient has been diagnosed in the outpatient setting with cellulitis and has been treated with oral Bactrim DS without any improvement, patient did have an area of mild erythema and very tender to touch but no fluctuation or concern for underlying abscess, the CT of the leg was negative for any abscess collection 2-patient to continue with vancomycin pharmacy to dose while watching kidney function closely 4-Marked area of the redness Time with Patient: Less than 30
[2021-11-13] MEDS: HEPARIN SODIUM,PORCINE/PF 5,000 UNIT/0.5 ML SYRINGE SQ SCH ×3 (00:06→15:26)
[2021-11-13] MEDS: LEVOTHYROXINE 125 MCG TAB PO SCH (08:35)
[2021-11-13] MEDS: VANCOMYCIN 1,500 MG in SODIUM CHLORIDE 0.9% 250 ML IVPB SCH ×2 (08:35→20:40)
[2021-11-13] MEDS: ASPIRIN 81 MG PO SCH (08:36)
[2021-11-13] MEDS: LIOTHYRONINE SODIUM 5 MCG TAB PO SCH (08:36)
[2021-11-13] MEDS: DOCUSATE 100 MG CAP PO SCH (08:36)
[2021-11-13] MEDS: PANTOPRAZOLE 40 MG TABLET PO SCH (08:36)
[2021-11-13] MEDS: diphenhydrAMINE 50 MG/ML 1 ML VIAL IVP PRN (08:36)
[2021-11-13] MEDS: METOPROLOL SUCCINATE (ER) 25 MG TAB.ER.24H PO SCH ×2 (08:36→20:40)
[2021-11-13] MEDS: KETOROLAC 30 MG/ML 1 ML VIAL IVP PRN ×2 (11:34→20:39)
[2021-11-13] MEDS: HYDROCORTISONE 2.5% RECTAL CREAM 30 GM TUBE RECTAL SCH ×2 (15:26→20:40)
[2021-11-13] MEDS: HYDROCORTISONE SUPPOSITORY 25 MG SUPP RECTAL SCH (20:40)
--- NOTE | 2021-11-13 21:49 | P.PN ---
Subjective Progress Note Date: 11/13/21 Principal diagnosis: Left leg cellulitis Patient is a 61-year-old female admitted to the hospital with a painful left lower extremity and a question of cellulitis failing outpatient oral antibiotic therapy. On today's evaluation that is 11/13/2021, patient remains to be afebrile, patient is still complaining of significant pain to the left lower leg the area of irritation is about the same with no skin breakdown or any drainage no vomiting no diarrhea Objective - Vital Signs Vital signs: Vital Signs Temp 98.6 F 11/13/21 05:00 Pulse 74 11/13/21 08:38 Resp 18 11/13/21 05:00 BP 132/79 11/13/21 08:38 Pulse Ox 95 11/13/21 08:38 Intake & Output 11/12/21 11/13/21 11/13/21 18:59 06:59 18:59 Other: Voiding Method Toilet Toilet # Voids 5 4 - Exam GENERAL DESCRIPTION: Middle-aged female lying in bed in no distress RESPIRATORY SYSTEM: Unlabored breathing , decreased breath sounds at bases HEART: S1 S2 regular rate and rhythm , ABDOMEN: Soft , no tenderness EXTREMITIES: Left lower extremity/ aguilar with minimal area of discoloration and tenderness to touch - Labs CBC & Chem 7: 11/12/21 06:35 11/12/21 06:35 Labs: Microbiology - Last 24 Hours (Table) 11/10/21 19:06 Blood Culture - Preliminary Blood No Growth after 48 hours 11/10/21 18:50 Blood Culture - Preliminary Blood No Growth after 48 hours Assessment and Plan (1) Left leg cellulitis Current Visit: Yes Status: Acute Code(s): L03.116 - CELLULITIS OF LEFT LOWER LIMB SNOMED Code(s): 639729551 (2) Allergy to multiple antibiotics Current Visit: No Status: Acute Code(s): Z88.1 - ALLERGY STATUS TO OTHER ANTIBIOTIC AGENTS SNOMED Code(s): 353734858 Plan: 1patient presented to hospital with left lower extremity pain swelling and some redness in this patient has been diagnosed in the outpatient setting with cellulitis and has been treated with oral Bactrim DS without any improvement, patient did have an area of mild erythema and very tender to touch but no fluctuation or concern for underlying abscess, the CT of the leg was negative for any abscess collection, patient to continue with vancomycin pharmacy to dose while watching kidney function closely, Bora wrap to the leg to keep the swelling down and will reevaluate the patient tomorrow Time with Patient: Less than 30
[2021-11-14] MEDS: HEPARIN SODIUM,PORCINE/PF 5,000 UNIT/0.5 ML SYRINGE SQ SCH ×3 (00:20→11:47)
--- NOTE | 2021-11-14 00:32 | P.PN ---
Subjective Progress Note Date: 11/13/21 11/13/2021 This is a 61 year old female who was admitted with pain and swelling of the left aguilar with surrounding redness and was on oral Bactrim prior to admission and symptoms worsened and patient to the ER for further evaluation. Patient is being closely monitored at this time and continues on IV vancomycin with ID following. Left lower extremity swelling noted and area of concern is marked. Patient noted some worsening spread of the area. Recommend bobbi wrap and elevating left lower extremity. Patient denies chest pain or shortness of breath. Patient was having constipation and straining with a history of hemorrhoids and requesting anusol. Will order anusol. Patient is afebrile. Review of systems: Constitutional: No reports of fatigue, fever, or chills Cardiovascular: No reports of chest pain or palpitations Respiratory: No reports of shortness of breath or cough GI: No reports of nausea, vomiting, or diarrhea, reports bowel movement and active hemorrhoid : No reports of dysuria or retention Neurovascular: no reports of generalized weakness, reports severe left lower extremity pain and swelling All medications have been reviewed Active Medications Acetaminophen (Acetaminophen Tab 325 Mg Tab) 650 mg PO Q6HR PRN PRN Reason: Mild Pain or Fever > 100.5 Hydrocodone Bitart/Acetaminophen (Hydrocodone/Apap 5-325mg 1 Each Tab) 1 each PO Q6HR PRN PRN Reason: Pain Artificial Tears (Artificial Tears-Hypromellose Drops 15 Ml Btl) 1 drops BOTH EYES QID PRN PRN Reason: Dry Eye(s) Aspirin (Aspirin 81 Mg) 81 mg PO DAILY [facility] Last Admin: 11/13/21 08:36 Dose: 81 mg Documented by: Diphenhydramine HCl (Diphenhydramine 50 Mg/Ml 1 Ml Vial) 50 mg IVP Q6HR PRN PRN Reason: Allergy Symptoms Last Admin: 11/13/21 08:36 Dose: 50 mg Documented by: Docusate Sodium (Docusate 100 Mg Cap) 100 mg PO DAILY [facility] Last Admin: 11/13/21 08:36 Dose: 100 mg Documented by: Heparin Sodium (Porcine) (Heparin Sodium,Porcine/Pf 5,000 Unit/0.5 Ml Syringe) 5,000 unit SQ Q8HR [facility] Last Admin: 11/13/21 15:26 Dose: 5,000 unit Documented by: Hydrocortisone (Hydrocortisone 2.5% Rectal Cream 30 Gm Tube) 1 applic RECTAL BID [facility] Last Admin: 11/13/21 20:40 Dose: 1 applic Documented by: Hydrocortisone Acetate (Hydrocortisone Suppository 25 Mg Supp) 25 mg RECTAL BID [facility] Last Admin: 11/13/21 20:40 Dose: 25 mg Documented by: Vancomycin HCl 1,500 mg/ (Sodium Chloride) 250 mls @ 125 mls/hr IVPB Q12H [facility] Last Admin: 11/13/21 20:40 Dose: 125 mls/hr Documented by: Ketorolac Tromethamine (Ketorolac 30 Mg/Ml 1 Ml Vial) 15 mg IVP Q6HR PRN PRN Reason: Moderate Pain Stop: 11/15/21 20:37 Last Admin: 11/13/21 20:39 Dose: 15 mg Documented by: Levothyroxine Sodium (Levothyroxine 125 Mcg Tab) 125 mcg PO DAILY@0630 [facility] Last Admin: 11/13/21 08:35 Dose: 125 mcg Documented by: Liothyronine Sodium (Liothyronine Sodium 5 Mcg Tab) 10 mcg PO DAILY [facility] Last Admin: 11/13/21 08:36 Dose: 10 mcg Documented by: Metoprolol Succinate (Metoprolol Succinate (Er) 25 Mg Tab.Er.24h) 25 mg PO BID [facility] Last Admin: 11/13/21 20:40 Dose: 25 mg Documented by: Morphine Sulfate (Morphine Sulfate 2 Mg/Ml Syringe) 2 mg IVP Q4HR PRN PRN Reason: Pain/Discomfort Naloxone HCl (Naloxone 0.4 Mg/Ml 1 Ml Vial) 0.2 mg IV Q2M PRN PRN Reason: Opioid Reversal Ondansetron HCl (Ondansetron 4 Mg/2 Ml Vial) 4 mg IVP Q8HR PRN PRN Reason: Nausea And Vomiting Pantoprazole Sodium (Pantoprazole 40 Mg Tablet) 40 mg PO DAILY [facility] Last Admin: 11/13/21 08:36 Dose: 40 mg Documented by: PHYSICAL EXAMINATION: GENERAL: The patient is alert and orientedx3, well developed, well nourished HEENT: Pupils are round and equally reacting to light. EOMI. does have scleral icterus. No conjunctival pallor. Normocephalic, atraumatic. No pharyngeal erythema. No thyromegaly. CARDIOVASCULAR: S1 and S2 muffled PULMONARY: diminished breath sounds bilaterally with Few scattered rhonchi noted. ABDOMEN: soft. non-tender. Non-distended, normoactive bowel sounds. No palpable organomegaly. MUSCULOSKELETAL: No joint swelling or deformity. EXTREMITIES: No cyanosis, clubbing, mild left pedal edema. left lower extremity swelling and redness noted NEUROLOGICAL: Gross neurological examination did not reveal any focal deficits. SKIN: No rashes. Assessment: Acute severe cellulitis and severe pain of the left aguilar coronary artery disease chronic obstructive pulmonary disease history of hemorrhoids hypertension GI prophylaxis DVT prophylaxis Full code Plan: Recommend to continue with current medications and IV antibiotics with ID following. Patient having some constipation and requesting anusol cream for hemorrhoids. Patient denies bleeding. Patient continues with left lower extremity swelling and severe discomfort and sensitivity to touch. Area of concern has been marked and continues with redness although no drainage or fluctuation noted. Recommend bobbi wrapping the lower extremities and elevating while at rest to help with swelling. Will discuss with ID about discharge planning. Due to multiple complex medical issues, prognosis is guarded. The impression and plan of care has been dictated by Tiffany Rabago, nurse practitioner as directed. MD Jose Alberto I have performed a history and examination and MDM of this patient, discussed the same with the dictator, and agree with the dictator's assessment and plan as written ,documented as a scribe. Based on total visit time, I have performed more than 50% of the visit. Any additional findings or plans will be noted. Objective - Vital Signs Vital signs: Vital Signs Temp 98.6 F 11/13/21 05:00 Pulse 74 11/13/21 08:38 Resp 18 11/13/21 05:00 BP 132/79 11/13/21 08:38 Pulse Ox 95 11/13/21 08:38 Intake & Output 11/12/21 11/13/21 11/13/21 18:59 06:59 18:59 Other: Voiding Method Toilet Toilet # Voids 5 4 - Labs CBC & Chem 7: 11/12/21 06:35 11/12/21 06:35 Labs: Microbiology - Last 24 Hours (Table) 11/10/21 19:06 Blood Culture - Preliminary Blood No Growth after 48 hours 11/10/21 18:50 Blood Culture - Preliminary Blood No Growth after 48 hours
[2021-11-14 06:11] LABS: African American GFR (CKD) >90 (>60 ml/min/1.73 sqM); Non-African American GFR(CKD) >90 (>60 ml/min/1.73 sqM)
[2021-11-14] MEDS: LEVOTHYROXINE 125 MCG TAB PO SCH (06:16)
[2021-11-14] MEDS: PANTOPRAZOLE 40 MG TABLET PO SCH (09:13)
[2021-11-14] MEDS: DOCUSATE 100 MG CAP PO SCH (09:14)
[2021-11-14] MEDS: HYDROCORTISONE 2.5% RECTAL CREAM 30 GM TUBE RECTAL SCH ×2 (09:14→21:26)
[2021-11-14] MEDS: METOPROLOL SUCCINATE (ER) 25 MG TAB.ER.24H PO SCH ×2 (09:14→21:26)
[2021-11-14] MEDS: ASPIRIN 81 MG PO SCH (09:14)
[2021-11-14] MEDS: VANCOMYCIN 1,500 MG in SODIUM CHLORIDE 0.9% 250 ML IVPB SCH ×2 (09:14→21:25)
[2021-11-14] MEDS: diphenhydrAMINE 50 MG/ML 1 ML VIAL IVP PRN (09:15)
[2021-11-14] MEDS: HYDROCORTISONE SUPPOSITORY 25 MG SUPP RECTAL SCH ×2 (09:19→21:26)
[2021-11-14] MEDS: LIOTHYRONINE SODIUM 5 MCG TAB PO SCH (09:39)
[2021-11-14] MEDS: KETOROLAC 30 MG/ML 1 ML VIAL IVP PRN (21:25)
--- NOTE | 2021-11-14 23:40 | P.PN ---
Subjective Progress Note Date: 11/14/21 Principal diagnosis: Left leg cellulitis Patient is a 61-year-old female admitted to the hospital with a painful left lower extremity and a question of cellulitis failing outpatient oral antibiotic therapy. On today's evaluation that is 11/14/2021, patient is afebrile, patient pain to the left lower leg the area has decreased in intensity, patient with no open wound or any drainage, the patient denies having any chest pain shortness of breath or cough no vomiting no diarrhea Objective - Vital Signs Vital signs: Vital Signs Temp 98.1 F 11/14/21 11:27 Pulse 64 11/14/21 11:27 Resp 18 11/14/21 11:27 BP 121/79 11/14/21 11:27 Pulse Ox 97 11/14/21 11:27 Intake & Output 11/13/21 11/14/21 11/14/21 18:59 06:59 18:59 Intake Total 250 Balance 250 Intake: Intake, IV Titration 250 Amount Vancomycin 1,500 mg In 250 Sodium Chloride 0.9% 250 ml @ 125 mls/hr IVPB Q12H [facility] Rx#:[id number] Other: Voiding Method Toilet # Voids 3 - Exam GENERAL DESCRIPTION: Middle-aged female lying in bed in no distress RESPIRATORY SYSTEM: Unlabored breathing , decreased breath sounds at bases HEART: S1 S2 regular rate and rhythm , ABDOMEN: Soft , no tenderness EXTREMITIES: Left lower extremity/ aguilar with minimal area of discoloration and tenderness to touch - Labs CBC & Chem 7: 11/12/21 06:35 11/14/21 05:24 Labs: Microbiology - Last 24 Hours (Table) 11/10/21 19:06 Blood Culture - Preliminary Blood No Growth after 72 hours 11/10/21 18:50 Blood Culture - Preliminary Blood No Growth after 72 hours Assessment and Plan (1) Left leg cellulitis Current Visit: Yes Status: Acute Code(s): L03.116 - CELLULITIS OF LEFT LOWER LIMB SNOMED Code(s): 227996334 (2) Allergy to multiple antibiotics Current Visit: No Status: Acute Code(s): Z88.1 - ALLERGY STATUS TO OTHER ANTIBIOTIC AGENTS SNOMED Code(s): 669907185 Plan: 1patient presented to hospital with left lower extremity pain swelling and some redness in this patient has been diagnosed in the outpatient setting with cellulitis and has been treated with oral Bactrim DS without any improvement, patient did have an area of mild erythema and very tender to touch but no fluctuation or concern for underlying abscess, the CT of the leg was negative for any abscess collection, patient to continue with vancomycin pharmacy to dose while watching kidney function closely, seemed to have shown some clinical improvement advised Bora wrap to keep the swelling down and will reevaluate patient tomorrow Time with Patient: Less than 30
[2021-11-15] MEDS: HEPARIN SODIUM,PORCINE/PF 5,000 UNIT/0.5 ML SYRINGE SQ SCH ×3 (00:36→15:02)
--- NOTE | 2021-11-15 01:48 | P.PN ---
Subjective Progress Note Date: 11/14/21 11/13/2021 This is a 61 year old female who was admitted with pain and swelling of the left aguilar with surrounding redness and was on oral Bactrim prior to admission and symptoms worsened and patient to the ER for further evaluation. Patient is being closely monitored at this time and continues on IV vancomycin with ID following. Left lower extremity swelling noted and area of concern is marked. Patient noted some worsening spread of the area. Recommend bobbi wrap and elevating left lower extremity. Patient denies chest pain or shortness of breath. Patient was having constipation and straining with a history of hemorrhoids and requesting anusol. Will order anusol. Patient is afebrile. 11/14/2021 Patient is seen this morning and continues to have extreme sensitivity and pain to the left lower extremity although reports some overall improvement in pain. Patient is continued on IV vancomycin with ID following and was using bobbi wrap although reports to the pain being more intense with the bobbi wrap and has currently removed the wrap and has it elevated on pillows in bed. Patient is afebrile and denies chest pain or shortness of breath. Patient tolerating diet with no reports of nausea or vomiting noted. Some abdominal cramping last night but has since resolved. Review of systems: Constitutional: No reports of fatigue, fever, or chills Cardiovascular: No reports of chest pain or palpitations Respiratory: No reports of shortness of breath or cough GI: No reports of nausea, vomiting, or diarrhea, reports improvement in hemorrhoid : No reports of dysuria or retention Neurovascular: no reports of generalized weakness, reports less intense left lower extremity pain and swelling All medications have been reviewed Active Medications Acetaminophen (Acetaminophen Tab 325 Mg Tab) 650 mg PO Q6HR PRN PRN Reason: Mild Pain or Fever > 100.5 Hydrocodone Bitart/Acetaminophen (Hydrocodone/Apap 5-325mg 1 Each Tab) 1 each PO Q6HR PRN PRN Reason: Pain Artificial Tears (Artificial Tears-Hypromellose Drops 15 Ml Btl) 1 drops BOTH EYES QID PRN PRN Reason: Dry Eye(s) Aspirin (Aspirin 81 Mg) 81 mg PO DAILY [facility] Last Admin: 11/14/21 09:14 Dose: 81 mg Documented by: Diphenhydramine HCl (Diphenhydramine 50 Mg/Ml 1 Ml Vial) 50 mg IVP Q6HR PRN PRN Reason: Allergy Symptoms Last Admin: 11/14/21 09:15 Dose: 50 mg Documented by: Docusate Sodium (Docusate 100 Mg Cap) 100 mg PO DAILY [facility] Last Admin: 11/14/21 09:14 Dose: 100 mg Documented by: Heparin Sodium (Porcine) (Heparin Sodium,Porcine/Pf 5,000 Unit/0.5 Ml Syringe) 5,000 unit SQ Q8HR [facility] Last Admin: 11/15/21 00:36 Dose: Not Given Documented by: Hydrocortisone (Hydrocortisone 2.5% Rectal Cream 30 Gm Tube) 1 applic RECTAL BID [facility] Last Admin: 11/14/21 21:26 Dose: 1 applic Documented by: Hydrocortisone Acetate (Hydrocortisone Suppository 25 Mg Supp) 25 mg RECTAL BID [facility] Last Admin: 11/14/21 21:26 Dose: 25 mg Documented by: Vancomycin HCl 1,500 mg/ (Sodium Chloride) 250 mls @ 125 mls/hr IVPB Q12H [facility] Last Admin: 11/14/21 21:25 Dose: 125 mls/hr Documented by: Ketorolac Tromethamine (Ketorolac 30 Mg/Ml 1 Ml Vial) 15 mg IVP Q6HR PRN PRN Reason: Moderate Pain Stop: 11/15/21 20:37 Last Admin: 11/14/21 21:25 Dose: 15 mg Documented by: Levothyroxine Sodium (Levothyroxine 125 Mcg Tab) 125 mcg PO DAILY@0630 [facility] Last Admin: 11/14/21 06:16 Dose: 125 mcg Documented by: Liothyronine Sodium (Liothyronine Sodium 5 Mcg Tab) 10 mcg PO DAILY [facility] Last Admin: 11/14/21 09:39 Dose: 10 mcg Documented by: Metoprolol Succinate (Metoprolol Succinate (Er) 25 Mg Tab.Er.24h) 25 mg PO BID [facility] Last Admin: 11/14/21 21:26 Dose: 25 mg Documented by: Morphine Sulfate (Morphine Sulfate 2 Mg/Ml Syringe) 2 mg IVP Q4HR PRN PRN Reason: Pain/Discomfort Naloxone HCl (Naloxone 0.4 Mg/Ml 1 Ml Vial) 0.2 mg IV Q2M PRN PRN Reason: Opioid Reversal Ondansetron HCl (Ondansetron 4 Mg/2 Ml Vial) 4 mg IVP Q8HR PRN PRN Reason: Nausea And Vomiting Pantoprazole Sodium (Pantoprazole 40 Mg Tablet) 40 mg PO DAILY [facility] Last Admin: 11/14/21 09:13 Dose: 40 mg Documented by: PHYSICAL EXAMINATION: GENERAL: The patient is alert and orientedx3, well developed, well nourished HEENT: Pupils are round and equally reacting to light. EOMI. does have scleral icterus. No conjunctival pallor. Normocephalic, atraumatic. No pharyngeal erythema. No thyromegaly. CARDIOVASCULAR: S1 and S2 muffled PULMONARY: diminished breath sounds bilaterally with Few scattered rhonchi noted. ABDOMEN: soft. non-tender. Non-distended, normoactive bowel sounds. No palpable organomegaly. MUSCULOSKELETAL: No joint swelling or deformity. EXTREMITIES: No cyanosis, clubbing, mild left pedal edema. left lower extremity swelling and redness noted, swelling somewhat improved NEUROLOGICAL: Gross neurological examination did not reveal any focal deficits. SKIN: No rashes. Assessment: Acute severe cellulitis and severe pain of the left aguilar coronary artery disease chronic obstructive pulmonary disease history of hemorrhoids hypertension GI prophylaxis DVT prophylaxis Full code Plan: Recommend to continue with current medications and IV antibiotics with ID following. Patient continues with left lower extremity swelling and discomfort and sensitivity to touch. Area of concern has been marked and continues with redness although no drainage or fluctuation noted. Recommend bobbi wrapping the lower extremities and elevating while at rest to help with swelling. Patient had to remove bobbi wraps as the pain had become more intense overnight. Currently there is improvement in the swelling and patient is elevating left lower extremity on some pillows. Will discuss with ID about discharge planning. Due to multiple complex medical issues, prognosis is guarded. The impression and plan of care has been dictated by Tiffany Rabago, nurse practitioner as directed. MD Jose Alberto I have performed a history and examination and MDM of this patient, discussed the same with the dictator, and agree with the dictator's assessment and plan as written ,documented as a scribe. Based on total visit time, I have performed more than 50% of the visit. Any additional findings or plans will be noted. Objective - Vital Signs Vital signs: Vital Signs Temp 98.4 F 11/14/21 04:15 Pulse 76 11/14/21 09:20 Resp 20 11/14/21 04:15 BP 138/81 11/14/21 09:20 Pulse Ox 96 11/14/21 09:20 Intake & Output 11/13/21 11/14/21 11/14/21 18:59 06:59 18:59 Intake Total 250 Balance 250 Intake: Intake, IV Titration 250 Amount Vancomycin 1,500 mg In 250 Sodium Chloride 0.9% 250 ml @ 125 mls/hr IVPB Q12H [facility] Rx#:[id number] Other: Voiding Method Toilet # Voids 3 - Labs CBC & Chem 7: 11/12/21 06:35 11/14/21 05:24 Labs: Microbiology - Last 24 Hours (Table) 11/10/21 19:06 Blood Culture - Preliminary Blood No Growth after 72 hours 11/10/21 18:50 Blood Culture - Preliminary Blood No Growth after 72 hours
[2021-11-15] MEDS: LEVOTHYROXINE 125 MCG TAB PO SCH (06:18)
[2021-11-15] MEDS: DOCUSATE 100 MG CAP PO SCH (09:43)
[2021-11-15] MEDS: PANTOPRAZOLE 40 MG TABLET PO SCH (09:43)
[2021-11-15] MEDS: METOPROLOL SUCCINATE (ER) 25 MG TAB.ER.24H PO SCH ×2 (09:43→21:14)
[2021-11-15] MEDS: LIOTHYRONINE SODIUM 5 MCG TAB PO SCH (09:43)
[2021-11-15] MEDS: ASPIRIN 81 MG PO SCH (09:43)
[2021-11-15] MEDS: HYDROCORTISONE 2.5% RECTAL CREAM 30 GM TUBE RECTAL SCH ×2 (09:44→22:16)
[2021-11-15] MEDS: HYDROCORTISONE SUPPOSITORY 25 MG SUPP RECTAL SCH ×2 (09:44→22:16)
[2021-11-15] MEDS: VANCOMYCIN 1,500 MG in SODIUM CHLORIDE 0.9% 250 ML IVPB SCH ×2 (09:47→18:02)
[2021-11-15] MEDS: HYDROcodone/APAP 5-325MG 1 EACH TAB PO PRN ×2 (09:47→18:00)
[2021-11-15] MEDS: KETOROLAC 30 MG/ML 1 ML VIAL IVP PRN (12:48)
[2021-11-15] MEDS: MORPHINE SULFATE 2 MG/ML SYRINGE IVP PRN ×2 (15:02→21:14)
--- NOTE | 2021-11-15 21:33 | P.PN ---
Subjective Progress Note Date: 11/15/21 61 year old female who was admitted with pain and swelling of the left aguilar with surrounding redness and was on oral Bactrim prior to admission and symptoms worsened and patient to the ER for further evaluation. Patient is being closely monitored at this time and continues on IV vancomycin with ID following. Left lower extremity swelling noted and area of concern is marked. Patient noted some worsening spread of the area. Recommend bobbi wrap and elevating left lower extremity. Patient denies chest pain or shortness of breath. Patient was having constipation and straining with a history of hemorrhoids and requesting anusol. Will order anusol. Patient is afebrile. Patient is seen and evaluated with family members at bedside; reports improvement in redness and swelling of left lower extremity Vital signs and labs are reviewed and remained stable ID is recommending to continue with IV vancomycin at this time Objective - Vital Signs Vital signs: Vital Signs Temp 97.9 F 11/15/21 13:55 Pulse 82 11/15/21 13:55 Resp 18 11/15/21 13:55 BP 118/71 11/15/21 13:55 Pulse Ox 95 11/15/21 13:55 Intake & Output 11/14/21 11/15/21 11/15/21 18:59 06:59 18:59 Other: Voiding Method Toilet Toilet # Voids 4 4 1 - Exam GENERAL: The patient is alert and orientedx3, well developed, well nourished HEENT: Pupils are round and equally reacting to light. EOMI. does have scleral icterus. No conjunctival pallor. Normocephalic, atraumatic. No pharyngeal erythema. No thyromegaly. CARDIOVASCULAR: S1 and S2 muffled PULMONARY: diminished breath sounds bilaterally with Few scattered rhonchi noted. ABDOMEN: soft. non-tender. Non-distended, normoactive bowel sounds. No palpable organomegaly. MUSCULOSKELETAL: No joint swelling or deformity. EXTREMITIES: No cyanosis, clubbing, mild left pedal edema. left lower extremity swelling and redness noted, swelling somewhat improved NEUROLOGICAL: Gross neurological examination did not reveal any focal deficits. SKIN: No rashes. - Labs CBC & Chem 7: 11/12/21 06:35 11/14/21 05:24 Labs: Microbiology - Last 24 Hours (Table) 11/10/21 19:06 Blood Culture - Preliminary Blood No Growth after 96 hours 11/10/21 18:50 Blood Culture - Preliminary Blood No Growth after 96 hours Assessment and Plan Assessment: Acute severe cellulitis and severe pain of the left aguilar coronary artery disease chronic obstructive pulmonary disease history of hemorrhoids hypertension GI prophylaxis DVT prophylaxis Full code Plan: Recommend to continue with current medications and IV antibiotics with ID following. Patient continues with left lower extremity swelling and discomfort and sensitivity to touch. Area of concern has been marked and continues with redness although no drainage or fluctuation noted. Recommend bobbi wrapping the lower extremities and elevating while at rest to help with swelling. Patient had to remove bobbi wraps as the pain had become more intense overnight. Currently there is improvement in the swelling and patient is elevating left lower extremity on some pillows. Will discuss with ID about discharge planning. Due to multiple complex medical issues, prognosis is guarded
[2021-11-16] MEDS: HEPARIN SODIUM,PORCINE/PF 5,000 UNIT/0.5 ML SYRINGE SQ SCH ×4 (03:56→21:39)
[2021-11-16] MEDS ORDERED: VANCOMYCIN TROUGH DUE 1 EACH MISC MISCELLANE ONE (06:00)
[2021-11-16] MEDS: METOPROLOL SUCCINATE (ER) 25 MG TAB.ER.24H PO SCH ×2 (07:39→20:38)
[2021-11-16] MEDS: DOCUSATE 100 MG CAP PO SCH (07:39)
[2021-11-16] MEDS: HYDROcodone/APAP 5-325MG 1 EACH TAB PO PRN ×2 (07:39→20:38)
[2021-11-16] MEDS: ASPIRIN 81 MG PO SCH (07:39)
[2021-11-16] MEDS: PANTOPRAZOLE 40 MG TABLET PO SCH (07:39)
[2021-11-16] MEDS: VANCOMYCIN 1,500 MG in SODIUM CHLORIDE 0.9% 250 ML IVPB SCH ×2 (07:40→19:24)
[2021-11-16] MEDS: LIOTHYRONINE SODIUM 5 MCG TAB PO SCH (07:40)
[2021-11-16] MEDS: HYDROCORTISONE SUPPOSITORY 25 MG SUPP RECTAL SCH ×2 (07:41→20:39)
[2021-11-16] MEDS: HYDROCORTISONE 2.5% RECTAL CREAM 30 GM TUBE RECTAL SCH ×2 (07:41→20:39)
[2021-11-16] MEDS: LEVOTHYROXINE 125 MCG TAB PO SCH (07:41)
[2021-11-16 07:57] LABS: African American GFR (CKD) >90 (>60 ml/min/1.73 sqM); Non-African American GFR(CKD) >90 (>60 ml/min/1.73 sqM)
[2021-11-16 10:11] LABS: Basophils # (A) 0.1 k/uL (0-0.2); Basophils % (A) 1 %; Eosinophils # (A) 0.4 k/uL (0-0.7); Eosinophils % (A) 6 %; HCT 37.2 % (34.0-46.0); Lymphocytes # (A) 0.8 k/uL (1.0-4.8); Lymphocytes % (A) 13 %; MCH 29.2 pg (25.0-35.0); MCHC 32.2 g/dL (31.0-37.0); MCV 90.8 fL (80.0-100.0); Monocytes # (A) 0.4 k/uL (0-1.0); Monocytes % (A) 6 %; Neutrophils # (A) 4.7 k/uL (1.3-7.7); Neutrophils % (A) 73 %; Platelet Count 273 k/uL (150-450); RDW 12.4 % (11.5-15.5); WBC 6.5 k/uL (3.8-10.6)
[2021-11-16 10:19] LABS: African American GFR (CKD) >90 (>60 ml/min/1.73 sqM); Anion Gap 7 mmol/L; Blood Urea Nitrogen 18 mg/dL (7-17); Calcium 8.2 mg/dL (8.4-10.2); Carbon Dioxide 26 mmol/L (22-30); Chloride 104 mmol/L (98-107); Glucose 100 mg/dL (74-99); Non-African American GFR(CKD) >90 (>60 ml/min/1.73 sqM); Potassium 4.2 mmol/L (3.5-5.1); Sodium 137 mmol/L (137-145)
[2021-11-16] MEDS: MORPHINE SULFATE 2 MG/ML SYRINGE IVP PRN (13:17)
--- NOTE | 2021-11-16 14:00 | P.PN ---
Subjective Progress Note Date: 11/16/21 Principal diagnosis: Acute severe cellulitis and severe pain of the left aguilar 61 year old female who was admitted with pain and swelling of the left aguilar with surrounding redness and was on oral Bactrim prior to admission and symptoms worsened and patient to the ER for further evaluation. Patient is being closely monitored at this time and continues on IV vancomycin with ID following. Left lower extremity swelling noted and area of concern is marked. Patient noted some worsening spread of the area. Recommend bobbi wrap and elevating left lower extrem ity. Patient denies chest pain or shortness of breath. Patient was having constipation and straining with a history of hemorrhoids and requesting anusol. Will order anusol. Patient is afebrile. Patient is seen and evaluated with family members at bedside; reports improvement in redness and swelling of left lower extremity Vital signs and labs are reviewed and remained stable ID is recommending to continue with IV vancomycin at this time 11/16/2021 Patient is seen and evaluated in room at bedside; reports some worsening in swelling and inflammation of left lower extremity Vital signs are reviewed and stable with temperature of 98.4, pulse 76, respirations 16 and blood pressure 123/73 and O2 saturation 95% Lab review reveals severely 66.5, hemoglobin 12.0, hematocrit 37.1 platelet count of 273, sodium 137, potassium 4.2, BUN 18 with creatinine of 0.71 Patient remains on IV vancomycin; lower extremity cellulitis not showing significant improvement; ID on board and recommending to continue with IV Vanco at this time; continue to elevate legs; monitor CBC and pro-calcitonin Objective - Vital Signs Vital signs: Vital Signs Temp 98.4 F 11/16/21 05:00 Pulse 76 11/16/21 05:00 Resp 16 11/16/21 05:00 BP 123/73 11/16/21 05:00 Pulse Ox 95 11/16/21 05:00 Intake & Output 11/15/21 11/16/21 11/16/21 18:59 06:59 18:59 Intake Total 590 Balance 590 Intake: Oral 590 Other: Voiding Method Toilet Toilet # Voids 1 3 - Exam GENERAL: The patient is alert and orientedx3, well developed, well nourished HEENT: Pupils are round and equally reacting to light. EOMI. does have scleral icterus. No conjunctival pallor. Normocephalic, atraumatic. No pharyngeal erythema. No thyromegaly. CARDIOVASCULAR: S1 and S2 muffled PULMONARY: diminished breath sounds bilaterally with Few scattered rhonchi noted. ABDOMEN: soft. non-tender. Non-distended, normoactive bowel sounds. No palpable organomegaly. MUSCULOSKELETAL: No joint swelling or deformity. EXTREMITIES: No cyanosis, clubbing, mild left pedal edema. left lower extremity swelling and redness noted, swelling somewhat improved NEUROLOGICAL: Gross neurological examination did not reveal any focal deficits. SKIN: No rashes. - Labs CBC & Chem 7: 11/16/21 07:13 11/16/21 07:13 Labs: Microbiology - Last 24 Hours (Table) 11/10/21 19:06 Blood Culture - Preliminary Blood No Growth after 120 hours 11/10/21 18:50 Blood Culture - Preliminary Blood No Growth after 120 hours Assessment and Plan Assessment: Acute severe cellulitis and severe pain of the left aguilar coronary artery disease chronic obstructive pulmonary disease history of hemorrhoids hypertension GI prophylaxis DVT prophylaxis Full code Plan: Recommend to continue with current medications and IV antibiotics with ID following. Patient continues with left lower extremity swelling and discomfort and sensitivity to touch. Area of concern has been marked and continues with redness although no drainage or fluctuation noted. Recommend bobbi wrapping the lower extremities and elevating while at rest to help with swelling. Patient had to remove bobbi wraps as the pain had become more intense overnight. Currently there is improvement in the swelling and patient is elevating left lower extremity on some pillows. Will discuss with ID about discharge planning. Due to multiple complex medical issues, prognosis is guarded
--- NOTE | 2021-11-16 23:13 | P.PN ---
Subjective Progress Note Date: 11/15/21 Principal diagnosis: Left leg cellulitis Patient is a 61-year-old female admitted to the hospital with a painful left lower extremity and a question of cellulitis failing outpatient oral antibiotic therapy. On today's evaluation that is 11/15/2021, patient remains to be afebrile, patient pain to the left lower leg the area has decreased in intensity, patient currently with no open wound or any drainage, the patient denies having any chest pain shortness of breath or cough no vomiting no diarrhea Objective - Vital Signs Vital signs: Vital Signs Temp 98.1 F 11/15/21 04:58 Pulse 70 11/15/21 09:42 Resp 16 11/15/21 09:42 BP 110/79 11/15/21 09:42 Pulse Ox 97 11/15/21 09:42 Intake & Output 11/14/21 11/15/21 11/15/21 18:59 06:59 18:59 Other: Voiding Method Toilet Toilet # Voids 4 4 1 - Exam GENERAL DESCRIPTION: Middle-aged female lying in bed in no distress RESPIRATORY SYSTEM: Unlabored breathing , decreased breath sounds at bases HEART: S1 S2 regular rate and rhythm , ABDOMEN: Soft , no tenderness EXTREMITIES: Left lower extremity/ aguilar with minimal area of discoloration and tenderness to touch - Labs CBC & Chem 7: 11/16/21 07:13 11/16/21 07:13 Labs: Microbiology - Last 24 Hours (Table) 11/10/21 19:06 Blood Culture - Preliminary Blood No Growth after 96 hours 11/10/21 18:50 Blood Culture - Preliminary Blood No Growth after 96 hours Assessment and Plan (1) Left leg cellulitis Current Visit: Yes Status: Acute Code(s): L03.116 - CELLULITIS OF LEFT LOWER LIMB SNOMED Code(s): 321703929 (2) Allergy to multiple antibiotics Current Visit: No Status: Acute Code(s): Z88.1 - ALLERGY STATUS TO OTHER ANTIBIOTIC AGENTS SNOMED Code(s): 253882347 Plan: 1patient presented to hospital with left lower extremity pain swelling and some redness in this patient has been diagnosed in the outpatient setting with cellulitis and has been treated with oral Bactrim DS without any improvement, patient did have an area of mild erythema and very tender to touch but no fluctuation or concern for underlying abscess, the CT of the leg was negative for any abscess collection, patient is covered with vancomycin cultures has been negative finishing therapy with oral antibiotics Time with Patient: Less than 30
--- NOTE | 2021-11-16 23:14 | P.PN ---
Subjective Progress Note Date: 11/16/21 Principal diagnosis: Left leg cellulitis Patient is a 61-year-old female admitted to the hospital with a painful left lower extremity and a question of cellulitis failing outpatient oral antibiotic therapy. On today's evaluation that is 11/16/2021, patient denies any fever or any chills, patient pain to the left lower leg the area has decreased in intensity, patient mentioned he was slight drainage from the leg leg area, the patient denies having any chest pain shortness of breath or cough no vomiting no diarrhea Objective - Vital Signs Vital signs: Vital Signs Temp 98.2 F 11/16/21 20:27 Pulse 72 11/16/21 20:27 Resp 16 11/16/21 20:27 BP 116/74 11/16/21 20:27 Pulse Ox 96 11/16/21 20:27 Intake & Output 11/16/21 11/16/21 11/17/21 06:59 18:59 06:59 Intake Total 590 Balance 590 Intake: Oral 590 Other: Voiding Method Toilet Toilet Toilet # Voids 3 5 - Exam GENERAL DESCRIPTION: Middle-aged female lying in bed in no distress RESPIRATORY SYSTEM: Unlabored breathing , decreased breath sounds at bases HEART: S1 S2 regular rate and rhythm , ABDOMEN: Soft , no tenderness EXTREMITIES: Left lower extremity/ aguilar with minimal area of discoloration and tenderness to touch - Labs CBC & Chem 7: 11/16/21 07:13 11/16/21 07:13 Labs: Abnormal Lab Results - Last 24 Hours (Table) 11/16/21 11/16/21 Range/Units 07:13 07:13 Lymphocytes # 0.8 L (1.0-4.8) k/uL BUN 18 H (7-17) mg/dL Glucose 100 H (74-99) mg/dL Calcium 8.2 L (8.4-10.2) mg/dL Microbiology - Last 24 Hours (Table) 11/10/21 19:06 Blood Culture - Final Blood No Growth after 144 hours 11/10/21 18:50 Blood Culture - Final Blood No Growth after 144 hours Assessment and Plan (1) Left leg cellulitis Current Visit: Yes Status: Acute Code(s): L03.116 - CELLULITIS OF LEFT LOWER LIMB SNOMED Code(s): 318846622 (2) Allergy to multiple antibiotics Current Visit: No Status: Acute Code(s): Z88.1 - ALLERGY STATUS TO OTHER ANTIBIOTIC AGENTS SNOMED Code(s): 866657129 Plan: 1patient presented to hospital with left lower extremity pain swelling and some redness in this patient has been diagnosed in the outpatient setting with cellulitis and has been treated with oral Bactrim DS without any improvement, patient did have an area of mild erythema and very tender to touch but no fluctuation or concern for underlying abscess, the CT of the leg was negative for any abscess collection, patient is covered with vancomycin cultures has been negative, plan is to finish therapy with oral doxycycline and close outpatient follow-up Time with Patient: Less than 30
[2021-11-17] MEDS: LEVOTHYROXINE 125 MCG TAB PO SCH (06:11)
[2021-11-17] MEDS: VANCOMYCIN 1,500 MG in SODIUM CHLORIDE 0.9% 250 ML IVPB SCH ×2 (06:11→18:58)
[2021-11-17] MEDS: PANTOPRAZOLE 40 MG TABLET PO SCH (08:35)
[2021-11-17] MEDS: METOPROLOL SUCCINATE (ER) 25 MG TAB.ER.24H PO SCH ×2 (08:35→20:04)
[2021-11-17] MEDS: ASPIRIN 81 MG PO SCH (08:35)
[2021-11-17] MEDS: HYDROcodone/APAP 5-325MG 1 EACH TAB PO PRN ×2 (08:35→20:05)
[2021-11-17] MEDS: DOCUSATE 100 MG CAP PO SCH (08:35)
[2021-11-17] MEDS: LIOTHYRONINE SODIUM 5 MCG TAB PO SCH (08:36)
[2021-11-17] MEDS: HEPARIN SODIUM,PORCINE/PF 5,000 UNIT/0.5 ML SYRINGE SQ SCH ×3 (08:36→21:47)
[2021-11-17] MEDS: HYDROCORTISONE 2.5% RECTAL CREAM 30 GM TUBE RECTAL SCH ×2 (08:37→20:05)
[2021-11-17] MEDS: HYDROCORTISONE SUPPOSITORY 25 MG SUPP RECTAL SCH ×2 (08:37→19:15)
[2021-11-17] MEDS: ACETAMINOPHEN TAB 325 MG TAB PO PRN (12:20)
--- NOTE | 2021-11-17 13:46 | P.PN ---
Subjective Progress Note Date: 11/17/21 11/13/2021 This is a 61 year old female who was admitted with pain and swelling of the left aguilar with surrounding redness and was on oral Bactrim prior to admission and symptoms worsened and patient to the ER for further evaluation. Patient is being closely monitored at this time and continues on IV vancomycin with ID following. Left lower extremity swelling noted and area of concern is marked. Patient noted some worsening spread of the area. Recommend bobbi wrap and elevating left lower extremity. Patient denies chest pain or shortness of breath. Patient was having constipation and straining with a history of hemorrhoids and requesting anusol. Will order anusol. Patient is afebrile. 11/14/2021 Patient is seen this morning and continues to have extreme sensitivity and pain to the left lower extremity although reports some overall improvement in pain. Patient is continued on IV vancomycin with ID following and was using bobbi wrap although reports to the pain being more intense with the bobbi wrap and has currently removed the wrap and has it elevated on pillows in bed. Patient is afebrile and denies chest pain or shortness of breath. Patient tolerating diet with no reports of nausea or vomiting noted. Some abdominal cramping last night but has since resolved. 11/15/2021 Patient is seen and evaluated with family members at bedside; reports improvement in redness and swelling of left lower extremity Vital signs and labs are reviewed and remained stable ID is recommending to continue with IV vancomycin at this time 11/16/2021 Patient is seen and evaluated in room at bedside; reports some worsening in swelling and inflammation of left lower extremity Vital signs are reviewed and stable with temperature of 98.4, pulse 76, respirations 16 and blood pressure 123/73 and O2 saturation 95% Lab review reveals severely 66.5, hemoglobin 12.0, hematocrit 37.1 platelet count of 273, sodium 137, potassium 4.2, BUN 18 with creatinine of 0.71 Patient remains on IV vancomycin; lower extremity cellulitis not showing significant improvement; ID on board and recommending to continue with IV Vanco at this time; continue to elevate legs; monitor CBC and pro-calcitonin 11/17/2021 Patient is seen in follow-up this morning continues to have extreme discomfort and extreme sensitivity to light palpation of the left lower extremity. Patient states she feels it is hardened and not improving. Patient continues on IV vancomycin with infectious disease following. Patient's left lateral outer aspect with a wound that feels hardened and indurated and will consult vascular surgery Dr. Schumacher for possible I&D with deep tissue cultures which is currently pending. She denies any chest pain, shortness of breath, or palpitations. Patient is afebrile. Review of systems: Constitutional: No reports of fatigue, fever, or chills Cardiovascular: No reports of chest pain or palpitations Respiratory: No reports of shortness of breath or cough GI: No reports of nausea, vomiting, or diarrhea, reports improvement in hemorrhoid : No reports of dysuria or retention Neurovascular: no reports of generalized weakness, reports less intense left lower extremity pain and swelling All medications have been reviewed Active Medications Acetaminophen (Acetaminophen Tab 325 Mg Tab) 650 mg PO Q6HR PRN PRN Reason: Mild Pain or Fever > 100.5 Last Admin: 11/17/21 12:20 Dose: 650 mg Documented by: Hydrocodone Bitart/Acetaminophen (Hydrocodone/Apap 5-325mg 1 Each Tab) 1 each PO Q6HR PRN PRN Reason: Pain Last Admin: 11/17/21 08:35 Dose: 1 each Documented by: Artificial Tears (Artificial Tears-Hypromellose Drops 15 Ml Btl) 1 drops BOTH EYES QID PRN PRN Reason: Dry Eye(s) Aspirin (Aspirin 81 Mg) 81 mg PO DAILY [facility] Last Admin: 11/17/21 08:35 Dose: 81 mg Documented by: Diphenhydramine HCl (Diphenhydramine 50 Mg/Ml 1 Ml Vial) 50 mg IVP Q6HR PRN PRN Reason: Allergy Symptoms Last Admin: 11/14/21 09:15 Dose: 50 mg Documented by: Docusate Sodium (Docusate 100 Mg Cap) 100 mg PO DAILY [facility] [place] Last Admin: 11/17/21 08:35 Dose: 100 mg Documented by: Heparin Sodium (Porcine) (Heparin Sodium,Porcine/Pf 5,000 Unit/0.5 Ml Syringe) 5,000 unit SQ Q8HR [facility] [place] Last Admin: 11/17/21 08:36 Dose: Not Given Documented by: Hydrocortisone (Hydrocortisone 2.5% Rectal Cream 30 Gm Tube) 1 applic RECTAL BID [facility] [place] Last Admin: 11/17/21 08:37 Dose: 1 applic Documented by: Hydrocortisone Acetate (Hydrocortisone Suppository 25 Mg Supp) 25 mg RECTAL BID [facility] [place] Last Admin: 11/17/21 08:37 Dose: Not Given Documented by: Vancomycin HCl 1,500 mg/ (Sodium Chloride) 250 mls @ 125 mls/hr IVPB Q12H [facility] [place] Last Admin: 11/17/21 06:11 Dose: 125 mls/hr Documented by: Levothyroxine Sodium (Levothyroxine 125 Mcg Tab) 125 mcg PO DAILY@0630 [facility] [place] Last Admin: 11/17/21 06:11 Dose: 125 mcg Documented by: Liothyronine Sodium (Liothyronine Sodium 5 Mcg Tab) 10 mcg PO DAILY [facility] [place] Last Admin: 11/17/21 08:36 Dose: 10 mcg Documented by: Metoprolol Succinate (Metoprolol Succinate (Er) 25 Mg Tab.Er.24h) 25 mg PO BID [facility] [place] Last Admin: 11/17/21 08:35 Dose: 25 mg Documented by: Morphine Sulfate (Morphine Sulfate 2 Mg/Ml Syringe) 2 mg IVP Q4HR PRN PRN Reason: Pain/Discomfort Last Admin: 11/16/21 13:17 Dose: 2 mg Documented by: Naloxone HCl (Naloxone 0.4 Mg/Ml 1 Ml Vial) 0.2 mg IV Q2M PRN PRN Reason: Opioid Reversal Ondansetron HCl (Ondansetron 4 Mg/2 Ml Vial) 4 mg IVP Q8HR PRN PRN Reason: Nausea And Vomiting Pantoprazole Sodium (Pantoprazole 40 Mg Tablet) 40 mg PO DAILY [facility] [place] Last Admin: 11/17/21 08:35 Dose: 40 mg Documented by: PHYSICAL EXAMINATION: GENERAL: The patient is alert and orientedx3, well developed, well nourished HEENT: Pupils are round and equally reacting to light. EOMI. does have scleral icterus. No conjunctival pallor. Normocephalic, atraumatic. No pharyngeal erythema. No thyromegaly. CARDIOVASCULAR: S1 and S2 muffled PULMONARY: diminished breath sounds bilaterally with Few scattered rhonchi noted. ABDOMEN: soft. non-tender. Non-distended, normoactive bowel sounds. No palpable organomegaly. MUSCULOSKELETAL: No joint swelling or deformity. EXTREMITIES: No cyanosis, clubbing, mild left pedal edema. left lower extremity swelling and redness noted, swelling somewhat improved, left aguilar area and outer left lateral aspect of aguilar extremely sensitive to light palpation and a marked site feels hardened and indurated on exam NEUROLOGICAL: Gross neurological examination did not reveal any focal deficits. SKIN: No rashes. Assessment: Acute severe cellulitis and severe pain of the left aguilar coronary artery disease chronic obstructive pulmonary disease history of hemorrhoids hypertension GI prophylaxis DVT prophylaxis Full code Plan: Recommend to continue with current medications and IV antibiotics with ID following. Patient continues with left lower extremity swelling and discomfort and sensitivity to touch. Area of concern has been marked and continues with redness although no drainage or fluctuation noted. The left lateral upper aspect of the aguilar area is hardened and indurated and will consult vascular surgery Dr. Schumacher to discuss possible I&D with deep tissue cultures. Recommend bobbi wrapping the lower extremities and elevating while at rest to help with swelling. Currently there is improvement in the swelling and patient is elevating left lower extremity on some pillows. Due to multiple complex medical issues, prognosis is guarded. The impression and plan of care has been dictated by Tiffany Rabago, nurse practitioner as directed. MD Jose Alberto I have performed a history and examination and MDM of this patient, discussed the same with the dictator, and agree with the dictator's assessment and plan as written ,documented as a scribe. Based on total visit time, I have performed more than 50% of the visit. Any additional findings or plans will be noted. Objective - Vital Signs Vital signs: Vital Signs Temp 97.6 F 11/17/21 11:48 Pulse 71 11/17/21 11:48 Resp 20 11/17/21 11:48 BP 123/78 11/17/21 11:48 Pulse Ox 95 11/17/21 11:48 Intake & Output 11/16/21 11/17/21 11/17/21 18:59 06:59 18:59 Other: Voiding Method Toilet Toilet Toilet # Voids 5 4 - Labs CBC & Chem 7: 11/16/21 07:13 11/16/21 07:13 Labs: Microbiology - Last 24 Hours (Table) 11/10/21 19:06 Blood Culture - Final Blood No Growth after 144 hours 11/10/21 18:50 Blood Culture - Final Blood No Growth after 144 hours
--- NOTE | 2021-11-17 17:10 | CONS ---
DATE OF CONSULTATION: 11/17/2021 This is a 61-year-old female. She was seen on consult. The patient had an episode of left leg small area cellulitis. Patient has been admitted and the cellulitis has spread to the anterior aspect of the aguilar with brown induration of the skin. Measurement is 5 x 4 cm. There is tenderness noted but no fluctuation noted. Patient had a CT with no evidence of abscess. Patient also has a small area on the lateral aspect of the ankle which is also tender, but no fluctuation noted. MEDICAL HISTORY: Patient has history of coronary artery disease, fibromyalgia, COPD. SURGICAL HISTORY: Patient had a right total knee done in the past. PHYSICAL EXAMINATION: NECK: Supple. CHEST: Clear. ABDOMEN: Soft. Femorals are 1+. DP 1+. Patient has a left lower extremity discoloration of the skin with brown induration. No evidence of any localized fluctuation or abscess noted. Patient is on IV antibiotic, which will be continued. We will discuss with Infectious Disease and follow with you. MMODL / IJN: [id number] / BREANNA
[2021-11-18] MEDS: LEVOTHYROXINE 125 MCG TAB PO SCH (06:09)
[2021-11-18] MEDS: HEPARIN SODIUM,PORCINE/PF 5,000 UNIT/0.5 ML SYRINGE SQ SCH ×2 (08:27→14:30)
[2021-11-18] MEDS: ASPIRIN 81 MG PO SCH (08:27)
[2021-11-18] MEDS: DOCUSATE 100 MG CAP PO SCH (08:27)
[2021-11-18] MEDS: LIOTHYRONINE SODIUM 5 MCG TAB PO SCH (08:28)
[2021-11-18] MEDS: HYDROCORTISONE 2.5% RECTAL CREAM 30 GM TUBE RECTAL SCH ×2 (08:28→21:02)
[2021-11-18] MEDS: HYDROcodone/APAP 5-325MG 1 EACH TAB PO PRN ×3 (08:28→21:01)
[2021-11-18] MEDS: HYDROCORTISONE SUPPOSITORY 25 MG SUPP RECTAL SCH ×2 (08:28→22:36)
[2021-11-18] MEDS: METOPROLOL SUCCINATE (ER) 25 MG TAB.ER.24H PO SCH ×2 (08:28→21:01)
[2021-11-18] MEDS: PANTOPRAZOLE 40 MG TABLET PO SCH (08:29)
[2021-11-18] MEDS: VANCOMYCIN 1,500 MG in SODIUM CHLORIDE 0.9% 250 ML IVPB SCH ×2 (10:30→19:53)
--- NOTE | 2021-11-18 14:49 | P.PN ---
Subjective Progress Note Date: 11/18/21 11/13/2021 This is a 61 year old female who was admitted with pain and swelling of the left aguilar with surrounding redness and was on oral Bactrim prior to admission and symptoms worsened and patient to the ER for further evaluation. Patient is being closely monitored at this time and continues on IV vancomycin with ID following. Left lower extremity swelling noted and area of concern is marked. Patient noted some worsening spread of the area. Recommend bobbi wrap and elevating left lower extremity. Patient denies chest pain or shortness of breath. Patient was having constipation and straining with a history of hemorrhoids and requesting anusol. Will order anusol. Patient is afebrile. 11/14/2021 Patient is seen this morning and continues to have extreme sensitivity and pain to the left lower extremity although reports some overall improvement in pain. Patient is continued on IV vancomycin with ID following and was using bobbi wrap although reports to the pain being more intense with the bobbi wrap and has currently removed the wrap and has it elevated on pillows in bed. Patient is afebrile and denies chest pain or shortness of breath. Patient tolerating diet with no reports of nausea or vomiting noted. Some abdominal cramping last night but has since resolved. 11/15/2021 Patient is seen and evaluated with family members at bedside; reports improvement in redness and swelling of left lower extremity Vital signs and labs are reviewed and remained stable ID is recommending to continue with IV vancomycin at this time 11/16/2021 Patient is seen and evaluated in room at bedside; reports some worsening in swelling and inflammation of left lower extremity Vital signs are reviewed and stable with temperature of 98.4, pulse 76, respirations 16 and blood pressure 123/73 and O2 saturation 95% Lab review reveals severely 66.5, hemoglobin 12.0, hematocrit 37.1 platelet count of 273, sodium 137, potassium 4.2, BUN 18 with creatinine of 0.71 Patient remains on IV vancomycin; lower extremity cellulitis not showing significant improvement; ID on board and recommending to continue with IV Vanco at this time; continue to elevate legs; monitor CBC and pro-calcitonin 11/17/2021 Patient is seen in follow-up this morning continues to have extreme discomfort and extreme sensitivity to light palpation of the left lower extremity. Patient states she feels it is hardened and not improving. Patient continues on IV vancomycin with infectious disease following. Patient's left lateral outer aspect with a wound that feels hardened and indurated and will consult vascular surgery Dr. Schumacher for possible I&D with deep tissue cultures which is currently pending. She denies any chest pain, shortness of breath, or palpitations. Patient is afebrile. 11/18/2021 A she is seen and evaluated today continues to have extreme sensitivity and pain to the left lower aguilar and outer aspect area. Patient was seen and evaluated by Dr. Schumacher and recommending to await most recent wound cultures which are currently pending. Patient did have some minimal drainage noted and cultures were obtained yesterday. No plans for surgical intervention. Infectious disease following and will discuss further with possible biopsy of this area given the severity of symptoms patient is experiencing. Patient currently receiving vancomycin although most recently has no IV access as she states her veins are being blown by the vancomycin and will discuss with Dr. Dowling further about antibiotic therapy and possibility of a midline patient is requiring outpatient IV antibiotic therapy. Patient remains afebrile. Instructed the patient to increase activity as tolerated and patient has been walking the halls with her cane and also encourage the patient to elevate lower extremity while at rest. Patient denies any chest pain or shortness of breath. Patient has been tolerating diet with no reports of nausea or vomiting noted. Review of systems: Constitutional: No reports of fatigue, fever, or chills Cardiovascular: No reports of chest pain or palpitations Respiratory: No reports of shortness of breath or cough GI: No reports of nausea, vomiting, or diarrhea : No reports of dysuria or retention Neurovascular: no reports of generalized weakness, reports continued left lower extremity pain and swelling All medications have been reviewed Active Medications Acetaminophen (Acetaminophen Tab 325 Mg Tab) 650 mg PO Q6HR PRN PRN Reason: Mild Pain or Fever > 100.5 Last Admin: 11/17/21 12:20 Dose: 650 mg Documented by: Hydrocodone Bitart/Acetaminophen (Hydrocodone/Apap 5-325mg 1 Each Tab) 1 each PO Q6HR PRN PRN Reason: Pain Last Admin: 11/18/21 14:30 Dose: 1 each Documented by: Artificial Tears (Artificial Tears-Hypromellose Drops 15 Ml Btl) 1 drops BOTH EYES QID PRN PRN Reason: Dry Eye(s) Aspirin (Aspirin 81 Mg) 81 mg PO DAILY [facility] Last Admin: 11/18/21 08:27 Dose: 81 mg Documented by: Diphenhydramine HCl (Diphenhydramine 50 Mg/Ml 1 Ml Vial) 50 mg IVP Q6HR PRN PRN Reason: Allergy Symptoms Last Admin: 11/14/21 09:15 Dose: 50 mg Documented by: Docusate Sodium (Docusate 100 Mg Cap) 100 mg PO DAILY [facility] Last Admin: 11/18/21 08:27 Dose: 100 mg Documented by: Heparin Sodium (Porcine) (Heparin Sodium,Porcine/Pf 5,000 Unit/0.5 Ml Syringe) 5,000 unit SQ Q8HR [facility] Last Admin: 11/18/21 14:30 Dose: Not Given Documented by: Hydrocortisone (Hydrocortisone 2.5% Rectal Cream 30 Gm Tube) 1 applic RECTAL BID [facility] Last Admin: 11/18/21 08:28 Dose: 1 applic Documented by: Hydrocortisone Acetate (Hydrocortisone Suppository 25 Mg Supp) 25 mg RECTAL BID [facility] Last Admin: 11/18/21 08:28 Dose: Not Given Documented by: Vancomycin HCl 1,500 mg/ (Sodium Chloride) 250 mls @ 125 mls/hr IVPB Q12H [facility] Last Admin: 11/18/21 10:30 Dose: Not Given Documented by: Levothyroxine Sodium (Levothyroxine 125 Mcg Tab) 125 mcg PO DAILY@0630 [facility] Last Admin: 11/18/21 06:09 Dose: 125 mcg Documented by: Liothyronine Sodium (Liothyronine Sodium 5 Mcg Tab) 10 mcg PO DAILY [facility] Last Admin: 11/18/21 08:28 Dose: 10 mcg Documented by: Metoprolol Succinate (Metoprolol Succinate (Er) 25 Mg Tab.Er.24h) 25 mg PO BID [facility] Last Admin: 11/18/21 08:28 Dose: 25 mg Documented by: Miscellaneous Information (Vancomycin Trough Due 1 Each Misc) 0 each MISCELLANE DIRECTED ONE Stop: 11/19/21 06:01 Morphine Sulfate (Morphine Sulfate 2 Mg/Ml Syringe) 2 mg IVP Q4HR PRN PRN Reason: Pain/Discomfort Last Admin: 11/16/21 13:17 Dose: 2 mg Documented by: Naloxone HCl (Naloxone 0.4 Mg/Ml 1 Ml Vial) 0.2 mg IV Q2M PRN PRN Reason: Opioid Reversal Ondansetron HCl (Ondansetron 4 Mg/2 Ml Vial) 4 mg IVP Q8HR PRN PRN Reason: Nausea And Vomiting Pantoprazole Sodium (Pantoprazole 40 Mg Tablet) 40 mg PO DAILY JR Last Admin: 11/18/21 08:29 Dose: 40 mg Documented by: PHYSICAL EXAMINATION: GENERAL: The patient is alert and orientedx3, well developed, well nourished HEENT: Pupils are round and equally reacting to light. EOMI. does have scleral icterus. No conjunctival pallor. Normocephalic, atraumatic. No pharyngeal erythema. No thyromegaly. CARDIOVASCULAR: S1 and S2 muffled PULMONARY: diminished breath sounds bilaterally with Few scattered rhonchi noted. ABDOMEN: soft. non-tender. Non-distended, normoactive bowel sounds. No palpable organomegaly. MUSCULOSKELETAL: No joint swelling or deformity. EXTREMITIES: No cyanosis, clubbing, mild left pedal edema. left lower extremity swelling and redness noted, swelling somewhat improved, left aguilar area and outer left lateral aspect of aguilar extremely sensitive to light palpation and a marked site feels hardened and indurated on exam, no fluctuation noted NEUROLOGICAL: Gross neurological examination did not reveal any focal deficits. SKIN: No rashes. Assessment: Acute severe cellulitis and severe pain of the left aguilar coronary artery disease chronic obstructive pulmonary disease, not in acute exacerbation history of hemorrhoids hypertension GI prophylaxis DVT prophylaxis Full code Plan: Recommend to continue with current medications and IV antibiotics with ID following. Patient continues with left lower extremity swelling and discomfort and sensitivity to touch. Area of concern has been marked and continues with redness although no drainage or fluctuation noted. There was a very minimal amount of drainage noted of the left lower extremity yesterday and culture was obtained and is currently pending. Vascular surgery Dr. Schumacher following recommending to await cultures and continuing with antibiotic therapy and no plans for I&D at this time. Patient may require biopsy to further evaluate continued ongoing severity of symptoms. Will discuss with Dr. Schumacher about possible biopsy. Infectious disease also following and will discuss further ab out possible midline placement and antibiotic therapy moving forward. Recommend obbbi wrapping the lower extremities and elevating while at rest to help with swelling. Currently there is improvement in the swelling and patient is elevating left lower extremity on some pillows. Due to multiple complex medical issues, prognosis is guarded. The impression and plan of care has been dictated by Tiffany Rabago, nurse practitioner as directed. MD Jose Alberto I have performed a history and examination and MDM of this patient, discussed the same with the dictator, and agree with the dictator's assessment and plan as written ,documented as a scribe. Based on total visit time, I have performed more than 50% of the visit. Any additional findings or plans will be noted. Objective - Vital Signs Vital signs: Vital Signs Temp 97.6 F 11/18/21 07:40 Pulse 72 11/18/21 07:40 Resp 16 11/18/21 07:40 BP 146/81 11/18/21 07:40 Pulse Ox 97 11/18/21 07:40 Intake & Output 11/17/21 11/18/21 11/18/21 18:59 06:59 18:59 Intake Total 100 Output Total 800 Balance 100 -800 Intake: Oral 100 Output: Urine 800 Other: Voiding Method Toilet Toilet # Voids 3 1 - Labs CBC & Chem 7: 11/16/21 07:13 11/16/21 07:13 Labs: Microbiology - Last 24 Hours (Table) 11/17/21 10:00 Gram Stain - Preliminary Leg - Left Wound Culture - Preliminary 11/17/21 10:00 Anaerobic Culture - Preliminary Leg - Left
--- NOTE | 2021-11-18 23:04 | P.PN ---
Subjective Progress Note Date: 11/17/21 Principal diagnosis: Left leg cellulitis Patient is a 61-year-old female admitted to the hospital with a painful left lower extremity and a question of cellulitis failing outpatient oral antibiotic therapy. On today's evaluation that is 11/17/2021, patient remains to be afebrile, patient pain to the left lower leg the area has decreased in intensity, patient RN noticed slight drainage from the leg leg area which has been sent for culture, the patient denies having any chest pain shortness of breath or cough no vomiting no diarrhea Objective - Vital Signs Vital signs: Vital Signs Temp 98.8 F 11/17/21 05:00 Pulse 71 11/17/21 05:00 Resp 18 11/17/21 05:00 BP 128/77 11/17/21 05:00 Pulse Ox 96 11/17/21 05:00 Intake & Output 11/16/21 11/17/21 11/17/21 18:59 06:59 18:59 Other: Voiding Method Toilet Toilet Toilet # Voids 5 4 - Exam GENERAL DESCRIPTION: Middle-aged female lying in bed in no distress RESPIRATORY SYSTEM: Unlabored breathing , decreased breath sounds at bases HEART: S1 S2 regular rate and rhythm , ABDOMEN: Soft , no tenderness EXTREMITIES: Left lower extremity/ aguilar with minimal area of discoloration and tenderness to touch - Labs CBC & Chem 7: 11/16/21 07:13 11/16/21 07:13 Labs: Abnormal Lab Results - Last 24 Hours (Table) 11/16/21 11/16/21 Range/Units 07:13 07:13 Lymphocytes # 0.8 L (1.0-4.8) k/uL BUN 18 H (7-17) mg/dL Glucose 100 H (74-99) mg/dL Calcium 8.2 L (8.4-10.2) mg/dL Microbiology - Last 24 Hours (Table) 11/10/21 19:06 Blood Culture - Final Blood No Growth after 144 hours 11/10/21 18:50 Blood Culture - Final Blood No Growth after 144 hours Assessment and Plan (1) Left leg cellulitis Current Visit: Yes Status: Acute Code(s): L03.116 - CELLULITIS OF LEFT LOWER LIMB SNOMED Code(s): 092623479 (2) Allergy to multiple antibiotics Current Visit: No Status: Acute Code(s): Z88.1 - ALLERGY STATUS TO OTHER ANTIBIOTIC AGENTS SNOMED Code(s): 470787860 Plan: 1patient presented to hospital with left lower extremity pain swelling and some redness in this patient has been diagnosed in the outpatient setting with cellulitis and has been treated with oral Bactrim DS without any improvement, patient did have an area of mild erythema and very tender to touch but no fluctuation or concern for underlying abscess, the CT of the leg was negative f or any abscess collection, patient is covered with vancomycin cultures has been negative, vascular surgery consult for possible biopsy and deep cultures discussed with the admitting physician Time with Patient: Less than 30
--- NOTE | 2021-11-18 23:06 | P.PN ---
Subjective Progress Note Date: 11/18/21 Principal diagnosis: Left leg cellulitis Patient is a 61-year-old female admitted to the hospital with a painful left lower extremity and a question of cellulitis failing outpatient oral antibiotic therapy. On today's evaluation that is 11/18/2021, patient continues to be afebrile, patient still complaining of burning pain to the left lower leg the area , no drainage, denies any chest pain shortness of breath or cough no abdominal pain and no diarrhea Objective - Vital Signs Vital signs: Vital Signs Temp 98.3 F 11/18/21 20:00 Pulse 63 11/18/21 20:00 Resp 20 11/18/21 20:00 BP 119/74 11/18/21 20:00 Pulse Ox 98 11/18/21 20:00 Intake & Output 11/18/21 11/18/21 11/19/21 06:59 18:59 06:59 Intake Total 100 0 Output Total 800 Balance 100 -800 Intake: Intake, IV Titration 0 Amount Vancomycin 1,500 mg In 0 Sodium Chloride 0.9% 250 ml @ 125 mls/hr IVPB Q12H [facility] Rx#:[id number] Oral 100 Output: Urine 800 Other: Voiding Method Toilet Toilet Toilet Bedside Commode Bedside Commode # Voids 3 1 - Exam GENERAL DESCRIPTION: Middle-aged female lying in bed in no distress RESPIRATORY SYSTEM: Unlabored breathing , decreased breath sounds at bases HEART: S1 S2 regular rate and rhythm , ABDOMEN: Soft , no tenderness EXTREMITIES: Left lower extremity/ aguilar with minimal area of discoloration and tenderness to touch - Labs CBC & Chem 7: 11/16/21 07:13 11/16/21 07:13 Labs: Microbiology - Last 24 Hours (Table) 11/17/21 10:00 Gram Stain - Preliminary Leg - Left Wound Culture - Preliminary 11/17/21 10:00 Anaerobic Culture - Preliminary Leg - Left Assessment and Plan (1) Left leg cellulitis Current Visit: Yes Status: Acute Code(s): L03.116 - CELLULITIS OF LEFT LOWER LIMB SNOMED Code(s): 470846337 (2) Allergy to multiple antibiotics Current Visit: No Status: Acute Code(s): Z88.1 - ALLERGY STATUS TO OTHER ANTIBIOTIC AGENTS SNOMED Code(s): 162419388 Plan: 1patient presented to hospital with left lower extremity pain swelling and some redness in this patient has been diagnosed in the outpatient setting with cellulitis and has been treated with oral Bactrim DS without any improvement, the CT of the leg was negative for any abscess collection, patient did refuse v ancomycin will discontinue vancomycin vascular surgery to reevaluate for possible biopsy as well as culture Time with Patient: Less than 30
[2021-11-19] MEDS: HEPARIN SODIUM,PORCINE/PF 5,000 UNIT/0.5 ML SYRINGE SQ SCH ×3 (00:14→15:08)
[2021-11-19] MEDS: ACETAMINOPHEN TAB 325 MG TAB PO PRN ×2 (02:38→12:24)
[2021-11-19] MEDS ORDERED: VANCOMYCIN TROUGH DUE 1 EACH MISC MISCELLANE ONE (06:00)
[2021-11-19] MEDS: VANCOMYCIN 1,500 MG in SODIUM CHLORIDE 0.9% 250 ML IVPB SCH (06:03)
[2021-11-19] MEDS: LEVOTHYROXINE 125 MCG TAB PO SCH (06:06)
[2021-11-19] MEDS: ASPIRIN 81 MG PO SCH (07:43)
[2021-11-19] MEDS: METOPROLOL SUCCINATE (ER) 25 MG TAB.ER.24H PO SCH ×2 (07:43→22:05)
[2021-11-19] MEDS: DOCUSATE 100 MG CAP PO SCH (07:43)
[2021-11-19] MEDS: HYDROcodone/APAP 5-325MG 1 EACH TAB PO PRN ×3 (07:43→22:14)
[2021-11-19] MEDS: PANTOPRAZOLE 40 MG TABLET PO SCH (07:43)
[2021-11-19] MEDS: HYDROCORTISONE 2.5% RECTAL CREAM 30 GM TUBE RECTAL SCH ×2 (07:44→22:04)
[2021-11-19] MEDS: LIOTHYRONINE SODIUM 5 MCG TAB PO SCH (07:44)
[2021-11-19] MEDS: HYDROCORTISONE SUPPOSITORY 25 MG SUPP RECTAL SCH ×2 (07:44→22:05)
[2021-11-19 07:47] LABS: African American GFR (CKD) >90 (>60 ml/min/1.73 sqM); Anion Gap 1 mmol/L; Blood Urea Nitrogen 15 mg/dL (7-17); Calcium 8.7 mg/dL (8.4-10.2); Carbon Dioxide 32 mmol/L (22-30); Chloride 105 mmol/L (98-107); Glucose 122 mg/dL (74-99); Non-African American GFR(CKD) 87 (>60 ml/min/1.73 sqM); Potassium 4.3 mmol/L (3.5-5.1); Sodium 138 mmol/L (137-145)
[2021-11-19] MEDS ORDERED: NYSTAT-TRIAMCIN 100,000-0.1 UNIT/GM-% CREAM 30 GM TUBE TOPICAL SCH (10:00)
[2021-11-19] MEDS: diphenhydrAMINE 2% CREAM 28.4 GM TUBE TOPICAL PRN (12:24)
[2021-11-19] MEDS: TRIAMCINOLONE 0.1% CREAM 80 GM TUBE TOPICAL SCH ×2 (13:32→22:06)
[2021-11-19] MEDS: NYSTATIN 100,000UNIT/GM CREAM 30 GM TUBE TOPICAL SCH ×2 (13:32→22:06)
[2021-11-19 13:45] VITALS: BMI 35.7
--- NOTE | 2021-11-19 15:25 | P.PN ---
Subjective Progress Note Date: 11/19/21 11/13/2021 This is a 61 year old female who was admitted with pain and swelling of the left aguilar with surrounding redness and was on oral Bactrim prior to admission and symptoms worsened and patient to the ER for further evaluation. Patient is being closely monitored at this time and continues on IV vancomycin with ID following. Left lower extremity swelling noted and area of concern is marked. Patient noted some worsening spread of the area. Recommend bobbi wrap and elevating left lower extremity. Patient denies chest pain or shortness of breath. Patient was having constipation and straining with a history of hemorrhoids and requesting anusol. Will order anusol. Patient is afebrile. 11/14/2021 Patient is seen this morning and continues to have extreme sensitivity and pain to the left lower extremity although reports some overall improvement in pain. Patient is continued on IV vancomycin with ID following and was using bobbi wrap although reports to the pain being more intense with the bobbi wrap and has currently removed the wrap and has it elevated on pillows in bed. Patient is afebrile and denies chest pain or shortness of breath. Patient tolerating diet with no reports of nausea or vomiting noted. Some abdominal cramping last night but has since resolved. 11/15/2021 Patient is seen and evaluated with family members at bedside; reports improvement in redness and swelling of left lower extremity Vital signs and labs are reviewed and remained stable ID is recommending to continue with IV vancomycin at this time 11/16/2021 Patient is seen and evaluated in room at bedside; reports some worsening in swelling and inflammation of left lower extremity Vital signs are reviewed and stable with temperature of 98.4, pulse 76, respirations 16 and blood pressure 123/73 and O2 saturation 95% Lab review reveals severely 66.5, hemoglobin 12.0, hematocrit 37.1 platelet count of 273, sodium 137, potassium 4.2, BUN 18 with creatinine of 0.71 Patient remains on IV vancomycin; lower extremity cellulitis not showing significant improvement; ID on board and recommending to continue with IV Vanco at this time; continue to elevate legs; monitor CBC and pro-calcitonin 11/17/2021 Patient is seen in follow-up this morning continues to have extreme discomfort and extreme sensitivity to light palpation of the left lower extremity. Patient states she feels it is hardened and not improving. Patient continues on IV vancomycin with infectious disease following. Patient's left lateral outer aspect with a wound that feels hardened and indurated and will consult vascular surgery Dr. Schumacher for possible I&D with deep tissue cultures which is currently pending. She denies any chest pain, shortness of breath, or palpitations. Patient is afebrile. 11/18/2021 Patient is seen and evaluated today continues to have extreme sensitivity and pain to the left lower aguilar and outer aspect area. Patient was seen and evaluated by Dr. Schumacher and recommending to await most recent wound cultures which are currently pending. Patient did have some minimal drainage noted and cultures were obtained yesterday. No plans for surgical intervention. Infectious disease following and will discuss further with possible biopsy of this area given the severity of symptoms patient is experiencing. Patient currently receiving vancomycin although most recently has no IV access as she states her veins are being blown by the vancomycin and will discuss with Dr. Dowling further about antibiotic therapy and possibility of a midline patient is requiring outpatient IV antibiotic therapy. Patient remains afebrile. Instructed the patient to increase activity as tolerated and patient has been walking the halls with her cane and also encourage the patient to elevate lower extremity while at rest. Patient denies any chest pain or shortness of breath. Patient has been tolerating diet with no reports of nausea or vomiting noted. 11/19/2021 Patient is seen in follow-up today with no acute overnight issues noted. Patient reports to having a headache with slight improvement from the pain medic ations. Patient has been off of IV vancomycin for [address] Dowling is aware. Dr. Schumacher vascular surgery following and Dr. Dowling to discuss with him further about possible biopsy as patient symptoms continue to persist with no improvement. Patient to continue with local wound care and will be started on Mycolog twice daily and monitor closely. Patient did have some minimal drainage noted in the wound culture was obtained and preliminary showing no anaerobes isolated to date. BMP within normal limits. Patient is afebrile. Patient denies any nausea or vomiting and is tolerating diet. Patient denies chest pain or shortness of breath. Review of systems: Constitutional: No reports of fatigue, fever, or chills Cardiovascular: No reports of chest pain or palpitations Respiratory: No reports of shortness of breath or cough GI: No reports of nausea, vomiting, or diarrhea : No reports of dysuria or retention Neurovascular: no reports of generalized weakness, reports continued left lower extremity pain and swelling All medications have been reviewed Active Medications Acetaminophen (Acetaminophen Tab 325 Mg Tab) 650 mg PO Q6HR PRN PRN Reason: Mild Pain or Fever > 100.5 Last Admin: 11/19/21 02:38 Dose: 650 mg Documented by: Hydrocodone Bitart/Acetaminophen (Hydrocodone/Apap 5-325mg 1 Each Tab) 1 each PO Q6HR PRN PRN Reason: Pain Last Admin: 11/19/21 07:43 Dose: 1 each Documented by: Artificial Tears (Artificial Tears-Hypromellose Drops 15 Ml Btl) 1 drops BOTH EYES QID PRN PRN Reason: Dry Eye(s) Aspirin (Aspirin 81 Mg) 81 mg PO DAILY [facility] Last Admin: 11/19/21 07:43 Dose: 81 mg Documented by: Diphenhydramine HCl (Diphenhydramine 50 Mg/Ml 1 Ml Vial) 50 mg IVP Q6HR PRN PRN Reason: Allergy Symptoms Last Admin: 11/14/21 09:15 Dose: 50 mg Documented by: Docusate Sodium (Docusate 100 Mg Cap) 100 mg PO DAILY [facility] Last Admin: 11/19/21 07:43 Dose: 100 mg Documented by: Heparin Sodium (Porcine) (Heparin Sodium,Porcine/Pf 5,000 Unit/0.5 Ml Syringe) 5,000 unit SQ Q8HR [facility] Last Admin: 11/19/21 07:45 Dose: Not Given Documented by: Hydrocortisone (Hydrocortisone 2.5% Rectal Cream 30 Gm Tube) 1 applic RECTAL BI D [facility] Last Admin: 11/19/21 07:44 Dose: 1 applic Documented by: Hydrocortisone Acetate (Hydrocortisone Suppository 25 Mg Supp) 25 mg RECTAL BID [facility] Last Admin: 11/19/21 07:44 Dose: Not Given Documented by: Vancomycin HCl 1,500 mg/ (Sodium Chloride) 250 mls @ 125 mls/hr IVPB Q12H [facility] Last Admin: 11/19/21 06:03 Dose: Not Given Documented by: Levothyroxine Sodium (Levothyroxine 125 Mcg Tab) 125 mcg PO DAILY@0630 [facility] Last Admin: 11/19/21 06:06 Dose: 125 mcg Documented by: Liothyronine Sodium (Liothyronine Sodium 5 Mcg Tab) 10 mcg PO DAILY [facility] Last Admin: 11/19/21 07:44 Dose: 10 mcg Documented by: Metoprolol Succinate (Metoprolol Succinate (Er) 25 Mg Tab.Er.24h) 25 mg PO BID [facility] Last Admin: 11/19/21 07:43 Dose: 25 mg Documented by: Morphine Sulfate (Morphine Sulfate 2 Mg/Ml Syringe) 2 mg IVP Q4HR PRN PRN Reason: Pain/Discomfort Last Admin: 11/16/21 13:17 Dose: 2 mg Documented by: Naloxone HCl (Naloxone 0.4 Mg/Ml 1 Ml Vial) 0.2 mg IV Q2M PRN PRN Reason: Opioid Reversal Ondansetron HCl (Ondansetron 4 Mg/2 Ml Vial) 4 mg IVP Q8HR PRN PRN Reason: Nausea And Vomiting Pantoprazole Sodium (Pantoprazole 40 Mg Tablet) 40 mg PO DAILY [facility] Last Admin: 11/19/21 07:43 Dose: 40 mg Documented by: PHYSICAL EXAMINATION: GENERAL: The patient is alert and orientedx3, well developed, well nourished HEENT: Pupils are round and equally reacting to light. EOMI. does have scleral icterus. No conjunctival pallor. Normocephalic, atraumatic. No pharyngeal erythema. No thyromegaly. CARDIOVASCULAR: S1 and S2 muffled PULMONARY: diminished breath sounds bilaterally with no wheezing or rhonchi noted. ABDOMEN: soft. non-tender. Non-distended, normoactive bowel sounds. No palpable organomegaly. MUSCULOSKELETAL: No joint swelling or deformity. EXTREMITIES: No cyanosis, clubbing, mild left pedal edema. left lower extremity swelling and redness noted, swelling has improved, left aguilar area and outer left lateral aspect of aguilar extremely sensitive to light palpation and a marked site with no worsening noted, currently dressed with Mycolog and Kerlix dressing NEUROLOGICAL: Gross neurological examination did not reveal any focal deficits. SKIN: No rashes. Assessment: Acute severe cellulitis and severe pain of the left aguilar coronary artery disease chronic obstructive pulmonary disease, not in acute exacerbation history of hemorrhoids hypertension GI prophylaxis DVT prophylaxis Full code Plan: Recommend to continue with current medications and ID following. Patient has been off of vancomycin for [address] Cordova also following and will evaluate the patient today for possible biopsy. Most recent wound culture continues to show no anaerobes today. Patient continues with extreme 10/10 pain and sensitivity to left aguilar area. Dr. Dowling following and have added Mycolog cream twice daily and will continue with local wound care until discussing further with Dr. Cordova. Recommend to continue elevating while at rest. Repeat labs within normal limits and will continue to monitor. Awaiting Dr. Schumacher report. The impression and plan of care has been dictated by Tiffany Rabago, nurse practitioner as directed. Dr. Yari MD I have performed a history and examination and MDM of this patient, discussed the same with the dictator, and agree with the dictator's assessment and plan as written ,documented as a scribe. Based on total visit time, I have performed more than 50% of the visit. Any additional findings or plans will be noted. Objective - Vital Signs Vital signs: Vital Signs Temp 97.4 F L 11/19/21 04:45 Pulse 71 11/19/21 04:45 Resp 20 11/19/21 04:45 BP 125/68 11/19/21 04:45 Pulse Ox 95 11/19/21 04:45 Intake & Output 11/18/21 11/19/21 11/19/21 18:59 06:59 18:59 Intake Total 0 Output Total 800 Balance -800 Intake: Intake, IV Titration 0 Amount Vancomycin 1,500 mg In 0 Sodium Chloride 0.9% 250 ml @ 125 mls/hr IVPB Q12H [facility] Rx#:[id number] Output: Urine 800 Other: Voiding Method Toilet Toilet Bedside Commode Bedside Commode # Voids 1 3 - Labs CBC & Chem 7: 11/16/21 07:13 11/19/21 06:59 Labs: Abnormal Lab Results - Last 24 Hours (Table) 11/19/21 Range/Units 06:59 Carbon Dioxide 32 H (22-30) mmol/L Glucose 122 H (74-99) mg/dL Microbiology - Last 24 Hours (Table) 11/17/21 10:00 Gram Stain - Preliminary Leg - Left Wound Culture - Preliminary
[2021-11-19] MEDS ORDERED: LIDOCAINE 1% INJ 10MG/ML (20 ML MDV) ONE (16:59)
[2021-11-19] MEDS ORDERED: LIDOCAINE 1% INJ 10MG/ML (20 ML MDV) SQ ONE (17:02)
--- NOTE | 2021-11-19 18:05 | OP ---
OPERATIVE REPORT PROCEDURE: Punch biopsy of the wound, anterior aspect of the aguilar. DESCRIPTION OF PROCEDURE: The patient was seen in the room, prepped and drapes applied in the usual sterile manner. 1% lidocaine plain infiltrated and using punch biopsy, we took the punch biopsy of that area and sent for pathology and culture. There was some oozing. Pressures were held. Patient tolerated the procedure well. MMODL / IJN: [id number] /
[2021-11-20] MEDS: HYDROcodone/APAP 5-325MG 1 EACH TAB PO PRN (05:32)
[2021-11-20] MEDS: LEVOTHYROXINE 125 MCG TAB PO SCH (05:58)
[2021-11-20] MEDS: diphenhydrAMINE 2% CREAM 28.4 GM TUBE TOPICAL PRN ×2 (08:43→11:32)
[2021-11-20] MEDS: HEPARIN SODIUM,PORCINE/PF 5,000 UNIT/0.5 ML SYRINGE SQ SCH ×3 (09:21→16:02)
[2021-11-20] MEDS: ASPIRIN 81 MG PO SCH (09:23)
[2021-11-20] MEDS: DOCUSATE 100 MG CAP PO SCH (09:23)
[2021-11-20] MEDS: PANTOPRAZOLE 40 MG TABLET PO SCH (09:23)
[2021-11-20] MEDS: METOPROLOL SUCCINATE (ER) 25 MG TAB.ER.24H PO SCH (09:23)
[2021-11-20] MEDS: LIOTHYRONINE SODIUM 5 MCG TAB PO SCH (09:23)
--- NOTE | 2021-11-20 10:00 | US ---
EXAMINATION TYPE: US venous doppler duplex UE RT DATE OF EXAM: 11/20/2021 COMPARISON: NONE CLINICAL HISTORY: right arm swelling, IV site. Right arm swelling. No hx of DVT. SIDE PERFORMED: Right Arm. Grayscale, color Doppler, spectral Doppler imaging performed of the deep veins of the right upper sto mach. The visualize right internal jugular vein, subclavian vein, axillary vein, central cephalic vei n, brachial veins, basilic vein show color flow and no abnormal luminal echoes, venous waveforms are within normal limits as are the radial and ulnar veins. Right Arm: There are internal echoes within the noncompressible basilic and cephalic vein at the leve l of the elbow and within the forearm. No evidence of thrombus within remaining veins imaged. IMPRESSION: Superficial venous thrombosis. No evident deep venous thrombosis.
[2021-11-20] MEDS: NYSTATIN 100,000UNIT/GM CREAM 30 GM TUBE TOPICAL SCH (11:33)
[2021-11-20] MEDS: TRIAMCINOLONE 0.1% CREAM 80 GM TUBE TOPICAL SCH (11:33)
[2021-11-20] MEDS: HYDROCORTISONE 2.5% RECTAL CREAM 30 GM TUBE RECTAL SCH (11:34)
[2021-11-20] MEDS: HYDROCORTISONE SUPPOSITORY 25 MG SUPP RECTAL SCH (11:37)
[2021-11-20 12:34] VITALS: BP 117/72; PULSE 66; RESP 20; TEMP 97.4
--- NOTE | 2021-11-22 02:10 | P.DS ---
Providers Date of admission: 11/12/21 10:55 Expected date of discharge: 11/20/21 Attending physician: Lakesha García Consults: 11/10/21 20:20 Consult Physician Routine Consulting Provider: Ilana Dowling Consult Reason/Comments: cellulitis, failed outpatient treatment Do you want consulting provider notified?: Yes 11/17/21 10:07 Consult Physician Routine Consulting Provider: Eb Schumacher Consult Reason/Comments: incision and drainage left lateral wound Do you want consulting provider notified?: Yes Primary care physician: Konrad Perez Hospital Course: Final diagnosis Acute severe cellulitis and severe pain of the left aguilar coronary artery disease chronic obstructive pulmonary disease, not in acute exacerbation superficial thrombosis of the right upper extremity likely due to IV catheter history of hemorrhoids hypertension GI prophylaxis DVT prophylaxis Full code Discharge disposition Patient is being discharged in a stable condition with guarded prognosis to home. Patient will follow-up with Dr. Perez in the outpatient setting upon discharge. Patient is to also follow up with Dr. Schumacher and Dr. Dowling as scheduled. Patient will continue on Mycolog cream bid to the area. Total time taken is greater than 35 minutes. Hospital course This is a 61 year old female admitted for possible cellulitis of the left aguilar and was being closely monitored. Patient was followed by ID and vascular surgery and will follow with them outpatient for biopsy results and continued treatment. Patient was maintained on IV vanco with no improvement and was discontinued. Awaiting biopsy results. Patient will continue on Mycolog cream and continued wound care as instructed. Encouraged the patient to continue with elevated lower extremity while at rest and continue with bora wrap from the toes up to the knee for continued swelling. Currently no reports of chest pain, shortness of breath, or palpitations. Patient is afebrile. No reports of nausea or vomiting and patient is tolerating diet. Patient will be discharged home today. PHYSICAL EXAMINATION: GENERAL: The patient is alert and orientedx3, well developed, well nourished HEENT: Pupils are round and equally reacting to light. EOMI. no scleral icterus. No conjunctival pallor. Normocephalic, atraumatic. No pharyngeal erythema. No thyromegaly. CARDIOVASCULAR: S1 and S2 muffled PULMONARY: breath sounds clear to auscultation ABDOMEN: soft. non-tender. Non-distended, normoactive bowel sounds. No palpable organomegaly. MUSCULOSKELETAL: No joint swelling or deformity. EXTREMITIES: No cyanosis, clubbing, mild left pedal edema. left lower extremity swelling and redness noted, swelling somewhat improved, left aguilar area and outer left lateral aspect of aguilar extremely sensitive to light palpation and persists, status post punch biopsy of the left aguilar NEUROLOGICAL: Gross neurological examination did not reveal any focal deficits. SKIN: No rashes. Please refer to medication reconciliation sheet for a list of medications. The impression and plan of care has been dictated by Tiffany Rabago, nurse practitioner as directed. Dr. Yari MD I have performed a history and examination and MDM of this patient, discussed the same with the dictator, and agree with the dictator's assessment and plan as written ,documented as a scribe. Based on total visit time, I have performed more than 50% of the visit. Any additional findings or plans will be noted. Patient Condition at Discharge: Stable Plan - Discharge Summary Discharge Rx Participant: No New Discharge Prescriptions: New Triamcinolone 0.1% Cream [Kenalog 0.1% Cream] 1 applic TOPICAL BID 7 Days #1 cream Nystatin 100,000Unit/gm Cream [Mycostatin Cream] 1 applic TOPICAL BID 7 Days #1 cream Continue Nitroglycerin Sl Tabs [Nitrostat] 0.4 mg SUBLINGUAL Q5M PRN #25 tab PRN Reason: Chest Pain Levothyroxine Sodium 125 mcg PO DAILY Liothyronine Sodium [Cytomel] 10 mcg PO DAILY Aspirin [Adult Low Dose Aspirin EC] 81 mg PO DAILY Omeprazole Magnesium [PriLOSEC] 20 mg PO DAILY Metoprolol Succinate (ER) [Toprol XL] 25 mg PO BID #60 tab.er.24h HYDROcodone/APAP 5-325MG [[place] 5-325] 1 tab PO Q6H PRN #9 tab PRN Reason: Pain Discontinued Sulfamethox-Tmp 800-160Mg [Bactrim DS 800-160 mg] 1 tab PO BID Discharge Medication List Nitroglycerin Sl Tabs [Nitrostat] 0.4 mg SUBLINGUAL Q5M PRN #25 tab 03/15/14 [Rx] Levothyroxine Sodium 125 mcg PO DAILY 04/19/20 [History] Liothyronine Sodium [Cytomel] 10 mcg PO DAILY 10/12/20 [History] Omeprazole Magnesium [PriLOSEC] 20 mg PO DAILY 02/27/21 [History] Metoprolol Succinate (ER) [Toprol XL] 25 mg PO BID #60 tab.er.24h 02/28/21 [Rx] Aspirin [Adult Low Dose Aspirin EC] 81 mg PO DAILY 09/03/21 [History] HYDROcodone/APAP 5-325MG [[place] 5-325] 1 tab PO Q6H PRN #9 tab 11/20/21 [Rx] Nystatin 100,000Unit/gm Cream [Mycostatin Cream] 1 applic TOPICAL BID 7 Days #1 cream 11/20/21 [Rx] Triamcinolone 0.1% Cream [Kenalog 0.1% Cream] 1 applic TOPICAL BID 7 Days #1 cream 11/20/21 [Rx] Follow up Appointment(s)/Referral(s): Konrad Perez MD [Primary Care Provider] - 11/27/21 2:40 pm Eb Schumacher MD [STAFF PHYSICIAN] - 11/26/21 1:15 pm Ilana Dowling MD [STAFF PHYSICIAN] - 12/01/21 2:00 pm (patient will be seen in [address] office) Patient Instructions/Handouts: Cellulitis (GEN) Activity/Diet/Wound Care/Special Instructions: Activity Limited until follow-up Continue taking medications as prescribed Follow-up with primary care provider on discharge Follow-up with infectious disease Dr. Dowling in one week Follow-up with Dr. Schumacher vascular surgery for biopsy results Continue current diet May use ice to the right arm and elevate Continue elevating left lower extremity and use Bora wraps from the toes up to the knees is able to tolerate to help with swelling Discharge Disposition: HOME SELF-CARE
== END 2021-11-20 16:40 | disposition home or self-care (01) | DRG 603 ==
LOC: EC 12:22 → 1SOBS 20:19 → 5NMEDONC 11-11 00:41 → OBSVTOIN 11-12 10:55
PROVIDERS: ADMIT Hospitalist; ATTEND Hospitalist
PROC: 0HBLXZX Excision of Left Lower Leg Skin, External Approach, Diagnostic (ICD-10-PCS; principal; 2021-11-19)
DX: L03.116 Cellulitis of left lower limb (principal); I10 Essential (primary) hypertension; I25.10 Atherosclerotic heart disease of native coronary artery without angina pectoris; I25.2 Old myocardial infarction; J44.9 Chronic obstructive pulmonary disease, unspecified; M19.90 Unspecified osteoarthritis, unspecified site; M79.7 Fibromyalgia; Z20.822 Contact with and (suspected) exposure to COVID-19; Z79.82 Long term (current) use of aspirin; F40.240 Claustrophobia; E89.0 Postprocedural hypothyroidism; Z79.890 Hormone replacement therapy; Z87.891 Personal history of nicotine dependence; Z88.1 Allergy status to other antibiotic agents; Z90.710 Acquired absence of both cervix and uterus; Z96.651 Presence of right artificial knee joint; Z98.51 Tubal ligation status; R42 Dizziness and giddiness; Z98.890 Other specified postprocedural states; Z85.850 Personal history of malignant neoplasm of thyroid; Z84.1 Family history of disorders of kidney and ureter; Z83.49 Family history of other endocrine, nutritional and metabolic diseases; Z82.49 Family history of ischemic heart disease and other diseases of the circulatory system; Z88.0 Allergy status to penicillin; Z88.8 Allergy status to other drugs, medicaments and biological substances; Z91.030 Bee allergy status; Z91.041 Radiographic dye allergy status; G43.909 Migraine, unspecified, not intractable, without status migrainosus; Z86.73 Personal history of transient ischemic attack (TIA), and cerebral infarction without residual deficits
CPT/HCPCS: 36415; 80048; 80053; 80202; 82565; 83605; 83735; 85025; 85652; 86140; 87040; 87070; 87075; 87205; 87635; 93005; 96361; 96365; 96366; 96372; 96375; 96376; 99285

== ENCOUNTER → 2021-12-26 | Outpatient (CLI) | payer MEDICARE, OTHER ==
[2021-12-26 20:21] LABS: Rheumatoid Factor, Qnt <10 IU/mL (0-15); Uric Acid 3.7 mg/dL (2.9-7.7)
[2021-12-27 12:13] LABS: HLA B27 NEGATIVE
== END | disposition home or self-care (01) ==
LOC: LABWHC1 10:06
PROVIDERS: ATTEND Podiatrist
DX: M06.9 Rheumatoid arthritis, unspecified (principal)
CPT/HCPCS: 36415; 84550; 85652; 86038; 86140; 86431; 86812

== ENCOUNTER → 2022-02-13 | Outpatient (CLI) | payer MEDICARE, OTHER ==
--- NOTE | 2022-02-16 19:36 | MM ---
Reason for Exam: Screening (asymptomatic). Last mammogram was performed 4 year(s) and 1 month(s) ago. Patient History: Menarche at age 14. First Full-Term at age 20. Hysterectomy at age 42. Postmenopausal. 02/08/2015, Benign Stereotactic Core Biopsy on the left side. Risk Values: Na 5 year model risk: 1.2%. NCI Lifetime model risk: 6.4%. Film Views: Bilateral CC views were taken. Bilateral MLO views were taken. Prior Study Comparison: 06/05/2014 Screening Mammogram, Unknown. 07/30/2014 Screening Mammogram, Unknown. 01/24/2018 Bilateral Screening Mammogram, [facility]. Tissue Density: There are scattered fibroglandular densities. Findings: Analyzed By CAD. Microclip right breast from prior biopsy. No significant change from prior exams. Overall Assessment: Negative, BI-RAD 1 Management: Screening Mammogram of both breasts in 1 year. A clinical breast exam by your physician is recommended on an annual basis and results should be correlated with mammographic findings. Also, the patient should continue monthly self breast exams. Electronically signed and approved by: Kenney Vergara M.D. Radiologist
== END | disposition home or self-care (01) ==
LOC: RADMAMWWP 13:39
PROVIDERS: ATTEND Family Medicine
DX: Z12.31 Encounter for screening mammogram for malignant neoplasm of breast (principal)
CPT/HCPCS: 77063; 77067

== ENCOUNTER → 2022-04-21 | Outpatient (CLI) | payer MEDICARE, OTHER ==
[2022-04-21 14:26] LABS: Chol/HDL Ratio 3.18 Ratio; LDL Cholesterol,Calculated 149.8 mg/dL (0.0-131.0); VLDL Calculation 14.14 mg/dL (5.00-40.00)
== END | disposition home or self-care (01) ==
LOC: LABWHC1 08:53
PROVIDERS: ATTEND Internal Medicine
DX: E78.2 Mixed hyperlipidemia (principal)
CPT/HCPCS: 36415; 80061

== ENCOUNTER 2022-04-27 12:54 | Observation (INO) | payer MEDICARE, OTHER ==
[2022-04-27 13:26] LABS: Basophils # (A) 0.1 k/uL (0-0.2); Basophils % (A) 1 %; Eosinophils # (A) 0.3 k/uL (0-0.7); Eosinophils % (A) 2 %; HCT 42.9 % (34.0-46.0); HGB 13.5 gm/dL (11.4-16.0); Lymphocytes # (A) 0.8 k/uL (1.0-4.8); Lymphocytes % (A) 8 %; MCH 27.2 pg (25.0-35.0); MCHC 31.3 g/dL (31.0-37.0); MCV 86.8 fL (80.0-100.0); Mean Platelet Volume 6.9; Monocytes # (A) 0.4 k/uL (0-1.0); Monocytes % (A) 3 %; Neutrophils # (A) 9.5 k/uL (1.3-7.7); Neutrophils % (A) 86 %; Platelet Count 282 k/uL (150-450); RBC 4.94 m/uL (3.80-5.40); RDW 13.6 % (11.5-15.5); WBC 11.1 k/uL (3.8-10.6)
--- NOTE | 2022-04-27 13:39 | ED ---
Chest Pain HPI - General Chief Complaint: Chest Pain Stated Complaint: Chest Pain Source: patient, EMS, RN notes reviewed, old records reviewed Mode of arrival: EMS Limitations: no limitations - History of Present Illness Initial Comments: 62-year-old female presenting with chest pain, squeezing sensation which is been present for the past 24 hours. Patient is also experiencing lightheadedness. She was transported by EMS. She states she has a history of CAD and does follow with cardiology regularly. She is currently on aspirin, no other antiplatelet or anticoagulation medication. She denies vomiting. She does report that she is currently on steroids with history of autoimmune disease and currently being treated for erythema nodosum. - Related Data Home Medications Medication Instructions Recorded Confirmed Levothyroxine Sodium 125 mcg PO DAILY 04/19/20 11/10/21 Liothyronine Sodium [Cytomel] 10 mcg PO DAILY 07/08/20 11/10/21 Omeprazole Magnesium [PriLOSEC] 20 mg PO DAILY 02/27/21 11/10/21 Aspirin [Adult Low Dose Aspirin EC] 81 mg PO DAILY 09/03/21 11/10/21 Previous Rx's Medication Instructions Recorded Nitroglycerin Sl Tabs [Nitrostat] 0.4 mg SUBLINGUAL Q5M PRN #25 tab 03/15/14 Metoprolol Succinate (ER) [Toprol 25 mg PO BID #60 tab.er.24h 02/28/21 XL] HYDROcodone/APAP 5-325MG [[place] 1 tab PO Q6H PRN #9 tab 11/20/21 5-325] Nystatin 100,000Unit/gm Cream 1 applic TOPICAL BID 7 Days #1 11/20/21 [Mycostatin Cream] cream Triamcinolone 0.1% Cream [Kenalog 1 applic TOPICAL BID 7 Days #1 11/20/21 0.1% Cream] cream HYDROcodone/APAP 5-325MG [[place] 5] 1 each PO Q6HR PRN 3 Days #12 tab 01/03/22 methocarbamoL [Robaxin-750] 750 mg PO BID PRN 7 Days #14 tablet 01/03/22 Allergies Allergy/AdvReac Type Severity Reaction Status Date / Time Penicillins Allergy Severe Anaphylaxis Verified 01/03/22 07:42 Quinolones Allergy Severe Unknown Verified 01/03/22 07:42 venom-honey bee Allergy Severe Anaphylaxis Verified 01/03/22 07:42 adhesive tape Allergy Unknown Verified 01/03/22 07:42 levofloxacin [From Levaquin] AdvReac Severe BRAIN STEM Verified 01/03/22 07:42 SEIZURE hydromorphone [From Dilaudid] AdvReac Nausea & Verified 01/03/22 07:42 Vomiting iopamidol [From Isovue-128] AdvReac Nausea & Verified 01/03/22 07:42 Vomiting pravastatin [From Pravachol] AdvReac LEG CRAMPS Verified 01/03/22 07:42 Review of Systems ROS Statement: Those systems with pertinent positive or pertinent negative responses have been documented in the HPI. ROS Other: All systems not noted in ROS Statement are negative. Past Medical History Past Medical History: Coronary Artery Disease (CAD), Cancer, Chest Pain / Angina, COPD, Fibromyalgia, GERD/Reflux, GI Bleed, Hypertension, Myocardial Infarction ([place]), Osteoarthritis (OA), Skin Disorder, Thyroid Disorder Additional Past Medical History / Comment(s): Diverticulitis, upper and lower GI bleed, MRI showed small strokes or migraines per pt as well as spots-recommended to have spinal tap but pt declined, bronchitis, past cervical neuropathy/stenosis/myelopathy with numbness and pain in bilateral hands but had cervical surgery and not a problem anymore-does have some decreased ROM with neck and spasms of neck occasionally, occasional vertigo, thyroidectomy d/t cancer, recent hospitalization for chest pain, rash R knee. Last Myocardial Infarction Date:: 03/09/14 History of Any Multi-Drug Resistant Organisms: None Reported Past Surgical History: Breast Surgery, Heart Catheterization, Hysterectomy, Orthopedic Surgery, Tubal Ligation Additional Past Surgical History / Comment(s): Multiple colonoscopies, egds, R partial thyroidectomy/multiple thyroid bxs then total thyroidectomy d/t cancer, L side neck mass removed, R breast benign bx, cardiac cath-unable to deploy a stent, cervical discectomy/fusions, L carpal tunnel releases, R knee arthroscopic surgeries, R knee replacement. Past Anesthesia/Blood Transfusion Reactions: Previous Problems w/ Anesthesia Additional Past Anesthesia/Blood Transfusion Reaction / Comment(s): STATES B/P WAS LOW POST OP RT THYROIDECTOMY-mostly related to narcotic pain meds. HISTORY OF CLAUSTROPHOBIA, states did fine with her anesthesia from her R knee replacement. Past Psychological History: Anxiety, Depression Smoking Status: Former smoker Past Alcohol Use History: None Reported Past Drug Use History: None Reported - Past Family History Father Family Medical History: Osteoarthritis (OA) Additional Family Medical History / Comment(s): Father is living Mother Family Medical History: AFIB, Renal Disease, Thyroid Disorder Additional Family Medical History / Comment(s): Mother is living. Hypothyroidism. Bladder issues/kidney stones. Nerve damage in legs General Exam Limitations: no limitations General appearance: alert, in no apparent distress Head exam: Present: atraumatic, normocephalic Eye exam: Present: normal appearance, PERRL ENT exam: Present: normal exam Respiratory exam: Present: normal lung sounds bilaterally. Absent: respiratory distress, wheezes Cardiovascular Exam: Present: regular rate, normal rhythm GI/Abdominal exam: Present: soft. Absent: distended, tenderness, guarding Extremities exam: Present: normal capillary refill, other (Dressings covering bilateral lower extremities with history of erythema nodosum). Absent: calf tenderness Neurological exam: Present: alert, oriented X3, CN II-XII intact. Absent: motor sensory deficit Psychiatric exam: Present: normal affect, normal mood Skin exam: Present: warm, dry, intact. Absent: cyanosis, diaphoretic Course Vital Signs 04/27/22 12:57 Temperature 98.4 F Pulse Rate 61 Respiratory 16 Rate Blood Pressure 145/80 O2 Sat by Pulse 97 Oximetry - Reevaluation(s) Reevaluation #1: 04/27/22 13:00 EKG: Sinus bradycardia rate of 58, IL interval 150, QRS duration 96, QTC 346, no ST segment elevation. Chest Pain MDM - [facility] 62-year-old female with chest pain and discomfort, squeezing sensation over the past 12-24 hours. Penis worsened today. EKG is sinus rhythm without ST segment elevation. Chest x-ray clear. She has normal CBC, normal CMP, negative initial troponin. She will be kept in observation for serial cardiac enzymes, telemetry, cardiology consultation. Case discussed with [facility] Disposition Clinical Impression: Chest pain Disposition: ADMITTED IP TO THIS HOSP Condition: Stable Is patient prescribed a controlled substance at d/c from ED?: No Referrals: Konrad Perez MD [Primary Care Provider] - 1-2 days Time of Disposition: 14:13
--- NOTE | 2022-04-27 13:39 | XR ---
EXAMINATION TYPE: XR chest 2V DATE OF EXAM: 04/27/2022 COMPARISON: Chest x-ray January 03, 2022 HISTORY: Chest pain. TECHNIQUE: Frontal and lateral views of the chest are obtained. FINDINGS: There is no suspicious focal air space opacity, pleural effusion, or pneumothorax seen. T he cardiac silhouette size remains within normal limits. Anterior fusion plate lower cervical spine i s redemonstrated. IMPRESSION: No acute process. No significant change from prior.
[2022-04-27 13:40] LABS: Calcium 10.1 mg/dL (8.4-10.2); Magnesium 1.8 mg/dL (1.6-2.3); Potassium 3.9 mmol/L (3.5-5.1); Total Bilirubin 0.5 mg/dL (0.2-1.3); Total Protein 6.5 g/dL (6.3-8.2)
[2022-04-27 13:46] LABS: INR 0.9 (<1.2); Prothrombin Time 10.4 sec (9.0-12.0)
[2022-04-27 13:51] LABS: Partial Thromboplastin Time 21.1 sec (22.0-30.0)
[2022-04-27] MEDS ORDERED: NALOXONE 0.4 MG/ML 1 ML VIAL IV PRN (14:10)
[2022-04-27] MEDS ORDERED: MORPHINE SULFATE 4 MG/ML SYRINGE IVP PRN (14:58)
[2022-04-27] MEDS ORDERED: ONDANSETRON 4 MG/2 ML VIAL IVP PRN (17:08)
[2022-04-27] MEDS ORDERED: NALOXONE 0.4 MG/ML 10 ML VIAL IVP PRN (17:08)
[2022-04-27] MEDS ORDERED: MELATONIN 3 MG TABLET PO PRN (17:08)
[2022-04-27] MEDS ORDERED: ACETAMINOPHEN TAB 325 MG TAB PO PRN (17:08)
--- NOTE | 2022-04-27 18:04 | P.HPIM ---
History of Present Illness H&P Date: 04/27/22 Chief Complaint: chest pain Patient is a 62-year-old female with history of coronary artery disease status post heart cath, COPD, hypertension, and prior myocardial infarction who presented to the ER with complaints of chest pain. On arrival to the ER her bl ood pressure was within normal limits. Initial laboratory analysis showed slightly elevated white blood cell count 11.1. Initial troponin was negative. Chest x-ray demonstrated no acute process. EKG is reviewed by me demonstrated sinus bradycardia at a rate of [address]-T wave changes. Patients last cath was 03/13/21 which demonstrated normal coronary arteries with healed SCAD of the circumflex aftery Patient seen and examined at bedside. Was at a PCP appointment to go over blood work and they went her in due to concerns over chest pain. + SOB, + heaviness throughout the chest. Was gradually getting worse over time, starting having sweating and today started having some nausea. She follow with Dr. Harper and last saw him about 1 month ago. No family hx of CAD per patient Feels like this was similar to when she had a heart attack in the past, but now thinks it may be due to steroids. Has been on tapering dose of steroids for eryhtema nordosum for the last 30 days through dermatology. Was on doxy with in the last month. Has also been getting steroid injections in the last month. Blood pressure at PCP was 180/110 per patient. Pertinent positives and negatives as discussed in HPI, a complete review of systems was performed and all other systems are negative. Vital signs reviewed General: nontoxic, no distress, appears at stated age Derm: warm, dry, b/l lE hemosidderin deposits with pen point ulceration right lower extremity. Head: atraumatic, normocephalic, symmetric Eyes: EOMI, no lid lag, anicteric sclera, pupils equal round reactive to light ENT: Nose and ears atraumatic, no thrush, no pharyngeal erythema Neck: No thyromegaly, no cervical lymphadenopathy, trachea midline, supple Mouth: no lip lesion, mucus membranes moist Cardiovascular: S1S2 reg, no murmur, positive posterior tibial pulse bilateral, no edema, capillary refill less than 2 seconds Lungs: clear to auscultation bilateral, no rhonchi, no rales, no wheeze, no accessory muscle use Abdominal: soft, nontender to palpation, no guarding, no appreciable organomegaly, normal bowel sounds Ext: no gross muscle atrophy, no contractures Neuro: CN II-XII grossly intact, no focal neurodeficits Psych: Alert, oriented, appropriate affect Assessment/Plan: Chest pain 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 DVT prophylaxis: SCDs Discussed with: Patient, family Anticipated discharge date: in AM Anticipated discharge place: home A total of 65 minutes was spent on the care of this complex patient more than 50% of the time was spent in counseling and care coordination. Past Medical History Past Medical History: Coronary Artery Disease (CAD), Cancer, Chest Pain / Angina, Fibromyalgia, GERD/Reflux, GI Bleed, Hypertension, Myocardial Infarction ([place]), Osteoarthritis (OA), Skin Disorder, Thyroid Disorder Additional Past Medical History / Comment(s): Diverticulitis, upper and lower GI bleed, MRI showed small strokes or migraines per pt as well as spots-recommended to have spinal tap but pt declined, bronchitis, past cervical neuropathy/stenosis/myelopathy with numbness and pain in bilateral hands but had cervical surgery and not a problem anymore-does have some decreased ROM with neck and spasms of neck occasionally, occasional vertigo, thyroidectomy d/t cancer, recent hospitalization for chest pain, rash R knee. Last Myocardial Infarction Date:: 03/09/14 History of Any Multi-Drug Resistant Organisms: None Reported Past Surgical History: Breast Surgery, Heart Catheterization, Hysterectomy, Orthopedic Surgery, Tubal Ligation Additional Past Surgical History / Comment(s): Multiple colonoscopies, egds, R partial thyroidectomy/multiple thyroid bxs then total thyroidectomy d/t cancer, L side neck mass removed, R breast benign bx, cardiac cath-unable to deploy a stent, cervical discectomy/fusions, L carpal tunnel releases, R knee arthroscopic surgeries, R knee replacement. Past Anesthesia/Blood Transfusion Reactions: Previous Problems w/ Anesthesia Additional Past Anesthesia/Blood Transfusion Reaction / Comment(s): STATES B/P WAS LOW POST OP RT THYROIDECTOMY-mostly related to narcotic pain meds. HISTORY OF CLAUSTROPHOBIA, states did fine with her anesthesia from her R knee replacement. Past Psychological History: Anxiety, Depression Smoking Status: Former smoker Past Alcohol Use History: None Reported Past Drug Use History: None Reported - Past Family History Father Family Medical History: Osteoarthritis (OA) Additional Family Medical History / Comment(s): Father is living Mother Family Medical History: AFIB, Renal Disease, Thyroid Disorder Additional Family Medical History / Comment(s): Mother is living. Hypothyroidism. Bladder issues/kidney stones. Nerve damage in legs Medications and Allergies Home Medications Medication Instructions Recorded Confirmed Type Nitroglycerin Sl Tabs [Nitrostat] 0.4 mg SUBLINGUAL Q5M PRN #25 tab 03/15/1410/18 Rx Levothyroxine Sodium 125 mcg PO DAILY 04/19/20 04/27/22 History Liothyronine Sodium [Cytomel] 10 mcg PO DAILY 07/08/20 04/27/22 History Omeprazole Magnesium [PriLOSEC] 20 mg PO DAILY 02/27/21 04/27/22 History Metoprolol Succinate (ER) [Toprol 25 mg PO BID #60 tab.er.24h 02/28/21 04/27/22 Rx XL] Aspirin [Adult Low Dose Aspirin EC] 81 mg PO DAILY 09/03/21 04/27/22 History Ergocalciferol [Vitamin D2 (1250 1,250 mcg PO SUWE 04/27/22 04/27/22 History Mcg = 32707 Iu)] Hydroxychloroquine Sulfate 200 mg PO DIRECTED 04/27/22 04/27/22 History [Plaquenil] predniSONE See Taper PO DAILY 04/27/22 04/27/22 History Allergies Allergy/AdvReac Type Severity Reaction Status Date / Time Penicillins Allergy Severe Anaphylaxis Verified 04/27/22 14:24 Quinolones Allergy Severe Unknown Verified 04/27/22 14:24 venom-honey bee Allergy Severe Anaphylaxis Verified 04/27/22 14:24 adhesive tape Allergy Unknown Verified 04/27/22 14:24 levofloxacin [From Levaquin] AdvReac Severe BRAIN STEM Verified 04/27/22 14:24 SEIZURE hydromorphone [From Dilaudid] AdvReac Nausea & Verified 04/27/22 14:24 Vomiting iopamidol [From Isovue-128] AdvReac Nausea & Verified 04/27/22 14:24 Vomiting pravastatin [From Pravachol] AdvReac LEG CRAMPS Verified 04/27/22 14:24 Physical Exam Osteopathic Statement: *. No significant issues noted on an osteopathic structural exam other than those noted in the History and Physical/Consult. Vitals: Vital Signs Temp Pulse Resp BP Pulse Ox 04/27/22 16:00 69 17 122/82 04/27/22 15:00 62 16 112/78 95 04/27/22 14:00 63 19 153/80 95 04/27/22 13:16 75 16 145/80 95 04/27/22 12:57 98.4 F 61 16 145/80 97 Intake and Output 04/27/22 04/27/22 04/27/22 06:59 14:59 22:59 Other: Weight 99.79 kg Results CBC & Chem 7: 04/27/22 13:12 04/27/22 13:12 Labs: Abnormal Lab Results - Last 24 Hours (Table) 04/27/22 04/27/22 04/27/22 Range/Units 13:12 13:12 13:12 WBC 11.1 H (3.8-10.6) k/uL Neutrophils # 9.5 H (1.3-7.7) k/uL Lymphocytes # 0.8 L (1.0-4.8) k/uL APTT 21.1 L (22.0-30.0) sec Sodium 136 L (137-145) mmol/L BUN 20 H (7-17) mg/dL Glucose 111 H (74-99) mg/dL
[2022-04-27] MEDS: PANTOPRAZOLE 40 MG TABLET PO SCH (18:06)
[2022-04-27] MEDS: SODIUM CHLORIDE 0.9% 1,000 ML IV SCH (18:08)
[2022-04-27] MEDS: METOPROLOL SUCCINATE (ER) 25 MG TAB.ER.24H PO SCH (20:47)
[2022-04-28] MEDS: SODIUM CHLORIDE 0.9% 1,000 ML IV SCH (05:50)
[2022-04-28] MEDS ORDERED: predniSONE 5 MG TAB PO SCH (09:00)
[2022-04-28] MEDS ORDERED: ASPIRIN 81 MG PO SCH (09:00)
[2022-04-28] MEDS ORDERED: LEVOTHYROXINE 125 MCG TAB PO SCH (09:00)
[2022-04-28 09:13] LABS: Chol/HDL Ratio 3.27 Ratio; LDL Cholesterol,Calculated 147.2 mg/dL (0.0-131.0)
[2022-04-28] MEDS: PANTOPRAZOLE 40 MG TABLET PO SCH (09:20)
[2022-04-28] MEDS: METOPROLOL SUCCINATE (ER) 25 MG TAB.ER.24H PO SCH (09:20)
--- NOTE | 2022-04-28 10:34 | P.CRDCN ---
History of Present Illness Consult date: 04/28/22 History of present illness: HISTORY OF PRESENT ILLNESS: This is a 62-year-old female with a past medical history significant for hyperlipidemia with statin intolerance, thyroid cancer with partial thyroidectomy, hypothyroidism, fibromyalgia, spontaneous coronary artery dissection, and Erythema Nodosum. Patient follows in the office with Dr. Joya beaulieu. We have been asked to see the patient in consultation for chest pain. Patient examined at the bedside. Patient states she has been having discomfort in the middle of her chest on and off throughout the weekend. She states yesterday morning the pain increases she came to the emergency room. She reports the pain was in the middle of her chest and denied any radiation of the pain. She does report some shortness of breath which she states has been chronic for her. At the time of examination this morning, the patient denies chest pain or pressure. * EKG reveals sinus mechanism with no signs of acute ischemia * Chest xray negative for acute process * Laboratory data: WBC 11.1. Hemoglobin 13.5. Blood count 282. Sodium 136. Potassium 3.9. BUN 20. Creatinine 0.84. Troponin negative 3. * Current home cardiac medications include aspirin 81 mg, metoprolol succinate 25 mg twice a day * Most recent echocardiogram obtained in March 2021 revealed ejection fraction 55% * Cardiac catheterization history: 2013 revealing spontaneous coronary artery dissection. Repeat heart catheterization in February 2021 revealed healed dissection of circumflex with no significant stenosis. REVIEW OF SYSTEMS: At the time of my exam: CONSTITUTIONAL: Denies fever or chills. HEENT: Denies blurred vision, vision changes, or eye pain. Denies hemoptysis CARDIOVASCULAR: Denies chest pain. Denies orthopnea. Denies PND. Denies palpitations RESPIRATORY: Denies shortness of breath. GASTROINTESTINAL: Denies abdominal pain. Denies nausea or vomiting. HEMATOLOGIC: Denies bleeding disorders. GENITOURINARY: Denies any blood in urine. SKIN: Denies pruitis. Denies rash. PHYSICAL EXAM: VITAL SIGNS: Reviewed. GENERAL: Well-developed in no acute distress. HEENT: Head is normocephalic. Pupils are equal, round. Sclerae anicteric. Mucous membranes of the mouth are moist. Neck supple. No JVD or thyromegaly LUNGS: Respirations even and unlabored. Lungs essentially clear to auscultation bilaterally. HEART: Regular rate and rhythm. S1 and S2 heard. ABDOMEN: Soft. Nondistended. Nontender. EXTREMITIES: Normal range of motion. No clubbing or cyanosis. Peripheral pulses intact. No lower extremity edema NEUROLOGIC: Awake and alert. Oriented x 3. ASSESSMENT: Chest pain, troponins negative 3 History of spontaneous coronary artery dissection in 2013 of circumflex artery Hyperlipidemia with statin intolerance History of thyroid cancer with partial thyroidectomy Hypothyroidism Fibromyalgia Erythema Nodosum PLAN: An acute coronary event has been ruled out Obtain 2D echo to assess cardiac structure and function Resume home cardiac medications Patient may be discharged home today from a cardiac standpoint and follow up outpatient with Dr. Harper Nurse practitioner note has been reviewed by physician. Signing provider agrees with the documented findings, assessment, and plan of care. Past Medical History Past Medical History: Coronary Artery Disease (CAD), Cancer, Chest Pain / Angina, Fibromyalgia, GERD/Reflux, GI Bleed, Hypertension, Myocardial Infarction ([place]), Osteoarthritis (OA), Skin Disorder, Thyroid Disorder Additional Past Medical History / Comment(s): Diverticulitis, upper and lower GI bleed, MRI showed small strokes or migraines per pt as well as spots-recommended to have spinal tap but pt declined, bronchitis, past cervical neuropathy/stenosis/myelopathy with numbness and pain in bilateral hands but had cervical surgery and not a problem anymore-does have some decreased ROM with neck and spasms of neck occasionally, occasional vertigo, thyroidectomy d/t cancer, recent hospitalization for chest pain, rash R knee. Last Myocardial Infarction Date:: 03/09/14 History of Any Multi-Drug Resistant Organisms: None Reported Past Surgical History: Breast Surgery, Heart Catheterization, Hysterectomy, Orthopedic Surgery, Tubal Ligation Additional Past Surgical History / Comment(s): Multiple colonoscopies, egds, R partial thyroidectomy/multiple thyroid bxs then total thyroidectomy d/t cancer, L side neck mass removed, R breast benign bx, cardiac cath-unable to deploy a stent, cervical discectomy/fusions, L carpal tunnel releases, R knee arthroscopic surgeries, R knee replacement. Past Anesthesia/Blood Transfusion Reactions: Previous Problems w/ Anesthesia Additional Past Anesthesia/Blood Transfusion Reaction / Comment(s): STATES B/P WAS LOW POST OP RT THYROIDECTOMY-mostly related to narcotic pain meds. HISTORY OF CLAUSTROPHOBIA, states did fine with her anesthesia from her R knee replacement. Past Psychological History: Anxiety, Depression Additional Psychological History / Comment(s): Pt resides with her significant other and pt's parents. 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 Pt is independent. Smoking Status: Former smoker Past Alcohol Use History: None Reported Additional Past Alcohol Use History / Comment(s): STARTED SMOKING AT AGE 18 STOPPED FEBRUARY 2014 (SMOKED ON AND OFF) SMOKED 1PPD AT THE TIME SHE QUIT 2013 Past Drug Use History: None Reported - Past Family History Father Family Medical History: Osteoarthritis (OA) Additional Family Medical History / Comment(s): Father is living Mother Family Medical History: AFIB, Renal Disease, Thyroid Disorder Additional Family Medical History / Comment(s): Mother is living. Hypothyroidism. Bladder issues/kidney stones. Nerve damage in legs Medications and Allergies Home Medications Medication Instructions Recorded Confirmed Type Nitroglycerin Sl Tabs [Nitrostat] 0.4 mg SUBLINGUAL Q5M PRN #25 tab 03/15/14 04/27/22 Rx Levothyroxine Sodium 125 mcg PO DAILY 04/19/20 04/27/22 History Liothyronine Sodium [Cytomel] 10 mcg PO DAILY 07/08/20 04/27/22 History Omeprazole Magnesium [PriLOSEC] 20 mg PO DAILY 02/27/21 04/27/22 History Metoprolol Succinate (ER) [Toprol 25 mg PO BID #60 tab.er.24h 02/28/21 04/27/22 Rx XL] Aspirin [Adult Low Dose Aspirin EC] 81 mg PO DAILY 09/03/21 04/27/22 History Ergocalciferol [Vitamin D2 (1250 1,250 mcg PO SUWE 04/27/22 04/27/22 History Mcg = 24800 Iu)] Hydroxychloroquine Sulfate 200 mg PO DIRECTED 04/27/22 04/27/22 History [Plaquenil] predniSONE See Taper PO DAILY 04/27/22 04/27/22 History Allergies Allergy/AdvReac Type Severity Reaction Status Date / Time Penicillins Allergy Severe Anaphylaxis Verified 04/27/22 14:24 Quinolones Allergy Severe Unknown Verified 04/27/22 14:24 venom-honey bee Allergy Severe Anaphylaxis Verified 04/27/22 14:24 adhesive tape Allergy Unknown Verified 04/27/22 14:24 levofloxacin [From Levaquin] AdvReac Severe BRAIN STEM Verified 04/27/22 14:24 SEIZURE hydromorphone [From Dilaudid] AdvReac Nausea & Verified 04/27/22 14:24 Vomiting iopamidol [From Isovue-128] AdvReac Nausea & Verified 04/27/22 14:24 Vomiting pravastatin [From Pravachol] AdvReac LEG CRAMPS Verified 04/27/22 14:24 Physical Exam Vitals: Vital Signs Temp Pulse Pulse Pulse Resp BP BP 04/28/22 07:00 97.7 F 58 L 18 103/62 04/28/22 02:16 97.8 F 86 19 109/65 04/28/22 01:33 57 L 04/27/22 19:38 98.4 F 58 L 18 118/74 04/27/22 19:00 73 18 139/74 04/27/22 18:00 78 27 H 138/99 04/27/22 17:00 63 14 145/77 04/27/22 16:00 69 17 122/82 04/27/22 15:00 62 16 112/78 04/27/22 14:00 63 19 153/80 04/27/22 13:16 75 16 145/80 04/27/22 12:57 98.4 F 61 16 145/80 Pulse Ox 04/28/22 07:00 97 04/28/22 02:16 97 04/28/22 01:33 04/27/22 19:38 97 04/27/22 19:00 95 04/27/22 18:00 97 04/27/22 17:00 96 04/27/22 16:00 04/27/22 15:00 95 04/27/22 14:00 95 04/27/22 13:16 95 04/27/22 12:57 97 Intake and Output 04/27/22 04/28/22 04/28/22 22:59 06:59 14:59 Other: # Voids 2 2 1 Weight 99.79 kg Results 04/27/22 13:12 04/27/22 13:12 Cardiac Enzymes 04/27/22 04/27/22 04/27/22 Range/Units 13:12 13:12 15:09 AST 20 (14-36) U/L Troponin I <0.012 <0.012 (0.000-0.034) ng/mL 04/27/22 Range/Units 18:12 AST (14-36) U/L Troponin I <0.012 (0.000-0.034) ng/mL Coagulation 04/27/22 Range/Units 13:12 PT 10.4 (9.0-12.0) sec APTT 21.1 L (22.0-30.0) sec Lipids 04/28/22 Range/Units 04:34 Triglycerides 100.00 (0.00-149.00) mg/dL Cholesterol 241.00 H (0.00-200.00) mg/dL HDL Cholesterol 73.80 H (40.00-60.00) mg/dL Cholesterol/HDL Ratio 3.27 Ratio CBC 04/27/22 Range/Units 13:12 WBC 11.1 H (3.8-10.6) k/uL RBC 4.94 (3.80-5.40) m/uL Hgb 13.5 (11.4-16.0) gm/dL Hct 42.9 (34.0-46.0) % Plt Count 282 (150-450) k/uL Comprehensive Metabolic Panel 04/27/22 Range/Units 13:12 Sodium 136 L (137-145) mmol/L Potassium 3.9 (3.5-5.1) mmol/L Chloride 103 (98-107) mmol/L Carbon Dioxide 30 (22-30) mmol/L BUN 20 H (7-17) mg/dL Creatinine 0.84 (0.52-1.04) mg/dL Glucose 111 H (74-99) mg/dL Calcium 10.1 (8.4-10.2) mg/dL AST 20 (14-36) U/L ALT 22 (4-34) U/L Alkaline Phosphatase 82 (38-126) U/L Total Protein 6.5 (6.3-8.2) g/dL Albumin 4.0 (3.5-5.0) g/dL Current Medications Generic Name Dose Route Start Last Admin Trade Name Freq PRN Reason Stop Dose Admin Acetaminophen 650 mg 04/27/22 17:08 04/28/22 09:23 Acetaminophen Tab 325 Mg Tab PO 650 mg Q6HR PRN Administration Mild Pain or Fever > 100.5 Aspirin 81 mg 04/28/22 09:00 04/28/22 09:20 Aspirin 81 Mg PO 81 mg DAILY JR Administration Sodium Chloride 1,000 mls @ 75 mls/hr 04/27/22 17:15 04/28/22 05:50 Saline 0.9% IV 75 mls/hr .[id number] JR Administration Levothyroxine Sodium 125 mcg 04/28/22 09:00 04/28/22 09:20 Levothyroxine 125 Mcg Tab PO 125 mcg DAILY JR Administration Melatonin 3 mg 04/27/22 17:08 Melatonin 3 Mg Tablet PO HS PRN Insomnia Metoprolol Succinate 25 mg 04/27/22 21:00 04/28/22 09:20 Metoprolol Succinate (Er) 25 Mg Tab.Er.24h PO 25 mg BID JR Administration Morphine Sulfate 4 mg 04/27/22 14:58 04/27/22 20:47 Morphine Sulfate 4 Mg/Ml Syringe IVP 4 mg Q4HR PRN Administration Pain Naloxone HCl 0.2 mg 04/27/22 14:10 Naloxone 0.4 Mg/Ml 1 Ml Vial IV Q2M PRN Opioid Reversal Ondansetron HCl 4 mg 04/27/22 17:08 Ondansetron 4 Mg/2 Ml Vial IVP Q8HR PRN Nausea And Vomiting Pantoprazole Sodium 40 mg 04/27/22 17:30 04/28/22 09:20 Pantoprazole 40 Mg Tablet PO 40 mg AC-BID JR Administration Prednisone 5 mg 04/28/22 09:00 04/28/22 09:20 Prednisone 5 Mg Tab PO 5 mg DAILY JR Administration Intake and Output 04/27/22 04/28/22 04/28/22 22:59 06:59 14:59 Other: # Voids 2 2 1 Weight 99.79 kg 04/27/22 13:12 04/27/22 13:12
--- NOTE | 2022-04-28 11:34 | CA ---
Transthoracic Echo Report Name: Sofia Cummings Age: 62 Gender: F : 1960 Exam Date: 04/28/2022 08:51 Exam Location: [facility] Ht (in): 65 Wt (lb): 220 Ordering Physician: Alem Berg Attending/Referring Phys: [id number], [employer] Shift Mechanic Risa Toribio RDCS Procedure CPT: Indications: LV function Cardiac Hx: Technical Quality: Fair Contrast 1: Total Dose (mL): Contrast 2: Total Dose (mL): MEASUREMENTS (Male / Female) Normal Values 2D ECHO RV Internal Dim ED PLAX 3.3 cm LA Volume 27.7 cm??? 18 - 58 / 22 - 52 cm??? M-MODE Aortic Root Diameter MM 3.2 cm LA Systolic Diameter MM 4.1 cm LA Ao Ratio MM 1.3 AV Cusp Separation MM 1.9 cm DOPPLER AV Peak Velocity 137.8 cm/s AV Peak Gradient 7.6 mmHg LVOT Peak Velocity 117.9 cm/s LVOT Peak Gradient 5.6 mmHg MV Area PHT 4.4 cm??? Mitral E Point Velocity 103.1 cm/s Mitral A Point Velocity 78.3 cm/s Mitral E to A Ratio 1.3 MV Deceleration Time 173.3 ms TR Peak Velocity 157.9 cm/s TR Peak Gradient 10.0 mmHg Right Ventricular Systolic Press 15.0 mmHg FINDINGS Left Ventricle Mildly increased left ventricular wall thickness. Normal left ventricular systolic function with no obvious regional wall motion abnormalities. Left ventricular ejection fraction is estimated at 50%. Right Ventricle Normal right ventricular size and function. Right ventricular systolic pressure within normal limits. Right Atrium Normal right atrial size. Left Atrium Normal left atrial size. No evidence for an atrial septal defect. Mitral Valve Structurally normal mitral valve. Mild mitral regurgitation. Aortic Valve Trileaflet aortic valve. Trace aortic regurgitation. Tricuspid Valve Structurally normal tricuspid valve. Mild tricuspid regurgitation. Pulmonic Valve Trace pulmonic regurgitation. Pericardium No pericardial effusion. Aorta Normal size aortic root and proximal ascending aorta. CONCLUSIONS Left ventricular hypertrophy with ejection fraction of 50-55% Previewed by: Dr. David Lew MD (Electronically Signed) Final Date: 28 April 2022 11:33
[2022-04-28] MEDS ORDERED: methylPREDNISolone SOD SUCCI 125 MG/2 ML VIAL IV STA (12:04)
[2022-04-28] MEDS ORDERED: FAMOTIDINE 20 MG/2 ML VIAL IV STA (12:04)
[2022-04-28] MEDS ORDERED: diphenhydrAMINE 50 MG/ML 1 ML VIAL IVP STA (12:04)
--- NOTE | 2022-04-28 14:23 | CT ---
EXAMINATION TYPE: CT chest angio for PE CT DLP: 487.20 mGycm, Automated exposure control for dose reduction was used. DATE OF EXAM: 04/28/2022 2:06 PM COMPARISON: Chest radiograph from same day. Multiple CTs of the chest with most recent on 01/03/2022 CLINICAL INDICATION:Female, 62 years old with history of pulmonary embolism; TECHNIQUE/CONTRAST: CTA scan of the thorax is performed without and with IV Contrast, patient injected with 100 ml mL of Isovue 370, pulmonary embolism protocol. MIP images are created and reviewed. FINDINGS: Pulmonary Artery: There is no evidence for a filling defect within the pulmonary vasculature to sugge st acute pulmonary embolism. The pulmonary artery is of normal size. Lungs/Pleura: No evidence of focal consolidation, pleural effusion or pneumothorax. Airway: Large airways are patent. Heart: Heart is within normal limits for size.. Vasculature: No evidence of aortic aneurysm. Mediastinum: No gross evidence of adenopathy. Musculoskeletal: No acute osseous abnormalities, mild multilevel disc degeneration changes throughout the spine. Partially visualized fixation hardware in the lower cervical spine. Soft Tissues: Unremarkable. Lower neck: No significant findings. Upper Abdomen: No significant findings. IMPRESSION: No evidence of pulmonary embolism.
[2022-04-28 14:54] VITALS: BP 119/73; PULSE 68; RESP 18; TEMP 98.6
--- NOTE | 2022-04-28 15:12 | P.DS ---
Providers Date of admission: 04/27/22 14:11 Expected date of discharge: 04/28/22 Attending physician: Francisco Beckford MD Primary care physician: Konrad Perez Hospital Course: Discharge Diagnosis: Chest pain, ACS ruled out History of Spontaneous coronary artery dissection Hypertension Erythema nodosum GERD Hospital Course: Patient is a 62-year-old female with history of coronary artery disease status post heart cath, COPD, hypertension, and prior myocardial infarction who presented to the ER with complaints of chest pain. On arrival to the ER her blood pressure was within normal limits. Initial laboratory analysis showed slightly elevated white blood cell count 11.1. Initial troponin was negative. Chest x-ray demonstrated no acute process. EKG is reviewed by me demonstrated sinus bradycardia at a rate of [address]-T wave changes. She was admitted and evaluated by cardiology. Echocardiogram showed preserved ejection fraction of 50-55%. He is also concerned about possibility of blood clot. Her d-dimer was mildly elevated at 0.62. She underwent a CT of the chest which showed no acute PE or acute process. I have encouraged her to follow up with Dr. Robles in the outpatient setting. We are wondering if it is due to her chronic steroid use. We have definitive cause for her shortness of breath other than feeling quite anxious on steroids. She was discharged home in stable condition for further outpatient testing. She'll also follow-up with Dr. Harper in 2 weeks. No medication changes are made at this time but I asked her to consider stopping her steroids in the next 1-2 weeks she has been on them for quite some time. Patient seen and examined at bedside. Denies any chest pain or shortness of time but did get slightly short of breath when up and walking earlier today. Still having some anxiety feelings. Her acid reflux was slightly bad last night and have encouraged her to resume her omeprazole which was controlling well on Protonix. We also discussed that she take it twice daily if needed. Patient is in agreement. She is amenable to discharge. Vital signs reviewed and stable. General: nontoxic, no distress, appears at stated age Head: atraumatic, normocephalic, symmetric Eyes: EOMI, no lid lag, anicteric sclera Mouth: no lip lesion, mucus membranes moist Cardiovascular: S1S2 reg, no murmur, positive posterior tibial pulse bilateral, Lungs: CTA bilateral, no rhonchi, no rales , no accessory muscle use Abdominal: soft, nontender to palpation, no guarding, no appreciable organomegaly Ext: no gross muscle atrophy, no edema, no contractures Neuro: CN II-XI grossly intact, no focal neuro deficits Psych: Alert, oriented, appropriate affect A total of 32 minutes of time were spent preparing this complex discharge summary. Patient was discharged on 04/28/22. Patient Condition at Discharge: Stable Plan - Discharge Summary New Discharge Prescriptions: Continue Nitroglycerin Sl Tabs [Nitrostat] 0.4 mg SUBLINGUAL Q5M PRN #25 tab PRN Reason: Chest Pain Levothyroxine Sodium 125 mcg PO DAILY Liothyronine Sodium [Cytomel] 10 mcg PO DAILY Aspirin [Adult Low Dose Aspirin EC] 81 mg PO DAILY Ergocalciferol [Vitamin D2 (1250 Mcg = 75912 Iu)] 1,250 mcg PO SUWE predniSONE See Taper PO DAILY Omeprazole Magnesium [PriLOSEC] 20 mg PO DAILY Metoprolol Succinate (ER) [Toprol XL] 25 mg PO BID #60 tab.er.24h Hydroxychloroquine Sulfate [Plaquenil] 200 mg PO DIRECTED Discharge Medication List Nitroglycerin Sl Tabs [Nitrostat] 0.4 mg SUBLINGUAL Q5M PRN #25 tab 03/15/14 [Rx] Levothyroxine Sodium 125 mcg PO DAILY 04/19/20 [History] Liothyronine Sodium [Cytomel] 10 mcg PO DAILY 07/08/20 [History] Omeprazole Magnesium [PriLOSEC] 20 mg PO DAILY 02/27/21 [History] Metoprolol Succinate (ER) [Toprol XL] 25 mg PO BID #60 tab.er.24h 02/28/21 [Rx] Aspirin [Adult Low Dose Aspirin EC] 81 mg PO DAILY 09/03/21 [History] Ergocalciferol [Vitamin D2 (1250 Mcg = 43051 Iu)] 1,250 mcg PO SUWE 04/27/22 [History] Hydroxychloroquine Sulfate [Plaquenil] 200 mg PO DIRECTED 04/27/22 [History] predniSONE See Taper PO DAILY 04/27/22 [History] Follow up Appointment(s)/Referral(s): Konrad Perez MD [Primary Care Provider] - 1-2 days Activity/Diet/Wound Care/Special Instructions: Activity: as tolerated Diet: heart healthy Special Instructions: Attempt to come off steroids over the next 1-2 weeks Discharge Disposition: HOME SELF-CARE
== END 2022-04-28 17:01 | disposition home or self-care (01) ==
LOC: EC 12:54 → 6NMEDSUR 14:11
PROVIDERS: ADMIT Family Medicine; ATTEND Family Medicine
DX: R07.89 Other chest pain (principal); I25.10 Atherosclerotic heart disease of native coronary artery without angina pectoris; J44.9 Chronic obstructive pulmonary disease, unspecified; L52 Erythema nodosum; I10 Essential (primary) hypertension; K21.9 Gastro-esophageal reflux disease without esophagitis; M79.7 Fibromyalgia; E89.0 Postprocedural hypothyroidism; F41.9 Anxiety disorder, unspecified; T38.0X5A Adverse effect of glucocorticoids and synthetic analogues, initial encounter; I25.2 Old myocardial infarction; M19.90 Unspecified osteoarthritis, unspecified site; R42 Dizziness and giddiness; E78.5 Hyperlipidemia, unspecified; R79.89 Other specified abnormal findings of blood chemistry; D72.829 Elevated white blood cell count, unspecified; L97.919 Non-pressure chronic ulcer of unspecified part of right lower leg with unspecified severity; F32.A Depression, unspecified; R00.1 Bradycardia, unspecified; R11.0 Nausea; R61 Generalized hyperhidrosis; F40.240 Claustrophobia; Z79.890 Hormone replacement therapy; Z79.899 Other long term (current) drug therapy; Z88.1 Allergy status to other antibiotic agents; Z91.030 Bee allergy status; Z88.5 Allergy status to narcotic agent; Z88.8 Allergy status to other drugs, medicaments and biological substances; Z91.048 Other nonmedicinal substance allergy status; Z90.710 Acquired absence of both cervix and uterus; Z98.51 Tubal ligation status; Z79.82 Long term (current) use of aspirin; Z79.52 Long term (current) use of systemic steroids; Z85.850 Personal history of malignant neoplasm of thyroid; Z87.891 Personal history of nicotine dependence; Z98.1 Arthrodesis status; Z96.651 Presence of right artificial knee joint; Z86.79 Personal history of other diseases of the circulatory system; Z87.19 Personal history of other diseases of the digestive system; Z86.69 Personal history of other diseases of the nervous system and sense organs; Z87.39 Personal history of other diseases of the musculoskeletal system and connective tissue; Z98.890 Other specified postprocedural states; Z82.61 Family history of arthritis; Z83.49 Family history of other endocrine, nutritional and metabolic diseases; Z84.1 Family history of disorders of kidney and ureter; Z82.0 Family history of epilepsy and other diseases of the nervous system; Z82.49 Family history of ischemic heart disease and other diseases of the circulatory system
CPT/HCPCS: 96374; 96375; 96361; 99285; 36415; 93005; 93306; 85379; 83880; 80061; 80053; 84443; 83735; 84484; 85025; 85610; 85730; 71046; 71275; G0378 ×2; J2270; J1200; J2930; J7512; Q9967

== ENCOUNTER 2022-06-23 14:55 | Observation (INO) | payer MEDICARE, OTHER ==
--- NOTE | 2022-06-23 16:11 | ED ---
Chest Pain HPI - General Chief Complaint: Shortness of Breath Stated Complaint: chest pain/SOB Time Seen by Provider: 06/23/22 15:06 Source: patient, EMS Mode of arrival: EMS Limitations: no limitations - History of Present Illness Initial Comments: This patient is a 62-year-old woman who presents to have evaluation of left- sided chest pain. The patient states that she had been caring a laundry basket across her home when she had onset of sharp severe left-sided chest pain. She states that it was worse with taking a deep breath. It seemed to feel like he was going into her left arm. She notes that the pain is a little bit better here and better if she remains still. She had a similar episode a couple of months ago and was seen here regarding that they did not find a cause. MD Complaint: chest pain Onset/Timin -: hour(s) Onset: other Pain Location: left chest Pain Radiation: LUE Severity: moderate Quality: sharp Consistency: constant Improves With: remaining still Worsens With: inspiration Treatments Prior to Arrival: none - Related Data Home Medications Medication Instructions Recorded Confirmed Levothyroxine Sodium 125 mcg PO DAILY 04/19/20 06/23/22 Liothyronine Sodium [Cytomel] 10 mcg PO DAILY 07/08/20 06/23/22 Omeprazole Magnesium [PriLOSEC] 20 mg PO DAILY 02/27/21 06/23/22 Aspirin [Adult Low Dose Aspirin EC] 81 mg PO DAILY 09/03/21 06/23/22 Ergocalciferol [Vitamin D2 (1250 1,250 mcg PO SUWE 04/27/22 06/23/22 Mcg = [id number] Iu)] Previous Rx's Medication Instructions Recorded Nitroglycerin Sl Tabs [Nitrostat] 0.4 mg SUBLINGUAL Q5M PRN #25 tab 03/15/14 Metoprolol Succinate (ER) [Toprol 25 mg PO BID #60 tab.er.24h 02/28/21 XL] Allergies Allergy/AdvReac Type Severity Reaction Status Date / Time Penicillins Allergy Severe Anaphylaxis Verified 06/23/22 21:57 Quinolones Allergy Severe Unknown Verified 06/23/22 21:57 venom-honey bee Allergy Severe Anaphylaxis Verified 06/23/22 21:57 adhesive tape Allergy Unknown Verified 06/23/22 21:57 levofloxacin [From Levaquin] AdvReac Severe BRAIN STEM Verified 06/23/22 21:57 SEIZURE hydromorphone [From Dilaudid] AdvReac Nausea & Verified 06/23/22 21:57 Vomiting iopamidol [From Isovue-128] AdvReac Nausea & Verified 06/23/22 21:57 Vomiting pravastatin [From Pravachol] AdvReac LEG CRAMPS Verified 06/23/22 21:57 Review of Systems ROS Statement: Those systems with pertinent positive or pertinent negative responses have been documented in the HPI. ROS Other: All systems not noted in ROS Statement are negative. Constitutional: Denies: fever, chills Respiratory: Denies: cough, dyspnea, hemoptysis Cardiovascular: Reports: chest pain. Denies: palpitations, orthopnea, edema, syncope Gastrointestinal: Denies: abdominal pain, nausea, vomiting, diarrhea Genitourinary: Denies: dysuria, hematuria Musculoskeletal: Denies: back pain Skin: Denies: rash Neurological: Denies: headache, weakness, numbness EKG Findings - EKG Results: EKG: interpreted by RAAD, sinus rhythm (With sinus arrhythmia), normal axis, normal QRS, normal ST/T EKG shows: bradycardia (Rate 54 bpm) Past Medical History Past Medical History: Coronary Artery Disease (CAD), Cancer, Chest Pain / Angina, Fibromyalgia, GERD/Reflux, GI Bleed, Hypertension, Myocardial Infarction ([place]), Osteoarthritis (OA), Skin Disorder, Thyroid Disorder Additional Past Medical History / Comment(s): Diverticulitis, upper and lower GI bleed, MRI showed small strokes or migraines per pt as well as spots-recommended to have spinal tap but pt declined, bronchitis, past cervical neuropathy/stenosis/myelopathy with numbness and pain in bilateral hands but had cervical surgery and not a problem anymore-does have some decreased ROM with neck and spasms of neck occasionally, occasional vertigo, thyroidectomy d/t cancer, recent hospitalization for chest pain, rash R knee. Last Myocardial Infarction Date:: 03/09/14 History of Any Multi-Drug Resistant Organisms: None Reported Past Surgical History: Breast Surgery, Heart Catheterization, Hysterectomy, Orthopedic Surgery, Tubal Ligation Additional Past Surgical History / Comment(s): Multiple colonoscopies, egds, R partial thyroidectomy/multiple thyroid bxs then total thyroidectomy d/t cancer, L side neck mass removed, R breast benign bx, cardiac cath-unable to deploy a stent, cervical discectomy/fusions, L carpal tunnel releases, R knee arthroscopic surgeries, R knee replacement. Past Anesthesia/Blood Transfusion Reactions: Previous Problems w/ Anesthesia Additional Past Anesthesia/Blood Transfusion Reaction / Comment(s): STATES B/P WAS LOW POST OP RT THYROIDECTOMY-mostly related to narcotic pain meds. HISTORY OF CLAUSTROPHOBIA, states did fine with her anesthesia from her R knee replacement. Past Psychological History: Anxiety, Depression Smoking Status: Former smoker Past Alcohol Use History: None Reported Past Drug Use History: None Reported - Past Family History Father Family Medical History: Osteoarthritis (OA) Additional Family Medical History / Comment(s): Father is living Mother Family Medical History: AFIB, Renal Disease, Thyroid Disorder Additional Family Medical History / Comment(s): Mother is living. Hypothyroidism. Bladder issues/kidney stones. Nerve damage in legs General Exam Limitations: no limitations General appearance: alert, in no apparent distress Head exam: Present: atraumatic, normocephalic Eye exam: Present: normal appearance. Absent: scleral icterus, conjunctival injection Neck exam: Present: normal inspection, full ROM Respiratory exam: Present: normal lung sounds bilaterally, chest wall tenderness. Absent: respiratory distress, wheezes, rales, rhonchi, stridor, accessory muscle use, decreased breath sounds, prolonged expiratory Cardiovascular Exam: Present: regular rate, normal rhythm, normal heart sounds. Absent: systolic murmur, diastolic murmur, rubs, gallop GI/Abdominal exam: Present: soft. Absent: distended, tenderness, guarding, rebound, rigid, mass Extremities exam: Present: normal inspection, normal capillary refill. Absent: pedal edema, calf tenderness Back exam: Present: normal inspection. Absent: CVA tenderness (R), CVA tenderness (L) Neurological exam: Present: alert Skin exam: Present: warm, dry, intact, normal color. Absent: rash Course Vital Signs 06/23/22 06/23/22 06/23/22 15:00 16:32 16:49 Temperature 97.2 F L Pulse Rate 66 57 L Respiratory 22 22 18 Rate Blood Pressure 169/74 160/70 O2 Sat by Pulse 97 98 Oximetry 06/23/22 06/23/22 06/23/22 17:32 18:35 19:58 Temperature Pulse Rate 63 61 69 Respiratory 20 18 16 Rate Blood Pressure 136/70 145/67 140/78 O2 Sat by Pulse 97 97 96 Oximetry 06/23/22 21:10 Temperature Pulse Rate 60 Respiratory 16 Rate Blood Pressure 152/79 O2 Sat by Pulse 97 Oximetry Disposition Clinical Impression: Chest pain Disposition: ADMITTED IP TO THIS HOSP Condition: Good Is patient prescribed a controlled substance at d/c from ED?: No
[2022-06-23] MEDS ORDERED: KETOROLAC 15 MG/ML 1 ML VIAL IVP STA (16:37)
--- NOTE | 2022-06-23 16:46 | XR ---
EXAMINATION TYPE: XR chest 2V DATE OF EXAM: 06/23/2022 COMPARISON: 04/27/2022 HISTORY: Chest pain TECHNIQUE: FINDINGS: Heart is normal. Lungs are clear. Diaphragm is normal. Bony thorax appears normal. There ar e chest leads. IMPRESSION: Normal chest. No change.
[2022-06-23 16:49] LABS: Basophils # (A) 0.1 k/uL (0-0.2); Basophils % (A) 1 %; Eosinophils # (A) 0.3 k/uL (0-0.7); Eosinophils % (A) 4 %; HCT 40.5 % (34.0-46.0); HGB 12.9 gm/dL (11.4-16.0); Lymphocytes # (A) 1.3 k/uL (1.0-4.8); Lymphocytes % (A) 18 %; MCH 28.2 pg (25.0-35.0); MCV 88.1 fL (80.0-100.0); Mean Platelet Volume 8.2; Monocytes # (A) 0.3 k/uL (0-1.0); Monocytes % (A) 4 %; Neutrophils # (A) 5.2 k/uL (1.3-7.7); Neutrophils % (A) 71 %; Platelet Count 250 k/uL (150-450); RBC 4.59 m/uL (3.80-5.40); RDW 13.8 % (11.5-15.5); WBC 7.4 k/uL (3.8-10.6)
[2022-06-23 17:00] LABS: ALT 21 U/L (4-34); AST 25 U/L (14-36); African American GFR (CKD) >90 (>60 ml/min/1.73 sqM); Alkaline Phosphatase 83 U/L (38-126); Amylase 62 U/L (30-110); Anion Gap 7 mmol/L; Blood Urea Nitrogen 15 mg/dL (7-17); Calcium 9.3 mg/dL (8.4-10.2); Carbon Dioxide 29 mmol/L (22-30); Chloride 102 mmol/L (98-107); Glucose 82 mg/dL (74-99); Lipase 111 U/L (23-300); Magnesium 1.8 mg/dL (1.6-2.3); Non-African American GFR(CKD) 89 (>60 ml/min/1.73 sqM); Sodium 138 mmol/L (137-145); Total Bilirubin 0.4 mg/dL (0.2-1.3); Total Protein 6.3 g/dL (6.3-8.2)
[2022-06-23 17:06] LABS: Partial Thromboplastin Time 22.1 sec (22.0-30.0); Prothrombin Time 10.9 sec (9.0-12.0)
[2022-06-23 17:07] LABS: Appearance,Urine Clear (Clear); Bacteria,Urine Rare /hpf; Bilirubin,Urine Negative (Negative); Blood,Urine Trace (Negative); Color,Urine Colorless; Glucose,Urine (UA) Negative (Negative); Ketones,Urine Negative (Negative); Leukocyte Esterase,Urine Negative (Negative); Mucus,Urine Rare /hpf; Nitrite,Urine Negative (Negative); PH, Urine 6.5 (5.0-8.0); Protein,Urine Negative (Negative); RBC,Urine 1 /hpf (0-5); Specific Gravity,Urine 1.006 (1.001-1.035); Squamous Epithelial Cell,Urine <1 /hpf (0-4); Urobilinogen,Urine <2.0 mg/dL (<2.0)
--- NOTE | 2022-06-23 18:46 | CT ---
EXAMINATION TYPE: CT chest angio for PE DATE OF EXAM: 06/23/2022 COMPARISON: April 28, 2022 HISTORY: chest pain, possible PE CT DLP: 573.3 mGycm Automated exposure control for dose reduction was used. CONTRAST: Performed with IV Contrast, patient injected with 80ml mL of Isovue 370. Images obtained from the thoracic inlet to the diaphragm with the IV contrast. The lungs are clear of infiltrate. No pleural effusion or pneumothorax. No evidence of a pulmonary ma ss. Heart size is normal. No pericardial effusion. There is normal contrast opacification of the pulmonary arteries. No filling defect. Thoracic ureter is intact. No aneurysm or dissection. The thoracic spine is intact. No compression fracture. Sternum is intact. No evidence of rib fracture . The upper abdominal soft tissues are intact. IMPRESSION: Negative exam. No evidence of pulmonary embolism. No suspicious pulmonary mass. No adverse change com pared to the old exam.
[2022-06-23] MEDS ORDERED: NITROGLYCERIN SL TABS 0.4 MG TAB SUBLINGUAL PRN (19:47)
[2022-06-23] MEDS ORDERED: MORPHINE SULFATE 4 MG/ML SYRINGE IV STA (20:05)
--- NOTE | 2022-06-23 20:17 | US ---
EXAMINATION TYPE: US abdomen limited DATE OF EXAM: 06/23/2022 COMPARISON: NONE CLINICAL HISTORY: attention RUQ. Chest and left shoulder pain TECHNIQUE: Multiple sonographic images of the right upper quadrant are obtained. FINDINGS: EXAM MEASUREMENTS: Liver Length: 15.5 cm Gallbladder Wall: 0.25 cm CBD: 0.35 cm Right Kidney: 10.0 x 4.5 x 4.7 cm CHIEF REVENUE OFFICER NOTES: Pancreas: Tail obscured by overlying bowel gas. Parts visualized appear wnl Liver: wnl Gallbladder: wnl Evidence for sonographic Zapata's sign: No CBD: wnl Right Kidney: wnl IMPRESSION: No focal liver defect. No gallstones or dilated ducts. No evidence of pancreatic mass.
[2022-06-24 08:54] VITALS: BP 151/72; PULSE 68; RESP 18; TEMP 98.2
[2022-06-24] MEDS ORDERED: ASPIRIN 325 MG TAB PO SCH (09:00)
[2022-06-24 09:15] LABS: Chol/HDL Ratio 4.15 Ratio; LDL Cholesterol,Calculated 135.8 mg/dL (0.0-131.0); VLDL Calculation 15.22 mg/dL (5.00-40.00)
--- NOTE | 2022-06-24 10:12 | P.CRDCN ---
History of Present Illness Consult date: 06/24/22 History of present illness: HISTORY OF PRESENT ILLNESS: This is a 62-year-old female with a past medical history significant for hyperlipidemia with statin intolerance, thyroid cancer with partial thyroidectomy, hypothyroidism, fibromyalgia, spontaneous coronary artery dissection, and Erythema Nodosum. Patient follows in the office with Dr. Joya beaulieu. We have been asked to see the patient in consultation for chest pain. Patient examined at the bedside. Patient states yesterday she was walking into the kitchen when she began to have a sharp pain in the left side of her chest. She states the pain was underneath her arm and underneath her left breast. She states the pain lasted for a couple minutes and then started to go away. She report the pain is worse with deep inspiration and also with chest wall palpation. * EKG reveals sinus mechanism with no signs of acute ischemia * Chest xray negative for acute process * Chest CTA: Negative for PE * Laboratory data: WBC 7.4. Hemoglobin 12.9. Platelet count 250. D-dimer 0.80. Sodium 138. Potassium 4.0. BUN 15. Creatinine 0.74. Troponin negative 3. * Current home cardiac medications include aspirin 81 mg, metoprolol succinate 25 mg twice a day * Most recent echocardiogram obtained in April 2022 revealed ejection fraction 50-55% * Cardiac catheterization history: 2013 revealing spontaneous coronary artery dissection. Repeat heart catheterization in February 2021 revealed healed disse ction of circumflex with no significant stenosis. REVIEW OF SYSTEMS: At the time of my exam: CONSTITUTIONAL: Denies fever or chills. HEENT: Denies blurred vision, vision changes, or eye pain. Denies hemoptysis CARDIOVASCULAR: Denies chest pain. Denies orthopnea. Denies PND. Denies palpitations RESPIRATORY: Denies shortness of breath. GASTROINTESTINAL: Denies abdominal pain. Denies nausea or vomiting. HEMATOLOGIC: Denies bleeding disorders. GENITOURINARY: Denies any blood in urine. SKIN: Denies pruitis. Denies rash. PHYSICAL EXAM: VITAL SIGNS: Reviewed. GENERAL: Well-developed in no acute distress. HEENT: Head is normocephalic. Pupils are equal, round. Sclerae anicteric. Mucous membranes of the mouth are moist. Neck supple. No JVD or thyromegaly LUNGS: Respirations even and unlabored. Lungs essentially clear to auscultation bilaterally. HEART: Regular rate and rhythm. S1 and S2 heard. ABDOMEN: Soft. Nondistended. Nontender. EXTREMITIES: Normal range of motion. No clubbing or cyanosis. Peripheral pulses intact. No lower extremity edema NEUROLOGIC: Awake and alert. Oriented x 3. ASSESSMENT: Chest pain, troponins negative 3 History of spontaneous coronary artery dissection in 2013 of circumflex artery Hyperlipidemia with statin intolerance History of thyroid cancer with partial thyroidectomy Hypothyroidism Fibromyalgia Erythema Nodosum PLAN: An acute coronary and has been ruled out No need to repeat echo Resume home cardiac medications Patient may be discharged home from a cardiac standpoint and follow up outpatient with Dr. Harper Nurse practitioner note has been reviewed by physician. Signing provider agrees with the documented findings, assessment, and plan of care. Past Medical History Past Medical History: Coronary Artery Disease (CAD), Cancer, Chest Pain / Angina, Fibromyalgia, GERD/Reflux, GI Bleed, Hypertension, Myocardial Infarction ([place]), Osteoarthritis (OA), Skin Disorder, Thyroid Disorder Additional Past Medical History / Comment(s): Diverticulitis, upper and lower GI bleed, MRI showed small strokes or migraines per pt as well as spots-recommended to have spinal tap but pt declined, bronchitis, past cervical neuropathy/stenosis/myelopathy with numbness and pain in bilateral hands but had cervical surgery and not a problem anymore-does have some decreased ROM with neck and spasms of neck occasionally, occasional vertigo, thyroidectomy d/t canc er, recent hospitalization for chest pain, rash R knee. Last Myocardial Infarction Date:: 03/09/14 History of Any Multi-Drug Resistant Organisms: None Reported Past Surgical History: Breast Surgery, Heart Catheterization, Hysterectomy, Orthopedic Surgery, Tubal Ligation Additional Past Surgical History / Comment(s): Multiple colonoscopies, egds, R partial thyroidectomy/multiple thyroid bxs then total thyroidectomy d/t cancer, L side neck mass removed, R breast benign bx, cardiac cath-unable to deploy a stent, cervical discectomy/fusions, L carpal tunnel releases, R knee arthroscopic surgeries, R knee replacement. Past Anesthesia/Blood Transfusion Reactions: Previous Problems w/ Anesthesia Additional Past Anesthesia/Blood Transfusion Reaction / Comment(s): STATES B/P WAS LOW POST OP RT THYROIDECTOMY-mostly related to narcotic pain meds. HISTORY OF CLAUSTROPHOBIA, states did fine with her anesthesia from her R knee replacement. Past Psychological History: Anxiety, Depression Smoking Status: Former smoker Past Alcohol Use History: None Reported Past Drug Use History: None Reported - Past Family History Father Family Medical History: Osteoarthritis (OA) Additional Family Medical History / Comment(s): Father is living Mother Family Medical History: AFIB, Renal Disease, Thyroid Disorder Additional Family Medical History / Comment(s): Mother is living. Hypothyroidism. Bladder issues/kidney stones. Nerve damage in legs Medications and Allergies Home Medications Medication Instructions Recorded Confirmed Type Nitroglycerin Sl Tabs [Nitrostat] 0.4 mg SUBLINGUAL Q5M PRN #25 tab 03/15/14 06/23/22 Rx Levothyroxine Sodium 125 mcg PO DAILY 04/19/20 06/23/22 History Liothyronine Sodium [Cytomel] 10 mcg PO DAILY 07/08/20 06/23/22 History Omeprazole Magnesium [PriLOSEC] 20 mg PO DAILY 02/27/21 06/23/22 History Metoprolol Succinate (ER) [Toprol 25 mg PO BID #60 tab.er.24h 02/28/21 06/23/22 Rx XL] Aspirin [Adult Low Dose Aspirin EC] 81 mg PO DAILY 09/03/21 06/23/22 History Ergocalciferol [Vitamin D2 (1250 1,250 mcg PO SUWE 04/27/22 06/23/22 History Mcg = [id number] Iu)] Allergies Allergy/AdvReac Type Severity Reaction Status Date / Time Penicillins Allergy Severe Anaphylaxis Verified 06/23/22 21:57 Quinolones Allergy Severe Unknown Verified 06/23/22 21:57 venom-honey bee Allergy Severe Anaphylaxis Verified 06/23/22 21:57 adhesive tape Allergy Unknown Verified 06/23/22 21:57 levofloxacin [From Levaquin] AdvReac Severe BRAIN STEM Verified 06/23/22 21:57 SEIZURE hydromorphone [From Dilaudid] AdvReac Nausea & Verified 06/23/22 21:57 Vomiting iopamidol [From Isovue-128] AdvReac Nausea & Verified 06/23/22 21:57 Vomiting pravastatin [From Pravachol] AdvReac LEG CRAMPS Verified 06/23/22 21:57 Physical Exam Vitals: Vital Signs Temp Pulse Pulse Resp BP BP Pulse Ox 06/24/22 07:00 98.2 F 68 18 151/72 95 06/24/22 02:08 98.0 F 64 16 130/79 97 06/24/22 02:00 18 06/23/22 22:20 97.8 F 18 149/82 06/23/22 21:45 97.6 F 80 17 191/81 95 06/23/22 21:10 60 16 152/79 97 06/23/22 19:58 69 16 140/78 96 06/23/22 18:35 61 18 145/67 97 06/23/22 17:32 63 20 136/70 97 06/23/22 16:49 57 L 18 160/70 98 06/23/22 16:32 22 06/23/22 15:00 97.2 F L 66 22 169/74 97 Intake and Output 06/23/22 06/24/22 06/24/22 22:59 06:59 14:59 Output Total 0 Balance 0 Output: Stool 0 Other: # Voids 0 1 Weight 98.883 kg Results 06/23/22 16:21 06/23/22 16:21 Cardiac Enzymes 06/23/22 06/23/22 06/23/22 Range/Units 16:21 16:21 21:10 AST 25 (14-36) U/L Troponin I <0.012 <0.012 (0.000-0.034) ng/mL 06/24/22 Range/Units 01:27 AST (14-36) U/L Troponin I <0.012 (0.000-0.034) ng/mL Coagulation 06/23/22 Range/Units 16:21 PT 10.9 (9.0-12.0) sec APTT 22.1 (22.0-30.0) sec Lipids 06/24/22 Range/Units 05:24 Triglycerides 76.10 (0.00-149.00) mg/dL Cholesterol 199.00 (0.00-200.00) mg/dL HDL Cholesterol 48.00 (40.00-60.00) mg/dL Cholesterol/HDL Ratio 4.15 Ratio CBC 06/23/22 Range/Units 16:21 WBC 7.4 (3.8-10.6) k/uL RBC 4.59 (3.80-5.40) m/uL Hgb 12.9 (11.4-16.0) gm/dL Hct 40.5 (34.0-46.0) % Plt Count 250 (150-450) k/uL Comprehensive Metabolic Panel 06/23/22 Range/Units 16:21 Sodium 138 (137-145) mmol/L Potassium 4.0 (3.5-5.1) mmol/L Chloride 102 (98-107) mmol/L Carbon Dioxide 29 (22-30) mmol/L BUN 15 (7-17) mg/dL Creatinine 0.74 (0.52-1.04) mg/dL Glucose 82 (74-99) mg/dL Calcium 9.3 (8.4-10.2) mg/dL AST 25 (14-36) U/L ALT 21 (4-34) U/L Alkaline Phosphatase 83 (38-126) U/L Total Protein 6.3 (6.3-8.2) g/dL Albumin 4.0 (3.5-5.0) g/dL Current Medications Generic Name Dose Route Start Last Admin Trade Name Freq PRN Reason Stop Dose Admin Aspirin 325 mg 06/24/22 09:00 06/24/22 08:30 Aspirin 325 Mg Tab PO 325 mg DAILY JR Administration Nitroglycerin 0.4 mg 06/23/22 19:47 Nitroglycerin Sl Tabs 0.4 Mg Tab SUBLINGUAL Q5M PRN Chest Pain Intake and Output 06/23/22 06/24/22 06/24/22 22:59 06:59 14:59 Output Total 0 Balance 0 Output: Stool 0 Other: # Voids 0 1 Weight 98.883 kg 06/23/22 16:21 06/23/22 16:21
--- NOTE | 2022-06-24 22:49 | HP ---
HISTORY AND PHYSICAL History and Physical and Discharge Summary CHIEF COMPLAINT: Chest pain. HISTORY OF PRESENT ILLNESS: This is a 62-year-old woman with a past history of multiple medical history including erythema nodosum, fibromyalgia, possible autoimmune disorder, being followed Dr. Perez in the outpatient, complaining of chest pain which was felt on the left side of the chest, radiating to left shoulder and also some anterior part of the chest. The patient apparently had some local tenderness on the left lateral chest in the ER. Patient had multiple evaluations which were negative. D-dimer was 0.8. CT angio was negative. Cardiology saw the patient and recommended outpatient stress test at this time. There is no history of any fever, rigors, chills, headache, weight loss, or seizures in the recent past. PAST MEDICAL HISTORY: History of erythema nodosum, autoimmune disorder, CAD. MEDICATIONS: Reviewed. The home medications once again reviewed include omeprazole, metoprolol, dose and rest of medication noted. ALLERGIES: Reviewed include penicillin. FAMILY HISTORY: Reviewed, include history of atrial fibrillation. SOCIAL HISTORY: Previous history of smoking. REVIEW OF SYSTEMS: A 14-point review is negative except as mentioned earlier. PHYSICAL EXAMINATION: VITAL SIGNS: Pulse 68, blood pressure 151/72, and respirations 18. HEENT: Conjunctivae clear. NECK: No jugular venous distention. CARDIOVASCULAR: S1, S2 muffled. RESPIRATIONS: Clear to auscultation. ABDOMEN: Soft, nontender. NERVOUS SYSTEM: No focal deficits. SKIN: No ulcer, rash, or bleeding. JOINTS: No active deforming arthropathy. LABS: Reviewed as mentioned earlier. D-dimer is 0.8. Troponins are negative. ASSESSMENT: 1. Chest pain, myocardial infarction ruled out, possibly musculoskeletal, possibly pleuritic. 2. History of erythema nodosum, autoimmune disorder. 3. History of coronary artery disease. 4. Multiple medical issues. RECOMMENDATIONS: This is a 62-year-old woman who presented with multiple medical issues at this time. Multiple evaluations came back as negative at this time. Cardiology seen the patient and recommend outpatient stress test. I would recommend the patient be discharged home and follow up in the outpatient setting with Dr. Perez and Cardiology. The patient might need a rheumatology evaluation also to evaluate for underlying cause of the erythema nodosum, stable but overall prognosis guarded. Discussed with the patient. Resume the home medications. MMODL / IJN: [id number] /
== END 2022-06-24 14:22 | disposition home or self-care (01) ==
LOC: EC 14:55 → 6NMEDSUR 19:47
PROVIDERS: ADMIT Internal Medicine; ATTEND Internal Medicine
DX: R07.89 Other chest pain (principal); I48.91 Unspecified atrial fibrillation; I25.10 Atherosclerotic heart disease of native coronary artery without angina pectoris; K21.9 Gastro-esophageal reflux disease without esophagitis; I10 Essential (primary) hypertension; M79.7 Fibromyalgia; I25.2 Old myocardial infarction; E89.0 Postprocedural hypothyroidism; F41.9 Anxiety disorder, unspecified; F32.A Depression, unspecified; I25.42 Coronary artery dissection; L52 Erythema nodosum; E78.5 Hyperlipidemia, unspecified; Z90.710 Acquired absence of both cervix and uterus; Z96.651 Presence of right artificial knee joint; Z98.1 Arthrodesis status; Z79.890 Hormone replacement therapy; Z79.82 Long term (current) use of aspirin; Z88.0 Allergy status to penicillin; Z87.891 Personal history of nicotine dependence; Z82.61 Family history of arthritis; Z82.49 Family history of ischemic heart disease and other diseases of the circulatory system; Z83.49 Family history of other endocrine, nutritional and metabolic diseases; Z85.850 Personal history of malignant neoplasm of thyroid
CPT/HCPCS: 96374; 96375; 99285; 36415; 93005; 85379; 83880; 80061; 80053; 82150; 83690; 83735; 84484 ×2; 85025; 85610; 85730; 81001; 71046; 76705; 71275; G0378 ×2; J2270; J1885; Q9967

== ENCOUNTER 2023-04-20 06:46 | Observation (INO) | payer MEDICARE, OTHER ==
--- NOTE | 2023-04-20 07:19 | ED ---
General Adult HPI - General Chief complaint: Skin/Abscess/Foreign Body Stated complaint: Leg Infection, Fever Time Seen by Provider: 04/20/23 06:58 Source: patient, RN notes reviewed Mode of arrival: ambulatory Limitations: no limitations - History of Present Illness Initial comments: Patient is a pleasant 63-year-old female presenting to the emergency department with concern with infection of her right leg. Patient was in the hospital for close to week just discharged 4 days ago. Patient develop fevers 2 days ago. Fever up to 102 last night. Patient is having increasing discomfort right lower leg. Patient is having some increasing of redness. Patient is currently on doxycycline. Patient did speak with Dr. Feldman who recommended she come back to the hospital for admission - Related Data Home Medications Medication Instructions Recorded Confirmed Levothyroxine Sodium 125 mcg PO DAILY 04/19/20 04/20/23 Liothyronine Sodium [Cytomel] 10 mcg PO DAILY 07/08/20 04/20/23 Omeprazole Magnesium [PriLOSEC] 20 mg PO BID 02/27/21 04/20/23 Aspirin [Adult Low Dose Aspirin EC] 81 mg PO DAILY 09/03/21 04/20/23 Ergocalciferol [Vitamin D2 (1250 1,250 mcg PO SUWE 04/27/22 04/20/23 Mcg = 44226 Iu)] Alirocumab [Praluent Pen] 75 mg SQ Q14D 04/13/23 04/20/23 Hydroxychloroquine Sulfate 200 mg PO BID 04/13/23 04/20/23 Montelukast [Singulair] 10 mg PO HS 04/13/23 04/20/23 Water Pill (Unknown) 1 tab PO DAILY 04/13/23 04/20/23 DAPTOmycin [Cubicin] 500 mg IVPB DIRECTED 04/20/23 04/20/23 Previous Rx's Medication Instructions Recorded Nitroglycerin Sl Tabs [Nitrostat] 0.4 mg SUBLINGUAL Q5M PRN #25 tab 03/15/14 Metoprolol Succinate (ER) [Toprol 25 mg PO BID #60 tab.er.24h 02/28/21 XL] Allergies Allergy/AdvReac Type Severity Reaction Status Date / Time Penicillins Allergy Severe Anaphylaxis Verified 04/20/23 07:29 Quinolones Allergy Severe Unknown Verified 04/20/23 07:29 venom-honey bee Allergy Severe Anaphylaxis Verified 04/20/23 07:29 adhesive tape Allergy Unknown Verified 04/20/23 07:29 levofloxacin [From Levaquin] AdvReac Severe BRAIN STEM Verified 04/20/23 07:29 SEIZURE hydromorphone [From Dilaudid] AdvReac Nausea & Verified 04/20/23 07:29 Vomiting iopamidol [From Isovue-[id number]] AdvReac Nausea & Verified 04/20/23 07:29 Vomiting pravastatin [From Pravachol] AdvReac LEG CRAMPS Verified 04/20/23 07:29 Review of Systems ROS Statement: Those systems with pertinent positive or pertinent negative responses have been documented in the HPI. ROS Other: All systems not noted in ROS Statement are negative. Constitutional: Reports: as per HPI, fever Eyes: Denies: eye pain ENT: Denies: ear pain, throat pain, congestion Respiratory: Denies: cough, dyspnea Cardiovascular: Denies: chest pain Endocrine: Denies: fatigue Gastrointestinal: Denies: abdominal pain Genitourinary: Denies: dysuria Musculoskeletal: Denies: back pain Skin: Reports: as per HPI, rash Neurological: Denies: weakness Past Medical History Past Medical History: Coronary Artery Disease (CAD), Cancer, Chest Pain / Angina, Fibromyalgia, GERD/Reflux, GI Bleed, Hypertension, Myocardial Infarction ([place]), Osteoarthritis (OA), Skin Disorder, Thyroid Disorder Additional Past Medical History / Comment(s): Diverticulitis, upper and lower GI bleed, MRI showed small strokes or migraines per pt as well as spots-recommended to have spinal tap but pt declined, bronchitis, past cervical neuropathy/stenosis/myelopathy with numbness and pain in bilateral hands but had cervical surgery and not a problem anymore-does have some decreased ROM with neck and spasms of neck occasionally, occasional vertigo, thyroidectomy d/t cancer, recent hospitalization for chest pain, rash R knee. Last Myocardial Infarction Date:: 03/09/14 History of Any Multi-Drug Resistant Organisms: None Reported Past Surgical History: Breast Surgery, Heart Catheterization, Hysterectomy, Orthopedic Surgery, Tubal Ligation Additional Past Surgical History / Comment(s): Multiple colonoscopies, egds, R partial thyroidectomy/multiple thyroid bxs then total thyroidectomy d/t cancer, L side neck mass removed, R breast benign bx, cardiac cath-unable to deploy a stent, cervical discectomy/fusions, L carpal tunnel releases, R knee arthr oscopic surgeries, R knee replacement. Past Anesthesia/Blood Transfusion Reactions: Previous Problems w/ Anesthesia Additional Past Anesthesia/Blood Transfusion Reaction / Comment(s): STATES B/P WAS LOW POST OP RT THYROIDECTOMY-mostly related to narcotic pain meds. HISTORY OF CLAUSTROPHOBIA, states did fine with her anesthesia from her R knee repla cement. Past Psychological History: Anxiety, Depression Smoking Status: Former smoker Past Alcohol Use History: Occasional Past Drug Use History: None Reported - Past Family History Father Family Medical History: Osteoarthritis (OA) Additional Family Medical History / Comment(s): Father is living Mother Family Medical History: AFIB, Renal Disease, Thyroid Disorder Additional Family Medical History / Comment(s): Mother is living. Hypothyroidism. Bladder issues/kidney stones. Nerve damage in legs General Exam Limitations: no limitations General appearance: alert, in no apparent distress Head exam: Present: normocephalic Eye exam: Present: normal appearance Neck exam: Present: normal inspection Respiratory exam: Present: normal lung sounds bilaterally Cardiovascular Exam: Present: regular rate, normal rhythm Expanded Peripheral pulses: 2+: Dorsalis Pedis (R) GI/Abdominal exam: Present: soft. Absent: tenderness Extremities exam: Present: other (Right lower leg cellulitic changes). Absent: calf tenderness Neurological exam: Present: alert Psychiatric exam: Present: normal affect, normal mood Skin exam: Present: erythema (Right lower leg from below the knee to the ankle.) Course Vital Signs 04/20/23 04/20/23 04/20/23 06:54 06:56 08:02 Temperature 99 F 97.7 F 97.8 F Pulse Rate 66 65 87 Respiratory 18 16 18 Rate Blood Pressure 149/97 137/67 150/81 O2 Sat by Pulse 97 96 96 Oximetry Medical Decision Making - Medical Decision Making Was pt. sent in by a medical professional or institution (, PA, [employer], urgent care, hospital, or snf...) When possible be specific @ -No Did you speak to anyone other than the patient for history (EMS, parent, family, police, friend...)? What history was obtained from this source @ -No Did you review nursing and triage notes (agree or disagree)? Why? @ -I reviewed and agree with nursing and triage notes Were old charts reviewed (outside hosp., previous admission, EMS record, old EKG, old radiological studies, urgent care reports/EKG's, snf records)? Report findings @ -Blood cultures reviewed from previous admission Differential Diagnosis (chest pain, altered mental status, abdominal pain women, abdominal pain men, vaginal bleeding, weakness, fever, dyspnea, syncope, headache, dizziness, GI bleed, back pain, seizure, CVA, palpatations, mental health, musculoskeletal)? @ -Differential Fever: Pneumonia, viral URI, endocarditis, myocarditis, pericarditis, otitis, sinusitis, peritonsillar Abscess, retropharyngeal Abscess, epiglottitis, peritonitis, appendicitis, [place]app[place] cystitis, diverticulitis, hepatitis, colitis, UTI, PID, TOA, pyelonephritis, prostatitis, epididymitis, meningitis, encephalitis, pulmonary embolism, CVA, thyroid storm, pancreatitis, adrenal crisis, cavernous sinus thrombosis, this is not meant to be an all-inclusive list. EKG interpreted by me (3pts min.). @ -As above X-rays interpreted by me (1pt min.). @ -X-ray right tib-fib does not reveal acute abnormality. CT interpreted by me (1pt min.). @ -None done U/S interpreted by me (1pt. min.). @ -None done What testing was considered but not performed or refused? (CT, X-rays, U/S, labs)? Why? @ -None What meds were considered but not given or refused? Why? @ -None Did you discuss the management of the patient with other professionals (professionals i.e. , PA, [employer], lab, RT, psych nurse, manager social work, relay dispatcher, teacher, ordnance officer, case management manager)? Give summary @ -Case was discussed with Dr. Begum, who will admit for Dr. Perez Was smoking cessation discussed for >3mins.? @ -No Was critical care preformed (if so, how long)? @ -No Were there social determinants of health that impacted care today? How? (Homelessness, low income, unemployed, alcoholism, drug addiction, transportation, low edu. Level, literacy, decrease access to med. care, detention, rehab)? @ -No Was there de-escalation of care discussed even if they declined (Discuss DNR or withdrawal of care, Hospice)? DNR status @ -No What co-morbidities impacted this encounter? (DM, HTN, Smoking, COPD, CAD, Cancer, CVA, ARF, Chemo, Hep., AIDS, mental health diagnosis, sleep apnea, morbid obesity)? @ -None Was patient admitted / discharged? Hospital course, mention meds given and route , prescriptions, significant lab abnormalities, going to OR and other pertinent info. @ -Patient made aware of plan. Patient will be admitted. IV vancomycin started. Blood cultures and lactic acid ordered. Consult placed with Dr. Feldman. Admission orders written. Undiagnosed new problem with uncertain prognosis? @ -No Drug Therapy requiring intensive monitoring for toxicity (Heparin, Nitro, Insulin, Cardizem)? @ -No Were any procedures done? @ -No Diagnosis/symptom? @ -Cellulitis with fever, failed outpatient therapy Acute, or Chronic, or Acute on Chronic? @ -Acute Uncomplicated (without systemic symptoms) or Complicated (systemic symptoms)? @ -Complicated with fever Side effects of treatment? @ -No Exacerbation, Progression, or Severe Exacerbation? @ -No Poses a threat to life or bodily function? How? (Chest pain, [place], [place], pneumonia, PE, COPD, DKA, ARF, appy, cholecystitis, CVA, Diverticulitis, Homicidal, Suicidal, threat to staff... and all critical care pts) @ -No - Lab Data Result diagrams: 04/20/23 08:00 04/20/23 08:00 Disposition Clinical Impression: Cellulitis of right leg Disposition: ADMITTED IP TO THIS HOSP Is patient prescribed a controlled substance at d/c from ED?: No Time of Disposition: 07:32
[2023-04-20] MEDS ORDERED: ACETAMINOPHEN TAB 325 MG TAB PO PRN (07:29)
[2023-04-20] MEDS ORDERED: NALOXONE 0.4 MG/ML 1 ML VIAL IV PRN (07:29)
[2023-04-20] MEDS ORDERED: CLINDAMYCIN 600 MG in DEXTROSE 5% IN WATER 50 ML IVPB SCH ×2 (08:00)
[2023-04-20 08:20] LABS: Basophils # (A) 0.1 k/uL (0-0.2); Basophils % (A) 1 %; Eosinophils # (A) 0.3 k/uL (0-0.7); Eosinophils % (A) 6 %; HCT 38.5 % (34.0-46.0); HGB 12.4 gm/dL (11.4-16.0); Lymphocytes % (A) 21 %; MCH 29.2 pg (25.0-35.0); MCHC 32.2 g/dL (31.0-37.0); MCV 90.6 fL (80.0-100.0); Mean Platelet Volume 7.6; Monocytes # (A) 0.3 k/uL (0-1.0); Monocytes % (A) 5 %; Neutrophils # (A) 3.3 k/uL (1.3-7.7); Neutrophils % (A) 66 %; Platelet Count 250 k/uL (150-450); RBC 4.25 m/uL (3.80-5.40); RDW 12.7 % (11.5-15.5); WBC 4.9 k/uL (3.8-10.6)
--- NOTE | 2023-04-20 08:22 | XR ---
EXAMINATION TYPE: XR tibia fibula RT DATE OF EXAM: 04/20/2023 CLINICAL HISTORY: pain TECHNIQUE: AP and lateral images of the right tibia and fibula are obtained. COMPARISON: None. FINDINGS: There is no acute fracture/dislocation evident. The joint spaces appear within normal stevenson its. Mild soft tissue edema could reflect cellulitis. Correlate clinically. IMPRESSION: There is no acute fracture or dislocation seen. ICD 10 NO FRACTURE, INITIAL EVALUATION
[2023-04-20 08:36] LABS: ALT 14 U/L (4-34); AST 21 U/L (14-36); African American GFR (CKD) >90 (>60 ml/min/1.73 sqM); Albumin 3.2 g/dL (3.5-5.0); Alkaline Phosphatase 102 U/L (38-126); Anion Gap 4 mmol/L; Blood Urea Nitrogen 17 mg/dL (7-17); Calcium 7.9 mg/dL (8.4-10.2); Carbon Dioxide 25 mmol/L (22-30); Chloride 109 mmol/L (98-107); Glucose 113 mg/dL (74-99); Non-African American GFR(CKD) >90 (>60 ml/min/1.73 sqM); Potassium 4.3 mmol/L (3.5-5.1); Sodium 138 mmol/L (137-145); Total Bilirubin 0.4 mg/dL (0.2-1.3); Total Protein 5.7 g/dL (6.3-8.2)
[2023-04-20] MEDS: SODIUM CHLORIDE 0.9% 1,000 ML IV SCH (08:46)
[2023-04-20] MEDS: HYDROcodone/APAP 7.5-325MG 1 EACH TAB PO PRN ×3 (11:06→23:13)
--- NOTE | 2023-04-20 12:29 | P.HPIM ---
History of Present Illness 63-year-old the female came in with the worsening redness of the right lower extremity just above the ankle circumferential. Patient the was here in the hospital was discharged 34 days ago after she was treated for cellulitis. Opal ent does have a history of erythema nodosum was on the doxycycline long-term along with the monoclonal antibody treatment as an outpatient by dermatology. Patient started having this cellulitis about a month ago without any improvement because of which patient was hospitalized here and was subsequently discharged on daptomycin. There is evidence of MRSA as patient didn't improve on ceftezole and patient was discharged on daptomycin with the PICC line. Patient started having fevers yesterday. Patient has multiple drug ALLERGIES and ALLERGIES to multiple antibiotics including penicillins, quinolones. Patient is presently on daptomycin and clindamycin that was started in ER. REVIEW OF SYSTEMS: CONSTITUTIONAL: No fever, no malaise, no fatigue. HEENT: No recent visual problems or hearing problems. Denied any sore throat. CARDIOVASCULAR: No chest pain, orthopnea, PND, no palpitations, no syncope. PULMONARY: No shortness of breath, no cough, no hemoptysis. GASTROINTESTINAL: No diarrhea, no nausea, no vomiting, no abdominal pain. NEUROLOGICAL: No headaches, no weakness, no numbness. HEMATOLOGICAL: Denies any bleeding or petechiae. GENITOURINARY: Denies any burning micturition, frequency, or urgency. MUSCULOSKELETAL/RHEUMATOLOGICAL: Denies any joint pain, swelling, or any muscle pain. ENDOCRINE: Denies any polyuria or polydipsia. The rest of the 14-point review of systems is negative. PHYSICAL EXAMINATION: GENERAL: The patient is alert and oriented x3, not in any acute distress. Well developed, well nourished. HEENT: Pupils are round and equally reacting to light. EOMI. No scleral icterus. No conjunctival pallor. Normocephalic, atraumatic. No pharyngeal erythema. No thyromegaly. CARDIOVASCULAR: S1 and S2 present. No murmurs, rubs, or gallops. PULMONARY: Chest is clear to auscultation, no wheezing or crackles. ABDOMEN: Soft, nontender, nondistended, normoactive bowel sounds. No palpable organomegaly. MUSCULOSKELETAL: No joint swelling or deformity. EXTREMITIES: No cyanosis, clubbing, or pedal edema. NEUROLOGICAL: Gross neurological examination did not reveal any focal deficits. SKIN: Cellulitis of the right lower exudate as mentioned above and patient does have some redness in the left side as well secondary to erythema nodosum. Assessment and plan -Right lower extremity redness with swelling: Patient is being treated for several cellulitis without any improvement with the daptomycin. Patient may have exacerbation of erythema nodosum rather than cellulitis. Discussed with infectious disease probably will hold off on antibiotics and will be started on high-dose steroids and will watch for any improvement blood cultures were obt ained -Coronary artery disease -For myalgia -Hypertension -Hypothyroidism -History of migraine For above-mentioned chronic medical problems patient will be resumed on appropriate home medications DVT prophylaxis: Lovenox Past Medical History Past Medical History: Coronary Artery Disease (CAD), Cancer, Chest Pain / Angina, Fibromyalgia, GERD/Reflux, GI Bleed, Hypertension, Myocardial Infarction ([place]), Osteoarthritis (OA), Skin Disorder, Thyroid Disorder Additional Past Medical History / Comment(s): Diverticulitis, upper and lower GI bleed, MRI showed small strokes or migraines per pt as well as spots-recommended to have spinal tap but pt declined, bronchitis, past cervical neuropathy/stenosis/myelopathy with numbness and pain in bilateral hands but had cervical surgery and not a problem anymore-does have some decreased ROM with neck and spasms of neck occasionally, occasional vertigo, thyroidectomy d/t cancer, recent hospitalization for chest pain, rash R knee. Last Myocardial Infarction Date:: 03/09/14 History of Any Multi-Drug Resistant Organisms: None Reported Past Surgical History: Breast Surgery, Heart Catheterization, Hysterectomy, Ort hopedic Surgery, Tubal Ligation Additional Past Surgical History / Comment(s): Multiple colonoscopies, egds, R partial thyroidectomy/multiple thyroid bxs then total thyroidectomy d/t cancer, L side neck mass removed, R breast benign bx, cardiac cath-unable to deploy a stent, cervical discectomy/fusions, L carpal tunnel releases, R knee arthroscopic surgeries, R knee replacement. Past Anesthesia/Blood Transfusion Reactions: Previous Problems w/ Anesthesia Additional Past Anesthesia/Blood Transfusion Reaction / Comment(s): STATES B/P WAS LOW POST OP RT THYROIDECTOMY-mostly related to narcotic pain meds. HISTORY OF CLAUSTROPHOBIA, states did fine with her anesthesia from her R knee replacement. Past Psychological History: Anxiety, Depression Smoking Status: Former smoker Past Alcohol Use History: Occasional Past Drug Use History: None Reported - Past Family History Father Family Medical History: Osteoarthritis (OA) Additional Family Medical History / Comment(s): Father is living Mother Family Medical History: AFIB, Renal Disease, Thyroid Disorder Additional Family Medical History / Comment(s): Mother is living. Hypothyroidism. Bladder issues/kidney stones. Nerve damage in legs Medications and Allergies Home Medications Medication Instructions Recorded Confirmed Type Nitroglycerin Sl Tabs [Nitrostat] 0.4 mg SUBLINGUAL Q5M PRN #25 tab 03/15/14 04/20/23 Rx Levothyroxine Sodium 125 mcg PO DAILY 04/19/20 04/20/23 History Liothyronine Sodium [Cytomel] 10 mcg PO DAILY 07/08/20 04/20/23 History Omeprazole Magnesium [PriLOSEC] 20 mg PO BID 02/27/21 04/20/23 History Metoprolol Succinate (ER) [Toprol 25 mg PO BID #60 tab.er.24h 02/28/21 04/20/23 Rx XL] Aspirin [Adult Low Dose Aspirin EC] 81 mg PO DAILY 09/03/21 04/20/23 History Ergocalciferol [Vitamin D2 (1250 1,250 mcg PO SUWE 04/27/22 04/20/23 History Mcg = 61726 Iu)] Alirocumab [Praluent Pen] 75 mg SQ Q14D 04/13/23 04/20/23 History Hydroxychloroquine Sulfate 200 mg PO BID 04/13/23 04/20/23 History Montelukast [Singulair] 10 mg PO HS 04/13/23 04/20/23 History Water Pill (Unknown) 1 tab PO DAILY 04/13/23 04/20/23 History DAPTOmycin [Cubicin] 500 mg IVPB DIRECTED 04/20/23 04/20/23 History Allergies Allergy/AdvReac Type Severity Reaction Status Date / Time Penicillins Allergy Severe Anaphylaxis Verified 04/20/23 07:29 Quinolones Allergy Severe Unknown Verified 04/20/23 07:29 venom-honey bee Allergy Severe Anaphylaxis Verified 04/20/23 07:29 adhesive tape Allergy Unknown Verified 04/20/23 07:29 levofloxacin [From Levaquin] AdvReac Severe BRAIN STEM Verified 04/20/23 07:29 SEIZURE hydromorphone [From Dilaudid] AdvReac Nausea & Verified 04/20/23 07:29 Vomiting iopamidol [From Isovue-128] AdvReac Nausea & Verified 04/20/23 07:29 Vomiting pravastatin [From Pravachol] AdvReac LEG CRAMPS Verified 04/20/23 07:29 Physical Exam Vitals: Vital Signs Temp Pulse Resp BP Pulse Ox 04/20/23 11:02 98.2 F 61 18 138/89 97 04/20/23 10:00 98.0 F 87 18 128/86 98 04/20/23 09:08 55 L 18 122/77 97 04/20/23 08:02 97.8 F 87 18 150/81 96 04/20/23 06:56 97.7 F 65 16 137/67 96 04/20/23 06:54 99 F 66 18 149/97 97 Intake and Output 04/19/23 04/20/23 04/20/23 22:59 06:59 14:59 Other: Weight 104.326 kg Results CBC & Chem 7: 04/20/23 08:00 04/20/23 08:00 Labs: Abnormal Lab Results - Last 24 Hours (Table) 04/20/23 04/20/23 Range/Units 08:00 08:00 Chloride 109 H (98-107) mmol/L Glucose 113 H (74-99) mg/dL Calcium 7.9 L (8.4-10.2) mg/dL C-Reactive Protein 1.4 H (<1.0) mg/dL Total Protein 5.7 L (6.3-8.2) g/dL Albumin 3.2 L (3.5-5.0) g/dL
[2023-04-20] MEDS ORDERED: NITROGLYCERIN SL TABS 0.4 MG TAB SUBLINGUAL PRN (12:33)
[2023-04-20] MEDS ORDERED: DAPTOmycin 500 MG VIAL IVPB SCH (12:45)
[2023-04-20] MEDS ORDERED: CEFEPIME 2 GM in SODIUM CHLORIDE 0.9% 100 ML IVPB SCH (13:00)
[2023-04-20] MEDS: PANTOPRAZOLE 40 MG TABLET PO SCH (14:12)
[2023-04-20] MEDS: methylPREDNISolone SOD SUCCI 125 MG/2 ML VIAL IV SCH ×2 (14:30→20:21)
[2023-04-20] MEDS: METOPROLOL SUCCINATE (ER) 25 MG TAB.ER.24H PO SCH (20:19)
[2023-04-20] MEDS: HYDROXYCHLOROQUINE SULFATE 200 MG TAB PO SCH (23:13)
[2023-04-21] MEDS: SODIUM CHLORIDE 0.9% 1,000 ML IV SCH ×2 (00:54→12:02)
[2023-04-21] MEDS: LEVOTHYROXINE 125 MCG TAB PO SCH (05:46)
[2023-04-21] MEDS: PANTOPRAZOLE 40 MG TABLET PO SCH (05:46)
[2023-04-21] MEDS: METOPROLOL SUCCINATE (ER) 25 MG TAB.ER.24H PO SCH ×2 (08:27→21:20)
[2023-04-21] MEDS: ENOXAPARIN 40 MG/0.4 ML SYRINGE SQ SCH (08:27)
[2023-04-21] MEDS: ASPIRIN 81 MG PO SCH (08:27)
[2023-04-21] MEDS: HYDROXYCHLOROQUINE SULFATE 200 MG TAB PO SCH ×3 (08:27→21:20)
[2023-04-21] MEDS: methylPREDNISolone SOD SUCCI 125 MG/2 ML VIAL IV SCH ×2 (08:27→21:20)
[2023-04-21] MEDS: LIOTHYRONINE SODIUM 5 MCG TAB PO SCH (08:27)
--- NOTE | 2023-04-21 09:02 | P.CONS ---
History of Present Illness - Reason for Consult Consult date: 04/20/23 Cellulitis Requesting physician: Fer Ortiz - Chief Complaint Increasing swelling redness and pain to the right leg x one day - History of Present Illness Patient is a 63-year-old female with a past medical history significant for hypertension [place] diverticulitis previous history of lower extremity cellulitis who was recently admitted at this facility and was treated for right lower extremity cellulitis patient was initially on IV cefazolin did have some improvement however with persistent cellulitis patient was advised daptomycin IV patient did get a midline and was discharged home on Wednesday to continue with the IV daptomycin times 10 days patient reported recurrence of the fever on Wednesday and also noticed to have increasing swelling pain and redness to the right lower extremity for the patient present to the hospital patient mentioning a fever of 101 F at home she has been describing pain to the right lower extremity to be throbbing and very painful to touch intensity is almost 10 out of 10 with no radiation with associated swelling and redness that has spread from the previous maricarmen with the symptoms the patient was evaluated by the ER physician on presentation to the hospital patient noticed to have a low- grade fever of 99 degrees for the high patient was not tachycardic hypotensive or hypothermic he did have a normal white count kidney function was normal patient did have x-ray of the tibia and fibula that was negative for any bony changes she was started on clindamycin has been admitted to the hospital infectious disease was consulted for further management Review of Systems Positive point and negatives has been mentioned in the HPI, complete review of systems was performed and all other systems are negative Past Medical History Past Medical History: Coronary Artery Disease (CAD), Cancer, Chest Pain / Angina, Fibromyalgia, GERD/Reflux, GI Bleed, Hypertension, Myocardial Infarction ([place]), Osteoarthritis (OA), Skin Disorder, Thyroid Disorder Additional Past Medical History / Comment(s): Diverticulitis, upper and lower GI bleed, MRI showed small strokes or migraines per pt as well as spots-recommended to have spinal tap but pt declined, bronchitis, past cervical neuropathy/stenosis/myelopathy with numbness and pain in bilateral hands but had cervical surgery and not a problem anymore-does have some decreased ROM with neck and spasms of neck occasionally, occasional vertigo, thyroidectomy d/t cancer, recent hospitalization for chest pain, rash R knee. Last Myocardial Infarction Date:: 03/09/14 History of Any Multi-Drug Resistant Organisms: None Reported Past Surgical History: Breast Surgery, Heart Catheterization, Hysterectomy, Orthopedic Surgery, Tubal Ligation Additional Past Surgical History / Comment(s): Multiple colonoscopies, egds, R partial thyroidectomy/multiple thyroid bxs then total thyroidectomy d/t cancer, L side neck mass removed, R breast benign bx, cardiac cath-unable to deploy a stent, cervical discectomy/fusions, L carpal tunnel releases, R knee arthroscopic surgeries, R knee replacement. Past Anesthesia/Blood Transfusion Reactions: Previous Problems w/ Anesthesia Additional Past Anesthesia/Blood Transfusion Reaction / Comm: STATES B/P WAS LOW POST OP RT THYROIDECTOMY-mostly related to narcotic pain meds. HISTORY OF CLAUSTROPHOBIA, states did fine with her anesthesia from her R knee replacement. Past Psychological History: Anxiety, Depression Smoking Status: Former smoker Past Alcohol Use History: Occasional Past Drug Use History: None Reported - Past Family History Father Family Medical History: Osteoarthritis (OA) Additional Family Medical History / Comment(s): Father is living Mother Family Medical History: AFIB, Renal Disease, Thyroid Disorder Additional Family Medical History / Comment(s): Mother is living. Hypothyroidism. Bladder issues/kidney stones. Nerve damage in legs Medications and Allergies Home Medications Medication Instructions Recorded Confirmed Type Nitroglycerin Sl Tabs [Nitrostat] 0.4 mg SUBLINGUAL Q5M PRN #25 tab 03/15/14 04/20/23 Rx Levothyroxine Sodium 125 mcg PO DAILY 04/19/20 04/20/23 History Liothyronine Sodium [Cytomel] 10 mcg PO DAILY 07/08/20 04/20/23 History Omeprazole Magnesium [PriLOSEC] 20 mg PO BID 02/27/21 04/20/23 History Metoprolol Succinate (ER) [Toprol 25 mg PO BID #60 tab.er.24h 02/28/21 04/20/23 Rx XL] Aspirin [Adult Low Dose Aspirin EC] 81 mg PO DAILY 09/03/21 04/20/23 History Ergocalciferol [Vitamin D2 (1250 1,250 mcg PO SUWE 04/27/22 04/20/23 History Mcg = 58328 Iu)] Alirocumab [Praluent Pen] 75 mg SQ Q14D 04/13/23 04/20/23 History Hydroxychloroquine Sulfate 200 mg PO BID 04/13/23 04/20/23 History Montelukast [Singulair] 10 mg PO HS 04/13/23 04/20/23 History Water Pill (Unknown) 1 tab PO DAILY 04/13/23 04/20/23 History DAPTOmycin [Cubicin] 500 mg IVPB DIRECTED 04/20/23 04/20/23 History Allergies Allergy/AdvReac Type Severity Reaction Status Date / Time Penicillins Allergy Severe Anaphylaxis Verified 04/20/23 07:29 Quinolones Allergy Severe Unknown Verified 04/20/23 07:29 venom-honey bee Allergy Severe Anaphylaxis Verified 04/20/23 07:29 adhesive tape Allergy Unknown Verified 04/20/23 07:29 levofloxacin [From Levaquin] AdvReac Severe BRAIN STEM Verified 04/20/23 07:29 SEIZURE hydromorphone [From Dilaudid] AdvReac Nausea & Verified 04/20/23 07:29 Vomiting iopamidol [From Isovue-128] AdvReac Nausea & Verified 04/20/23 07:29 Vomiting pravastatin [From Pravachol] AdvReac LEG CRAMPS Verified 04/20/23 07:29 Physical Exam Vitals: Vital Signs Temp Pulse Resp BP Pulse Ox 04/20/23 11:02 98.2 F 61 18 138/89 97 04/20/23 10:00 98.0 F 87 18 128/86 98 04/20/23 09:08 55 L 18 122/77 97 04/20/23 08:02 97.8 F 87 18 150/81 96 04/20/23 06:56 97.7 F 65 16 137/67 96 04/20/23 06:54 99 F 66 18 149/97 97 Intake and Output 04/19/23 04/20/23 04/20/23 22:59 06:59 14:59 Other: Weight 104.326 kg GENERAL DESCRIPTION: Middle-aged female lying in bed, no distress. No tachypnea or accessory muscle of respiration use. HEENT: Shows Pallor , no scleral icterus. Oral mucous membrane is dry. No pharyngeal erythema or thrush NECK: Trachea central, no thyromegaly. LUNGS: Unlabored breathing. Clear to auscultation anteriorly. No wheeze or crackle. HEART: S1, S2, regular rate and rhythm. No loud murmur ABDOMEN: Soft, no tenderness , guarding or rigidity, no organomegaly EXTREMITIES: Right lower extremity did have diffuse swelling redness warmth and tenderness to touch SKIN: No rash, no masses palpable. NEUROLOGICAL: The patient is awake, alert, oriented x3, mood and affect normal. Results CBC & Chem 7: 04/20/23 08:00 04/20/23 08:00 Labs: Abnormal Lab Results - Last 24 Hours (Table) 04/20/23 04/20/23 Range/Units 08:00 08:00 Chloride 109 H (98-107) mmol/L Glucose 113 H (74-99) mg/dL Calcium 7.9 L (8.4-10.2) mg/dL C-Reactive Protein 1.4 H (<1.0) mg/dL Total Protein 5.7 L (6.3-8.2) g/dL Albumin 3.2 L (3.5-5.0) g/dL Assessment and Plan Plan: 1patient presented to hospital with increasing pain swelling redness to the right lower extremity question of possible vasculitis or erythema dorsum as the patient did not have any elevated white count and did not responded to the IV cefazolin or daptomycin 2-patient will benefit from skin biopsy for per surgery has been consulted 3-we will discontinue clindamycin 4-trial of steroids and see clinical response Discussed with admitting team We will follow on clinical condition and cultures to further adjust medication if needed Thank you for this consultation we will follow the patient along with you Dictation was produced using My 1% dictation software. please excuse any grammatical, word or spelling errors. Time with Patient: Greater than 30
[2023-04-21 11:00] LABS: HCT 38.6 % (37.2-46.3); HGB 12.2 d/dL (12.0-15.0); MCH 28.7 pg (27.0-32.0); MCHC 31.6 d/dL (32.0-37.0); MCV 90.8 FL (80.0-97.0); Mean Platelet Volume 9.8 FL (9.5-12.2); NRBC Per 100 WBC 0 X 10*3/uL (0.00-0.01); Platelet Count 296 X 10*3/uL (140-440); RBC 4.25 X 10*6/uL (4.10-5.20); RDW 12.5 % (11.5-14.5); WBC 8.64 X 10*3/uL (4.50-10.00)
[2023-04-21 11:23] LABS: BUN/Creat Ratio 18.75 Ratio (12.00-20.00); Calcium 9.1 mg/dL (8.7-10.3); Chloride 105 mmol/L (96-109); Glucose 168 mg/dL (70-110); Potassium 4.3 mmol/L (3.5-5.5); Rheumatoid Factor, Qnt <15 IU/mL (0-15); Sodium 141 mmol/L (135-145)
[2023-04-21] MEDS ORDERED: DEXTROSE 50% SYRINGE 50 ML IVP PRN ×2 (11:36)
[2023-04-21 12:04] LABS: Basophils # (A) 0.01 X 10*3/uL (0.00-0.10); Basophils % (A) 0.1 %; Eosinophils # (A) 0 X 10*3/uL (0.04-0.35); Eosinophils % (A) 0 %; Lymphocytes # (A) 0.55 X 10*3/uL (0.90-5.00); Lymphocytes % (A) 6.4 %; Monocytes # (A) 0.05 X 10*3/uL (0.20-1.00); Monocytes % (A) 0.6 %; Neutrophils # (A) 7.99 X 10*3/uL (1.80-7.70); Neutrophils % (A) 92.4 %; RBC Morphology Normal (Normal)
[2023-04-21 12:23] LABS: Glucose,Whole Blood 188 mg/dL (70-110)
[2023-04-21] MEDS: INSULIN ASPART (NovoLOG) 100 UNIT/ML VIAL SQ SCH ×3 (12:59→20:54)
[2023-04-21] MEDS ORDERED: LIDOCAINE 1% INJ 10MG/ML (20 ML MDV) SQ ONE (16:10)
--- NOTE | 2023-04-21 16:55 | P.GSCN ---
History of Present Illness History of present illness: 63-year-old white female patient has history of visit colitis and also history of cellulitis patient came with lower extremity discomfort and pain consulted for her right lower extremity Punch skin biopsy of the lower extremity. She has a history of hypertension and [place] and's history of cellulitis of the past on examination patient has a swelling of the right lower extremity area of tende rness noted on the right lower extremity plan is a skin biopsy of the right lower leg rule out arrhythmia nodosum Medical history history of diabetes hypertension Neck is supple no bruit appreciated Chest is clear good and both lungs Abdomen soft nontender right lower extremity has some Brown induration with some tenderness noted on the right lower extremity plan is a point biopsy of the right lower extremity Past Medical History Past Medical History: Coronary Artery Disease (CAD), Cancer, Chest Pain / Angina, Fibromyalgia, GERD/Reflux, GI Bleed, Hypertension, Myocardial Infarction ([place]), Osteoarthritis (OA), Skin Disorder, Thyroid Disorder Additional Past Medical History / Comment(s): Diverticulitis, upper and lower GI bleed, MRI showed small strokes or migraines per pt as well as spots-recommended to have spinal tap but pt declined, bronchitis, past cervical neuropathy/stenosis/myelopathy with numbness and pain in bilateral hands but had cervical surgery and not a problem anymore-does have some decreased ROM with neck and spasms of neck occasionally, occasional vertigo, thyroidectomy d/t cancer, recent hospitalization for chest pain, rash R knee. Last Myocardial Infarction Date:: 03/09/14 History of Any Multi-Drug Resistant Organisms: None Reported Past Surgical History: Breast Surgery, Heart Catheterization, Hysterectomy, Orthopedic Surgery, Tubal Ligation Additional Past Surgical History / Comment(s): Multiple colonoscopies, egds, R partial thyroidectomy/multiple thyroid bxs then total thyroidectomy d/t cancer, L side neck mass removed, R breast benign bx, cardiac cath-unable to deploy a stent, cervical discectomy/fusions, L carpal tunnel releases, R knee arthroscopic surgeries, R knee replacement. Past Anesthesia/Blood Transfusion Reactions: Previous Problems w/ Anesthesia Additional Past Anesthesia/Blood Transfusion Reaction / Comm: STATES B/P WAS LOW POST OP RT THYROIDECTOMY-mostly related to narcotic pain meds. HISTORY OF CLAUSTROPHOBIA, states did fine with her anesthesia from her R knee replacement. Past Psychological History: Anxiety, Depression Smoking Status: Former smoker Past Alcohol Use History: Occasional Past Drug Use History: None Reported - Past Family History Father Family Medical History: Osteoarthritis (OA) Additional Family Medical History / Comment(s): Father is living Mother Family Medical History: AFIB, Renal Disease, Thyroid Disorder Additional Family Medical History / Comment(s): Mother is living. Hypothyroidism. Bladder issues/kidney stones. Nerve damage in legs Medications and Allergies Home Medications Medication Instructions Recorded Confirmed Type Nitroglycerin Sl Tabs [Nitrostat] 0.4 mg SUBLINGUAL Q5M PRN #25 tab 03/15/14 04/20/23 Rx Levothyroxine Sodium 125 mcg PO DAILY 04/19/20 04/20/23 History Liothyronine Sodium [Cytomel] 10 mcg PO DAILY 07/08/20 04/20/23 History Omeprazole Magnesium [PriLOSEC] 20 mg PO BID 02/27/21 04/20/23 History Metoprolol Succinate (ER) [Toprol 25 mg PO BID #60 tab.er.24h 02/28/21 04/20/23 Rx XL] Aspirin [Adult Low Dose Aspirin EC] 81 mg PO DAILY 09/03/21 04/20/23 History Ergocalciferol [Vitamin D2 (1250 1,250 mcg PO SUWE 04/27/22 04/20/23 History Mcg = 89408 Iu)] Alirocumab [Praluent Pen] 75 mg SQ Q14D 04/13/23 04/20/23 History Hydroxychloroquine Sulfate 200 mg PO BID 04/13/23 04/20/23 History Montelukast [Singulair] 10 mg PO HS 04/13/23 04/20/23 History Water Pill (Unknown) 1 tab PO DAILY 04/13/23 04/20/23 History DAPTOmycin [Cubicin] 500 mg IVPB DIRECTED 04/20/23 04/20/23 History Allergies Allergy/AdvReac Type Severity Reaction Status Date / Time Penicillins Allergy Severe Anaphylaxis Verified 04/20/23 07:29 Quinolones Allergy Severe Unknown Verified 04/20/23 07:29 venom-honey bee Allergy Severe Anaphylaxis Verified 04/20/23 07:29 adhesive tape Allergy Unknown Verified 04/20/23 07:29 levofloxacin [From Levaquin] AdvReac Severe BRAIN STEM Verified 04/20/23 07:29 SEIZURE hydromorphone [From Dilaudid] AdvReac Nausea & Verified 04/20/23 07:29 Vomiting iopamidol [From Isovue-128] AdvReac Nausea & Verified 04/20/23 07:29 Vomiting pravastatin [From Pravachol] AdvReac LEG CRAMPS Verified 04/20/23 07:29 Surgical - Exam Vital Signs Temp Pulse Resp BP Pulse Ox 99 F 66 18 149/97 97 04/20/23 06:54 04/20/23 06:54 04/20/23 06:54 04/20/23 06:54 04/20/23 06:54 Results - Labs 04/21/23 06:14 04/21/23 06:14 Abnormal Lab Results - Last 24 Hours (Table) 04/21/23 04/21/23 04/21/23 Range/Units 06:14 06:14 12:21 MCHC 31.6 L (32.0-37.0) d/dL Neutrophils # 7.99 H (1.80-7.70) X 10*3/uL Lymphocytes # 0.55 L (0.90-5.00) X 10*3/uL Monocytes # 0.05 L (0.20-1.00) X 10*3/uL Eosinophils # 0 L (0.04-0.35) X 10*3/uL Glucose 168 H (70-110) mg/dL POC Glucose (mg/dL) 188 H (70-110) mg/dL Microbiology - Last 24 Hours (Table) 04/20/23 08:00 Blood Culture - Preliminary Blood 04/20/23 07:45 Blood Culture - Preliminary Blood Diabetes panel 04/21/23 Range/Units 06:14 Sodium 141 (135-145) mmol/L Potassium 4.3 (3.5-5.5) mmol/L Chloride 105 (96-109) mmol/L Carbon Dioxide 26.0 (21.6-31.8) mmol/L BUN 15.0 (9.0-27.0) mg/dL Creatinine 0.8 (0.6-1.5) mg/dL Glucose 168 H (70-110) mg/dL Calcium 9.1 (8.7-10.3) mg/dL Calcium panel 04/21/23 Range/Units 06:14 Calcium 9.1 (8.7-10.3) mg/dL Pituitary panel 04/21/23 Range/Units 06:14 Sodium 141 (135-145) mmol/L Potassium 4.3 (3.5-5.5) mmol/L Chloride 105 (96-109) mmol/L Carbon Dioxide 26.0 (21.6-31.8) mmol/L BUN 15.0 (9.0-27.0) mg/dL Creatinine 0.8 (0.6-1.5) mg/dL Glucose 168 H (70-110) mg/dL Calcium 9.1 (8.7-10.3) mg/dL Adrenal panel 04/21/23 Range/Units 06:14 Sodium 141 (135-145) mmol/L Potassium 4.3 (3.5-5.5) mmol/L Chloride 105 (96-109) mmol/L Carbon Dioxide 26.0 (21.6-31.8) mmol/L BUN 15.0 (9.0-27.0) mg/dL Creatinine 0.8 (0.6-1.5) mg/dL Glucose 168 H (70-110) mg/dL Calcium 9.1 (8.7-10.3) mg/dL
--- NOTE | 2023-04-21 16:56 | P.PCN ---
Description of Procedure: Procedure note right lower extremity patient seen in the room right leg was prepped and 1% lidocaine for infected and anterior aspects the right lower leg we did the point biopsy of the skin pressure was held pressure dressing applied patient was sent for biopsy patient are to the procedure well
[2023-04-21 17:17] LABS: Glucose,Whole Blood 122 mg/dL (70-110)
[2023-04-21] MEDS: HYDROcodone/APAP 7.5-325MG 1 EACH TAB PO PRN (17:22)
[2023-04-21 20:46] LABS: Glucose,Whole Blood 145 mg/dL (70-110)
--- NOTE | 2023-04-22 05:37 | P.PN ---
Subjective Progress Note Date: 04/21/23 63-year-old the female came in with the worsening redness of the right lower extremity just above the ankle circumferential. Patient the was here in the hospital was discharged 34 days ago after she was treated for cellulitis. 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 Patient started having this cellulitis about a month ago without any improvement because of which patient was hospitalized here and was subsequently discharged on daptomycin. There is evidence of MRSA as patient didn't improve on ceftezole and patient was discharged on daptomycin with the PICC line. Patient started having fevers yesterday. Patient has multiple drug ALLERGIES and ALLERGIES to multiple antibiotics including penicillins, quinolones. Patient is presently on daptomycin and clindamycin that was started in ER. 04/21/2023 Patient is seen and evaluated in follow-up today being followed by infectious disease and vascular surgery Dr. Schumacher on consult. Plan is for punch biopsy of the right lower extremity. Patient will continue on antibiotics along with wound care and await biopsy. Patient is maintained on steroids and will add Accu-Cheks and sliding scale as needed. Patient is afebrile today and reports some of the swelling and redness has improved although continues to persist around the backside of the calf. Area is marked to closely monitor. Patient denies chest pain or shortness of breath. No reports of nausea or vomiting and patient is tolerating diet. Review of systems: Constitutional: No reports of fatigue, fever, or chills Cardiovascular: No reports of chest pain or palpitations Respiratory: No reports of shortness of breath or cough GI: No reports of nausea, vomiting, or diarrhea : No reports of dysuria or retention Neurovascular: No reports of weakness or numbness, reports right lower extremity swelling and redness and pain All medications have been reviewed PHYSICAL EXAMINATION: GENERAL: The patient is alert and oriented x3, not in any acute distress. Well developed, well nourished. Obese HEENT: Pupils are round and equally reacting to light. EOMI. No scleral icterus. No conjunctival pallor. Normocephalic, atraumatic. No pharyngeal erythema. No thyromegaly. CARDIOVASCULAR: S1 and S2 present. No murmurs, rubs, or gallops. PULMONARY: Chest is clear to auscultation, no wheezing or crackles. ABDOMEN: Soft, nontender, nondistended, normoactive bowel sounds. No palpable organomegaly. MUSCULOSKELETAL: No joint swelling or deformity. EXTREMITIES: No cyanosis, clubbing, or pedal edema. NEUROLOGICAL: Gross neurological examination did not reveal any focal deficits. SKIN: Cellulitis of the right lower extremity as mentioned above and patient does have some redness in the left side as well secondary to erythema nodosum. Assessment: -Right lower extremity redness with swelling: Patient is being treated for severe cellulitis without any improvement with the daptomycin. Patient may have exacerbation of erythema nodosum rather than cellulitis. Discussed with infectious disease probably will hold off on antibiotics and will be started on high-dose steroids and will watch for any improvement blood cultures were obtained -Coronary artery disease -fibromyalgia -Hypertension -Hypothyroidism -History of migraine -Obesity with a BMI of 38.3 -DVT prophylaxis: Lovenox -GI prophylaxis -Full code Plan: Patient to continue on current medications including steroids and will add sliding scale Accu-Cheks to cover elevated blood sugars Vascular surgery consulted for biopsy of the right lower extremity site and will be bedside sometime this afternoon Encouraged increased activity as tolerated Blood cultures are currently pending home medications reviewed and resumed as appropriate Repeat labs for a.m. ordered The impression and plan of care has been dictated by Tiffany Rabago, Nurse Practitioner as directed. Dr. Yari MD I have performed a history and examination and MDM of this patient, discussed the same with the dictator, and agree with the dictator's assessment and plan as written ,documented as a scribe. Based on total visit time, I have performed more than 50% of the visit. Objective - Vital Signs Vital signs: Vital Signs Temp 97.8 F 04/21/23 07:00 Pulse 64 04/21/23 07:00 Resp 18 04/21/23 07:00 BP 114/68 04/21/23 07:00 Pulse Ox 94 L 04/21/23 07:00 FiO2 Intake & Output 04/20/23 04/21/23 04/21/23 18:59 06:59 18:59 Weight 104.326 kg Other: Voiding Method Toilet # Voids 1 - Labs CBC & Chem 7: 04/21/23 06:14 04/21/23 06:14 Labs: Abnormal Lab Results - Last 24 Hours (Table) 04/20/23 Range/Units 08:00 C-Reactive Protein 1.4 H (<1.0) mg/dL
[2023-04-22] MEDS: PANTOPRAZOLE 40 MG TABLET PO SCH (05:58)
[2023-04-22] MEDS: LEVOTHYROXINE 125 MCG TAB PO SCH (05:58)
[2023-04-22 06:15] LABS: Glucose,Whole Blood 134 mg/dL (70-110)
[2023-04-22] MEDS: INSULIN ASPART (NovoLOG) 100 UNIT/ML VIAL SQ SCH ×2 (06:16→12:51)
[2023-04-22] MEDS: methylPREDNISolone SOD SUCCI 125 MG/2 ML VIAL IV SCH (08:20)
[2023-04-22 08:32] VITALS: RESP 16
[2023-04-22 09:00] LABS: BUN/Creat Ratio 22.25 Ratio (12.00-20.00); Blood Urea Nitrogen 17.8 mg/dL (9.0-27.0); Calcium 8.7 mg/dL (8.7-10.3); Carbon Dioxide 27.4 mmol/L (21.6-31.8); Chloride 105 mmol/L (96-109); Glucose 142 mg/dL (70-110); Potassium 4.5 mmol/L (3.5-5.5); Sodium 142 mmol/L (135-145)
[2023-04-22] MEDS: ASPIRIN 81 MG PO SCH (09:36)
[2023-04-22] MEDS: METOPROLOL SUCCINATE (ER) 25 MG TAB.ER.24H PO SCH (09:36)
[2023-04-22] MEDS: ENOXAPARIN 40 MG/0.4 ML SYRINGE SQ SCH (09:36)
[2023-04-22] MEDS: LIOTHYRONINE SODIUM 5 MCG TAB PO SCH (09:37)
[2023-04-22] MEDS: HYDROXYCHLOROQUINE SULFATE 200 MG TAB PO SCH (09:37)
[2023-04-22 11:36] LABS: Glucose,Whole Blood 121 mg/dL (70-110)
[2023-04-22 13:22] LABS: C-ANCA <1:20 Titer (<1:20)
[2023-04-22 14:06] VITALS: BP 133/78; PULSE 65; TEMP 98.3
[2023-04-22] MEDS: HYDROcodone/APAP 7.5-325MG 1 EACH TAB PO PRN (14:08)
[2023-04-22] MEDS ORDERED: methylPREDNISolone SOD SUCCI 40 MG/ML 1 ML VIAL IV SCH (21:00)
--- NOTE | 2023-04-23 21:03 | P.DS ---
Providers Date of admission: 04/20/23 07:29 Expected date of discharge: 04/22/23 Attending physician: Hayder Prieto MD Consults: 04/20/23 07:29 Consult Physician Routine Consulting Provider: Ilana Dowling Consult Reason/Comments: Cellulitis Do you want consulting provider notified?: Yes 04/20/23 13:04 Consult Physician Routine Consulting Provider: Eb Schumacher Consult Reason/Comments: Skin biopsy of the right lower leg Do you want consulting provider notified?: Yes Primary care physician: Konrad Perez Hospital Course: Final diagnosis -Right lower extremity redness with swelling: Concerns for severe cellulitis without any improvement with IV daptomycin. 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 -Coronary artery disease -fibromyalgia -Hypertension -Hypothyroidism -History of migraine -Obesity with a BMI of 38.3 -DVT prophylaxis -GI prophylaxis -Full code Discharge disposition Patient is being discharged in a stable condition with guarded prognosis to home . Patient will follow-up with Dr. Perez in the outpatient setting upon discharge. Patient is to continue with prednisone taper and close outpatient follow-up with infectious disease as scheduled. Total time taken is greater than 35 minutes. Hospital course This is a 63-year-old female who was recently admitted with right lower extremity increased redness and swelling with significant pain being closely monitored with infectious disease and vascular surgery following. Concerns of cellulitis with failed outpatient therapy as patient was recently on IV antibiotics with no improvement. Patient with also concerns of exacerbation of erythema nodosum versus concerns of vasculitis. Infectious disease following recommending biopsy and vascular surgery performed punch biopsy which is sent to the lab. Patient will continue on prednisone taper on discharge and encouraged to follow-up in the outpatient setting. Please refer to other consultation notes for further HPI. Patient encouraged to continue to elevate lower extremities and also follow-up with dermatology outpatient. Currently no reports of chest pain, shortness of breath, or palpitations. Patient is afebrile. No reports of nausea or vomiting and patient is tolerating diet. Patient will be discharged home today. Physical exam: Gen: This is a 63-year-old female is awake, alert and oriented 3, well- developed, well-nourished, obese HEENT: Head is atraumatic, normocephalic. Pupils equal, round. Sclerae is anicteric. NECK: Supple. No JVD. No lymphadenopathy. No thyromegaly. LUNGS: Clear to auscultation. No wheezes or rhonchi. No intercostal retractions. HEART: Regular rate and rhythm. No murmur. ABDOMEN: Soft. Bowel sounds are present. No masses. No tenderness. EXTREMITIES: No pedal edema. No calf tenderness. Right lower extremity redness with swelling and erythema has improved although continues to be somewhat swollen. Nonpitting. NEUROLOGICAL: Patient is awake, alert and oriented x3. Cranial nerves 2 through 12 are grossly intact. Please refer to medication reconciliation sheet for a list of medications. The impression and plan of care has been dictated by Tiffany Rabago, Nurse Practitioner as directed. Dr. Yari MD I have performed a history and examination and MDM of this patient, discussed the same with the dictator, and agree with the dictator's assessment and plan as written ,documented as a scribe. Based on total visit time, I have performed more than 50% of the visit. Patient Condition at Discharge: Stable Plan - Discharge Summary Discharge Rx Participant: No New Discharge Prescriptions: New predniSONE 10 mg PO DIRECTED #18 tab HYDROcodone/APAP 7.5-325MG [[place] 7.5-325] 1 each PO Q6HR PRN #9 tab PRN Reason: Pain Acetaminophen Tab [Tylenol] 650 mg PO Q6HR PRN tab PRN Reason: Mild Pain Or Fever > 100.5 Continue Nitroglycerin Sl Tabs [Nitrostat] 0.4 mg SUBLINGUAL Q5M PRN #25 tab PRN Reason: Chest Pain Levothyroxine Sodium 125 mcg PO DAILY Liothyronine Sodium [Cytomel] 10 mcg PO DAILY Aspirin [Adult Low Dose Aspirin EC] 81 mg PO DAILY Ergocalciferol [Vitamin D2 (1250 Mcg = 32266 Iu)] 1,250 mcg PO SUWE Alirocumab [Praluent Pen] 75 mg SQ Q14D Montelukast [Singulair] 10 mg PO HS Water Pill (Unknown) 1 tab PO DAILY Omeprazole Magnesium [PriLOSEC] 20 mg PO BID Metoprolol Succinate (ER) [Toprol XL] 25 mg PO BID #60 tab.er.24h Hydroxychloroquine Sulfate 200 mg PO BID Discontinued DAPTOmycin [Cubicin] 500 mg IVPB DIRECTED Discharge Medication List Nitroglycerin Sl Tabs [Nitrostat] 0.4 mg SUBLINGUAL Q5M PRN #25 tab 03/15/14 [Rx] Levothyroxine Sodium 125 mcg PO DAILY 04/19/20 [History] Liothyronine Sodium [Cytomel] 10 mcg PO DAILY 07/08/20 [History] Omeprazole Magnesium [PriLOSEC] 20 mg PO BID 02/27/21 [History] Metoprolol Succinate (ER) [Toprol XL] 25 mg PO BID #60 tab.er.24h 02/28/21 [Rx] Aspirin [Adult Low Dose Aspirin EC] 81 mg PO DAILY 09/03/21 [History] Ergocalciferol [Vitamin D2 (1250 Mcg = 76848 Iu)] 1,250 mcg PO SUWE 04/27/22 [History] Alirocumab [Praluent Pen] 75 mg SQ Q14D 04/13/23 [History] Hydroxychloroquine Sulfate 200 mg PO BID 04/13/23 [History] Montelukast [Singulair] 10 mg PO HS 04/13/23 [History] Water Pill (Unknown) 1 tab PO DAILY 04/13/23 [History] Acetaminophen Tab [Tylenol] 650 mg PO Q6HR PRN tab 04/22/23 [Rx] HYDROcodone/APAP 7.5-325MG [[place] 7.5-325] 1 each PO Q6HR PRN #9 tab 04/22/23 [Rx] predniSONE 10 mg PO DIRECTED #18 tab 04/22/23 [Rx] Follow up Appointment(s)/Referral(s): Konrad Perez MD [Primary Care Provider] - 1-2 days Ilana Dowling MD [STAFF PHYSICIAN] - 1 Week Activity/Diet/Wound Care/Special Instructions: Activity Limited until follow-up Follow-up with primary care provider discharge Follow-up with infectious disease in one week Continue taking medications as prescribed Discharge Disposition: HOME SELF-CARE
[2023-05-04] MEDS ORDERED: ALIROCUMAB 75 MG/ML SQ SCH (09:00)
== END 2023-04-22 16:58 | disposition home or self-care (01) ==
LOC: EC 06:46 → 6NMEDSUR 07:29
PROVIDERS: ADMIT Internal Medicine; ATTEND Internal Medicine
DX: M79.89 Other specified soft tissue disorders (principal); R50.9 Fever, unspecified; I25.10 Atherosclerotic heart disease of native coronary artery without angina pectoris; M79.7 Fibromyalgia; I10 Essential (primary) hypertension; E89.0 Postprocedural hypothyroidism; G43.909 Migraine, unspecified, not intractable, without status migrainosus; E66.9 Obesity, unspecified; Z68.38 Body mass index [BMI] 38.0-38.9, adult; Z79.82 Long term (current) use of aspirin; Z79.890 Hormone replacement therapy; Z79.899 Other long term (current) drug therapy; Z88.1 Allergy status to other antibiotic agents; Z91.030 Bee allergy status; Z88.5 Allergy status to narcotic agent; Z88.0 Allergy status to penicillin; Z91.09 Other allergy status, other than to drugs and biological substances; K21.9 Gastro-esophageal reflux disease without esophagitis; F41.9 Anxiety disorder, unspecified; F32.A Depression, unspecified; I25.2 Old myocardial infarction; Z87.19 Personal history of other diseases of the digestive system; Z98.890 Other specified postprocedural states; Z98.1 Arthrodesis status; Z96.651 Presence of right artificial knee joint; Z90.710 Acquired absence of both cervix and uterus; Z87.891 Personal history of nicotine dependence; Z85.850 Personal history of malignant neoplasm of thyroid; Z82.49 Family history of ischemic heart disease and other diseases of the circulatory system; Z83.49 Family history of other endocrine, nutritional and metabolic diseases; Z82.61 Family history of arthritis; Z88.8 Allergy status to other drugs, medicaments and biological substances
CPT/HCPCS: 96376; 96365; 96375; 99285; 36410; 76937; 86255; 86160 ×3; 86162; 88305; 80053; 80048 ×2; 85652; 83605; 85025 ×2; 86140; 86431; 87040; 86038; 83036; 84145; 73590; 11104; G0378 ×3; C1751; J2930 ×3; J2001; J1650 ×2

== ENCOUNTER → 2023-04-28 | Outpatient (CLI) | payer MEDICARE, OTHER ==
--- NOTE | 2023-04-28 20:01 | CT ---
CT CHEST FOR PULMONARY EMBOLISM. EXAMINATION TYPE: CT angio chest DATE OF EXAM: 04/28/2023 INDICATION: SOB. Dizziness. R/O PE. CT DLP: 567.3 mGycm, Automated exposure control for dose reduction was used. CONTRAST: Patient injected with 100 ml mL of Isovue 370. COMPARISON: 06/23/2022 TECHNIQUE: CT of the chest is performed on a spiral scan at 2 mm thick sections. Study is performed with intravenous contrast timed for evaluation for pulmonary embolism. This will limit additional po rtions of the evaluation. 3-D MIP images reconstructed by the technologist are reviewed on the compu ter in the coronal and sagittal planes. FINDINGS: No persistent filling defects are evident to suggest an acute pulmonary embolism. No mediastinal or hilar adenopathy enlarged by CT criteria is evident. The ascending aorta diameter at the level of the main pulmonary artery is 2.3 cm. The main pulmonary artery diameter at the bifur cation is 2.2 cm. Lung windows are clear. Limited CT section through the upper abdomen are unremarkable. IMPRESSIONS: 1. No acute pulmonary embolism.
== END | disposition home or self-care (01) ==
LOC: RADCTMAIN 15:14
PROVIDERS: ATTEND Internal Medicine Infectious Disease
DX: R06.02 Shortness of breath (principal); R42 Dizziness and giddiness
CPT/HCPCS: 71275; Q9967

== ENCOUNTER → 2023-10-13 | Outpatient (CLI) | payer MEDICARE, OTHER ==
[2023-10-13 18:58] LABS: Basophils # (A) 0.09 X 10*3/uL (0.00-0.10); Basophils % (A) 1.6 %; Eosinophils # (A) 0.24 X 10*3/uL (0.04-0.35); Eosinophils % (A) 4.3 %; HCT 44.4 % (37.2-46.3); HGB 13.9 g/dL (12.0-15.0); Lymphocytes # (A) 1.25 X 10*3/uL (0.90-5.00); Lymphocytes % (A) 22.2 %; MCH 28.7 pg (27.0-32.0); MCHC 31.3 g/dL (32.0-37.0); MCV 91.5 FL (80.0-97.0); Mean Platelet Volume 10.1 FL (9.5-12.2); Monocytes # (A) 0.35 X 10*3/uL (0.20-1.00); Monocytes % (A) 6.2 %; NRBC Per 100 WBC 0 X 10*3/uL (0.00-0.01); Neutrophils % (A) 65.5 %; Platelet Count 266 X 10*3/uL (140-440); RBC 4.85 X 10*6/uL (4.10-5.20); RDW 13.9 % (11.5-14.5); WBC 5.64 X 10*3/uL (4.50-10.00)
[2023-10-13 19:11] LABS: ALT 21 U/L (8-44); AST 18 U/L (13-35); Albumin 4.4 g/dL (3.8-4.9); Alkaline Phosphatase 83 U/L (41-126); BUN/Creat Ratio 20.25 Ratio (12.00-20.00); Blood Urea Nitrogen 16.2 mg/dL (9.0-27.0); Calcium 9.4 mg/dL (8.7-10.3); Chloride 105 mmol/L (96-109); Chol/HDL Ratio 4.09 Ratio; Globulin 2.1 g/dL (1.6-3.3); Glucose 91 mg/dL (70-110); LDL Cholesterol,Calculated 147.9 mg/dL (0.0-131.0); Potassium 4.6 mmol/L (3.5-5.5); Sodium 144 mmol/L (135-145); Total Bilirubin 0.4 mg/dL (0.3-1.2); Total Protein 6.5 g/dL (6.2-8.2); VLDL Calculation 17.46 mg/dL (5.00-40.00)
== END | disposition home or self-care (01) ==
LOC: LABWHC1 12:02
PROVIDERS: ATTEND Family Medicine
DX: U07.1 COVID-19 (principal); R05.9 Cough, unspecified; Z82.49 Family history of ischemic heart disease and other diseases of the circulatory system
CPT/HCPCS: 36415; 80053; 80061; 85025

== ENCOUNTER → 2023-10-18 | Outpatient (CLI) | payer MEDICARE, OTHER ==
--- NOTE | 2023-10-20 10:58 | MM ---
Reason for Exam: Screening (asymptomatic). Last mammogram was performed 1 year(s) and 8 month(s) ago. Patient History: Menarche at age 14. First Full-Term at age 20. Hysterectomy at age 42. Postmenopausal. 02/08/2015, Benign Stereotactic Core Biopsy on the left side. Mother had breast cancer, left, age 88. Risk Values: Na 5 year model risk: 3.3%. NCI Lifetime model risk: 15.0%. Prior Study Comparison: 07/30/2014 Screening Mammogram, Unknown. 01/24/2018 Bilateral Screening Mammogram, [facility]. 02/13/2022 Bilateral MG 3D screening mammo w/cad, [facility]. Tissue Density: The breast tissue is almost entirely fat. Findings: Analyzed By CAD. Right breast biopsy clip. There is no suspicious group of microcalcifications or new suspicious mass. Overall Assessment: Negative, BI-RAD 1 Management: Screening Mammogram of both breasts in [address] [facility] will attempt to contact patient to return for supplemental views and ultrasound if indicated. Patient should continue monthly self-breast exams. A clinical breast exam by your physician is recommended on an annual basis. This exam should not preclude additional follow-up of suspicious palpable abnormalities. Note on Na scores and lifetime risk: 1. A Na score greater than 3% is considered moderate risk. If this is the case, consider specialist referral to assess eligibility for a risk reducing agent. 2. If overall lifetime risk for the development of breast cancer is 20% or higher, the patient may qualify for future screening with alternating mammogram and breast MRI. Electronically signed and approved by: Kamran Quispe DO
== END | disposition home or self-care (01) ==
LOC: RADMAMWWP 15:32
PROVIDERS: ATTEND Family Medicine
DX: Z12.31 Encounter for screening mammogram for malignant neoplasm of breast (principal); Z80.3 Family history of malignant neoplasm of breast; Z78.0 Asymptomatic menopausal state
CPT/HCPCS: 77063; 77067

== ENCOUNTER 2023-12-03 08:50 | Day surgery (SDC) | payer MEDICARE, OTHER ==
[~2023-12-03 08:50] MED LIST changes: -.fentaNYL (PF) 50 MCG/ML 2 ML AMP IV PRN; -DEXAMETHASONE SOD PHOSPHATE 4 MG/ML 1 ML VIAL IV ONE; -LACTATED RINGERS 1,000 ML IV SCH; +LIDOCAINE 1% (10MG/ML) FOR IV START INTRADERMA PRN; -ONDANSETRON 4 MG/2 ML VIAL IVP ONE; -VANCOMYCIN 1,500 MG in SODIUM CHLORIDE 0.9% 250 ML IVPB PRN
[2023-12-03] MEDS: LACTATED RINGERS 1,000 ML IV SCH (09:02)
[2023-12-03 09:33] VITALS: TEMP 97.9
[2023-12-03] MEDS ORDERED: LIDOCAINE 1% INJ 10MG/ML (20 ML MDV) ONE (09:36)
[2023-12-03] MEDS ORDERED: PROPOFOL 10 MG/ML 20 ML VIAL IV ONE (09:36)
--- NOTE | 2023-12-03 09:57 | P.PCN ---
Date of Procedure: 12/03/23 Procedure(s) Performed: Brief history: Patient is a pleasant 63-year-old white female scheduled for an elective upper endoscopy as well as colonoscopy as a part of evaluation of long-standing history of GERD and intermittent rectal bleeding. Procedure performed: Esophagogastroduodenoscopy with biopsy Colonoscopy with biopsy and snare polypectomy Preoperative diagnosis: GERD Intermittent rectal bleeding Anesthesia: MAC Procedure: After informed consent was obtained from the patient was brought into the endoscopy unit and IV sedation was administered by anesthesia under continuous monitoring. Initially upper endoscopy was done. The Olympus GF 160 video endoscope was inserted inserted into the mouth and esophagus intubated without any difficulty and was gradually advanced into the stomach and duodenum and carefully examined. The bulb and second part of the duodenum appeared normal. The scope was then withdrawn into the stomach adequately insufflated with air and upon careful examination the antrum studies and biopsies were done from this area. Mucosa of the body, cardia and fundus appeared normal. The scope was then withdrawn into the esophagus. Small hiatal hernia noted. The GE junction was located at 40 cm to the incisors. It appeared regular with no erythema erosions or ulcerations. Rest of the esophagus appeared normal. Patient tolerated the procedure well. At this time the patient continued to remain sedation. Initial digital rectal examination was normal. Olympus CF 160 video colonoscope was then inserted into the rectum and gradually advanced to the cecum without any difficulty. Careful examination was performed as the scope was gradually being withdrawn. The prep was excellent. The cecum, ascending colon, transverse colon, descending colon, appeared normal. In the distal sigmoid colon there was a 4 mm polyp that was removed by cold biopsy and a 7 mm polyp that was removed by cold snare polypectomy. Rest of the sigmoid colon and rectum appeared normal. Scattered small diverticulosis Retroflexion was performed in the rectum and small internal hemorrhoids were noted. Patient tolerated the procedure well. Impression: 1. Upper endoscopy revealed mild antral gastritis and small hiatal hernia but no evidence of esophagitis or Stock's esophagus 2. Colonoscopy revealed 4 mm and 7 mm; polyp status post biopsy and snare polypectomy respectively and scattered sigmoid diverticulosis/small internal hemorrhoids Recommendations: Findings of this examination were discussed with the patient as well as her family. She was advised to follow up the biopsy results. If the biopsy result adenoma she can have a repeat colonoscopy in 5 years. In the meantime she'll be a high-fiber diet and take fiber supplements a regular basis and avoid straining and constipation. Continue with omeprazole 20 mg twice daily and follow antireflux measures.
[2023-12-03 10:06] VITALS: RESP 16
[2023-12-03 10:39] VITALS: BP 130/85; PULSE 60
== END 2023-12-03 10:39 | disposition home or self-care (01) ==
LOC: ORWHC2ENDO 08:50
PROVIDERS: ATTEND Internal Medicine Gastroenterology
DX: K29.50 Unspecified chronic gastritis without bleeding (principal); K63.5 Polyp of colon; K64.8 Other hemorrhoids; K21.9 Gastro-esophageal reflux disease without esophagitis; K57.30 Diverticulosis of large intestine without perforation or abscess without bleeding; K44.9 Diaphragmatic hernia without obstruction or gangrene; I10 Essential (primary) hypertension; I25.10 Atherosclerotic heart disease of native coronary artery without angina pectoris; I25.2 Old myocardial infarction; J44.9 Chronic obstructive pulmonary disease, unspecified; E07.9 Disorder of thyroid, unspecified; M79.7 Fibromyalgia; M19.90 Unspecified osteoarthritis, unspecified site; Z79.890 Hormone replacement therapy; Z79.899 Other long term (current) drug therapy; Z79.82 Long term (current) use of aspirin; Z88.0 Allergy status to penicillin; Z88.8 Allergy status to other drugs, medicaments and biological substances; Z88.1 Allergy status to other antibiotic agents
CPT/HCPCS: 88305; 45380; 45385; 43239; J2001; J2704

== ENCOUNTER → 2024-01-04 | Outpatient (CLI) | payer MEDICARE, OTHER ==
[2024-01-05 00:22] LABS: BUN/Creat Ratio 17.11 Ratio (12.00-20.00); Blood Urea Nitrogen 15.4 mg/dL (9.0-27.0); Calcium 9.5 mg/dL (8.7-10.3); Carbon Dioxide 27.2 mmol/L (21.6-31.8); Chloride 103 mmol/L (96-109); Glucose 93 mg/dL (70-110); Potassium 4.6 mmol/L (3.5-5.5); Sodium 140 mmol/L (135-145); T4, Free (Free Thyroxine) 1.49 ng/dL (0.80-1.80)
== END | disposition home or self-care (01) ==
LOC: LABWHC1 15:18
PROVIDERS: ATTEND Internal Medicine
DX: C73 Malignant neoplasm of thyroid gland (principal); E89.0 Postprocedural hypothyroidism; E55.9 Vitamin D deficiency, unspecified
CPT/HCPCS: 36415; 80048; 82306; 84432; 84439; 84443; 86800

== ENCOUNTER → 2024-04-27 | Outpatient (CLI) | payer MEDICARE, OTHER ==
[2024-04-27 18:20] LABS: Basophils % (A) 1.5 %; Eosinophils # (A) 0.49 X 10*3/uL (0.04-0.35); Eosinophils % (A) 7.6 %; HCT 43.7 % (37.2-46.3); Lymphocytes # (A) 1.43 X 10*3/uL (0.90-5.00); Lymphocytes % (A) 22.1 %; MCH 29.1 pg (27.0-32.0); MCV 90.9 FL (80.0-97.0); Mean Platelet Volume 9.9 FL (9.5-12.2); Monocytes % (A) 6.2 %; NRBC Per 100 WBC 0 X 10*3/uL (0.00-0.01); Neutrophils # (A) 4.02 X 10*3/uL (1.80-7.70); Neutrophils % (A) 62.3 %; Platelet Count 281 X 10*3/uL (140-440); RBC 4.81 X 10*6/uL (4.10-5.20); RDW 13.1 % (11.5-14.5); WBC 6.46 X 10*3/uL (4.50-10.00)
[2024-04-27 18:31] LABS: Anion Gap 9.4 mmol/L (4.00-12.00); Carbon Dioxide 28.6 mmol/L (21.6-31.8); Potassium 4.7 mmol/L (3.5-5.5)
== END | disposition home or self-care (01) ==
LOC: LABPAT 11:58
PROVIDERS: ATTEND Orthopaedic Surgery
DX: Z01.812 Encounter for preprocedural laboratory examination (principal); M23.92 Unspecified internal derangement of left knee
CPT/HCPCS: 80051; 85025

== ENCOUNTER 2024-05-08 14:00 | Day surgery (SDC) | payer MEDICARE, OTHER ==
[~2024-05-08 14:00] MED LIST changes: +BUPIVACAINE (PF) 0.25% 30 ML VIAL ONE; +DEXAMETHASONE SOD PHOSPHATE 4 MG/ML 1 ML VIAL ONE; +LACTATED RINGERS 1,000 ML BAG ONE; -LIDOCAINE 1% (10MG/ML) FOR IV START INTRADERMA PRN; +ONDANSETRON 4 MG/2 ML VIAL ONE; +fentaNYL (PF) 50 MCG/ML 2 ML AMP ONE
[2024-05-08] MEDS ORDERED: PROPOFOL 10 MG/ML 20 ML VIAL IV ONE (15:38)
[2024-05-08] MEDS ORDERED: LIDOCAINE 1% INJ 10MG/ML (20 ML MDV) ONE (15:38)
[2024-05-08] MEDS ORDERED: MIDAZOLAM 2 MG/2 ML VIAL ONE (15:38)
[2024-05-08] MEDS ORDERED: fentaNYL (PF) 50 MCG/ML 2 ML AMP ONE (15:38)
[2024-05-08] MEDS ORDERED: HYDROmorphone 0.5 MG/0.5 ML SYRINGE ONE (16:40)
[2024-05-08] MEDS ORDERED: KETOROLAC 15 MG/ML 1 ML VIAL ONE (16:59)
[2024-05-08] MEDS ORDERED: HYDROcodone/APAP 7.5-325MG 1 EACH TAB ONE (17:51)
--- NOTE | 2024-05-19 15:52 | OP ---
OPERATIVE REPORT DATE OF SERVICE : 05/08/2024 PREOPERATIVE DIAGNOSIS: Internal derangement, left knee. POSTOPERATIVE DIAGNOSES: 1. Medial and lateral meniscal tears, left knee. 2. Grade 4 chondromalacia, medial femoral condyle, left knee. 3. Grade 4 chondromalacia, femoral sulcus, left knee. 4. Reactive synovitis, medial, lateral and, suprapatellar compartments, left knee. PROCEDURES PERFORMED: 1. Arthroscopic partial medial and lateral meniscectomy, left knee. 2. Arthroscopic microfracture, medial femoral condyle, left knee. 3. Arthroscopic microfracture, femoral sulcus, left knee. 4. Arthroscopic partial synovectomy, medial, lateral, and suprapatellar compartments left knee. ANESTHESIA: General. ESTIMATED BLOOD LOSS: 7 mL. COMPLICATIONS: None. The patient tolerated the procedure well. INDICATIONS: Sofia Bustamante is a patient seen with progressive left knee pain failing conservative treatment measures. After having options discussed, she elected to proceed with arthroscopy. Consent was obtained. DESCRIPTION OF PROCEDURE: The patient was taken to the operative suite. She underwent a general anesthetic by the Department of Anesthesia. The left lower extremity was placed in a well-padded leg anderson. She received preoperative IV antibiotics. The left lower extremity was prepped and draped in normal sterile orthopedic fashion. A lateral parapatellar incision was made. Trocar was inserted into the suprapatellar compartment followed by the arthroscope and arthroscopy was now initiated. There was diffuse thick reactive synovitis throughout the suprapatellar compartment. The patellofemoral joint appeared to articulate incongruity. There were grade 3/4 chondromalacia changes along the femoral sulcus and grade 2/3 chondromalacia changes about the patella without tears. The scope was guided into the medial gutter. I did not note any loose bodies or plica. The scope was not guided into medial compartment. I made a medial parapatellar incision, there was a trocar followed by a probe. There was a tear involving the posterior horn of the medial meniscus. There were grade 3/4 chondromalacia changes along the medial femoral condyle with some osteochondral flap tears. There were grade 2/3 chondromalacia changes along the tibial plateau without tears. There was some thick reactive synovitis anteriorly. I performed a partial medial meniscectomy, getting down to a stable meniscal tissue. I performed a chondroplasty of the medial femoral condyle, getting down a stable osteochondral tissue. I performed a partial synovectomy, decompressing the reactive synovitis anteriorly. I did note an area of exposed bone involving the medial femoral condyle measuring just under 1 cm. I introduced a microfracture awl and I performed a microfracture to the area of exposed bone, medial femoral condyle, penetrating the bone with resultant bleeding at the microfracture site. Residual meniscus was probed and was found to be stable. The residual osteochondral surface was stable. There was good decompression of the synovitis. Then I guided the scope back into the intercondylar notch area. The ACL was identified, probed, was found to be stable and good bounce off the posterior cruciate ligament. The scope probed again the lateral compartment for radial tears involving the midbody and posterior horn of the lateral meniscus. There were grade 2 chondromalacia changes of lateral compartment without tears. There was some thick reactive synovitis anteriorly. I performed a partial lateral meniscectomy, getting down to stable meniscal tissue. I performed a partial synovectomy, decompressing the reactive synovitis. The residual meniscus was probed and was found to be stable. The residual osteochondral surface was stable. There was good decompression of the synovitis. The scope was then guided into the suprapatellar compartment and I introduced a motorized shaver and performed a chondroplasty of the femoral sulcus, and I performed a partial synovectomy decompressing the thick synovitis of the suprapatellar compartment. I did note an area of exposed bone along the patellofemoral sulcus measuring about 1 cm by 2.5 cm in length. I introduced a microfracture awl and I performed 2 microfractures in the area of exposed bone femoral sulcus penetrating the bone at both areas with resultant bleeding at the microfracture sites in both areas. I probed here and was stable. There was good decompression of synovitis. I took one more look around the entire knee, there was no debris. Instruments were now removed from the joint. The portal sites were repaired utilizing nylon suture. I injected the joint with about 20 mL of 0.25% plain Marcaine. Sterile dressings were applied followed by JACK hose. No tourniquet was utilized. The patient was transferred to recovery in stable condition having tolerated the procedure well. MMODL / IJN: [id number] /
--- NOTE | 2024-06-08 14:13 | HP ---
HISTORY AND PHYSICAL ANTICIPATED DATE OF SURGERY: 05/08/2024. HISTORY OF PRESENT ILLNESS: Sofia Bustamante is a 64-year-old patient, seen with progressive left knee pain. Options were discussed regarding treatment. She elected to proceed with left knee arthroscopy. Consent was obtained. Cardiac clearance was provided by Dr. Harper. PAST MEDICAL HISTORY: 1. Cardiovascular disease. 2. Hypertension. 3. Hypothyroidism. PAST SURGICAL HISTORY: 1. Knee arthroscopy. 2. Thyroidectomy. DAILY MEDICATIONS: 1. Aspirin. 2. Metoprolol. 3. Synthroid. 4. Vitamin D. ALLERGIES: Penicillin and Levaquin. SOCIAL HISTORY: She denies current tobacco use. PHYSICAL EVALUATION OF THE LEFT KNEE: Range of motion is 0 to 100 degrees. Mild effusion. Tenderness, medial joint line. Positive medial Greta's. Ligaments stable. Hip rotation without pain. Distal neurovascular exam is intact. IMAGING STUDIES: Radiographs of the left knee revealed mild osteoarthritis as well as intra-articular effusion. IMPRESSION: 1. Internal derangement of left knee with medial meniscal tear. 2. Hypertension. 3. Hypothyroidism. PLAN: Left knee arthroscopy with partial medial meniscectomy and debridement. MMODL / IJN: [id number] /
== END 2024-05-08 18:45 ==
LOC: OR 14:00
PROVIDERS: ATTEND Orthopaedic Surgery
DX: S83.282A Other tear of lateral meniscus, current injury, left knee, initial encounter (principal); S83.242A Other tear of medial meniscus, current injury, left knee, initial encounter; M22.42 Chondromalacia patellae, left knee; M65.162 Other infective (teno)synovitis, left knee; I11.0 Hypertensive heart disease with heart failure; I50.22 Chronic systolic (congestive) heart failure; E03.9 Hypothyroidism, unspecified; J44.9 Chronic obstructive pulmonary disease, unspecified; K21.9 Gastro-esophageal reflux disease without esophagitis; I25.2 Old myocardial infarction; M54.2 Cervicalgia; I25.10 Atherosclerotic heart disease of native coronary artery without angina pectoris; Z90.89 Acquired absence of other organs; Z01.810 Encounter for preprocedural cardiovascular examination; Z88.1 Allergy status to other antibiotic agents; Z88.0 Allergy status to penicillin; Z87.891 Personal history of nicotine dependence; Z79.899 Other long term (current) drug therapy; Z79.02 Long term (current) use of antithrombotics/antiplatelets; Z79.82 Long term (current) use of aspirin; Z79.890 Hormone replacement therapy; X58.XXXA Exposure to other specified factors, initial encounter

== ENCOUNTER → 2024-12-01 | Outpatient (CLI) | payer MEDICARE, OTHER ==
[2024-12-01 15:43] LABS: Chol/HDL Ratio 2.79 Ratio; VLDL Calculation 14.12 mg/dL (5.00-40.00)
[2024-12-01 15:44] LABS: ALT 19 U/L (8-44); AST 19 U/L (13-35); LDL Cholesterol,Calculated 92.3 mg/dL (0.0-131.0)
== END | disposition home or self-care (01) ==
LOC: LABWHC1 11:17
PROVIDERS: ATTEND Internal Medicine
DX: E78.2 Mixed hyperlipidemia (principal)
CPT/HCPCS: 36415; 80061; 84450; 84460

== ENCOUNTER 2025-04-25 21:30 | Emergency (ER) | payer MEDICARE, OTHER ==
--- NOTE | 2025-04-25 22:41 | ED ---
Abdominal Pain HPI - General Chief Complaint: Abdominal Pain Stated Complaint: Shaking, nausea, abd pain, constipation Time Seen by Provider: 04/25/25 22:20 Source: patient, family (sister), RN notes reviewed, old records reviewed Mode of arrival: ambulatory Limitations: no limitations - History of Present Illness Initial Comments: 65-year-old female presenting to the ER for evaluation of abdominal pain. Patient reports since Wednesday she has been experiencing a lower abdominal achy crampy discomfort. She does admit pain has improved over the past couple of days but is not totally gone and patient is concerned of worsening infection or obstruction. She reports she will attempt to have a bowel movement and note dark red blood with small amounts of fecal matter in the toilet bowl. She denies any melena. Patient does admit to taking Plavix no blood thinning medication. She also endorsing nausea without vomiting, shakes and chills. Denies known fevers. Denies urinary complaints, vaginal bleeding or discharge. She has taken prescribed [place] which has mildly improved pain. Patient reports a history of diverticulitis and states this does feel similar. History of hysterectomy and tubal ligation. Patient is currently taking doxycycline for a left lower extremity wound. She denies any dizziness, lightheadedness, chest pain, shortness of breath or peripheral edema. - Related Data Home Medications Medication Instructions Recorded Confirmed Levothyroxine Sodium 125 mcg PO DAILY 04/19/20 11/06/24 Liothyronine Sodium [Cytomel] 5 mcg PO DAILY 07/08/20 11/06/24 Omeprazole Magnesium [PriLOSEC] 20 mg PO BID 02/27/21 11/06/24 Aspirin [Adult Low Dose Aspirin EC] 81 mg PO DAILY 09/03/21 11/06/24 Ergocalciferol [Vitamin D2 (1250 1,250 mcg PO SUWE 04/27/22 11/06/24 Mcg = 65326 Iu)] Alirocumab [Praluent Pen] 75 mg SQ Q14D 04/13/23 11/06/24 Furosemide [Lasix] 20 mg PO DAILY 11/30/23 11/06/24 HYDROcodone/APAP 5-325MG [[place] 1 tab PO Q6H PRN 11/06/24 11/06/24 5-325] Nitroglycerin Sl Tabs [Nitrostat] 0.4 mg SL Q5M PRN 11/06/24 11/06/24 Pregabalin [Lyrica] 75 mg PO DIRECTED 11/06/24 11/06/24 Previous Rx's Medication Instructions Recorded Metoprolol Succinate (ER) [Toprol 25 mg PO BID #60 tab.er.24h 02/28/21 XL] Dicyclomine [Bentyl] 20 mg PO TID #30 tablet 04/26/25 Ondansetron Odt [Zofran Odt] 4 mg PO Q8HR PRN #10 tab 04/26/25 Sulfamethox-Tmp 800-160Mg [Bactrim 1 each PO Q12HR #20 tab 04/26/25 Ds] metroNIDAZOLE [Flagyl] 500 mg PO TID #30 tab 04/26/25 Allergies Allergy/AdvReac Type Severity Reaction Status Date / Time Penicillins Allergy Severe Anaphylaxis Verified 04/25/25 21:50 Quinolones Allergy Severe BRAIN STEM Verified 04/25/25 21:50 SEIZURE venom-honey bee Allergy Severe Anaphylaxis Verified 04/25/25 21:50 adhesive tape Allergy TEARS SKIN Verified 04/25/25 21:50 levofloxacin [From Levaquin] AdvReac Severe BRAIN STEM Verified 04/25/25 21:50 SEIZURE hydromorphone [From Dilaudid] AdvReac Nausea & Verified 04/25/25 21:50 Vomiting iopamidol [From [id number]] AdvReac Nausea & Verified 04/25/25 21:50 Vomiting pravastatin [From Pravachol] AdvReac LEG CRAMPS Verified 04/25/25 21:50 Review of Systems ROS Statement: Those systems with pertinent positive or pertinent negative responses have been documented in the HPI. ROS Other: All systems not noted in ROS Statement are negative. Past Medical History Past Medical History: Coronary Artery Disease (CAD), Cancer, Chest Pain / Angina, Fibromyalgia, GERD/Reflux, GI Bleed, Hypertension, Myocardial Infarction (NC), Osteoarthritis (OA), Skin Disorder, Thyroid Disorder Additional Past Medical History / Comment(s): Diverticulitis, upper and lower GI bleed, MRI showed small strokes or migraines per pt as well as spots-recommended to have spinal tap but pt declined, bronchitis, past cervical neuropathy/stenosis/myelopathy with numbness and pain in bilateral hands but had cervical surgery and not a problem anymore-does have some decreased ROM with neck and spasms of neck occasionally, occasional vertigo, thyroidectomy d/t cancer,, rash R knee. heart monitor in place for 3 days placed 11/30/23 Last Myocardial Infarction Date:: 03/09/14 History of Any Multi-Drug Resistant Organisms: None Reported Past Surgical History: Breast Surgery, Heart Catheterization, Hysterectomy, Orthopedic Surgery, Tubal Ligation Additional Past Surgical History / Comment(s): Multiple colonoscopies, egds, R partial thyroidectomy/multiple thyroid bxs then total thyroidectomy d/t cancer, L side neck mass removed, R breast benign bx, cardiac cath-unable to deploy a stent, cervical discectomy/fusions, L carpal tunnel releases, R knee arthros copic surgeries, R knee replacement. lft carpal tunnel Past Anesthesia/Blood Transfusion Reactions: Previous Problems w/ Anesthesia Additional Past Anesthesia/Blood Transfusion Reaction / Comment(s): STATES B/P WAS LOW POST OP RT THYROIDECTOMY-mostly related to narcotic pain meds. HISTORY OF CLAUSTROPHOBIA, states did fine with her anesthesia from her R knee replacement. Past Psychological History: Anxiety, Depression Smoking Status: Former smoker Past Alcohol Use History: Rare Past Drug Use History: None Reported - Past Family History Father Family Medical History: Osteoarthritis (OA) Additional Family Medical History / Comment(s): Father is living Mother Family Medical History: AFIB, Renal Disease, Thyroid Disorder Additional Family Medical History / Comment(s): Mother is living. Hypothyroidism. Bladder issues/kidney stones. Nerve damage in legs General Exam Limitations: no limitations General appearance: alert, in no apparent distress Respiratory exam: Present: normal lung sounds bilaterally. Absent: respiratory distress, wheezes, rales, rhonchi, stridor Cardiovascular Exam: Present: regular rate, normal rhythm, normal heart sounds. Absent: systolic murmur, diastolic murmur, rubs, gallop, clicks GI/Abdominal exam: Present: soft (Obese abdomen), tenderness (Lower abdomen), normal bowel sounds Extremities exam: Present: normal inspection, full ROM, normal capillary refill. Absent: tenderness, pedal edema, joint swelling, calf tenderness Neurological exam: Present: alert, oriented X3, CN II-XII intact Skin exam: Present: warm, dry, intact, normal color, other (Superficial ulcerative wound left medial ankle. No surrounding erythema, fluctuance or purulent drainage.). Absent: rash Course Vital Signs 04/25/25 04/26/25 04/26/25 21:45 00:47 02:54 Temperature 98.0 F 97.4 F L 97.6 F Pulse Rate 65 56 L 76 Respiratory 18 15 18 Rate Blood Pressure 148/98 147/79 148/82 O2 Sat by Pulse 97 96 99 Oximetry Medical Decision Making - Medical Decision Making Was pt. sent in by a medical professional or institution (, PA, RAILROAD INSPECTOR, urgent care, hospital, or usp...) When possible be specific @ -No Did you speak to anyone other than the patient for history (EMS, parent, family, police, friend...)? What history was obtained from this source @ -Patient sister, at bedside, aiding in HPI and past medical history. Did you review nursing and triage notes (agree or disagree)? Why? @ -I reviewed and agree with nursing and triage notes Were old charts reviewed (outside hosp., previous admission, EMS record, old EKG, old radiological studies, urgent care reports/EKG's, usp records)? Report findings @ -No old charts were reviewed Differential Diagnosis (chest pain, altered mental status, abdominal pain women, abdominal pain men, vaginal bleeding, weakness, fever, dyspnea, syncope, headache, dizziness, GI bleed, back pain, seizure, CVA, palpatations, mental health, musculoskeletal)? @ -[Differential Abdominal Pain Women:Appendicitis, Cholecystitis, diverticulosis, ischemic bowel, pancreatitis, hepatitis, UTI, gastroenteritis, AAA, incarcerated hernia, bowel obstruction, constipation, inflammatory bowel, hepatitis, peptic ulcer disease, splenic infarction, perforated viscus, vulvitis, ovarian torsion, PID, kidney stone, placenta abruption, this is not meant to be an all-inclusive list EKG interpreted by me (3pts min.). @ -None done X-rays interpreted by me (1pt min.). @ -None done CT interpreted by me (1pt min.). @ -CT abdomen pelvis with mild pericolonic fat stranding concerning for mild colitis. There is wall thickening of the sigmoid colon concerning of underlying mass. Area measuring approximately 4.4 cm and 2 cm in thickness. Colon cancer not excluded. Right ovarian cyst measuring 6.6 x 5.2 cm. U/S interpreted by me (1pt. min.). @ -None done What testing was considered but not performed or refused? (CT, X-rays, U/S, labs)? Why? @ -None What meds were considered but not given or refused? Why? @ -None Did you discuss the management of the patient with other professionals (professionals i.e. , PA, RAILROAD INSPECTOR, lab, RT, psych nurse, healthcare social worker, admitting officer, teacher, safety security officer, supervisor case loading)? Give summary @ -No Was smoking cessation discussed for >3mins.? @ -No Was critical care preformed (if so, how long)? @ -No Were there social determinants of health that impacted care today? How? (Home lessness, low income, unemployed, alcoholism, drug addiction, transportation, low edu. Level, literacy, decrease access to med. care, residential, rehab)? @ -No Was there de-escalation of care discussed even if they declined (Discuss DNR or withdrawal of care, Hospice)? DNR status @ -No What co-morbidities impacted this encounter? (DM, HTN, Smoking, COPD, CAD, Cancer, CVA, ARF, Chemo, Hep., AIDS, mental health diagnosis, sleep apnea, morbid obesity)? @ -[History of diverticulitis, history of GI bleed, hypertension, GERD Was patient admitted / discharged? Hospital course, mention meds given and rou te, prescriptions, significant lab abnormalities, going to OR and other pertinent info. @ -Discharge. 65-year-old female presented the ER for evaluation of abdominal pain. Upon arrival vital signs stable. Patient in no signs acute distress nontoxic-appearing. Abdominal exam remarkable for lower abdominal tenderness to palpation with normal bowel sounds. No rebound or guarding. Laboratory st udies obtained remarkablefor WBC 8.2. Hemoglobin 14.2,stable. CMP unimpressive. Urinalysis with rare bacteria and small blood. CT abdomen pelvis concerning of mild sigmoid colitis for which patient will be started on Bactrim and Flagyl. CT abdomen and pelvis also showing wall thickening of the sigmoid colon concerning of underlying mass and cannot rule out malignancy. These findings were discussed with patient along with ovarian cyst. I strongly recommended she follow-up with GI and/or general surgery for further evaluation of this sigmoid wall thickening. Patient provided with symptomatic treatment in the emergency department. Upon reevaluation, patient reporting improvement of discomfort and is educated on today's findings. Zofran and bentyl prescribed. Patient discharged with Tylenol 3 starter pack for pain control outpatient. Stop doxycycline for ankle wound. Strict return parameters discussed. Patient discharged in stable condition with follow-up to PCP, GI and/or general surgery, contact information provided at discharge. Patient verbally expressed understanding and agreement with care plan. Case discussed with ED attending, Undiagnosed new problem with uncertain prognosis? @ -[No Drug Therapy requiring intensive monitoring for toxicity (Heparin, Nitro, Insulin, Cardizem)? @ -No Were any procedures done? @ -No Diagnosis/symptom? @ -Colitis/sigmoid wall thickening rule out underlying mass versus malignancy/ovarian cyst Acute, or Chronic, or Acute on Chronic? @ -Acute Uncomplicated (without systemic symptoms) or Complicated (systemic symptoms)? @ -Uncomplicated Side effects of treatment? @ -No Exacerbation, Progression, or Severe Exacerbation? @ -No Poses a threat to life or bodily function? How? (Chest pain, [place], NC, pneumonia, PE, COPD, DKA, ARF, appy, cholecystitis, CVA, Diverticulitis, Homicidal, Suicidal, threat to staff... and all critical care pts) @ -Possibly, cannot rule out malignancy - Lab Data Result diagrams: 04/25/25 22:57 04/25/25 22:57 Lab Results 04/25/25 04/25/25 04/25/25 Range/Units 22:57 22:57 22:57 WBC 8.23 (4.50-10.00) 10*3/uL RBC 4.86 (4.10-5.20) 10*6/uL Hgb 14.2 (12.0-15.0) g/dL Hct 43.2 (37.2-46.3) % MCV 88.9 (80.0-97.0) fL MCH 29.2 (27.0-32.0) pg MCHC 32.9 (32.0-37.0) g/dL Plt Count 242 (140-440) 10*3/uL MPV 9.2 L (9.5-12.2) fL Immature Gran % (Auto) 0.4 % Neutrophils % 69.9 % Lymphocytes % 20.3 % Monocytes % 6.0 % Eosinophils % 2.4 % Basophils % 1.0 % Immature Gran # 0.03 (0.00-0.04) 10*3/uL Neutrophils # 5.76 (1.80-7.70) 10*3/uL Lymphocytes # 1.67 (0.90-5.00) 10*3/uL Monocytes # 0.49 (0.20-1.00) 10*3/uL Eosinophils # 0.20 (0.04-0.35) 10*3/uL Basophils # 0.08 (0.00-0.10) 10*3/uL PT 11.2 (10.0-12.5) sec INR 1.0 (<1.2) APTT 22.0 (22.0-30.0) sec Sodium (137-145) mmol/L Potassium (3.5-5.1) mmol/L Chloride (98-107) mmol/L Carbon Dioxide (22-30) mmol/L Anion Gap mmol/L BUN (7-17) mg/dL Creatinine (0.52-1.04) mg/dL Est GFR (CKD-EPI)AfAm (>60 ml/min/1.73 sqM) Est GFR (CKD-EPI)NonAf (>60 ml/min/1.73 sqM) Glucose (74-99) mg/dL Plasma Lactic Acid Grupo (0.7-2.0) mmol/L Calcium (8.4-10.2) mg/dL Total Bilirubin (0.2-1.3) mg/dL AST (14-36) U/L ALT (4-34) U/L Alkaline Phosphatase (38-126) U/L Total Protein (6.3-8.2) g/dL Albumin (3.5-5.0) g/dL Amylase (30-110) U/L Lipase (23-300) U/L Urine Color Light Yellow Urine Appearance Clear (Clear) Urine pH 6.5 (5.0-8.0) Ur Specific [place] 1.012 (1.001-1.035) Urine Protein Negative (Negative) Urine Glucose (UA) Negative (Negative) Urine Ketones Negative (Negative) Urine Blood Small H (Negative) Urine Nitrite Negative (Negative) Urine Bilirubin Negative (Negative) Urine Urobilinogen <2.0 (<2.0) mg/dL Ur Leukocyte Esterase Negative (Negative) Urine RBC 2 (0-5) /hpf Urine WBC <1 (0-5) /hpf Ur Squamous Epith Cells <1 (0-4) /hpf Urine Bacteria Rare H (None) /hpf Urine Mucus Rare H (None) /hpf 04/25/25 04/25/25 Range/Units 22:57 22:57 WBC (4.50-10.00) 10*3/uL RBC (4.10-5.20) 10*6/uL Hgb (12.0-15.0) g/dL Hct (37.2-46.3) % MCV (80.0-97.0) fL MCH (27.0-32.0) pg MCHC (32.0-37.0) g/dL Plt Count (140-440) 10*3/uL MPV (9.5-12.2) fL Immature Gran % (Auto) % Neutrophils % % Lymphocytes % % Monocytes % % Eosinophils % % Basophils % % Immature Gran # (0.00-0.04) 10*3/uL Neutrophils # (1.80-7.70) 10*3/uL Lymphocytes # (0.90-5.00) 10*3/uL Monocytes # (0.20-1.00) 10*3/uL Eosinophils # (0.04-0.35) 10*3/uL Basophils # (0.00-0.10) 10*3/uL PT (10.0-12.5) sec INR (<1.2) APTT (22.0-30.0) sec Sodium 139 (137-145) mmol/L Potassium 3.9 (3.5-5.1) mmol/L Chloride 101 (98-107) mmol/L Carbon Dioxide 31 H (22-30) mmol/L Anion Gap 7 mmol/L BUN 15 (7-17) mg/dL Creatinine 0.72 (0.52-1.04) mg/dL Est GFR (CKD-EPI)AfAm >90 (>60 ml/min/1.73 sqM) Est GFR (CKD-EPI)NonAf >90 (>60 ml/min/1.73 sqM) Glucose 92 (74-99) mg/dL Plasma Lactic Acid Grupo 0.6 L (0.7-2.0) mmol/L Calcium 9.9 (8.4-10.2) mg/dL Total Bilirubin 0.6 (0.2-1.3) mg/dL AST 23 (14-36) U/L ALT 20 (4-34) U/L Alkaline Phosphatase 97 (38-126) U/L Total Protein 7.1 (6.3-8.2) g/dL Albumin 4.5 (3.5-5.0) g/dL Amylase 47 (30-110) U/L Lipase 91 (23-300) U/L Urine Color Urine Appearance (Clear) Urine pH (5.0-8.0) Ur Specific [place] (1.001-1.035) Urine Protein (Negative) Urine Glucose (UA) (Negative) Urine Ketones (Negative) Urine Blood (Negative) Urine Nitrite (Negative) Urine Bilirubin (Negative) Urine Urobilinogen (<2.0) mg/dL Ur Leukocyte Esterase (Negative) Urine RBC (0-5) /hpf Urine WBC (0-5) /hpf Ur Squamous Epith Cells (0-4) /hpf Urine Bacteria (None) /hpf Urine Mucus (None) /hpf - Radiology Data Radiology results: report reviewed, image reviewed Disposition Clinical Impression: Colitis, Ovarian cyst, Mural thickening of sigmoid colon Disposition: HOME SELF-CARE Condition: Stable Instructions (If sedation given, give patient instructions): Colitis (ED) Additional Instructions: Follow-up closely with PCP. I also recommend close follow-up with GI and/or general surgery for further evaluation of sigmoid wall thickening. Take antibiotics as prescribed. Return to the ER for any new or worsening concerns. Prescriptions: Sulfamethox-Tmp 800-160Mg [Bactrim Ds] 1 each PO Q12HR #20 tab Dicyclomine [Bentyl] 20 mg PO TID #30 tablet metroNIDAZOLE [Flagyl] 500 mg PO TID #30 tab Ondansetron Odt [Zofran Odt] 4 mg PO Q8HR PRN #10 tab PRN Reason: Nausea Is patient prescribed a controlled substance at d/c from ED?: No When asked, does pt state using other controlled substances?: No If prescribed controlled substance>3 days was MAPS reviewed?: No If opioid is for acute pain is fill amount 7 days or less?: No If Rx opioid, was Start Talking consent form obtained?: No Referrals: Konrad Perez MD [Primary Care Provider] - 1-2 days Dorothy Hwang MD [STAFF PHYSICIAN] - 1-2 days Ralph Marshall MD [Medical Doctor] - 1-2 days Time of Disposition: 02:40
[2025-04-25] MEDS: HYDROmorphone 1 MG/ML 1 ML SYRINGE IVP STA (23:03)
[2025-04-25 23:09] LABS: Basophils # (A) 0.08 10*3/uL (0.00-0.10); Basophils % (A) 1.0 %; Eosinophils # (A) 0.20 10*3/uL (0.04-0.35); Eosinophils % (A) 2.4 %; HCT 43.2 % (37.2-46.3); HGB 14.2 g/dL (12.0-15.0); Lymphocytes # (A) 1.67 10*3/uL (0.90-5.00); Lymphocytes % (A) 20.3 %; MCH 29.2 pg (27.0-32.0); MCHC 32.9 g/dL (32.0-37.0); MCV 88.9 fL (80.0-97.0); Monocytes # (A) 0.49 10*3/uL (0.20-1.00); Monocytes % (A) 6.0 %; Neutrophils # (A) 5.76 10*3/uL (1.80-7.70); Neutrophils % (A) 69.9 %; Platelet Count 242 10*3/uL (140-440); RBC 4.86 10*6/uL (4.10-5.20); RDW 13.1 % (11.5-14.5); WBC 8.23 10*3/uL (4.50-10.00)
[2025-04-25] MEDS: SODIUM CHLORIDE 0.9% 1,000 ML IV ONE (23:09)
[2025-04-25] MEDS: ONDANSETRON 4 MG/2 ML VIAL IVP STA (23:09)
[2025-04-25] MEDS: MORPHINE SULFATE 4 MG/ML SYRINGE IVP STA (23:14)
[2025-04-25 23:17] LABS: Bacteria,Urine Rare /hpf; Bilirubin,Urine Negative (Negative); Blood,Urine Small (Negative); Color,Urine Light Yellow; Glucose,Urine (UA) Negative (Negative); Ketones,Urine Negative (Negative); Leukocyte Esterase,Urine Negative (Negative); Mucus,Urine Rare /hpf; Nitrite,Urine Negative (Negative); PH, Urine 6.5 (5.0-8.0); Protein,Urine Negative (Negative); RBC,Urine 2 /hpf (0-5); Specific Gravity,Urine 1.012 (1.001-1.035); Squamous Epithelial Cell,Urine <1 /hpf (0-4); Urobilinogen,Urine <2.0 mg/dL (<2.0); WBC,Urine <1 /hpf (0-5)
[2025-04-25 23:23] LABS: ALT 20 U/L (4-34); AST 23 U/L (14-36); African American GFR (CKD) >90 (>60 ml/min/1.73 sqM); Albumin 4.5 g/dL (3.5-5.0); Alkaline Phosphatase 97 U/L (38-126); Amylase 47 U/L (30-110); Anion Gap 7 mmol/L; Blood Urea Nitrogen 15 mg/dL (7-17); Calcium 9.9 mg/dL (8.4-10.2); Carbon Dioxide 31 mmol/L (22-30); Chloride 101 mmol/L (98-107); Glucose 92 mg/dL (74-99); Lipase 91 U/L (23-300); Non-African American GFR(CKD) >90 (>60 ml/min/1.73 sqM); Potassium 3.9 mmol/L (3.5-5.1); Sodium 139 mmol/L (137-145); Total Protein 7.1 g/dL (6.3-8.2)
[2025-04-25 23:28] LABS: INR 1.0 (<1.2); Partial Thromboplastin Time 22.0 sec (22.0-30.0); Prothrombin Time 11.2 sec (10.0-12.5)
--- NOTE | 2025-04-26 02:08 | CT ---
EXAM: CT Abdomen and Pelvis With Intravenous Contrast CLINICAL HISTORY: ITS.REASON CT Reason: lower abd pain/hx diverticulitis TECHNIQUE: Axial computed tomography images of the abdomen and pelvis with intravenous contrast. CTDI is 48 mGy and DLP is 1987.5 mGy-cm. This CT exam was performed using one or more of the following dose reduction techniques: automated exposure control, adjustment of the mA and/or kV according to patient size, and/or use of iterative reconstruction technique. COMPARISON: No relevant prior studies available. FINDINGS: Lung bases: Unremarkable. No mass. No consolidation. ABDOMEN: Liver: Unremarkable. No mass. Gallbladder and bile ducts: Unremarkable. No calcified stones. No ductal dilation. Pancreas: Unremarkable. No mass. No ductal dilation. Spleen: Unremarkable. No splenomegaly. Adrenals: Unremarkable. No mass. Kidneys and ureters: Unremarkable. No solid mass. No hydronephrosis. Stomach and bowel: Wall thickening of the sigmoid colon, concerning for underlying mass. This area measures a proximally 4.4 cm and is 2 cm in thickness. Colon cancer not excluded. Recommend surgical evaluation. Mild pericolonic fat stranding, concerning for mild sigmoid colitis. Diverticulosis. No small bowel obstruction. No free air. PELVIS: Appendix: No findings to suggest acute appendicitis. Bladder: Unremarkable. No mass. Reproductive: Right ovarian cyst measures 6.6 x 5.2 cm. Hysterectomy. ABDOMEN and PELVIS: Intraperitoneal space: See above. Bones/joints: No acute fracture. No dislocation. Soft tissues: Unremarkable. Vasculature: Unremarkable. No abdominal aortic aneurysm. Lymph nodes: Unremarkable. No enlarged lymph nodes. IMPRESSION: Wall thickening of the sigmoid colon, concerning for underlying mass. This area measures a proximally 4.4 cm and is 2 cm in thickness. Colon cancer not excluded. Recommend surgical evaluation. Mild pericolonic fat stranding, concerning for mild sigmoid colitis. Right ovarian cyst measures 6.6 x 5.2 cm.
[2025-04-26] MEDS: ACET/COD 300 MG/30 MG STARTER PACK TAB BTL PO STA (02:48)
[2025-04-26 03:07] VITALS: BP 148/82; PULSE 76; RESP 18; TEMP 97.6
== END 2025-04-26 03:00 | disposition home or self-care (01) ==
LOC: EC 21:30
DX: K52.9 Noninfective gastroenteritis and colitis, unspecified (principal); N83.201 Unspecified ovarian cyst, right side; I10 Essential (primary) hypertension; K21.9 Gastro-esophageal reflux disease without esophagitis; Z88.0 Allergy status to penicillin; Z88.1 Allergy status to other antibiotic agents; Z88.5 Allergy status to narcotic agent; Z91.030 Bee allergy status; Z88.8 Allergy status to other drugs, medicaments and biological substances; Z87.891 Personal history of nicotine dependence
CPT/HCPCS: 36415; 80053; 82150; 83605; 83690; 85025; 85610; 85730; 81001; 74177; 99284; 96374; 96361; J2270; Q9967